=== PATIENT | female | born 1945 | race Caucasian/White ===

== ENCOUNTER 2018-06-15 | Emergency (ER) | payer MEDICARE, OTHER, SELFPAY ==
[2018-06-15 00:02] VITALS: BP 145/80; PULSE 62; RESP 18; TEMP 36.7; O2SAT 98; BMI 36.3
--- NOTE | 2018-06-15 00:29 | ED.DCSUM_ITS ---
- ER Visit Summary Date of Service: 06/15/18 Chief Complaint: Right foot redness History of Present Illness: The patient is a 72 F who had surgery on her Achilles tendon of her right foot on May 13. She was taken out of her cast this past week and into a walking boot, although she is still nonweightbearing for another 2 weeks. She was on Lovenox but took her last dose on June 10. She noted redness and warmth to the right posterior calf tonight and was concerned about a possible blood clot. Patient states her legs looks better on arrival to the hospital. She denies chest pain or shortness of breath. Physical Examination: Vital signs are unremarkable. Patient sitting upright in bed no acute distress. Head neck examination is unremarkable. Heart is regular rate and rhythm. Lung sounds are clear. Abdomen is soft nontender. Right lower extremity examination reveals a healing incision over the right posterior ankle. She has minimal fullness to the right posterior calf. There are no palpable cords. She has strong pulses. There is no skin erythema or excessive warmth. Test Results: [] Emergency Department Course and Treatment: Patient presented at nearly 12:30 AM on Friday morning. I advised her that we do not have anyone here at this hour to ultrasound her legs. She is given a dose of Lovenox tonight and will return on Friday for an ultrasound of her leg. Treatment Plan: [] Disposition: Discharge Impression: Right leg edema This note was generated with [employer] dictation software. It may contain incorrect words, spelling, and punctuation that were not noted in review of the chart prior to signing ED Disposition - Plan for ED Patient: Disposition: Home or Assisted Living Chief Complaint: Lower Extremity Injury Instructions: ED Leg Swelling Unilateral Additional Instructions: Return tomorrow for Ultrasound of leg as discussed.
[2018-06-15 00:36] VITALS: BP 146/70; PULSE 66; RESP 17; O2SAT 96
[2018-06-15] MEDS: Enoxaparin 100 MG/ML Syringe SC (00:36)
== END 2018-06-15 00:56 | disposition home or self-care (01) ==
LOC: ED 00:55
PROVIDERS: Emergency Provider Emergency Medicine
DX: R60.0 Localized edema (principal); E11.9 Type 2 diabetes mellitus without complications; I10 Essential (primary) hypertension; E78.00 Pure hypercholesterolemia, unspecified

== ENCOUNTER → 2018-06-15 14:00 | Outpatient (CLI) | payer MEDICARE, OTHER, SELFPAY ==
--- NOTE | 2018-06-15 14:10 | VDLE_ITS ---
Reason For Study: SWELLING RIGHT GSV is normal. CFV is compressible, spontaneous, phasic, competent and demonstrates normal augmentation. FV is compressible, spontaneous, phasic, competent and demonstrates normal augmentation. POP V is compressible, spontaneous, phasic, competent and demonstrates normal augmentation. T/P Trunk is compressible. Acute deep vein thrombosis is noted in the right posterior tibial vein. Acute deep vein thrombosis is noted in the right peroneal vein. Procedure Exam performed in department. A preliminary report was called and/or faxed to DR VELASQUEZ' OFFICE- [facility]. <> Interpretation Summary Acute deep vein thrombosis is noted in the right posterior tibial vein. Acute deep vein thrombosis is noted in the right peroneal vein. The remainder of the right lower extremity deep venous system is patent and compressible. Valvular competence appears intact within the proximal deep venous system on the right . The right greater saphenous vein appears patent and compressible segmentally. Ordering Physician: Maryellen Burleson Referring Physician: EVA LAURENT DPM Performed By: Yee Jean Baptiste, ARPAN, RVT
== END ==
PROVIDERS: Referring Provider Emergency Medicine; Visit Provider Emergency Medicine
DX: M79.89 Other specified soft tissue disorders (principal)
CPT/HCPCS: 93971; 99282

== ENCOUNTER → 2018-08-07 11:20 | Outpatient (CLI) | payer MEDICARE, OTHER, SELFPAY ==
[2018-08-07 12:41] LABS: Microalbumin,Random Urine 10.4 mg/L (NO RANGE EST.); Microalbumin:Creatinine Ratio 17.4 mg/g CRE (<30 mg/g CRE)
[2018-08-07 12:55] LABS: BUN 19 mg/dL (7-18); Creatinine, Serum 0.76 mg/dL (0.55-1.02); EST Glomerular Filtration Rate 80 mL/min (>60); Glucose 116 mg/dL (74-106); Hemoglobin A1c 6.7 % (4.2-6.3); Vitamin D,25 Hydroxy 31.4 ng/mL (29.95-100.01)
[2018-08-07 12:56] LABS: Alanine Aminotransfer ALT/SGPT 24 U/L (13-56); Anion Gap 9 (5-15); BUN/Creat Ratio 25.1 RATIO (10-20); Calcium,Total 9.5 mg/dL (8.5-10.1); Chloride 105 mmol/L (98-107); Cholesterol 196 mg/dL (200); Est Glom Filt Rate - Afr Amer 97 mL/min (>60); High Density Lipoprotein 45 mg/dL; Potassium 4.2 mmol/L (3.5-5.1); Sodium Level 141 mmol/L (136-145); Thyroid Stim Hormone (TSH) 3.44 uIU/mL (0.358-3.74); Triglycerides 136 mg/dL; Very Low Density Lipoprotein 27 mg/dL (5-40)
== END ==
DX: E11.9 Type 2 diabetes mellitus without complications (principal); E55.9 Vitamin D deficiency, unspecified
CPT/HCPCS: 36415; 80048; 80061; 82043; 82306; 82570; 83036; 84443; 84460

== ENCOUNTER 2018-11-11 09:30 | Outpatient (RCR) | payer MEDICARE, OTHER, SELFPAY ==
--- NOTE | 2018-09-28 13:04 | HP.PTEVAL_ITS ---
Patient's Visit Information BAILEE FIELDS is a 72 year old F referred to Physical Therapy by MEHRAN VELASQUEZ with a diagnosis of R ankle debridement achilles and spur/fasciotomy/haluucis longus tendon tra. Date of Evaluation: 09/28/18 Physical Therapist: Ambrocio Styles, DPT, OCS, CSCS - Visit Plan Frequency: 2x /Week Duration: 2 Months Plan: 2x/week for 4-8 weeks for. 1. Big toe, ankle ROM and APROM. 2. ankle and LE strength. 3. Gait training weaning out of boot clinic and home. STM for scar and swelling as needed. mobs to ankle and foot for ROM grade 4 - Subjective Findings: R foot hurt alot last year. Couldn't walk for fitness for any lenght of time. Had vein surgery R last year but it did not help. Went to foot and ankle and had PT. Found out achilles was 80% shredded. 05/13 had repair adn was doing well. Stitches out around Thanksgiving then needed wound care adn had it stitched up a couple times, got last couple stitches out last week. Been walking now for a couple weeks in boot. Is driving adn walking and has walker at home that she uses at times. In boot until not needed anymore, had hard boot but got bed sore, wearing soft boot now. R foot is swollen. Has no foot pain, but gets knee pain if walks too much (OA). If on feet 15 minutes it gets worse, walking around [employer] hurts. Better with walker. Pain is knee and up to 7/10 and gone with sitting. Has compression garments from vein doctor and hard to get on, tried to put them on foot a few days ago and front of foot hurt transiently. Sleep is not great but not due to ankle. achy all over at times keeps her up. Not employed. Has 30 grandchildren and is active with them. Serves at [employer]. Limited in these areas with being on feet. Hard to walk around at [employer]. On eloquist from blood clot adn will try to get off it tomorrow. [place]. Basic ADLs are I except shoes, needs husbands assist to put on. - Pain R knee Pain Intensity (Out of 10): 0 Pain Intensity Range: 0, 7 - Objective Antalgia with gait with boot on avoiding stance time on R foot, unable to heel raise or push off with R today, unable to heel walk due to weakness. Transfers I with UE. R foot metatarsal and toe mvoement limited especcially in big toe ex and flexion. Ankle AROM L WNL to 5 DF, R is -2 DF, 10 inv, 6 eversion and 45 PF, Passively is firm end feel to push past these, not a lot of pain. strength R ankle 4-/5 and L ankle 4+. incision feels good and not alot of unusual scar tissue. Mild swelling R ankle adn foot. R knee hurts medially at joint line with resisted ext adn flexion but 4/5 strength B. SLS is hard on R and very limited proprioception [place]. - Goals Goal 1:: 5 DF, 50 PF and 25 inv adn 15 ev R ankle to make ambulation and steps easier. Goal Time Frame: 4-6 Weeks Goal 2:: Walk without boot normal and steps normal in clinic Goal Time Frame: 4-6 Weeks Goal 3:: Walk one mile community without increased knee pain Goal Time Frame: 6-8 Weeks Goal 4:: Pt feel back to 90% activities Goal Time Frame: 6-8 Weeks - Rehabilitation Potential Physical Therapy Diagnosis: s/p R ankle surgery. Stiffness adn weakness adn diminished mobility. Rehabilitation Potential: Fair - Anticipated Interventions Patient/Client Instruction: Educate patient on: Condition, Plan of Care For the Purpose of:: To decrease pain, To increase ROM, To improve muscle performance and motor function, To improve ability of physical actions for home/community/work/leisure Therapeutic Exercise to Include: Strength training, Balance training, Flexibilty training, Gait and locomotor training, Passive ROM, Active ROM For the Purpose of:: To decrease pain, To increase ROM, To increase tolerance to activity/condition/position, To improve ability of physical actions for home/community/work/leisure Manual Therapy Techniques to Include: Scar massage, Mobilization, Soft tissue mobilization For the Purpose of:: To decrease pain, To increase ROM Cryotherapy (ice pack, ice massage): Yes Thermo therapy (hot pack): Yes For the Purpose of:: To decrease pain, To increase ROM Thank you for the opportunity to evaluate your patient. For Medicare and Medicare HMO plans, please review the plan of care and approve it. It will need to be FAXED BACK to us at [phone] for Medicare purposes. For Medicare only, by signing this I certify the plan of care. Please let me know if there are questions or concerns regarding this plan of care. Physician Signature: Date:
--- NOTE | 2018-11-11 09:55 | HP.PTDCSUM_ITS ---
HP - PT D/C Summary It has been my pleasure to treat BAILEE FIELDS under orders from MEHRAN VELASQUEZ, for the diagnosis of R ankle debridement achilles and spur/f asciotomy/haluucis longus tendon tra for a total of 10 visit(s). Discharge Date: 11/11/18 Please see the following information for a summary of their discharge status. - Subjective Subjective: Not alot of pain in ankle. Knee hurts sometimes btu not a lot worse than prior to this incident. Feels and told limping at times when she has been sitting a long time. HEP no problem but mostly doing SL heel raise and hold. Doing well, endurance is the only issue. To doctor next . - Pain R knee Pain Intensity (Out of 10): 1 - Overall Improvement % Improvement: 90 - Objective Objective/Function: 0 DF R, full PF adn inv/ev(20 INV ADN 15 EVERSION). Still slightly weak on gastroc heel raise but improving. Gait looks good today with pushoff and steps near normal descending. OVERALL DOING EXCELLENT AND WILL CONTINUE VIA HEP - Goals Goal 1:: 5 DF, 50 PF and 25 inv adn 15 ev R ankle to make ambulation and steps easier. Goal Progress: Progressing Goal 2:: Walk without boot normal and steps normal in clinic Goal Progress: Goal Met Goal 3:: Walk one mile community without increased knee pain Goal Progress: STILL SOME KNEE PAIN Goal 4:: Pt feel back to 90% activities Goal Progress: Goal Met - Plan Plan: D/C - D/C Information Discharge Comments: dOING WELL ADN WILL CONTINUE VIA HEP FOLLOWING UP WITH DOCTOR IN A WEEK If there are questions or concerns regarding this patient's physical therapy, please feel free to call me at [phone]. Thank you for the referral of this patient. Sincerely, Ambrocio Styles, DPT, OCS, CSCS
== END 2018-11-11 19:00 | disposition home or self-care (01) ==
LOC: PT 09:30
DX: Z98.890 Other specified postprocedural states (principal)
CPT/HCPCS: 97110; 97140; 97162; 97530

== ENCOUNTER → 2019-01-27 11:48 | Outpatient (CLI) | payer MEDICARE, OTHER, SELFPAY ==
[2019-01-27 14:23] LABS: Alanine Aminotransfer ALT/SGPT 18 U/L (13-56); Anion Gap 6 (5-15); BUN 15 mg/dL (7-18); Chloride 109 mmol/L (98-107); Cholesterol 125 mg/dL (200); Creatinine, Serum 0.79 mg/dL (0.55-1.02); EST Glomerular Filtration Rate 76 mL/min (>60); Est Glom Filt Rate - Afr Amer 92 mL/min (>60); Glucose 126 mg/dL (74-106); High Density Lipoprotein 42 mg/dL; Potassium 4.2 mmol/L (3.5-5.1); Sodium Level 139 mmol/L (136-145); Triglycerides 121 mg/dL; Very Low Density Lipoprotein 24 mg/dL (5-40)
[2019-01-27 14:30] LABS: Microalbumin,Random Urine 38.6 mg/L (NO RANGE EST.)
[2019-01-27 14:34] LABS: Hemoglobin A1c 6.6 % (4.2-6.3)
== END ==
DX: E11.9 Type 2 diabetes mellitus without complications (principal); E78.2 Mixed hyperlipidemia
CPT/HCPCS: 36415; 80048; 80061; 82043; 83036; 84460

== ENCOUNTER → 2019-08-06 12:03 | Outpatient (CLI) | payer MEDICARE, OTHER, SELFPAY ==
[2019-08-06 14:03] LABS: Hemoglobin A1c 7.1 % (4.2-6.3)
[2019-08-06 14:11] LABS: Microalbumin,Random Urine < 5.0 mg/L (NO RANGE EST.)
[2019-08-06 14:26] LABS: Alanine Aminotransfer ALT/SGPT 30 U/L (13-56); Anion Gap 4 (5-15); BUN 19 mg/dL (7-18); BUN/Creat Ratio 27.1 RATIO (10-20); Chloride 107 mmol/L (98-107); Cholesterol 134 mg/dL (200); EST Glomerular Filtration Rate 87 mL/min (>60); Est Glom Filt Rate - Afr Amer 105 mL/min (>60); Glucose 108 mg/dL (74-106); High Density Lipoprotein 45 mg/dL; Sodium Level 139 mmol/L (136-145); Thyroid Stim Hormone (TSH) 0.45 uIU/mL (0.358-3.74); Triglycerides 116 mg/dL; Very Low Density Lipoprotein 23 mg/dL (5-40)
== END ==
DX: E11.9 Type 2 diabetes mellitus without complications (principal); E78.2 Mixed hyperlipidemia; I10 Essential (primary) hypertension; E03.9 Hypothyroidism, unspecified
CPT/HCPCS: 36415; 80048; 80061; 82043; 82570; 83036; 84443; 84460

== ENCOUNTER → 2020-02-04 | Outpatient (CLI) | payer MEDICARE, OTHER, SELFPAY ==
[2020-02-04 13:24] LABS: Microalbumin,Random Urine < 5.0 mg/L (NO RANGE EST.)
[2020-02-04 13:37] LABS: Hemoglobin A1c 7.2 % (3.8-5.6)
[2020-02-04 13:39] LABS: AST(SGOT) 22 U/L (15-37); Alanine Aminotransfer ALT/SGPT 31 U/L (13-56); Albumin, Serum 3.4 g/dL (3.2-5.0); Alkaline Phosphatase 58 U/L (45-117); Anion Gap 4 (5-15); BUN 14 mg/dL (7-18); BUN/Creat Ratio 22.8 RATIO (10-20); Bilirubin, Direct 0.12 mg/dL (0.00-0.30); Calcium,Total 8.7 mg/dL (8.5-10.1); Chloride 111 mmol/L (98-107); Cholesterol 127 mg/dL (200); Creatinine, Serum 0.61 mg/dL (0.55-1.02); EST Glomerular Filtration Rate 101 mL/min (>60); Est Glom Filt Rate - Afr Amer 123 mL/min (>60); Globulin 3.1 g/dL (2.2-4.2); Glucose 123 mg/dL (74-106); High Density Lipoprotein 33 mg/dL; Potassium 3.8 mmol/L (3.5-5.1); Protein, Total 6.5 g/dL (6.4-8.2); Sodium Level 140 mmol/L (136-145); Thyroid Stim Hormone (TSH) 0.46 uIU/mL (0.358-3.74); Triglycerides 151 mg/dL; Very Low Density Lipoprotein 30 mg/dL (5-40)
== END | disposition home or self-care (01) ==
LOC: LAB 12:26
DX: I10 Essential (primary) hypertension (principal); E11.9 Type 2 diabetes mellitus without complications; E55.9 Vitamin D deficiency, unspecified; E78.2 Mixed hyperlipidemia; E03.9 Hypothyroidism, unspecified
CPT/HCPCS: 36415; 80048; 80061; 80076; 82043; 82306; 83036; 84443

== ENCOUNTER → 2020-04-24 | Outpatient (CLI) | payer MEDICARE, OTHER, SELFPAY ==
[2020-04-24 16:40] LABS: Anion Gap 6 (5-15); BUN 13 mg/dL (7-18); Calcium,Total 9.2 mg/dL (8.5-10.1); Chloride 108 mmol/L (98-107); Cholesterol 124 mg/dL (200); Creatinine, Serum 0.65 mg/dL (0.55-1.02); EST Glomerular Filtration Rate 95 mL/min (>60); Est Glom Filt Rate - Afr Amer 115 mL/min (>60); Free T3 2.3 pg/mL (2.18-3.98); Glucose 120 mg/dL (74-106); High Density Lipoprotein 41 mg/dL; Sodium Level 141 mmol/L (136-145); T4 Total, Thyroxin 9.3 ug/dL (4.8-13.9); Thyroid Stim Hormone (TSH) 0.23 uIU/mL (0.358-3.74); Triglycerides 138 mg/dL; Very Low Density Lipoprotein 28 mg/dL (5-40)
[2020-04-24 16:43] LABS: Hemoglobin A1c 6.7 % (3.8-5.6)
== END | disposition home or self-care (01) ==
LOC: MFPLAB 11:49
PROVIDERS: PCP Family Medicine; Referring Provider Family Medicine; Visit Provider Family Medicine
DX: E03.9 Hypothyroidism, unspecified (principal); E11.9 Type 2 diabetes mellitus without complications; I10 Essential (primary) hypertension
CPT/HCPCS: 36415; 80048; 80061; 83036; 84436; 84443; 84481

== ENCOUNTER → 2020-07-17 | Outpatient (CLI) | payer MEDICARE, OTHER, SELFPAY ==
[2020-07-17 15:47] LABS: Free T3 2.1 pg/mL (2.18-3.98); T4 Total, Thyroxin 10.9 ug/dL (4.8-13.9); Thyroid Stim Hormone (TSH) 0.29 uIU/mL (0.358-3.74)
== END | disposition home or self-care (01) ==
LOC: LABSPEC 14:14
PROVIDERS: PCP Family Medicine; Visit Provider Nurse Practitioner Family
DX: E03.9 Hypothyroidism, unspecified (principal); E11.9 Type 2 diabetes mellitus without complications
CPT/HCPCS: 83036; 84436; 84443; 84481

== ENCOUNTER 2020-07-18 14:00 | Outpatient (RCR) | payer MEDICARE, OTHER, SELFPAY ==
--- NOTE | 2020-07-07 12:06 | HP.OTEVAL ---
Patient's Visit Information BAILEE FIELDS is a 74 year old F, referred to Occupational Therapy by GABRIELA MARTINEZ, with a diagnosis of right UE lymphedema, Breast cancer. Date of Evaluation: 07/07/20 Occupational Therapist: Yuly Raines, OTR/L, CHT - Subjective This 74 year old female who was seen for OT eval with dx of Lymphedema- pt states in 2019 she underwent bilateral mastectomy. pt went throught 4 chemo and 15 radiation tx. pt is unsure when her right arm started swelling, but went to [facility] due to redness and sorness of right forearm- was advised there about the lymphedema. [employer] Gabriela Martinez confirmed dx and R/O DVT refered pt to OT for lymhedema mtg- - ROM ROM Comments: bilateral UE demo ROM WNL - Lymphedema (Circumferential Measure) MCP: right 21.5cm left 19.5cm Wrist: right 18cm left 17cm Lower forearm: right 24cm left 23cm Largest forearm: right 30.5cm left 27cm Elbow: right 30cm left 29cm Largest humerus: right 36cm 25.5cm Axcillary: right 40cm left 38cm - Sensation Sensation Comments: denies - Quick DASH-Disab of Arm,Shoulder& Hand Quick DASH Score: 27.2725 - Goals Demonstrate a 20% reduction in edema by d/c: Yes Demonstrate adequate knowledge of self-massage by 2nd week: Yes Demonstrate adequate knowledge skin care/prec by 2nd week: Yes Demonstrate adequate knowledge therapeutic exercises by d/c: Yes Select approp compression garment w/donning/care/wear by d/c: Yes Voice need to replace compression garment every 4-6mo by dc: Yes - Rehabilitation General Assessment: Pt is 8 months s/p from bilateral Mastectomy. pt demo with stage I right UE lymphedema and in need of skilled OT services 1x week for 3 weeks to ed. pt on lymphedema mtg. and use of compression garments. Today therapist discuseed treatment options pt declined using short stretch wrapping and would like to pursue getting compression garments for right arm and hand 20-30mmHg. Therapist faxed order for [employer] to review and return if she agreed with compression class. Today therapist also ed. pt on skin care, lymphedema ex, and lymohedema system. Therapist will review lymph ex and initiate ed on self manual lymph drainage. pt demo understanding and agrees to POC. Rehabilitation Potential: Good - Anticipated Interventions Education re Diagnosis, Manual Lymph Drainage, Education re Life-long lymphedema Management, Education re Skin Care and Precautions, Education re Self Massage Techniques, Education re Correct Donning Tech,Care&Wearing Sched Comp Garments, Home Program - Visit Plan Frequency: 1x/Week Duration: 3 Weeks TEXT: Thank you for the opportunity to evaluate your patient. For Medicare and Medicare HMO plans, please review the plan of care and approve it. It will need to be FAXED BACK to us at [phone] for Medicare purposes. Please let me know if there are questions or concerns regarding this plan of care. Physician Signature: Date:
--- NOTE | 2020-10-10 14:49 | HP.OTDCSUM ---
It has been my pleasure to treat BAILEE FIELDS under orders from ABDIRAHMAN MARTINEZ, for the diagnosis of right UE lymphedema, Breast cancer for a total of 2 visit(s). Please see the following information for a summary of their discharge status. % Improvement: 70 Objective/Function: MCP 18cm. wrist 17.5cm. lower forearm 22.5 cm. largest forearm 28.5cm. elbow 30cm. humerus 36. axillary 39 Patient Goals: Learn how to Manage Lymphedema, Other - apply compression garment Demonstrate a 20% reduction in edema by d/c: Yes Demonstrate adequate knowledge of self-massage by 2nd week: Yes Demonstrate adequate knowledge skin care/prec by 2nd week: Yes Demonstrate adequate knowledge therapeutic exercises by d/c: Yes Select approp compression garment w/donning/care/wear by d/c: Yes Voice need to replace compression garment every 4-6mo by dc: Yes Plan: pt to return to dr. if edema increases. pt demo understanding of HEP and need of compression deivices. pt d/c with HEP Discharge Comments: pt d/c with HEP to mt. Lymphedema. pt agree to POC If there are questions or concerns regarding this patient's occupational therapy, please fell free to call me at [phone]. Thank you for the referral of this patient. Sincerely, Yuly Raines OTR/L, CHT
== END 2020-07-18 19:00 | disposition home or self-care (01) ==
LOC: OT 14:00
PROVIDERS: PCP Family Medicine
DX: I89.0 Lymphedema, not elsewhere classified (principal)
CPT/HCPCS: 97166; 97530

== ENCOUNTER → 2020-10-16 | Outpatient (REF) | payer MEDICARE, OTHER, SELFPAY | END | disposition home or self-care (01) | LOC: LABSPEC 13:07 | PROVIDERS: PCP Family Medicine; Visit Provider Nurse Practitioner Family | DX: R35.0 Frequency of micturition (principal); R30.0 Dysuria | CPT/HCPCS: 87077; 87086; 87088; 87186 ==

== ENCOUNTER → 2020-12-18 | Outpatient (CLI) | payer MEDICARE, OTHER, SELFPAY ==
[2020-12-18 13:43] LABS: Hemoglobin A1c 7.1 % (3.8-5.6)
== END | disposition home or self-care (01) ==
LOC: LABSPEC 13:14
PROVIDERS: PCP Family Medicine; Referring Provider Nurse Practitioner Family; Visit Provider Nurse Practitioner Family
DX: E11.9 Type 2 diabetes mellitus without complications (principal)
CPT/HCPCS: 83036

== ENCOUNTER → 2021-03-19 13:20 | Outpatient (CLI) | payer MEDICARE, OTHER, SELFPAY ==
[2021-03-19 15:04] LABS: Absolute Neutrophil Count 3.4 X10^3/uL (2.0-7.7); Basophil# 0.03 X10^3/uL; Basophil% 0.6 % (0-1); Eosinophil# 0.12 X10^3/uL; Eosinophils% 2.4 % (0-5); Hematocrit 37.2 % (37-47); Hemoglobin 12.1 g/dL (12.0-15.0); Lymphocyte % 21.7 % (19-41); Mean Corp Hgb Conc 32.5 g/dL (32-36); Mean Corpuscular Hgb 27.6 pg (27.0-32.0); Mean Corpuscular Volume 84.9 fL (81-99); Mean Platelet Vol. 9.5 fl (6.2-12.0); Monocyte# 0.43 X10^3/uL; Monocyte% 8.5 % (0-10); NRBC Flagged by Analyzer 0 % (0-5); Neutrophil # 3.39 X10^3/uL (2.7-7.7); Neutrophil % 66.8 % (47-70); Platelet Count 233 K/mm3 (150-450); RBC Distribution Width CV 14.7 % (11.6-14.6); RBC Distribution Width SD 45.7 fl (35.1-43.9); Red Blood Count 4.38 M/mm3 (4.2-5.4); White Blood Count 5.1 K/mm3 (4.4-11.0)
[2021-03-19 15:28] LABS: Hemoglobin A1c 7.1 % (3.8-5.6)
[2021-03-19 15:45] LABS: Microalbumin,Random Urine < 5.0 mg/L (NO RANGE EST.)
[2021-03-19 15:52] LABS: ALB/GLOB Ratio 1.1 RATIO (0.9-2.4); AST(SGOT) 18 U/L (15-37); Alanine Aminotransfer ALT/SGPT 24 U/L (13-56); Albumin, Serum 3.7 g/dL (3.2-5.0); Alkaline Phosphatase 64 U/L (45-117); Anion Gap 8 (5-15); BUN 15 mg/dL (7-18); BUN/Creat Ratio 22.1 RATIO (10-20); Calcium,Total 8.8 mg/dL (8.5-10.1); Chloride 107 mmol/L (98-107); Creatinine, Serum 0.68 mg/dL (0.55-1.02); EST Glomerular Filtration Rate 90 mL/min (>60); Est Glom Filt Rate - Afr Amer 109 mL/min (>60); Free T3 2.2 pg/mL (2.18-3.98); Globulin 3.3 g/dL (2.2-4.2); Glucose 114 mg/dL (74-106); Potassium 4.1 mmol/L (3.5-5.1); Sodium Level 138 mmol/L (136-145); T4 Free Direct 1.15 ng/dL (0.76-1.46)
== END ==
PROVIDERS: PCP Family Medicine; Referring Provider Family Medicine; Visit Provider Family Medicine
DX: E03.9 Hypothyroidism, unspecified (principal); E11.69 Type 2 diabetes mellitus with other specified complication; T81.31XA Disruption of external operation (surgical) wound, not elsewhere classified, initial encounter; Z85.3 Personal history of malignant neoplasm of breast
CPT/HCPCS: 36415; 80053; 82043; 82570; 83036; 84439; 84443; 84481; 85025

== ENCOUNTER → 2021-07-17 08:24 | Outpatient (CLI) | payer MEDICARE, OTHER, SELFPAY ==
--- NOTE | 2021-07-17 08:27 | US_ITS ---
STUDY: ABDOMINAL ULTRASOUND - RIGHT UPPER QUADRANT REASON FOR VISIT: Female, 75 years old HX OF PANCREATIC Cyst TECHNIQUE: Ultrasound evaluation of the right upper quadrant was performed with real-time and static chacko-scale imaging. TECHNICAL QUALITY: Limited. Examination limited by bowel gas. COMPARISON: None. FINDINGS: Liver: The liver measures 17.1 cm. There is increased echogenicity consistent with fatty infiltration. The bile ducts are within normal limits. There is hepatic color flow. The direction of portal flow is hepatopetal. There is no demonstrated mass lesion. Gallbladder: Normal distended gallbladder. The gallbladder wall measures 2.1 mm. There is a negative sonographic Gr''s sign. There is no pericholecystic fluid. There are no gallstones. Common Bile Duct (C.B.D.): The common bile duct measures 2.7 mm. Pancreas: Normal size of the head, body and tail of the pancreas. There is normal echogenicity of the pancreas. I suspect a 9 mm x 6 mm x 5 mm cyst in the head of the pancreas. Right Kidney: Normal size of the right kidney. The right kidney measures 12.5 cm x 6.9 cm x 6.9 cm. Normal renal cortex. The right cortex measures 1.3 cm. There is no demonstrated renal mass or cyst. There is no right hydronephrosis. US/Abdomen Limited IMPRESSION: Fatty infiltration of the liver. 9 mm x 6 mm x 5 mm cyst in the head of the pancreas. Electronically Signed: Terrence Vega MD at 9:54 EST , Service support ,
== END ==
PROVIDERS: PCP Family Medicine; Referring Provider Family Medicine; Visit Provider Family Medicine
DX: K86.2 Cyst of pancreas (principal)
CPT/HCPCS: 76705

== ENCOUNTER 2021-09-26 10:30 | Outpatient (CLI) | payer MEDICARE, OTHER, SELFPAY ==
[2021-09-26 12:37] LABS: AST(SGOT) 16 U/L (15-37); Alanine Aminotransfer ALT/SGPT 18 U/L (13-56); Albumin, Serum 3.2 g/dL (3.2-5.0); Alkaline Phosphatase 49 U/L (45-117); Anion Gap 5 (5-15); BUN 18 mg/dL (7-18); BUN/Creat Ratio 28.3 RATIO (10-20); Calcium,Total 8.9 mg/dL (8.5-10.1); Chloride 111 mmol/L (98-107); Cholesterol 117 mg/dL (200); Creatinine, Serum 0.64 mg/dL (0.55-1.02); EST Glomerular Filtration Rate 97 mL/min (>60); Est Glom Filt Rate - Afr Amer 117 mL/min (>60); Globulin 3.2 g/dL (2.2-4.2); Glucose 150 mg/dL (74-106); Hemoglobin A1c 7.5 % (3.8-5.6); High Density Lipoprotein 44 mg/dL; Protein, Total 6.4 g/dL (6.4-8.2); Sodium Level 139 mmol/L (136-145); Triglycerides 123 mg/dL; Very Low Density Lipoprotein 25 mg/dL (5-40)
== END 2021-09-26 23:59 | disposition home or self-care (01) ==
LOC: MFPLAB 10:33
PROVIDERS: PCP Family Medicine; Referring Provider Family Medicine; Visit Provider Family Medicine
DX: E11.69 Type 2 diabetes mellitus with other specified complication (principal)
CPT/HCPCS: 36415; 80053; 80061; 83036

== ENCOUNTER → 2022-03-04 | Outpatient (CLI) | payer MEDICARE, OTHER, SELFPAY | END | disposition home or self-care (01) | LOC: LABSPEC 12:23 | PROVIDERS: PCP Family Medicine; Visit Provider Nurse Practitioner Family | DX: U07.1 COVID-19 (principal) | CPT/HCPCS: 87635; U0003; U0005 ==

== ENCOUNTER → 2022-03-14 | Outpatient (CLI) | payer MEDICARE, OTHER, SELFPAY ==
--- NOTE | 2022-03-14 09:06 | ECHOD_ITS ---
Reason For Study: CENTRAL SLEEP APNEA, DYSPNEA Procedure This was a 2D Doppler, Color Flow transthoracic echocardiogram. Exam performed in department. Left Ventricle Normal LV size. The estimated ejection fraction is 60-65 %. No evidence for diastolic dysfunction. No regional wall motion abnormalities noted. Right Ventricle Normal RV size. Normal systolic function. Atria Normal left atrium. Normal right atrium. No doppler evidence for ASD. Bubble contrast study negative for right to left interatrial shunt. Mitral Valve There is no mitral valve stenosis. Trivial mitral valve insufficiency. Tricuspid Valve There is no tricuspid stenosis. Unable to estimate RV systolic pressure due to inadequate jet, pulmonary artery pressure probably normal. Aortic Valve Trisinus/trileaflet aortic valve. There is no aortic stenosis. No aortic valve insufficiency. Pulmonic Valve There is no pulmonic valvular stenosis. No pulmonic valve insufficiency. Great Vessels Normal aortic root. Pericardium/Pleural No pericardial effusion. Medication 22 gauge I.V. with prn adaptor inserted into left arm. Performed a rapid injection of agitated mix of 9 cc saline and 1cc air to assess for atrial septal defect. MMode/2D Measurements & Calculations LVIDd: 4.8 cm IVSd: 1.0 cm Ao root diam: 3.4 cm LVIDs: 3.1 cm LVPWd: 1.1 cm RVDd: 2.8 cm FS: 35.6 % LAV(MOD-bp): 64.9 ml LA A4 area: 21.0 cm2 LA dimension(2D): 4.0 cm LAV(MOD-bp) Indexed: 31.8 ml/m2 LAV(MOD-sp2): 65.0 ml LAV(MOD-sp4): 63.5 ml RA A4 area: 18.3 cm2 Time Measurements MV dec time: 0.26 sec Doppler Measurements & Calculations MV E max quentin: 48.0 cm/sec Lat Peak E' Quentin: 8.0 cm/sec Med Peak E' Quentin: 7.4 cm/sec MV A max quentin: 74.2 cm/sec E/E' lat: 6.0 E/E' med: 6.5 MV E/A: 0.65 MV dec slope: 188.3 cm/sec2 Ao V2 max: 117.1 cm/sec LV V1 max: 97.6 cm/sec Ao max P.5 mmHg LV V1 max P.8 mmHg Ao V2 mean: 85.8 cm/sec LV V1 mean P.1 mmHg Ao mean P.3 mmHg LV V1 mean: 67.3 cm/sec Ao V2 VTI: 31.8 cm LV V1 VTI: 23.9 cm PA V2 max: 76.1 cm/sec TR max quentin: 238.8 cm/sec TR max P.8 mmHg ECHO/Echo Complete Interpretation Summary The estimated ejection fraction is 60-65 %. No evidence for diastolic dysfunction. Trivial mitral valve insufficiency. Ordering Physician: Edward Sommer Referring Physician: Ambrocio Cueto Performed By: My Stanley, ARPAN, RVT
== END | disposition home or self-care (01) ==
LOC: CVS 09:04
PROVIDERS: PCP Family Medicine; Visit Provider Internal Medicine Pulmonary Disease
DX: G47.31 Primary central sleep apnea (principal); R06.00 Dyspnea, unspecified
CPT/HCPCS: 93306; A4216

== ENCOUNTER → 2022-05-22 | Outpatient (CLI) | payer MEDICARE, OTHER, SELFPAY ==
[2022-05-22 10:05] LABS: Absolute Lymphocyte Count 1.32 X10^3/uL (0.83-4.51); Absolute Neutrophil Count 3.2 X10^3/uL (2.0-7.7); Basophil# 0.03 X10^3/uL; Basophil% 0.6 % (0-1); Eosinophil# 0.18 X10^3/uL; Eosinophils% 3.4 % (0-5); Hematocrit 38.3 % (37-47); Hemoglobin 12.9 g/dL (12.0-15.0); Lymphocyte # 1.32 X10^3/ul (0.83-4.51); Lymphocyte % 25.3 % (19-41); Mean Corp Hgb Conc 33.7 g/dL (32-36); Mean Corpuscular Volume 86.1 fL (81-99); Monocyte# 0.49 X10^3/uL; Monocyte% 9.4 % (0-10); NRBC Flagged by Analyzer 0 % (0-5); Neutrophil # 3.19 X10^3/uL (2.7-7.7); Neutrophil % 61.1 % (47-70); Platelet Count 249 K/mm3 (150-450); RBC Distribution Width CV 15.2 % (11.6-14.6); RBC Distribution Width SD 48.2 fl (35.1-43.9); Red Blood Count 4.45 M/mm3 (4.2-5.4); White Blood Count 5.2 K/mm3 (4.4-11.0)
[2022-05-22 10:52] LABS: ALB/GLOB Ratio 1.1 RATIO (0.9-2.4); AST(SGOT) 17 U/L (15-37); Alanine Aminotransfer ALT/SGPT 21 U/L (13-56); Albumin, Serum 3.5 g/dL (3.2-5.0); Alkaline Phosphatase 47 U/L (45-117); Anion Gap 8 (5-15); BUN 17 mg/dL (7-18); BUN/Creat Ratio 22.8 RATIO (10-20); Calcium,Total 9.2 mg/dL (8.5-10.1); Chloride 107 mmol/L (98-107); Creatinine, Serum 0.75 mg/dL (0.55-1.02); EST Glomerular Filtration Rate 80 mL/min (>60); Est Glom Filt Rate - Afr Amer 97 mL/min (>60); Globulin 3.2 g/dL (2.2-4.2); Glucose 130 mg/dL (74-106); Potassium 3.8 mmol/L (3.5-5.1); Protein, Total 6.7 g/dL (6.4-8.2); Sodium Level 138 mmol/L (136-145)
[2022-05-22 11:01] LABS: Hemoglobin A1c 6.8 % (3.8-5.6)
== END | disposition home or self-care (01) ==
LOC: MFPLAB 09:19
PROVIDERS: PCP Family Medicine; Referring Provider Family Medicine; Visit Provider Family Medicine
DX: E11.69 Type 2 diabetes mellitus with other specified complication (principal); J18.9 Pneumonia, unspecified organism
CPT/HCPCS: 36415; 80053; 83036; 85025

== ENCOUNTER → 2022-08-27 | Outpatient (CLI) | payer MEDICARE, OTHER, SELFPAY ==
--- NOTE | 2022-08-27 11:20 | RAD_ITS ---
STUDY: X-RAY CHEST REASON FOR EXAM: Female, 76 years old. Hx RLL pneumonia - persistent rales TECHNIQUE: PA and lateral COMPARISON: None. FINDINGS: The lungs are clear and expanded. There is no demonstrated pleural abnormality. Normal size heart. Normal mediastinum and victor hugo. Normal visualized pulmonary arteries. Mildly calcified aortic arch and descending thoracic aorta. Dorsal spine demonstrates dextroscoliosis. Normal visualized ribs, clavicles, and shoulders. There is no demonstrated abnormality of the visualized soft tissue structures of the upper abdomen. RAD/Chest PA and Lateral IMPRESSION: No acute cardiopulmonary pathology. Electronically Signed: Diego Cotto MD at 21:44 EST ,
== END | disposition home or self-care (01) ==
LOC: MTRAD 11:18
PROVIDERS: PCP Family Medicine; Referring Provider Family Medicine; Visit Provider Family Medicine
DX: J18.9 Pneumonia, unspecified organism (principal)
CPT/HCPCS: 71046

== ENCOUNTER → 2023-02-17 | Outpatient (CLI) | payer MEDICARE, OTHER, SELFPAY ==
[2023-02-17 17:29] LABS: Absolute Lymphocyte Count 1.45 X10^3/uL (0.83-4.51); Absolute Neutrophil Count 4.4 X10^3/uL (2.0-7.7); Basophil# 0.04 X10^3/uL; Basophil% 0.6 % (0-1); Eosinophil# 0.17 X10^3/uL; Eosinophils% 2.6 % (0-5); Hematocrit 39.8 % (37-47); Hemoglobin 13.1 g/dL (12.0-15.0); Lymphocyte # 1.45 X10^3/ul (0.83-4.51); Lymphocyte % 21.8 % (19-41); Mean Corp Hgb Conc 32.9 g/dL (32-36); Mean Corpuscular Hgb 28.7 pg (27.0-32.0); Mean Corpuscular Volume 87.1 fL (81-99); Mean Platelet Vol. 9.9 fl (6.2-12.0); Monocyte# 0.56 X10^3/uL; Monocyte% 8.4 % (0-10); NRBC Flagged by Analyzer 0 % (0-5); Neutrophil # 4.42 X10^3/uL (2.7-7.7); Neutrophil % 66.4 % (47-70); Platelet Count 247 K/mm3 (150-450); RBC Distribution Width CV 14.6 % (11.6-14.6); RBC Distribution Width SD 46.5 fl (35.1-43.9); Red Blood Count 4.57 M/mm3 (4.2-5.4); White Blood Count 6.7 K/mm3 (4.4-11.0)
[2023-02-17 17:48] LABS: ALB/GLOB Ratio 1.1 RATIO (0.9-2.4); AST(SGOT) 18 U/L (15-37); Alanine Aminotransfer ALT/SGPT 22 U/L (13-56); Albumin, Serum 3.6 g/dL (3.2-5.0); Alkaline Phosphatase 55 U/L (45-117); Anion Gap 7 (5-15); BUN 19 mg/dL (7-18); Calcium,Total 9.9 mg/dL (8.5-10.1); Chloride 108 mmol/L (98-107); Creatinine, Serum 0.76 mg/dL (0.55-1.02); EST Glomerular Filtration Rate 79 mL/min (>60); Est Glom Filt Rate - Afr Amer 95 mL/min (>60); Globulin 3.4 g/dL (2.2-4.2); Glucose 126 mg/dL (74-106); Potassium 3.9 mmol/L (3.5-5.1); Sodium Level 139 mmol/L (136-145)
[2023-02-17 18:06] LABS: Microalbumin,Random Urine 11.1 mg/L (NO RANGE EST.); Microalbumin:Creatinine Ratio 9.5 mg/g CRE (<30 mg/g CRE)
== END | disposition home or self-care (01) ==
LOC: MTLAB 15:17
PROVIDERS: PCP Family Medicine; Referring Provider Family Medicine; Visit Provider Family Medicine
DX: E11.69 Type 2 diabetes mellitus with other specified complication (principal)
CPT/HCPCS: 36415; 80053; 82043; 82570; 85025

== ENCOUNTER → 2023-08-28 | Outpatient (CLI) | payer MEDICARE, OTHER, SELFPAY ==
--- OUTSIDE RECORDS SUMMARY | 2023-08-28 11:31 | XMS RPT_ITS | CCD ---
Author Name Unknown Address [id number] [place] [address] Organization [facility] Care Team Providers Care Hospital Clerk Name Role Phone Miguel Angel Bhat Unavailable Request, Self Unavailable Unavailable Request, Self Unavailable Unavailable Miguel Angel Bhat Unavailable Unavailable Miguel Angel Bhat Unavailable Unavailable WAGNER SHAH Unavailable Unavailable WAGNER SHAH M Unavailable Unavailable MIGUEL ANGEL BHAT Unavailable Unavailable NARESHONEARLYNTE M Unavailable Unavailable MIGUEL ANGEL BHAT Unavailable Unavailable CLAUDETTE SHUKLA Unavailable Unavailable MIGUEL ANGEL BHAT Unavailable Unavailable MIGUEL ANGEL BHAT Unavailable Unavailable HOME MIGUEL ANGEL G Unavailable Unavailable HOME MIGUEL ANGEL G Unavailable Unavailable HOME MIGUEL ANGEL G Unavailable Unavailable HOME MIGUEL ANGEL G Unavailable Unavailable Miguel Angel Bhat G Unavailable [phone] Miguel Angel Bhat Primary Care Provider U MEHRAN Castillo Attending UnavailMEHRAN Lopez Attending UnavailMEHRAN Lopez Attending UnavailNIDHI Bolton Admitting Unavailable NIDHI BRAUN Attending Unavailable Miguel Angel Bhat Primary Care Provider Miguel Angel Bhat Unavailable Cinthya Pizarro Unavailable Leni Elise Unavailable Unavailable Nidhi Braun Unavailable [phone] Alexandra Jean-Baptiste Unavailable Unavailable Ophelia Ybarra Unavailable Osiris Diane Unavailable Unavailable Jose Dunn Primary Care Provider Jordon Ballard Unavailable Halaharvi, Ophelia Tori Unavailable Miguel Angel Bhat Unavailable [phone] Miguel Angel Bhat MD Unavailable Kade ACOSTA, Nidhi Mario Unavailable [phone] Jerilyn RUDD, Alexandra Unavailable Unavailable Halaharvi DO, Ophelia Tori Unavailable Osiris Parry Unavailable Unava ilable Jose Dunn MD Primary Care Provider Miguel Angel Bhat MD Unavailable Kade ACOSTA, Nidhi Mario Unavailable Jerilyn RUDD, Alexandra Unavailable Unavailable Osiris Parry Unavailable Unava ilmakenzie Cueto MD, Eve Dudley Primary Care Provider Jerilyn RUDD, Alexandra Unavailable Unavailable Halaharvi DO, Ophelia Tori Unavailable Osiris Parry Unavailable Unava ilable CUETO, EVE AVIVA Primary Care Unavailable RAVEN REZA Attending Unavailable RAVEN REZA Admitting Unavailable CUETO, EVE AVIVA Primary Care Unavailable RAVEN REZA Attending Unavailable RAVEN REZA Admitting Unavailable CUETO, EVE AVIVA Primary Care Unavailable RAVEN REZA Attending Unavailable RAVEN REZA Admitting Unavailable CUETO, EVE AVIVA Primary Care Unavailable RAVEN REZA Attending Unavailable RAVEN REZA Admitting Unavailable HALAHARVI, OPHELIA TORI Admitting Unavailabl e HALAHARVI, OPHELIA TORI Referring Unavailabl e CUETO, EVE AVIVA Primary Care Unavailable RAVEN REZA Attending Unavailable LUIS MARQUEZ Attending Unavailable ROM, EVE AVIVA Primary Care Unavailable LUIS MARQUEZ Admitting Unavailable RAVEN REZA Attending Unavailable RAVEN REZA Admitting Unavailable CUETO, EVE AVIVA Primary Care Unavailable RAVEN REZA Attending Unavailable RAVEN REZA Admitting Unavailable CUETO, EVE AVIVA Primary Care Unavailable JIMMY, LUIS Admitting Unavailable CUETO, EVE AVIVA Primary Care Unavailable JIMMY, LUIS Attending Unavailable CUETO, EVE AVIVA Primary Care Unavailable JIMMY, LUIS Admitting Unavailable JIMMY, LUIS Attending Unavailable LUIS MARQUEZ Referring Unavailable CUETO, EVE AVIVA Primary Care Unavailable JAYRO DURÁN Attending Unavailable LEANN SAAB Admitting Unava ilable LUIS MARQUEZ Consulting Unavailable CUETO, EVE AVIVA Primary Care Unavailable WARREN MCCULLOUGH Attending Unavailab WARREN Suarez Admitting Unavailab le JEAN-PAUL, AVIVA E Referring Unavailable JEAN-PAUL, AVIVA E Attending Unavailable MIGUEL ANGEL BHAT Primary Care Unavailable NINA ANSARI Admitting Unavailab le CUETO, EVE AVIVA Primary Care Unavailable JIMMY MORENO, LUIS Attending Unavaila ble CUETO, EVE AVIVA Primary Care Unavailable JIMMY MORENO, LUIS Attending Unavaila ble CUETO, EVE AVIVA Primary Care Unavailable CUETO, EVE AVIVA Primary Care Unavailable LYDIA CASTILLO Attending Unavail able LYDIA CASTILLO Attending Unavail able CUETO, EVE AVIVA Primary Care Unavailable Rom ACOSTA, Eve Aviva Primary Care Provider CUETO, EVE AVIVA Primary Care Unavailable DORIS GOOD Attending DORIS Chavez Referring Unavai lable CUETO, EVE AVIVA Primary Care Unavailable NINA ANSARI Attending Unavailab NINA Corea Referring Unavailab le CUETO, EVE AVIVA Primary Care Unavailable NINA ANSARI Attending Unavailab NINA Corea Referring Unavailab le CUETO, EVE AVIVA Primary Care Unavailable DORIS GOOD Attending DORIS Chavez Referring Drew weiss Allergies Allergy Classification Reported Allergen(s) Allergy Type Date of Onset Reaction(s) Facility Chlorhexidine (10 sources) Chlorhexidine Drug Allergy 9 Itching [facility] Povidone-Iodine (10 sources) Povidone-Iodine Drug Allergy 9 Itching [facility] Sulfamethoxazole / Trimethoprim (10 sources) Sulfamethoxazole / Trimethoprim Drug Allergy 0 Itching [facility] (20 sources) Povidone-Iodine; Translations: [POVIDONE-IODINE] Drug Allergy 9 Itching [facility] (20 sources) Chlorhexidine; Translations: [CHLORHEXIDINE TOWELETTE] Drug Allergy 9 Itching [facility] (20 sources) Sulfamethoxazole / Trimethoprim; Translations: [SULFAMETHOXAZOLE-TRI METHOPRIM] Drug Allergy 0 Itching [facility] Medications Current Medications Medication Drug Class(es) Dates Sig (Normalized) Sig (Original) acetaminophen 325 mg / HYDROcodone bitartrate 5 mg oral tablet (4 sources) Opioid Agonist Start: 11-07-2020 End: 11-17-2020 take 1 tablet by mouth every six hours as needed for pain HYDROcodone-aceta minophen (NORCO) 5-325 mg per tablet Indications: Malignant 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, estrogen receptor positive (HCC) Take 1 (one) tablet by mouth every 6 (six) hours as needed for pain . 40 tablet 0 11/07/2020 11/17/2020 Active Completed/Discontinued Medications Medication Drug Class(es) Dates Sig (Normalized) Sig (Original) acetaminophen 325 mg oral tablet (3 sources) Start: 04-26-2021 End: 04-26-2021 take 975 mg by mouth once 975 mg, Oral, Once, On Mary 04/26/21 at 1030, For 1 dose, Pre-Procedure Problems Active Problems Problem Classification Problem Date Documented Date Episodic/Chronic Administrative/social admission (1 source) Stress; Translations: [Stress] Chronic Anxiety disorders (1 source) Anxiety; Translations: [Anxiety] Chronic Cancer of breast (20 sources) Malignant tumor of breast ; Translations: [Malignant neoplasm of female breast] Onset: 09-15-2019 Resolved: 02-17-2020 09-28-2019 Chronic Chronic ulcer of skin (1 source) Ulcer of heel; Translations: [Skin ulcer of right heel with fat layer exposed (HCC)] Chronic Diabetes mellitus with complications (2 sources) Type 2 diabetes mellitus with foot ulcer; Translations: [Type 2 diabetes mellitus in obese] Chronic Diabetes mellitus without complication (2 sources) Type 2 diabetes mellitus without complication; Translations: [Type 2 diabetes mellitus without complication, without long-term current use of insulin] Onset: 06-21-2017 06-21-2017 Chronic Disorders of lipid metabolism (3 sources) Mixed hyperlipidemia; Translations: [Hyperlipidemia] Onset: 06-21-2017 06-21-2017 Chronic Esophageal disorders (2 sources) Gastro-esophageal reflux disease without esophagitis; Translations: [Gastroesophageal reflux disease without esophagitis] Onset: 01-29-2018 01-29-2018 Chronic Essential hypertension (3 sources) Essential hypertension; Translations: [Essential hypertension] Onset: 06-21-2017 06-21-2017 Chronic Mood disorders (1 source) Depressive disorder; Translations: [Depression, unspecified depression type] Chronic Nonmalignant breast conditions (3 sources) Breast lump; Translations: [Lump or mass in breast] Episodic Nonmalignant breast conditions (2 sources) Mastodynia of right breast; Translations: [Breast pain, right] Nonspecific chest pain (2 sources) Other chest pain; Translations: [Other chest pain] Onset: 01-30-2023 Episodic Nutritional deficiencies (1 source) Vitamin D deficiency; Translations: [Vitamin D deficiency] Onset: 06-21-2017 06-21-2017 Chronic Other connective tissue disease (1 source) Swelling of limb; Translations: [Swelling, limb] Episodic Other diseases of veins and lymphatics (20 sources) Lymphedema; Translations: [Lymphedema, not elsewhere classified] Onset: 10-09-2017 10-09-2017 Chronic Other injuries and conditions due to external causes (1 source) Tendon injury Episodic Other lower respiratory disease (2 sources) Shortness of breath; Translations: [Shortness of breath] Onset: 01-30-2023 Episodic Other nervous system disorders (1 source) Postoperative pain ; Translations: [Post-operative pain] Episodic Other nutritional; endocrine; and metabolic disorders (1 source) Morbid (severe) obesity due to excess calories; Translations: [Severe obesity (BMI 35.0-39.9)] Onset: 04-16-2018 04-16-2018 Chronic Other nutritional; endocrine; and metabolic disorders (2 sources) Body mass index 30+ - obesity; Translations: [Body mass index 36.0-36.9, adult] Onset: 11-13-2015 07-02-2017 Chronic Other skin disorders (11 sources) Lipodermatosclerosis; 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] Onset: 10-09-2017 10-09-2017 Episodic Other skin disorders (1 source) Localized swelling, mass and lump, right upper limb; Translations: [Localized swelling of right upper extremity] Episodic Peripheral and visceral atherosclerosis (1 source) Peripheral vascular disease; Translations: [Peripheral vascular disease (HCC)] Chronic Residual codes; unclassified (2 sources) Obstructive sleep apnea syndrome; Translations: [KAYLIE (obstructive sleep apnea)] Onset: 02-20-2011 07-14-2017 Chronic Residual codes; unclassified (1 source) Pain; Translations: [Pain] Episodic Residual codes; unclassified (20 sources) Family history of breast cancer; Translations: [Family history of malignant neoplasm of breast] Onset: 10-23-2020 10-23-2020 Episodic Residual codes; unclassified (2 sources) History of bilateral mastectomy; Translations: [History of bilateral mastectomy] Episodic Residual codes; unclassified (2 sources) Asymptomatic menopausal state; Translations: [Asymptomatic menopausal state] Onset: 08-21-2023 Episodic Thyroid disorders (1 source) Hypothyroidism; Translations: [Hypothyroidism] Onset: 11-13-2015 07-02-2017 Chronic Unclassified (6 sources) Encounter for screening mammogram for malignant neoplasm of breast; Translations: [Abnormal findings on diagnostic imaging of other specified body structures] Onset: 09-26-2017 Episodic Unclassified (2 sources) DERMATOCHALASIS LEFT UPPER EYELID / H02.834(ICD-10) Onset: 08-07-2017 Unclassified (1 source) DERMATOCHALASIS RIGHT UPPER EYELID / H02.831(ICD-10) Onset: 08-07-2017 Unclassified (1 source) HOMONYMOUS IRMA FIELD DEFEC LT SIDE / H53.462(ICD-10) Onset: 08-07-2017 Unclassified (1 source) HOMONYMOUS IRMA FIELD DEFEC RT SIDE / H53.461(ICD-10) Onset: 08-07-2017 Unclassified (1 source) Abnormal findings on diagnostic imaging of other specified body structures / R93.8(ICD-10) Onset: 11-03-2017 Unclassified (7 sources) Patient encounter status; Translations: [Encounter for general adult medical examination with abnormal findings] Onset: 05-31-2016 07-02-2017 Unclassified (1 source) Preprocedural examination done; Translations: [Preop examination] Past or Other Problems Problem Classification Problem Date Documented Da te Episodic/Chronic Cancer of breast (1 source) History of malignant neoplasm of breast; Translations: [History of right breast cancer] Episodic Complications of surgical procedures or medical care (4 sources) Non-healing surgical wound; Translations: [Other complications of procedures, not elsewhere classified, initial encounter] Onset: 04-23-2021 Episodic Deficiency and other anemia (1 source) Anemia; Translations: [Anemia, unspecified type] Episodic Genitourinary symptoms and ill-defined conditions (20 sources) Endometrium thickened; Translations: [Abnormal urine] Onset: 06-21-2016 Resolved: 01-29-2018 11-27-2017 Episodic Immunizations and screening for infectious disease (1 source) Contact with and (suspected) exposure to viral hepatitis; Translations: [Contact with and (suspected) exposure to viral hepatitis (CODE)] Onset: 11-25-2016 07-02-2017 Episodic Menopausal disorders (20 sources) Postmenopausal bleeding; Translations: [Postmenopausal bleeding] Onset: 01-14-2019 Resolved: 01-15-2019 01-15-2019 Chronic Open wounds of extremities (2 sources) Unspecified open wound of left upper arm, sequela; Translations: [Unspecified open wound of left upper arm, sequela] Onset: 05-14-2021 Episodic Open wounds of head; neck; and trunk (20 sources) Disorder of breast; Translations: [Unspecified open wound of left breast, initial encounter] Onset: 12-21-2020 Episodic Other diseases of veins and lymphatics (20 sources) Compression of vein; 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] Onset: 10-09-2017 10-09-2017 Episodic Other injuries and conditions due to external causes (20 sources) Local infection of wound; Translations: [Other injury of unspecified body region, initial encounter] Onset: 12-21-2020 Episodic Other screening for suspected conditions (not mental disorders or infectious disease) (14 sources) Endometrium thickened; Translations: [Abnormal findings on diagnostic imaging of other specified body structures] Onset: 11-27-2017 Resolved: 11-27-2017 11-27-2017 Chronic Other skin disorders (20 sources) Anetoderma; Translations: [Other atrophic disorders of skin] Onset: 01-09-2018 01-09-2018 Episodic Other skin disorders (11 sources) Abnormal granulation tissue; Translations: [Granulomatous disorder of the skin and subcutaneous tissue, unspecified] Onset: 01-25-2021 Episodic Pancreatic disorders (not diabetes) (1 source) Cyst of pancreas; Translations: [Pancreatic cyst] Episodic Phlebitis; thrombophlebitis and thromboembolism (20 sources) Deep venous thrombosis of peroneal vein; Translations: [Acute embolism and thrombosis of right tibial vein] Onset: 08-06-2018 08-06-2018 Episodic Residual codes; unclassified (2 sources) Edema of right lower limb; Translations: [Localized edema] Onset: 10-09-2017 10-09-2017 Episodic Residual codes; unclassified (2 sources) Estrogen receptor positive status [ER+]; Translations: [Estrogen receptor positive status (ER+)] Onset: 10-12-2019 Episodic Unclassified (20 sources) Edema of lower extremity; Translations: [Localized edema] Onset: 10-09-2017 10-09-2017 Episodic Unclassified (1 source) DERMATOCHALASIS LEFT UPPER EYELID; Translations: [DERMATOCHALASIS LEFT UPPER EYELID] Onset: 08-01-2017 Unclassified (1 source) Right foot pain Unclassified (1 source) Calcaneal spur of right foot Unclassified (1 source) Tendonitis, Achilles, right Unclassified (1 source) Acute deep vein thrombosis (DVT) of tibial vein of right lower extremity Varicose veins of lower extremity (20 sources) Varicose veins of lower extremity; Translations: [Lipodermatosclerosis ] Onset: 09-17-2017 09-17-2017 Episodic Results Test Name Value Interpretation Reference Range Facil ity Vital Signs Date Time Vital Sign Value Performing Clinician Ragini lity 04-17-2022 11:010400 Body height 167.6 cm [place] [employer] CN P Work Phone: [facility] 04-17-2022 11:01-0400 Body mass index (BMI) [Ratio] 36.64 kg/m2 Lydia Kilbarger [employer] Work Phone: [facility] 04-17-2022 11:01-0400 Body weight 102.97 kg Lydia Castillo CN P Work Phone: [facility] 04-27-2021 09:52-0400 Respiratory rate 14 /min [facility] Work Phone: [facility] 04-27-2021 07:38-0400 Body temperature 97.9 [degF] [facility] Work Phone: [facility] 04-27-2021 07:38-0400 Diastolic blood pressure 72 mm[Hg] [facility] Work Phone: [facility] 04-27-2021 07:38-0400 Heart rate 59 /min [facility] Work Phone: [facility] 04-27-2021 07:38-0400 SaO2% (BldA) [Mass fraction] 96 % [facility] Work Phone: [facility] 04-27-2021 07:38-0400 Systolic blood pressure 126 mm[Hg] [facility] Work Phone: [facility] 04-24-2021 03:00-0400 Body height 167.6 cm [facility] Work Phone: [facility] 04-24-2021 03:00-0400 Body mass index (BMI) [Ratio] 35.35 kg/m2 [facility] Work Phone: [facility] 04-24-2021 03:00-0400 Body weight 99.34 kg [facility] Work Phone: [facility] 03-27-2021 09:56-0400 Body temperature 97.3 [degF] Raven Reza [employer] Work Phone: [facility] 03-27-2021 09:56-0400 Diastolic blood pressure 77 mm[Hg] Raven Reza [employer] Work Phone: [facility] 03-27-2021 09:56-0400 Heart rate 59 /min Raven Nguyenon [employer] Work Phone: [facility] 03-27-2021 09:56-0400 Respiratory rate 16 /min Raven Queengdon [employer] Work Phone: [facility] 03-27-2021 09:56-0400 SaO2% (BldA) [Mass fraction] 97 % Raven Nguyenon [employer] Work Phone: [facility] 03-27-2021 09:56-0400 Systolic blood pressure 123 mm[Hg] Raven Natalyligdon [employer] Work Phone: [facility] 03-14-2021 13:05-0400 Body temperature 98.4 [degF] Raven Ingramligdon [employer] Work Phone: [facility] 03-14-2021 13:05-0400 Diastolic blood pressure 77 mm[Hg] Raven Natalyligdon [employer] Work Phone: [facility] 03-14-2021 13:05-0400 Heart rate 75 /min Raven Queengdon [employer] Work Phone: [facility] 03-14-2021 13:05-0400 Respiratory rate 16 /min Raven Nguyenon [employer] Work Phone: [facility] 03-14-2021 13:05-0400 Systolic blood pressure 132 mm[Hg] Raven Bernicegdon [employer] Work Phone: [facility] 02-20-2021 10:36-0400 Body temperature 97.81 [degF] Raven Nguyenon [employer] Work Phone: [facility] 02-20-2021 10:36-0400 Diastolic blood pressure 78 mm[Hg] Raven Leligdon [employer] Work Phone: [facility] 02-20-2021 10:36-0400 Heart rate 57 /min Raven Leligdon [employer] Work Phone: [facility] 02-20-2021 10:36-0400 Respiratory rate 16 /min Raven Leligdon [employer] Work Phone: [facility] 02-20-2021 10:36-0400 Systolic blood pressure 141 mm[Hg] Raven Leligdon [employer] Work Phone: [facility] 01-25-2021 10:26-0400 Body temperature 97.2 [degF] Raven Leligdon [employer] Work Phone: [facility] 01-25-2021 10:26-0400 Diastolic blood pressure 76 mm[Hg] Raven Leligdon [employer] Work Phone: [facility] 01-25-2021 10:26-0400 Heart rate 64 /min Raven Leligdon [employer] Work Phone: [facility] 01-25-2021 10:26-0400 Respiratory rate 18 /min Raven Leligdon [employer] Work Phone: [facility] 01-25-2021 10:26-0400 Systolic blood pressure 140 mm[Hg] Raven Leligdon [employer] Work Phone: [facility] 01-11-2021 11:27-0400 Body temperature 97.59 [degF] Raven Leligdon [employer] Work Phone: [facility] 01-11-2021 11:27-0400 Diastolic blood pressure 75 mm[Hg] Raven Leligdon [employer] Work Phone: [facility] 01-11-2021 11:27-0400 Heart rate 54 /min Raven Leligdon [employer] Work Phone: [facility] 01-11-2021 11:27-0400 Respiratory rate 18 /min Raven Leligdon [employer] Work Phone: [facility] 01-11-2021 11:27-0400 Systolic blood pressure 155 mm[Hg] Raven Leligdon [employer] Work Phone: [facility] 12-28-2020 11:52-0400 Body temperature 98.71 [degF] Raven Leligdon [employer] Work Phone: [facility] 12-28-2020 11:52-0400 Diastolic blood pressure 80 mm[Hg] Raven Nguyenon [employer] Work Phone: [facility] 12-28-2020 11:52-0400 Heart rate 65 /min Raven Nguyenon [employer] Work Phone: [facility] 12-28-2020 11:52-0400 Respiratory rate 18 /min Raven Nguyenon [employer] Work Phone: [facility] 12-28-2020 11:52-0400 Systolic blood pressure 131 mm[Hg] Raven Nguyenon [employer] Work Phone: [facility] 12-20-2020 15:10-0400 Body height 167.6 cm Raven Nguyenon [employer] Work Phone: [facility] 12-20-2020 15:10-0400 Body mass index (BMI) [Ratio] 35.67 kg/m2 Raven Nguyenon [employer] Work Phone: [facility] 12-20-2020 15:10-0400 Body temperature 98.1 [degF] Raven Nguyenon [employer] Work Phone: [facility] 12-20-2020 15:10-0400 Body weight 100.25 kg Raven Nguyenon [employer] Work Phone: [facility] 12-20-2020 15:10-0400 Diastolic blood pressure 81 mm[Hg] Raven Nguyenon [employer] Work Phone: [facility] 12-20-2020 15:10-0400 Heart rate 63 /min Raven Nguyenon [employer] Work Phone: [facility] 12-20-2020 15:10-0400 Respiratory rate 18 /min Raven Ingramligdon [employer] Work Phone: [facility] 12-20-2020 15:10-0400 Systolic blood pressure 135 mm[Hg] Raven Leligdon [employer] Work Phone: [facility] 11-22-2020 15:07-0400 Body height 167.6 cm Opheliamilton Ybarra DO Work Phone: [facility] 11-22-2020 15:07-0400 Body mass index (BMI) [Ratio] 35.99 kg/m2 Ophelia Dayronarvi DO Work Phone: [facility] 11-22-2020 15:07-0400 Body weight 101.15 kg Ophelia Amada DO Work Phone: [facility] 11-07-2020 19:50-0400 Body Temperature 98.01 [degF] Ophelia Amada [facility] 11-07-2020 19:50-0400 BP Diastolic 59 mm[Hg] Ophelia Amada [facility] 11-07-2020 19:50-0400 BP Systolic 144 mm[Hg] Ophelia Amada [facility] 11-07-2020 19:50-0400 Pulse (Heart Rate) 59 /min Ophelia Amada [facility] 11-07-2020 19:50-0400 Pulse Oximetry 94 % Opheliamilton Ybarra [facility] 11-07-2020 19:50-0400 Respiratory Rate 16 /min Opheliamilton Ybarra [facility] 11-07-2020 12:40-0400 BMI (Body Mass Index) 36.15 kg/m2 Opheliamilton Ybarra [facility] 11-07-2020 12:40-0400 Body weight 101.6 kg Ophelia Amada [facility] 11-07-2020 12:40-0400 Height 167.6 cm Ophelia Amada [facility] 10-23-2020 14:05-0400 BMI (Body Mass Index) 35.99 kg/m2 Ophelia Amada [facility] 10-23-2020 14:05-0400 Body weight 101.15 kg Ophelia Amada [facility] 10-23-2020 14:05-0400 Height 167.6 cm Ophelia Amada [facility] 09-27-2020 10:17-0500 BMI (Body Mass Index) 36.07 kg/m2 Warren Mccullough [facility] 09-27-2020 10:17-0500 Body Temperature 97.81 [degF] Warren Mccullough [facility] 09-27-2020 10:17-0500 Body weight 101.38 kg Warren Mccullough [facility] 09-27-2020 10:17-0500 BP Diastolic 69 mm[Hg] Warren Mccullough [facility] 09-27-2020 10:17-0500 BP Systolic 156 mm[Hg] Warren Mccullough [facility] 09-27-2020 10:17-0500 Pulse (Heart Rate) 56 /min Warren Mccullough [facility] 09-27-2020 10:17-0500 Pulse Oximetry 98 % Warren Mccullough [facility] 05-16-2020 12:08-0400 BMI (Body Mass Index) 36.61 kg/m2 [facility] 05-16-2020 12:08-0400 Body Temperature 98.49 [degF] [facility] 05-16-2020 12:08-0400 Body weight 102.88 kg [facility] 05-16-2020 12:08-0400 BP Diastolic 79 mm[Hg] [facility] 05-16-2020 12:08-0400 BP Systolic 130 mm[Hg] [facility] 05-16-2020 12:08-0400 Height 167.6 cm [facility] 05-16-2020 12:08-0400 Pulse (Heart Rate) 62 /min [facility] 03-29-2020 10:39-0400 BMI (Body Mass Index) 37.09 kg/m2 [facility]-29-2020 10:39-0400 Body Temperature 98.29 [degF] Warren Mccullough [facility] 03-29-2020 10:39-0400 Body weight 104.24 kg Warren Mccullough [facility] 03-29-2020 10:39-0400 BP Diastolic 78 mm[Hg] Warren Mccullough [facility] 03-29-2020 10:39-0400 BP Systolic 142 mm[Hg] Warren Mccullough [facility] 03-29-2020 10:39-0400 Pulse (Heart Rate) 58 /min Warren Mccullough [facility] 03-29-2020 10:39-0400 Pulse Oximetry 97 % Warren Mccullough [facility] 03-20-2020 14:13-0400 BMI (Body Mass Index) 37.56 kg/m2 Warren Mccullough [facility] 03-20-2020 14:13-0400 Body Temperature 98.4 [degF] Warren Mccullough [facility] 03-20-2020 14:13-0400 Body weight 105.55 kg Warren Mccullough [facility] 03-20-2020 14:13-0400 BP Diastolic 79 mm[Hg] [facility]-20-2020 14:13-0400 BP Systolic 147 mm[Hg] [facility] 03-20-2020 14:13-0400 Pulse (Heart Rate) 54 /min Warren Mccullough [facility] 03-13-2020 10:28-0400 BMI (Body Mass Index) 37.17 kg/m2 [facility] 03-13-2020 10:28-0400 Body weight 104.46 kg [facility] 03-13-2020 10:28-0400 BP Diastolic 74 mm[Hg] [facility] 03-13-2020 10:28-0400 BP Systolic 124 mm[Hg] [facility] 03-13-2020 10:28-0400 Pulse (Heart Rate) 53 /min [facility] 03-13-2020 10:28-0400 Pulse Oximetry 98 % [facility] 03-06-2020 10:30-0400 BMI (Body Mass Index) 37.33 kg/m2 [facility] 03-06-2020 10:30-0400 Body Temperature 97.7 [degF] [facility] 03-06-2020 10:30-0400 Body weight 104.92 kg [facility] 03-06-2020 10:30-0400 BP Diastolic 73 mm[Hg] [facility] 03-06-2020 10:30-0400 BP Systolic 145 mm[Hg] [facility] 03-06-2020 10:30-0400 Pulse (Heart Rate) 52 /min [facility] 03-06-2020 10:30-0400 Pulse Oximetry 99 % [facility] 02-15-2020 10:28-0400 BMI (Body Mass Index) 36.8 kg/m2 Ophelia Padgettarvi [facility] 02-15-2020 10:28-0400 [facility] 02-15-2020 10:28-0400 Height 167.6 cm [facility] 09-29-2019 07:25-0500 Body Temperature 98.2 [degF] [facility] 09-29-2019 07:25-0500 BP Diastolic 69 mm[Hg] [facility] 09-29-2019 07:25-0500 BP Systolic 133 mm[Hg] [facility] 09-29-2019 07:25-0500 Pulse (Heart Rate) 59 /min [facility] 09-29-2019 07:25-0500 Pulse Oximetry 95 % [facility] 09-29-2019 07:25-0500 Respiratory Rate 14 /min [facility] 09-28-2019 10:55-0500 BMI (Body Mass Index) 36.86 kg/m2 [facility] 09-28-2019 10:55-0500 Body weight 103.6 kg [facility] 09-28-2019 10:55-0500 Height 167.6 cm [facility] 09-21-2019 13:39-0500 BMI (Body Mass Index) 36.29 kg/m2 [facility] 09-21-2019 13:39-0500 Body Temperature 98.4 [degF] [facility]ordon [facility] 09-21-2019 13:39-0500 Body weight 102 kg Jordon [facility] 09-21-2019 13:39-0500 BP Diastolic 76 mm[Hg] Jordon [facility] 09-21-2019 13:39-0500 BP Systolic 144 mm[Hg] Jordon [facility] 09-21-2019 13:39-0500 Height 167.6 cm Jordon [facility] 09-21-2019 13:39-0500 Pulse (Heart Rate) 60 /min Jordon [facility] 09-21-2019 13:39-0500 Pulse Oximetry 95 % Jordon [facility] 09-21-2019 13:39-0500 Respiratory Rate 14 /min Jordon [facility] 09-07-2019 13:49-0500 BMI (Body Mass Index) 37.93 kg/m2 Ophelia Ybarra [facility] 09-07-2019 13:49-0500 Body weight 106.59 kg Ophelia Ybarra [facility] 09-07-2019 13:49-0500 Height 167.6 cm Ophelia Ybarra [facility] 01-15-2019 12:05-0400 Respiratory Rate 14 /min Nidhi Braun [facility] 01-15-2019 11:57-0400 Body Temperature 99.1 [degF] [facility] 01-15-2019 11:57-0400 BP Diastolic 67 mm[Hg] [facility] 01-15-2019 11:57-0400 BP Systolic 137 mm[Hg] [facility] 01-15-2019 11:57-0400 Pulse (Heart Rate) 61 /min [facility] 01-15-2019 11:57-0400 Pulse Oximetry 90 % [facility] 01-14-2019 06:13-0400 BMI (Body Mass Index) 37.97 kg/m2 [facility] 01-14-2019 06:13-0400 Height 167.6 cm [facility] 01-14-2019 06:13-0400 Weight 106.7 kg [facility] 01-07-2019 13:43-0400 BP Diastolic 77 mm[Hg] [facility] 01-07-2019 13:43-0400 BP Systolic 144 mm[Hg] Harlanvimal Gutierrez [facility] 01-07-2019 13:43-0400 Pulse (Heart Rate) 57 /min [facility] 01-07-2019 13:34-0400 BMI (Body Mass Index) 37.15 kg/m2 [facility] 01-07-2019 13:34-0400 Body Temperature 98.1 [degF] Harlanvimal Gutierrez [facility] 01-07-2019 13:34-0400 Height 167.6 cm [facility] 01-07-2019 13:34-0400 Pulse Oximetry 97 % Harlanvimal Gutierrez [facility] 01-07-2019 13:34-0400 Weight 104.4 kg [facility] 09-29-2018 12:25-0500 BMI (Body Mass Index) 38.41 kg/m2 Cinthya Pizarro [facility] 09-29-2018 12:25-0500 BP Diastolic 78 mm[Hg] Cinthya Pizarro [facility] 09-29-2018 12:25-0500 BP Systolic 136 mm[Hg] Cinthya Pizarro [facility] 09-29-2018 12:25-0500 Height 167.6 cm [facility] 09-29-2018 12:25-0500 Pulse (Heart Rate) 55 /min [facility] 09-29-2018 12:25-0500 Weight 107.96 kg [facility] 08-06-2018 10:47-0500 BP Diastolic 85 mm[Hg] [facility] 08-06-2018 10:47-0500 BP Systolic 138 mm[Hg] [facility] 08-06-2018 10:47-0500 Pulse (Heart Rate) 60 /min [facility] 08-06-2018 10:46-0500 BMI (Body Mass Index) 37.93 kg/m2 [facility] 08-06-2018 10:46-0500 Height 167.6 cm [facility] 08-06-2018 10:46-0500 Weight 106.59 kg [facility] 07-31-2018 15:22-0500 Body Temperature 97.81 [degF] [facility] 07-31-2018 15:22-0500 BP Diastolic 83 mm[Hg] [facility] 07-31-2018 15:22-0500 BP Systolic 134 mm[Hg] [facility] 07-31-2018 15:22-0500 Pulse (Heart Rate) 56 /min [facility] 07-31-2018 15:22-0500 Respiratory Rate 16 /min Mehranradha Velasquez [facility] 01-09-2018 09:40-0400 Body Temperature 97.9 [degF] [facility] 01-09-2018 09:40-0400 BP Diastolic 75 mm[Hg] [facility] 01-09-2018 09:40-0400 BP Systolic 144 mm[Hg] [facility] 01-09-2018 09:40-0400 Pulse (Heart Rate) 53 /min Cinthya Pizarro [facility] 01-09-2018 09:40-0400 Respiratory Rate 16 /min Cinthya Pizarro [facility] 11-27-2017 09:15-0400 Body Temperature 96.91 [degF] Nidhi Braun [facility] 11-27-2017 09:15-0400 BP Diastolic 50 mm[Hg] Nidhi Braun [facility] 11-27-2017 09:15-0400 BP Systolic 139 mm[Hg] Nidhi Braun [facility] 11-27-2017 09:15-0400 Pulse (Heart Rate) 55 /min Nidhi Braun [facility] 11-27-2017 09:15-0400 Pulse Oximetry 97 % Nidhi Braun [facility] 11-27-2017 09:15-0400 Respiratory Rate 15 /min Nidhi Braun [facility] 11-27-2017 06:23-0400 BMI (Body Mass Index) 36.58 kg/m2 Nidhi Braun [facility] 11-27-2017 06:23-0400 Height 167.6 cm Nidhi Braun [facility] 11-27-2017 06:23-0400 Weight 102.8 kg Nidhi Braun [facility] 11-21-2017 09:10-0400 Body Temperature 98.01 [degF] Cinthya Pizarro [facility] 11-21-2017 09:10-0400 BP Diastolic 81 mm[Hg] Cinthya Pizarro [facility] 11-21-2017 09:10-0400 BP Systolic 142 mm[Hg] Cinthya Pizarro [facility] 11-21-2017 09:10-0400 Pulse (Heart Rate) 56 /min Cinthya Pizarro [facility] 11-21-2017 09:10-0400 Respiratory Rate 16 /min Cinthya Pizarro [facility] 11-20-2017 10:13-0400 BMI (Body Mass Index) 36.69 kg/m2 Altagracia Gallagher [facility] 11-20-2017 10:13-0400 Body Temperature 98.01 [degF] Altagracia Gallagher [facility] 11-20-2017 10:13-0400 BP Diastolic 78 mm[Hg] Altagracia Aileen [facility] 11-20-2017 10:13-0400 BP Systolic 162 mm[Hg] Altagracia Aileen [facility] 11-20-2017 10:13-0400 Height 167.6 cm Altagracia Gallagher [facility] 11-20-2017 10:13-0400 Pulse (Heart Rate) 58 /min Altagracia Gallagher [facility] 11-20-2017 10:13-0400 Pulse Oximetry 99 % Altagracia Gallagher [facility] 11-20-2017 10:13-0400 Weight 103.1 kg Altagracia Gallagher [facility] 11-17-2017 08:49-0400 Body Temperature 97.9 [degF] [facility] 11-17-2017 08:49-0400 BP Diastolic 58 mm[Hg] [facility] 11-17-2017 08:49-0400 BP Systolic 143 mm[Hg] [facility] 11-17-2017 08:49-0400 Pulse (Heart Rate) 58 /min [facility] 11-17-2017 08:49-0400 Respiratory Rate 16 /min [facility] 10-09-2017 10:36-0500 BP Diastolic 72 mm[Hg] [facility] 10-09-2017 10:36-0500 BP Systolic 138 mm[Hg] [facility] 10-09-2017 10:36-0500 Pulse (Heart Rate) 52 /min [facility] 10-09-2017 10:32-0500 BMI (Body Mass Index) 36.64 kg/m2 [facility] 10-09-2017 10:32-0500 Height 167.6 cm Cinthya [facility] 10-09-2017 10:32-0500 Weight 102.97 kg Cinthya [facility] 09-17-2017 16:08-0500 BMI (Body Mass Index) 36.15 kg/m2 [facility]: 09-17-2017 16:08-0500 BP Diastolic 70 mm[Hg] [facility] Work [facility]: 09-17-2017 16:08-0500 BP Systolic 147 mm[Hg] [facility] Work [facility]: 09-17-2017 16:08-0500 Height 167.6 cm [facility] Work Phone: 09-17-2017 16:08-0500 Pulse (Heart Rate) 58 /min Kalen Cardona [facility] Work Phone: 09-17-2017 16:08-0500 Weight 101.61 kg Kalen Cardona [facility] Work Phone: Encounters Encounter Date Encounter Type Care Provider Facility Start: 08-21-2023 End: 08-22-2023 ambulatory [facility] Start: 01-31-2023 End: 02-01-2023 ambulatory [facility] Start: 01-30-2023 End: 01-31-2023 ambulatory [facility] Start: 01-30-2023 End: 01-31-2023 [facility] Start: 04-18-2022 [facility] Start: 04-17-2022 End: 04-17-2022 ambulatory [facility] Start: 04-17-2022 End: 04-17-2022 Office outpatient visit 15 minutes Lydia Castillo [facility] Work Phone: [facility] Procedures Date Procedure Procedure Detail Performing Clinician Start: 04-17-2022 Follow-up visit Follow-up LYDIA CASTILLO Start: 04-27-[address] [facility] Work Phone: Start: 04-26-2021 Glucose measurement Generic [facility] Work Phone: Start: 04-26-2021 Glucose measurement [facility] Work Phone: Start: 04-26-2021 Glucose measurement [facility] Work Phone: Start: 04-26-2021 Glucose measurement Generic [facility] Work Phone: Start: 04-26-2021 End: 04-26-2021 INCISION AND DRAINAGE TRUNK Luis salazar MD Work Phone: Start: 04-26-2021 Glucose measurement [facility] Work Phone: Start: 04-26-2021 Glucose measurement [facility] Work Phone: Start: 04-25-2021 Glucose measurement [facility] Work Phone: Start: 04-25-2021 Glucose measurement Generic [facility] Work Phone: Start: 04-25-2021 Glucose measurement Generic [facility] Work Phone: Start: 04-25-2021 Electrocardiogram Provider Not In Syst em Start: 04-25-2021 End: 04-25-2021 Glucose measurement Generic [facility] Work Phone: Start: 04-24-2021 Glucose measurement Generic [facility] Work Phone: Start: 04-24-2021 Glucose measurement Generic [facility] Work Phone: Start: 04-24-2021 Glucose measurement Generic [facility] Work Phone: Start: 04-24-2021 Glucose measurement Generic [facility] Work Phone: Start: 04-24-2021 Glucose measurement Generic [facility] Work Phone: Start: 04-24-2021 Level iv surg pathology gross&microscopic exam Luis Marquez MD Work Phone: Start: 04-24-2021 End: 04-24-2021 INCISION AND DRAINAGE TRUNK Luis salazar MD Work Phone: Start: 04-24-2021 Glucose measurement Generic [facility] Work Phone: Start: 04-24-2021 Adult depression screening assessment Lydia Castillo CNP Work Phone: Start: 04-24-2021 Ecg routine ecg w/least 12 lds trcg only w/o i&r Leann Saab DO Work Phone: Start: 04-23-2021 Basic metabolic panel calcium total Leann Saab DO Work Phone: Start: 04-23-2021 Blood typing serologic abo Leann Mix lp Antoine DO Work Phone: Start: 04-23-[address] [facility] Work Phone: Start: 04-23-2021 SARS-CoV-2 (COVID-19) RdRp gene [Presence] in Respiratory specimen by ADRIANA with probe detection Luis Marquez MD Work Phone: Start: 03-19-2021 Microalbumin [Mass/volume] in Urine by Test strip Lydia Castillo CNP Work Phone: Start: 03-14-2021 Debridement subcutaneous tissue 20 sq cm/< Raven Reza CNP Work Phone: Start: 02-20-2021 Epistaxis control Raven Reza CNP Work Phone: Start: 01-25-2021 Debridement subcutaneous tissue 20 sq cm/< Raven Reza CNP Work Phone: Start: 01-11-2021 Debridement subcutaneous tissue 20 sq cm/< Raven Reza CNP Work Phone: Start: 12-28-2020 Debridement subcutaneous tissue 20 sq cm/< Raven Reza CNP Work Phone: Start: 12-20-2020 Cul bact xcpt urine blood/stool aerobic isol Raven Reza [employer] Work Phone: Start: 12-20-2020 Debridement subcutaneous tissue 20 sq cm/< Raven Reza CNP Work Phone: Start: 11-07-2020 Glucose [Mass/volume] in Blood Ophelia Tori Dayronumu Work Phone: Start: 11-07-2020 Glucose [Mass/volume] in Blood Ophelia Tori Halaharvi Work Phone: Start: 06-20-2020 Dup-scan xtr veins unilateral/limited study Nina Ansari Work Phone: Start: 03-22-2020 RADIATION THERAPY - UNVERIFIED DATA IMPORTED FROM ARIA Treatment Results Radiation Oncology Start: 02-18-2020 Ct guidance radiation therapy flds placement Warren Mccullough Work Phone: Start: 02-04-2020 Microalbumin [Mass/volume] in Urine by Test strip Patrick Cota Start: 09-28-2019 Glucose [Mass/volume] in Blood Ophelia Tori Dayronarvi Work Phone: Start: 09-28-2019 SCAN OTHER ORDERS Provider Not In Syst em Start: 09-28-2019 Injection of sentinel lymph node using ultrasound guidance Ophelia Tori Padgettarchantel Work Phone: Start: 09-28-2019 End: 09-28-2019 MASTECTOMY MODIFIED RADICAL BILATERAL WITH SENTINEL LYMPH NODE BIOPSY Ophelia Tori Dayronarvi Work Phone: Start: 09-28-2019 Glucose [Mass/volume] in Blood Ophelia Tori Dayronarvi Work Phone: Start: 09-28-2019 Mammography Opheliamilton Padgettarvi Start: 09-21-2019 Standard chest X-ray Ophelia Richardsonv i Work Phone: Start: 09-21-2019 12 lead ECG Oakes Machine Operator Generic Start: 09-21-2019 Complete blood count with white cell differential, automated Ophelia Tori Halaharvi Work Phone: Start: 09-21-2019 Complete blood count with white cell differential, manual Ophelia Tori Halaharvi Work Phone: Start: 09-21-2019 Comprehensive metabolic 2000 panel - Serum or Plasma Ophelia Tori Dayronarvi Work Phone: Start: 09-07-2019 MM FOLLOW UP POST CLIP PLACEMENT Ophelia Tori Dayronarvi Work Phone: Start: 09-07-2019 Ultrasonography guided biopsy of right breast Ophelia Ybarra Work Phone: Start: 09-07-2019 End: 09-07-2019 Mammography External Transcribed Start: 09-03-2019 Mammography Ophelia Ybarra Start: 08-25-2019 Ophthalmic examination and evaluation Ophelia Ybarra Start: 03-22-2019 Ct abdomen w/o & w/contrast material External Transcribed Start: 03-22-2019 Creatinine [Mass/volume] in Blood Miguel Angel Mckeonson Work Phone: Start: 01-15-2019 Glucose [Mass/volume] in Blood Nidhi Braun Work Phone: Start: 01-15-2019 Complete blood count (hemogram) panel - Blood by Automated count Merline Carver Work Phone: Start: 01-14-2019 Glucose [Mass/volume] in Blood Nidhi Braun Work Phone: Start: 01-14-2019 Glucose [Mass/volume] in Blood Nidhi Braun Work Phone: Start: 01-14-2019 End: 01-14-2019 HYSTERECTOMY VAGINAL Nidhi Braun Work Phone: Start: 01-14-2019 Blood group typing Nidhi Braun Work Phone: Start: 01-14-2019 Blood type and Indirect antibody screen panel - Blood Nidhi Braun Work Phone: Start: 01-14-2019 Glucose [Mass/volume] in Blood Nidhi Braun Work Phone: Start: 01-13-2019 SCAN OTHER ORDERS Provider Not In Syst em Start: 01-07-2019 12 lead ECG Nidhi Braun Work Phone: Start: 12-17-2018 Davina Cota Start: 08-06-2018 End: 08-06-2018 Garo Velasquez Work Phone: Start: 07-31-2018 End: 07-31-2018 Appl mltlayr frandy leg below knee w/ankle foot Mehran Velasquez Work Phone: Start: 07-23-2018 End: 07-23-2018 Dup-scan xtr veins unilateral/limited study Mehran Velasquez Work Phone: Start: 07-23-2018 End: 07-23-2018 Non-invas physiologic std extremity art 2 level Mehran Velasquez Work Phone: Start: 01-29-2018 Lipid 1996 panel - Serum or Plasma Miguel Angel Home Start: 11-27-2017 End: 11-27-2017 DILATION AND CURETTAGE WITH HYSTEROSCOPY Nidhi Nguyenfaisal Work Phone: Start: 09-26-2017 Mammography Miguel Angel Bhat Start: 07-07-2017 Microalbumin [Mass/volume] in Urine by Test strip Cinthya Pizarro Start: 09-21-2013 Colonoscopy Miguel Angel Bhat History of bilateral mastectomy History of bilateral mastectomy Lydia Castillo CNP Work Phone: Plan of Treatment Date Care Activity Detail Author Start: 04-21-2030 Tetanus vaccination Tetanus: Every 10yrs [facility] Start: 12-17-2028 Screening for malignant neoplasm of colon [facility] Start: 09-11-2022 End: 09-11-2022 ambulatory 09/11/2022 Radiation Oncology Radiation Oncology Warren Mccullough MD [address] [facility] [address] [place] [address] [facility] Start: 04-24-2022 Depression screening using PHQ-9 (Patient Health Questionnaire 9) score Depression Screening (PHQ-2/9) [facility] Start: 04-04-2022 Influenza vaccination Sequential Influenza Vaccine (#1) [facility] Start: 03-19-2022 Urine screening for protein Urine Microalbumin [facility] Start: 09-28-2021 COVID-19 Vaccine (4 - Booster for Moderna series) COVID-19 Vaccine (4 - Booster for Moderna series) [facility] Start: 06-19-2021 Hemoglobin A1c measurement A1C [facility] Start: 05-14-2021 End: 05-14-2021 Follow-up encounter 05/14/2021 Follow-Up Plastic Surgery Luis Marquez Jr., MD [address] [address] [facility] Start: 05-02-2021 End: 05-02-2021 Follow-up encounter 05/02/2021 Follow-Up Plastic Surgery Luis Marquez Jr., MD [address] [address] [facility] Start: 04-04-2021 Influenza vaccination [facility] Start: 04-02-2021 End: 04-02-2021 Patient encounter procedure 04/02/2021 Office Visit Wound Care Luis Marquez Jr., MD [address] [address] [facility] Start: 03-29-2021 End: 03-29-2021 Radiation Oncology 03/29/2021 Radiation Oncology Radiation Oncology Warren Mccullough MD [address] [place] [id number] [phone] [facility] Start: 03-27-2021 End: 03-27-2021 Patient encounter procedure 03/27/2021 Office Visit Wound Care [facility] Start: 03-20-2021 End: 03-20-2021 Patient encounter procedure 03/20/2021 Office Visit Wound Care [facility] Start: 02-20-2021 End: 02-20-2021 Patient encounter procedure 02/20/2021 Office Visit Wound Care [facility] Start: 02-03-2021 Albumin DL <= 20 mg/L (U) [Mass/Vol] Urine Microalbumin [facility] Start: 02-03-2021 Microalbumin measurement, urine, quantitative Urine Microalbumin [facility] Start: 01-25-2021 End: 01-25-2021 Patient encounter procedure 01/25/2021 Office Visit Wound Care [facility] Start: 01-11-2021 End: 01-11-2021 Patient encounter procedure 01/11/2021 Office Visit Wound Care [facility] Start: 12-28-2020 End: 12-28-2020 Patient encounter procedure 12/28/2020 Office Visit [facility] [facility] Start: 11-22-2020 End: 11-22-2020 Follow-Up 11/22/2020 Follow-Up Breast Surgery Ophelia Ybarra, DO [address] [address] [phone] [facility] Start: 11-08-2020 COVID-19 Vaccine (3 - Moderna risk 3-dose series) COVID-19 Vaccine (3 - Moderna risk 3-dose series) [facility] Start: 11-07-2020 End: 11-07-2020 Hospital Encounter [facility] Periop Immunizations Immunization Date Immunization Notes Care Provider Fa cility 09-13-2020 Moderna SARS-CoV-2 Vaccination [facility] 07-22-2020 zoster vaccine recombinant [facility] 05-15-2020 zoster vaccine recombinant [facility] 04-21-2020 influenza, seasonal, injectable Opheliamilton Padgettumu DO Work Phone: [facility] 04-21-2020 tetanus toxoid, reduced diphtheria toxoid, and acellular pertussis vaccine, adsorbed [facility] 08-12-2019 pneumococcal conjuga te vaccine, 13 valent [facility] 06-11-2019 influenza, high dose seasonal, preservative-free [facility] 04-16-2018 influenza virus vaccine, unspecified formulation [facility] 04-16-2018 influenza, high dose seasonal, preservative-free; Translations: [INFLUENZA VACCINE, HIGH-DOSE] Miguel Angel Bhat [facility] Work Phone: 04-16-2018 HEMOGLOBIN A1C Cinthya [facility] 05-31-2016 influenza, high dose seasonal, preservative-free Miguel Angel Bhat [facility] Work Phone: 05-31-2016 PPD (Mantoux Test) Miguel Angel Bhat [facility] Work Phone: 06-27-2015 influenza, high dose seasonal, preservative-free Miguel Angel [facility] Work Phone: 06-10-2006 influenza virus vaccine, whole virus Miguel Angel [facility] Work Phone: 02-26-2000 tetanus toxoid, adsorbed [facility] Work Phone: Payers Date Payer Category Payer Unknown [id number] 2017 Unknown [id number] 2017 Unknown AARP [employer] [id number] 2017-Present [phone] [address] [place] [address] [id number]. [id number] 2011 Medicare xxxxxxxxxxx [id number] 2011 Medicare [id number] 2011 Medicare [id number]. [id number] 2011 Medicare MEDICARE MEDICAR E PART A & B [id number] 2011-Present [phone] CGS [id number] PART A CLAIMS [address] [address] [place] [address] [id number]. [id number] 1959 Medicare [id number] 2.16.840.1.776067.3.249.13 1946 Unknown [id number] 2.16.840.1.543422.3.579.2.900 1946 Unknown [id number] 2.16.840.1.777182.3.579.2.900 1946 Unknown [id number] 2.16.840.1.651780.3.579.2.900 1946 Unknown [id number] 2.16.840.1.589508.3.579.2.900 1946 Unknown [id number] 2.16.840.1.598182.3.579.2.90 1946 Unknown [id number] 2.16.840.1.927971.3.579.2.90 1946 Unknown [id number] 2.16840.1.741424.3.579.290 1946 Unknown [id number] 2.16840.1.392508.3.579.2.902 1946 Unknown [id number] 2.16840.1.172558.3.579.290 1946 Unknown [id number] 2.16.840.1.633497.3.579.2.902 1946 Unknown [id number] 2.16840.1.143474.3.579.2.90 1946 Unknown [id number] 2.16840.1.335980.3.579.2.902 1946 Unknown [id number] 2.16.840.1.723062.3.579.2.90 1946 Unknown [id number] 2.16.840.1.349595.3.579.2.902 1946 Unknown [id number] 2.16840.1.234110.3.579.290 1946 Unknown [id number] 2.16.840.1.461407.3.579.2.900 1946 Unknown [id number] 2.16.840.1.015970.3.579.2.478 1946 Unknown [id number] 2.16.840.1.608919.3.579.2.900 1946 Unknown [id number] 2.16.840.1.920511.3.579.2.903 1946 Unknown [id number] 2.16.840.1.778372.3.579.2.903 1946 Unknown [id number] 2.16.840.1.446614.3.579.2.903 1946 Unknown [id number] 2.16.840.1.938119.3.579.2.903 1946 Unknown [id number] 2.16.840.1.768063.3.579.2.902 1946 Unknown [id number] 2.16.840.1.734862.3.579.2.902 1946 Unknown [id number] 2.16.840.1.036178.3.579.2.903 1946 Unknown [id number] 2.16.840.1.409532.3.579.2.903 Social History Date Type Detail Facility Start: 10-09-2017 End: 04-17-2022 Tobacco smoking status [facility] Never smoker [facility] Start: 1945 Sex Assigned At Not on file [facility] Work Phone: Start: 01-07-2019 End: 11-07-2020 History SDOH Alcohol Frequency 1 [facility] Start: 09-03-2019 End: 04-17-2022 Alcohol intake Lifetime non-drinker (finding) [facility] Start: 04-07-2022 End: 04-17-2022 Exposure to SARS-CoV-2 (event) Not sure [facility] Start: 02-15-2020 End: 04-17-2022 Tobacco use and exposure Never used [facility] Medical Equipment Procedure Code Equipment Code Equipment Origin al Text Equipment Identifier Dates Hemostat 8 X 12. 5cm X 10mm Surgifoam Gelatin Sponge - [id number] FDA Start: 01-14-2019 USE 1 PEN NEEDLE ONCE DAILY DIRECTED [id number] Start: 01-10-2022 Clinical Notes 11-22-2020 to 04-17-2022 Lydia Castillo, RADHA - 04/17/2022 1:02 PM Jairo Marquez Jr., MD - 05/02/2021 1:02 PM Rachana Vallecillo RN - 04/27/2021 11:30 AM EDTPatient Instructions Note Date & Type Note Facility 04-17-2022 History of Presen t illness Narrative TODAY'S DATE: 04/17/2022 PATIENT: Beulah Fields : 1945, 76 y.o. Chief Complaint/Reason for Visit: Chief Complaint Patient presents with Follow-up 1 yr. Malignant 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, estrogen receptor positive (HCC) ASSESSMENT/PLAN: 1. Malignant 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, estrogen receptor positive (HCC) 2. History of bilateral mastectomy 3. Family history of malignant neoplasm of breast Beulah Fields is a 76 y.o. female who presents for evaluation of for continued follow up examination and management of stage II right breast cancer diagnosed in 2019. She is status post bilateral mastectomy with right SLNB by Dr. Ybarra. She completed chemotherapy and right chest wall radiation. She underwent a revision of her left mastectomy in November of 2020 due to excess tissue in the chest wall. On clinical exam today, there are no signs of new or recurring disease. PLAN: Plan for repeat clinical exam in 1 year. No imaging needed at this time secondary to bilateral mastectomies. I reviewed components of self breast exam and encouraged her to have awareness and report any changes noticed to our office. All of the patient's questions were answered in the office today. She leaves in stable condition and in agreement with the above plan. She is aware that if she has any questions in the interim that I am available. Return in about 1 year (around 04/17/2023). HPI: Beulah Fields is a 76 y.o. female presents today for continued follow up examination and management of stage II right breast cancer diagnosed in 2019. She is status post bilateral mastectomy with right SLNB. She completed chemotherapy and right chest wall radiation. She underwent a revision of her left mastectomy in November of 2020 due to excess tissue in the chest wall. She denies lumps/masses, skin changes, nipple changes or discharge, new or worsening tenderness, and axillary lumps or masses. She denies common symptoms of metastatic disease including headaches, blurred vision, weight loss, cough, shortness of breath, abdominal pain, jaundice and bony pain. BRIEF ONCOLOGIC HISTORY: She presented with abnormal imaging of the right breast. Her diagnostic mammogram on 09/03/2019 which showed a suspicious appearing spiculated mass that measures about 2.5 cm at 12:00 of her right breast at 5 cm from the nipple. She had a right breast ultrasound on the same day which shows a hypoechoic 2.2 cm lesion at 12:00 of the right breast which has irregular margins. 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 She underwent bilateral mastectomy with right sentinel lymph node biopsy. Please see below for pathology results. PAST BREAST HEALTH HISTORY: 09/07/2019: Right breast mass at 9:00- 2.2 cm US guided bx Right Breast 9:00- Invasive Ductal carcinoma, G3, ER 100%, AK 85%, Her 2 julio (-) Stage II A ([id number]) 09/28/2019: Bilateral mastectomy with right sentinel lymph node biopsy Left breast upper outer quadrant-6 mm invasive ductal carcinoma, grade 1, margins are negative and no lymph nodes assessed. Estrogen receptor 100%, progesterone receptor 10%, HER-2/julio negative Right breast mastectomy with a sentinel lymph node biopsy Right breast at 9:00-2.9 cm invasive ductal carcinoma with focal mucinous and micropapillary features, grade 3, DCIS is present, margins are clear, 1 out of 4 lymph nodes positive for metastasis, 20 mm metastatic deposit is involved Estrogen receptor positive, progesterone receptor positive, HER-2/julio negative, Ki-67 is 62% 11/2020: Revision of left mastectomy incision secondary to excess tissue in left chest wall. Medical Oncology:Dr. Ansari Right breast Oncotype 15 DoceTaxol and cyclophosphamide Endocrine Therapy: Radiation Oncology:Dr. Mccullough Right chestwall XRT Genetics:12/2019 Negative PMH: Past Medical History: Diagnosis Date Abnormal mammogram Alopecia scalp; scarring type; Dr Aviva Woodward, [place] Anemia 1970s Anxiety and depression Arthritis Breast cancer, female (HCC) 09/15/2019 Breast mass Cataract Cellulitis 08/2017 RLE Claudication (HCC) Complication of anesthesia anxiety in PACU & postop Deep vein thrombosis (HCC) Diabetes mellitus, type 2 (HCC) Edema R leg GERD (gastroesophageal reflux disease) mild - meds as needed Hyperlipidemia Hypertension Hypothyroidism Ingrown toenail with infection 2020 Left Great toe Lipodermatosclerosis Lymphedema Lymphedema of right lower extremity Dr. 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 PSH: Past Surgical History: Procedure Laterality Date ACHILLES TENDON SURGERY BREAST BIOPSY BREAST CYST EXCISION 1975 BREAST MASS EXCISION Left 11/07/2020 Procedure: left mastectomy flap revision; Surgeon: Ophelia Ybarra DO; Location: [facility] Main OR; Service: General Surgery DILATION AND CURETTAGE OF UTERUS GANGLION CYST EXCISION HYSTERECTOMY (CERVIX REMAINS) HYSTERECTOMY (CERVIX REMOVED) HYSTERECTOMY VAGINAL N/A 01/14/2019 Procedure: TOTAL VAGINAL HYSTERECTOMY; Surgeon: Nidhi Braun MD; Location: [facility] Main OR; Service: OBGYN HYSTEROSCOPY W/ DILATATION AND CURETTAGE N/A 11/27/2017 Procedure: DILATION AND CURETTAGE WITH HYSTEROSCOPY; Surgeon: Nidhi Braun MD; Location: [facility] Main OR; Service: OBGYN INCISION AND DRAINAGE TRUNK Left 04/24/2021 Procedure: LEFT CHEST WOUND EXICSION / WASHOUT / DEBRIDEMENT / BIOPSIES / WOUND VAC APPLICATION; Surgeon: Luis Marquez Jr., MD; Location: [facility] Main OR; Service: Plastics INCISION AND DRAINAGE TRUNK Left 04/26/2021 Procedure: LEFT CHEST WOUND EXICSION / WASHOUT / DEBRIDEMENT / REPAIR; Surgeon: Luis Marquez Jr., MD; Location: [facility] Main OR; Service: Plastics MASTECTOMY MODIFIED RADICAL BILATERAL WITH SENTINEL LYMPH NODE BIOPSY Bilateral 09/28/2019 Procedure: BILATERAL MASTECTOMIES WITH RIGHT SENTINEL NODE BIOPSY; Surgeon: Ophelia Ybarra DO; Location: [facility] Main OR; Service: General Surgery SKIN BIOPSY benign TONSILLECTOMY TUBAL LIGATION US BREAST BIOPSY RIGHT Right 09/07/2019 VASCULAR SURGERY Right 11/2017 leg; Varithena infection WISDOM TOOTH EXTRACTION FMH: Family History Problem Relation Age of Onset Colon cancer Mother 67 Cancer Mother 67 oral Stroke Father Hypertension Father Heart attack Father Prostate cancer Father 70 Heart disease Father Diabetes Father No Known Problems Brother Prostate cancer Brother 68 Breast cancer Maternal Grandmother 70 Colon cancer Maternal Grandfather 65 Other (Abdominal cancer) Paternal Grandmother 70 Prostate cancer Maternal Uncle 60 No Known Problems Other Prostate cancer Maternal Uncle Surgical complications Neg Hx Anesthesia problems Neg Hx Clotting disorder Neg Hx Deep vein thrombosis Neg Hx Pulmonary embolism Neg Hx Ovarian cancer Neg Hx SOCIAL Hx: Social History Socioeconomic History Marital status: Number of children: 6 Occupational History Employer: OTHER- Tobacco Use Smoking status: Never Smokeless tobacco: Never Vaping Use Vaping Use: Never used Substance and Sexual Activity Alcohol use: Never Drug use: Never Social History Narrative Merged History Encounter MEDS: Current Outpatient Medications Medication Sig Dispense Refill Ozempic 0.25 mg or 0.5 mg(2 mg/1.5 mL) Pen 0.5 (one-half) mg . albuterol (PROVENTIL) 2.5 mg /3 mL (0.083 %) nebulizer solution USE 1 VIAL IN NEBULIZER EVERY 4 HOURS WHILE AWAKE anastrozole (ARIMIDEX) 1 mg tablet Take 1 mg by mouth every morning Reasons: post breast cancer. aspirin 81 MG EC tablet Take 1 (one) tablet (81 mg total) by mouth every morning . You may resume Reasons: treatment to prevent a heart attack. (Patient not taking: Reported on 09/12/2021 .) 30 tablet 0 azelastine (ASTELIN) 137 mcg (0.1 %) nasal spray Instill 1-2 sprays into each nostril 2 (two) times a day . calcium citrate (CALCITRATE) 200 mg (950 mg) tablet Take 1 tablet by mouth every morning Reasons: supp. UNXGTAD-LBFHHAEDX-KXPF ORAL Take by mouth every morning Reasons: supplement. cholecalciferol, vitamin D3, (D3-2000) 2,000 unit cap Take 2,000 Units by mouth every evening Reasons: supplement. doxycycline hyclate (VIBRAMYCIN) 100 MG capsule Take 100 mg by mouth daily . escitalopram oxalate (LEXAPRO) 10 MG tablet Take 10 mg by mouth at bedtime Reasons: anxiousness associated with depression. levothyroxine (SYNTHROID, LEVOTHROID) 112 MCG tablet Take 112 mcg by mouth every morning Reasons: a condition with low thyroid hormone levels. losartan (COZAAR) 25 MG tablet Take 25 mg by mouth at bedtime Reasons: high blood pressure. metFORMIN (GLUCOPHAGE-XR) 500 MG 24 hr tablet Take 1,000 mg by mouth nightly Reasons: type 2 diabetes mellitus. multivitamin (multivitamin) per tablet Take 1 tablet by mouth every evening Reasons: treatment to prevent vitamin deficiency. omeprazole (PRILOSEC) 20 MG capsule Take 20 mg by mouth daily as needed . rosuvastatin (CRESTOR) 20 MG tablet Take 20 mg by mouth every evening Reasons: high cholesterol. spironolactone (ALDACTONE) 25 MG tablet Take 12.5 mg by mouth at bedtime Reasons: high blood pressure, 1/2 tablet (12.5 mg). TRUEplus Pen Needle 31 gauge x 3/16 Ndle USE 1 PEN NEEDLE ONCE DAILY DIRECTED No current facility-administered medications for this visit. ALLERGIES: Allergies: Chlorhexidine towelette, Sulfamethoxazole-trimethoprim, and Betadine [povidone-iodine] ROS: Review of Systems Constitutional: Negative for appetite change, fever and unexpected weight change. HENT: Negative for congestion, ear discharge, facial swelling, sinus pain and trouble swallowing. Eyes: Negative for photophobia, discharge, redness and visual disturbance. Respiratory: Positive for apnea. Negative for cough and shortness of breath. Cardiovascular: Negative for chest pain. Gastrointestinal: Positive for constipation. Negative for abdominal distention, abdominal pain, nausea and vomiting. Endocrine: Negative for cold intolerance and heat intolerance. Genitourinary: Negative for difficulty urinating and dysuria. Musculoskeletal: Negative for arthralgias, back pain, gait problem, joint swelling, myalgias, neck pain and neck stiffness. Skin: Negative for color change, pallor, rash and wound. Allergic/Immunologic: Negative for environmental allergies and food allergies. Neurological: Negative for dizziness, tremors, seizures, syncope, facial asymmetry, speech difficulty, weakness, light-headedness, numbness and headaches. Psychiatric/Behavioral: Negative for agitation, behavioral problems, confusion, decreased concentration, hallucinations, sleep disturbance and suicidal ideas. The patient is not nervous/anxious. Breast: breast mass-no, breast pain-no, skin changes-no, Physical Examination: Per [facility] Policy, the patient was offered a synthetic filament spinner for the physical exam. Patient's response to synthetic filament spinner offer: No Vital Signs: Ht 5' 6 Wt 103 kg (227 lb) BMI 36.64 kg/m Physical Exam Constitutional: Appearance: Normal appearance. HENT: Head: Normocephalic and atraumatic. Nose: Nose normal. Cardiovascular: Rate and Rhythm: Normal rate. Pulmonary: Effort: Pulmonary effort is normal. Chest: Comments: Bilateral breast exam is performed in sitting and supine position. Bilateral well healed mastectomy incisions. No discrete masses, worrisome findings or skin changes are noted bilaterally. No axillary adenopathy. Abdominal: Palpations: Abdomen is soft. Musculoskeletal: General: Normal range of motion. Cervical back: Normal range of motion and neck supple. Skin: General: Skin is warm and dry. Neurological: Mental Status: She is alert. Psychiatric: Mood and Affect: Mood normal. Behavior: Behavior normal. Thought Content: Thought content normal. Judgment: Judgment normal. IMAGING: She no longer requires routine breast imaging as she is status post bilateral mastectomies. I personally spent 20-29 minutes on this encounter today which includes [id number] time with the patient, time reviewing the chart, and time spent documenting the encounter. Sincerely, Lydia Castillo CNP Breast Surgical Oncology [facility] Sur[facility] Office Office fax: [phone] CC: documented in this encounter [facility] 05-02-2021 History of Presen t illness Narrative Postop note Today's Date: 05/02/2021 Date of Surgery: 04/26/2021 6 days postop SURGERY: ATR left chest/axilla for wound reconstruction over drain Healing nicely Repair intact Drain with minimal output, SS Drain removed today One mattress suture removed today Repairs appear intact, absorbable sutures in place Cleared for light activity OK to leave open to air RTC: 2 weeks documented in this encounter [facility] 04-27-2021 Hospital Discharg Ellen Dominique CNP - 04/27/2021 JAVY-SILVA DRAIN (or BETRHA drain) When you return home, do the following to help ensure a smooth recovery: -Empty drain at least twice a day or when full, keep a record of the amount of the drainage emptied and take the record to your follow up appointment. -Avoid bumping the drain -Sleep on the opposite side of the drain. This will help you avoid blocking the tubing or pulling it out of the suction bulb. -You can shower with your drain, do not submerge in a tub or soak in water. Call your doctor if any of the following occurs: -Drainage is greenish in color or has a bad smell -Significant bleeding from the drain -Pain at the incision -Fever or chills -End of the tube comes out of the incision -Removal of a drain depends on how fast you heal from surgery or injury. Your doctor may remove the drain when there is less than 1-2 tablespoons (15-30 milliliters) of drainage/fluid per day. If you have more than one drain, they may not necessarily be removed at the same time. documented in this encounter [facility] 04-27-2021 History of Presen t illness Narrative Discharge instructions completed, including , med instructions including last time pain med given and next available time. Discharged to home via w/c with staff and family to family vehicle. Pt belongings with pt. No new Rxs required. Care Management Progress Note Patient Name: Beulah Fields Working Discharge Plan: D/C Disposition: Home Agency/Destination: Home HME: None Transportation Plan: Does the patient need discharge transport arranged?: No Transportation Type: Auto Pending/Established Referrals: None Barriers to Discharge/Plan for Follow Up: Patient with discharge orders. Patient and both state that they do not need home health care. to transport home, no other needs identified. [facility] [place] [place] PROGRESS NOTE Assessment and Plan Beulah Fields is a 75 y.o. female patient of Eve Cueto MD with history of alopecia, anemia, anxiety, DVT, DM2, KAYLIE presented with non-healing wound for planned surgery Non-healing surgical wound Left mastectomy site with non-healing surgical wound following skin removal S/p left chest wound debridement and closure over drain (04/26) DM2 without long-term insulin use A1c 7.1% Hold Metformin while admitted Cover with correctional SSI Accuchecks and diabetic diet KAYLIE CPAP QHS Breast Cancer Original indication for mastectomy Continue aromatase inhibitor HTN Continue ARB, hold spironolactone preop Pre-surgical risk stratification No known history of CAD Describes > 4 METs without anginal symptoms RCRI = 1 for expected pre-operative insulin use Bradycardia on telemetry, history of anemia; EKG nonacute Patient is appropriate for low to intermediate risk surgery Family Contact Information: Code Status: Full Code Quality Measures DVT Prophylaxis: Lovenox Quach Catheter: Absent Disposition Discharge Location: Anticipate home Estimated Discharge Date: Today Outpatient Testing: Pending Subjective Lying in bed. States she is feeling good and ready to go home. at bedside. Reviewed d/c planning and agreeable. No acute issues overnight. Review of Systems All systems have been reviewed and are negative except as noted in HPI or below Objective BP 126/72 (BP Location: Left arm, Patient Position: Sitting) Pulse (!) 59 Temp 97.9 F (36.6 C) (Oral) Resp 13 Ht 5' 6 Wt 99.3 kg (219 lb) SpO2 96% BMI 35.35 kg/m Physical Examination General Appearance: alert; well appearing; in no acute distress HEENT: Head- normocephalic; Eyes- EOMI, sclera anicteric; Ears- hearing intact; Nose- no nasal discharge; Throat- mucous membranes moist Cardiovascular: regular rate and rhythm; normal S1, S2; no murmurs, rubs, clicks or gallops; no peripheral edema Chest: bilateral mastectomy. drsg to left chest wall intact, drain in place Respiratory: lungs clear to auscultation; without wheezes, rales or rhonchi; on room air Abdomen: soft, non-tender, non-distended; positive bowel sounds Neurological: oriented x 3; normal speech; no focal findings or movement disorder noted Musculoskeletal: no significant deformity or tenderness to palpation Skin: normal coloration; no obvious rashes, lesions or skin breakdown Psych: normal mood and affect Results/Medications Reviewed 04/27/21 8:41 AM Laboratory, Cardiology, Medications and Transcriptions /PLASTIC SURGERY PROGRESS NOTE A: Beulah Fields is a 75 y.o.female POD1 s/p left chest wound debridement and closure over drain on 04/26/21 P:- Strip and record BERTHA, will go home with drain -Dressing can remain in place. -Ok to discharge per PRS, follow up in 1 week. S: Pain well controlled. Tolerating PO, ambulating, voiding. Patient denies fever, chills, CP, SOB, or n/v. O: Temp: [97.3 F (36.3 C)-98.9 F (37.2 C)] 97.7 F (36.5 C) Heart Rate: [51-61] 54 Resp: [7-16] 14 BP: (120-177)/(53-85) 120/53 Lab Results Component Value Date WBC 5.62 04/23/2021 HGB 12.7 04/23/2021 HCT 38.4 04/23/2021 MCV 85.5 04/23/2021 PLT 246 04/23/2021 Lab Results Component Value Date GLUCOSE 187 (H) 04/23/2021 CALCIUM 9.1 04/23/2021 NA 142 04/23/2021 K 4.0 04/23/2021 CL 106 04/23/2021 BUN 21 04/23/2021 CREATININE 0.61 04/23/2021 Gen:NAD Left chest: dressing CDI, BERTHA intact with 25cc SS output. Ellen Mcmanus CNP Plastic Reconstructive Surgery Service Pager (1z-3w): Care Management Progress Note Patient Name: Beulah Fields Working Discharge Plan: D/C Disposition: Home Agency/Destination: Home HME: None Patient to discharge home with no needs. Placed Dr. Marquez contact information on the AVS for the patient to call to schedule follow up. Discussed the need for drain care at home. The patient and her stated they do not need HH. Transportation Plan: Does the patient need discharge transport arranged?: No Transportation Type: Auto Pending/Established Referrals: None Barriers to Discharge/Plan for Follow Up: None [facility] [place], [place] PROGRESS NOTE Assessment and Plan Beulah Fields is a 75 y.o. female patient of Eve Cueto MD with history of alopecia, anemia, anxiety, DVT, DM2, KAYLIE presented with non-healing wound for planned surgery Non-healing surgical wound Left mastectomy site with non-healing surgical wound following skin removal Plastic surgery consult, planned for staged procedure with Dr Marquez for (04/26) DM2 without long-term insulin use A1c 7.1% Hold Metformin while admitted Cover with correctional SSI Accuchecks and diabetic diet KAYLIE CPAP QHS Breast Cancer Original indication for mastectomy Continue aromatase inhibitor HTN Continue ARB, hold spironolactone preop Pre-surgical risk stratification No known history of CAD Describes > 4 METs without anginal symptoms RCRI = 1 for expected pre-operative insulin use Bradycardia on telemetry, history of anemia; EKG nonacute Patient is appropriate for low to intermediate risk surgery Family Contact Information: Code Status: Full Code Quality Measures DVT Prophylaxis: Lovenox Quach Catheter: Absent Disposition Discharge Location: Anticipate home Estimated Discharge Date: Pending plastics recs; awaiting pathology for continued surgical plan Outpatient Testing: Pending Subjective Denies any chest pain, pressure of discomfort. Denies any shortness of breath, cough, or congestion. Denies any abdominal pain, nausea/vomiting. Tolerating PO intake. Review of Systems All systems have been reviewed and are negative except as noted in HPI or below Objective BP (!) 177/82 (BP Location: Left leg, Patient Position: Lying) Pulse (!) 51 Comment: nurse notified Temp 98 F (36.7 C) (Oral) Resp 15 Ht 5' 6 Wt 99.3 kg (219 lb) SpO2 97% BMI 35.35 kg/m Physical Examination General Appearance: alert; well appearing; in no acute distress HEENT: Head- normocephalic; Eyes- EOMI, sclera anicteric; Ears- hearing intact; Nose- no nasal discharge; Throat- mucous membranes moist Cardiovascular: regular rate and rhythm; normal S1, S2; no murmurs, rubs, clicks or gallops; no peripheral edema Chest: bilateral mastectomy. drsg to left chest wall intact Respiratory: lungs clear to auscultation; without wheezes, rales or rhonchi; on room air Abdomen: soft, non-tender, non-distended; positive bowel sounds Neurological: oriented x 3; normal speech; no focal findings or movement disorder noted Musculoskeletal: no significant deformity or tenderness to palpation Skin: normal coloration; no obvious rashes, lesions or skin breakdown Psych: normal mood and affect Results/Medications Reviewed 04/26/21 8:31 AM Laboratory, Cardiology, Medications and Transcriptions [facility] [place], [place] PROGRESS NOTE Assessment and Plan Beulah Fields is a 75 y.o. female patient of Eve Cueto MD with history of alopecia, anemia, anxiety, DVT, DM2, KAYLIE presented with non-healing wound for planned surgery Non-healing surgical wound Left mastectomy site with non-healing surgical wound following skin removal Plastic surgery consult, planned for staged procedure with Dr Marquez for (04/26) DM2 without long-term insulin use A1c 7.1% Hold Metformin while admitted Cover with correctional SSI Accuchecks and diabetic diet KAYLIE CPAP [facility] Breast Cancer Original indication for mastectomy Continue aromatase inhibitor HTN Continue ARB, hold spironolactone preop Pre-surgical risk stratification No known history of CAD Describes > 4 METs without anginal symptoms RCRI = 1 for expected pre-operative insulin use Bradycardia on telemetry, history of anemia; EKG nonacute Patient is appropriate for low to intermediate risk surgery Family Contact Information: Code Status: Full Code Quality Measures DVT Prophylaxis: Lovenox Quach Catheter: Absent Disposition Discharge Location: Anticipate home Estimated Discharge Date: Pending plastics recs; awaiting pathology for continued surgical plan Outpatient Testing: Pending Subjective Pt lying in bed. States she feels good. States the tape is the only thing that hurts her. Denies c/o pain. Denies any chest pain, pressure of discomfort. Denies any shortness of breath, cough, or congestion. Denies any abdominal pain, nausea/vomiting. Tolerating PO intake. Review of Systems All systems have been reviewed and are negative except as noted in HPI or below Objective BP 146/72 (BP Location: Right arm, Patient Position: Lying) Pulse (!) 59 Temp 97.5 F (36.4 C) (Oral) Resp 14 Ht 5' 6 Wt 99.3 kg (219 lb) SpO2 94% BMI 35.35 kg/m Physical Examination General Appearance: alert; well appearing; in no acute distress HEENT: Head- normocephalic; Eyes- EOMI, sclera anicteric; Ears- hearing intact; Nose- no nasal discharge; Throat- mucous membranes moist Cardiovascular: regular rate and rhythm; normal S1, S2; no murmurs, rubs, clicks or gallops; no peripheral edema Chest: bilateral mastectomy. Wound vac to left lateral chest wall Respiratory: lungs clear to auscultation; without wheezes, rales or rhonchi; on room air Abdomen: soft, non-tender, non-distended; positive bowel sounds Neurological: oriented x 3; normal speech; no focal findings or movement disorder noted Musculoskeletal: no significant deformity or tenderness to palpation Skin: normal coloration; no obvious rashes, lesions or skin breakdown Psych: normal mood and affect Results/Medications Reviewed 04/25/21 8:03 AM Laboratory, Cardiology, Medications and Transcriptions PLASTIC SURGERY PROGRESS NOTE A: Beulah Fields is a 75 y.o.female Left breast wound S/p I&D 04/24 P: - Keep wound vac in place at -125 - RTOR tomorrow 04/26 for likely repeat debridement with possible closure - Pathology results pending - Plastics available for questions or concerns S: Pain well controlled. Tolerating PO, ambulating, voiding. Patient denies fever, chills, CP, SOB, or n/v. O: Temp: [97.3 F (36.3 C)-97.7 F (36.5 C)] 97.5 F (36.4 C) Heart Rate: [52-67] 59 Resp: [13-18] 14 BP: (128-188)/(56-99) 146/72 Lab Results Component Value Date WBC 5.62 04/23/2021 HGB 12.7 04/23/2021 HCT 38.4 04/23/2021 MCV 85.5 04/23/2021 PLT 246 04/23/2021 Lab Results Component Value Date GLUCOSE 187 (H) 04/23/2021 CALCIUM 9.1 04/23/2021 NA 142 04/23/2021 K 4.0 04/23/2021 CL 106 04/23/2021 BUN 21 04/23/2021 CREATININE 0.61 04/23/2021 Gen:NAD Wound vac holding suction Plastic Reconstructive Surgery Service Pager ([phone]): [facility] [place], [place] PROGRESS NOTE Assessment and Plan Beulah Fields is a 75 y.o. female patient of Eve Cueto MD with history of alopecia, anemia, anxiety, DVT, DM2, KAYLIE presented with non-healing wound for planned surgery Non-healing surgical wound Left mastectomy site with non-healing surgical wound following skin removal Plastic surgery consult, planned for staged procedure with Dr Marquez for (04/26) DM2 without long-term insulin use A1c 7.1% Hold Metformin while admittes Cover with correctional SSI Accuchecks and diabetic diet KAYLIE CPAP QHS Breast Cancer Original indication for mastectomy Continue aromatase inhibitor HTN Continue ARB, hold spironolactone preop Pre-surgical risk stratification No known history of CAD Describes > 4 METs without anginal symptoms RCRI = 1 for expected pre-operative insulin use Bradycardia on telemetry, history of anemia; EKG nonacute Patient is appropriate for low to intermediate risk surgery Family Contact Information: Code Status: Full Code Quality Measures DVT Prophylaxis: Lovenox Quach Catheter: Absent Disposition Discharge Location: Anticipate home Estimated Discharge Date: Pending plastics recs Outpatient Testing: Pending Subjective Pt lying in bed. States she is tired. Denies c/o pain. Denies any chest pain, pressure of discomfort. Denies any shortness of breath, cough, or congestion. Denies any abdominal pain, nausea/vomiting. Tolerating PO intake. Review of Systems All systems have been reviewed and are negative except as noted in HPI or below Objective BP (!) 153/62 Pulse (!) 55 Temp 97.5 F (36.4 C) (Oral) Resp 15 Ht 5' 6 Wt 99.3 kg (219 lb) SpO2 97% BMI 35.35 kg/m Physical Examination General Appearance: alert; well appearing; in no acute distress HEENT: Head- normocephalic; Eyes- EOMI, sclera anicteric; Ears- hearing intact; Nose- no nasal discharge; Throat- mucous membranes moist Cardiovascular: regular rate and rhythm; normal S1, S2; no murmurs, rubs, clicks or gallops; no peripheral edema Chest: bilateral mastectomy. Wound vac to left lateral chest wall Respiratory: lungs clear to auscultation; without wheezes, rales or rhonchi; on room air Abdomen: soft, non-tender, non-distended; positive bowel sounds Neurological: oriented x 3; normal speech; no focal findings or movement disorder noted Musculoskeletal: no significant deformity or tenderness to palpation Skin: normal coloration; no obvious rashes, lesions or skin breakdown Psych: normal mood and affect Results/Medications Reviewed 04/24/21 8:36 AM Laboratory, Cardiology, Medications and Transcriptions documented in this encounter [facility] 04-27-2021 Miscellaneous Notes Discharge instructions completed, including AVS, , med instructions including last time pain med given and next available time. Discharged to home via w/c with staff and family to family vehicle. Pt belongings with pt. No new Rxs ordered. Vac #[id number] to left breast was discontinued in OR on 04/26. [facility] Problem: Actual or potential alteration in health Goal: Knowledge of Interdisciplinary Plan of Care Outcome: Partially Met Problem: Pain Goal: Reduced pain sensation Outcome: Partially Met We just finished in the OR with Mrs. Fields. She had her left chest wound washed out and repaired over a drain in many layers. BERTHA drain and dressings to remain in place until follow-up. She is cleared for discharge. We explained to her drain and dressing care. They are to call our office to make an appointment to see me in 5-7 days. [facility] [address] [place] [id number] Brief Post Operative Note Patient Name: Beulah Fields : 1945 (75 y.o.) Date of Service: 04/26/2021 [facility]: [id number] Procedure(s): LEFT CHEST WOUND EXICSION / WASHOUT / DEBRIDEMENT / REPAIR Pre-Operative Diagnoses: * LEFT BREAST WOUND Post-Operative Diagnoses: * Same as Pre-Op Diagnosis Surgeon(s) and Role: * Luis Marquez Jr., MD - Primary Anesthesiologist: Norbert Ku Jr., MD [employer] Articles: Goran Alvarado RN; Molly Fagan RN Scrub Person Relief: [facility] [place] Scrub Person: ST Sam[facility] Anesthesia Specialist: Niurka Huizar Scrub Person Orientee: Sharda Douglas RN Operative findings: clean wound, deep cavity, closure over drain in many layers Intra and immediate post-operative complications: none Type of anesthesia used: General Estimated blood loss: 25 mL Estimated urine output: Specimen(s): * No specimens in log * Implant(s): * No implants in log * Drain(s): Closed/Suction Drain 1 Left Breast 10 Fr. (Active) Closed/Suction Drain 1 Left Chest 19 Fr. (Active) Wound(s): Wound 04/23/21 Surgical Wound Abdomen LUQ; Axilla Lateral (Active) Dressing Status Clean; Dry; Intact 04/25/21 2100 Drainage Amount None 04/25/21 2100 Drainage Description Serosanguineous 04/23/212234 Odor None 04/24/212137 Wound Bed Characteristics VIKAS (Unable to assess) 04/25/212099 Inna-wound Assessment Temperature WNL 04/24/212137 Primary Dressing NPWT 04/25/21 2100 Wound 04/24/21 Surgical Wound Chest Left (Active) Reassessment Unchd 04/24/21 1030 Dressing Status Clean; Dry; Intact 04/24/212137 Drainage Amount None 04/24/212137 Odor None 04/24/212137 Wound Bed Characteristics VIKAS (Unable to assess) 04/24/212137 Inna-wound Assessment Temperature WNL 04/24/212137 Primary Dressing NPWT 04/24/212137 Wound 04/26/21 Surgical Wound Chest Left (Active) Luis Marquez Jr., MD 04/26/2021 11:48 AM BEULAH FIELDS [facility] [id number] 1945 DATE 04/26/2021 OPERATIVE REPORT SURGEON LUIS MARQUEZ JR, MD COOKER TENDER NONE PREOPERATIVE DIAGNOSES 1. History of breast cancer. 2. Status post bilateral mastectomies. 3. Left lateral chest recalcitrant wound. POSTOPERATIVE DIAGNOSES 1. History of breast cancer. 2. Status post bilateral mastectomies. 3. Left lateral chest recalcitrant wound. PROCEDURES Adjacent tissue rearrangement and wound reconstruction of the left chest, over a 19Fr drain, 220 square cm. CPT 16610, CPT 91488 x 6 ANESTHESIA General. ESTIMATED BLOOD LOSS About 50 cc. BACKGROUND Ms. Fields is a 75-year-old female with a history of right-sided breast cancer. She had bilateral mastectomies, left side was done in a prophylactic manner. She ended up with a drain on the left side that had a recalcitrant wound that demonstrated significant drainage with what appears to be fat necrosis. We are following her in our wound care center and recommended excisional debridement and then staged reconstruction and also we sent tissue for a pathology to rule out any kind of recurrent disease. The debridement demonstrates a clean wound in the OR today. Pathology report has been benign from tissue sent at our debridement a few days ago. So, we have her in the operating room today to close her wound over a drain. PROCEDURE IN DETAIL Patient was seen in the preop holding area. She endorsed understanding and indications to her surgery. She gave us consent to proceed. Her site was marked. SCDs were placed on her lower extremities and activated. She was brought to the operating room, placed on the operative bed and after induction of anesthesia, a time-out was called confirming the patient's name, surgery, surgical site, surgeons, all appropriate equipment, infusion of antibiotics 30 minutes before our procedure. All pressure points were padded appropriately and her left chest was prepped and draped in a standard sterile fashion. We examined under these sterile conditions. She has a left lateral chest, approaching the axilla, that is large and deep with exposed serratus and pectoralis muscle. There is a fair bit of surrounding scar from her prior surgeries. The wound is clean and ready to close, but cannot be done with simple repair because it is too large to close as such without tension. So we start by washing the wound out with 3 L of fluid and scrubbed it down with the bristle side of a Betadine scrub brush. We then controlled hemostasis with electrocautery. We then extend our apices anterior and posteriorly in a curvilinear fashion, excise and release surround scar, in order to recruit tissue in an adjacent tissue rearrangement, to bring skin edges together without tension. We then place buried monocryl in the muscle approximating the medial border of the serratus to the lateral border of the pectoralis to obliterate deep space. We then place a 19Fr drain in the supramuscular space, externalize through a tunnel of skin and soft tissue anteriorly, and sew into place with a nylon suture. We then elevate and rearrange the local skin flaps in a rotation advancement like fashion, both superior and inferior flaps, to accomplish the adjacent tissue rearrangement without tension. We place 3 point fixation sutures in the deep skin tacking to the underlying muscle, avoiding the drain, as progressive tension sutures. We then place intermediate sutures buried of monocryl in the intermediate dermis. We then place a series of mattress sutures on the skin with nylon where we need skin eversion, to compensate for the scar release. We also use vicryl rapide suture on the skin where the tissue is more cooperative and easier to approximate skin edges. After closure, we find our drain to hold a nice closed seal. We dress the repair with steri-strips and a drain sponge. The entire surface area of the left chest wound that underwent adjacent tissue rearrangement for wound reconstruction over a drain is 220 square cm. We then cleansed the remainder of her skin free of the prep. She tolerates the procedure well. She was awakened from anesthesia, extubated, and taken to recovery aragon in stable condition. All counts were correct at the conclusion of our surgery. POSTPROCEDURE CARE She will return to the admitting service. She is cleared for discharge. She is to go home with the drain. We would like to see her in clinic in 5-7 days for a hopeful drain removal, and to evaluate our repair. Attempted wound vac dressing check however, off the unit. Will try again at a later time. Pre-operative Patient Readiness Date: 04/26/21 7:05 AM Admission:04/23/2021 Operative Intervention: LEFT CHEST WOUND EXICSION / WASHOUT / DEBRIDEMENT / REPAIR (Left ) COVID Negative [x] Positive [] Date: 04/23 Labs: Type and screen Expires: 04/26 None [] Ordered/pending [] Results from last 7 days Lab Units 04/23/212228 ABORH A Positive Chem: Results from last 7 days Lab Units 04/23/212228 SODIUM mmol/L 142 POTASSIUM mmol/L 4.0 CHLORIDE mmol/L 106 BUN mg/dL 21 CREATININE mg/dL 0.61 GLUCOSE mg/dL 187* CALCIUM mg/dL 9.1 CBC: Results from last 7 days Lab Units 04/23/212228 WBC K/mcL 5.62 HGB g/dL 12.7 HCT % 38.4 PLT K/mcL 246 HCG Date: Positive [] Negative [] Postmenopausal/Hysterectomy [x] VS: HR 50's, SBP 130-150's. On RA Gtts: NA Current Hospital Diagnoses: 1. Non healing surgical wound 2. DM2 w/o termination clerk insulin use 3. KAYLIE 4. Breast CA 5. HTN PMH: Abnormal mammogram, Alopecia, anemia, anxiety, depression, arthritis, breast cA, breast mass, cataract, cellulitis, claudication, complication of anesthesia DVT, DM2, edema, GERD, HLD, HTN, hypothyroidism, ingrown toe nail, lipodermatosclerosis,, lymphedema, OA, sleep apnea, Varicose veins Neuro: No Concerns Cardio: Present EKG: [x] Date: 04/24/21 Ordered [] None [] NSR[] ST[] SB [x] SA [] VTACH [] Aflutter [] AFIB[] Junctional [] RVR [] PVC's[] PAC's[x] LBBB[] RBBB [] PJC [] 1st Degree AVB [x] Mobits I [] Mobits II [] Complete HB [] Present ECHO: [] Date: Ordered [] None [x] Impression: EF Pertinent Meds: ASA, Lipitor, Losartan Respiratory: O2 Source: Room Air [x] NC [] Liters: Oxymizer [] Liters: NRB [] Liters: Venti [] Liters: FiO2 HFNC [] Liters: FiO2: Trach Mask/T-Piece [] Liters: FiO2: Trach w/ Vent [] (see above settings) Intubated [] (see above settings) CXR Done [] None [x] Date: Impression: CT Chest Done [] None [x] Date: Impression: Additional Testing: None [x] Date: Gastroenterology: On Protonix Antibiotics: None AntiCoags: Lovenox 40 mg daily ASA 81 mg dialy Primary Team Clearance note: 04/23 HMS: Pre-surgical risk stratification No known history of CAD Describes > 4 METs without anginal symptoms RCRI = 1 for expected pre-operative insulin use Bradycardia on telemetry, history of anemia; will check EKG and routine labs preoperatively Patient is appropriate for low to intermediate risk surgery pending unremarkable EKG and labwork Pending Testing: None Additional Information: 1. DM on SSI 2. No new labs since 04/23 Consenting Libertarian: Patient Contacts: Extended Emergency Contact Information Primary Emergency Contact: Zeke Fields Address: [address] [place] [address] of [facility] [employer] Relation: Spouse Katy Bhat CNP 04/26/2021 Wound vac dressing check complete -- [id number] is suctioning at 125 mmhg medium, continuous to left breast per Plastics. No orders to change. Will follow. Post operative Plan of Care Beulah Fields is a 75 y.o. female now POD 0 s/p I&D left breast wound - Wound vac to remain in place at 125 - RTOR 04/26 for possible closure - Primary to continue managing pain and other medical issues - Plastics available for questions or concerns Brief Post Operative Note Patient Name: Beulah Fields : 1945 (75 y.o.) Date of Service: 04/24/2021 CSN: [id number] Procedure(s): LEFT CHEST WOUND EXICSION / WASHOUT / DEBRIDEMENT / BIOPSIES / WOUND VAC APPLICATION Pre-Operative Diagnoses: * LEFT CHEST WOUND Post-Operative Diagnoses: same Surgeon(s) and Role: * Luis Marquez Jr., MD - Primary Anesthesiologist: Nahid Roman MD POSTDOCTORAL RESEARCH ASSOCIATE: Chante Murphy CRNA [employer] Articles: Goran Alvarado RN Scrub Person: ST [place] Anesthesia Specialist: Niurka Huizar Operative findings: Necrosis of fat throughout woud Intra and immediate post-operative complications: none Type of anesthesia used: General Estimated blood loss: 20 mL Estimated urine output: Refer to surgical log Specimen(s): ID Type Source Tests Collected by Time Destination A : LEFT CHEST WOUND; HISTORY OF BREAST CANCER Tissue Chest TISSUE EXAM Luis Marquez Jr., MD 04/24/2021 09 Implant(s): * No implants in log * Drain(s): Closed/Suction Drain 1 Left Breast 10 Fr. (Active) Wound(s): Wound 04/23/21 Surgical Wound Abdomen LUQ; Axilla Lateral (Active) Dressing Status Dry; Intact 04/23/212234 Drainage Amount Small 04/23/212234 Drainage Description Serosanguineous 04/23/212234 Odor None 04/23/212234 Wound Bed Characteristics VIKAS (Unable to assess) 04/23/212234 Inna-wound Assessment Temperature WNL 04/23/212234 Primary Dressing Dry gauze 04/23/212234 Wound 04/24/21 Surgical Wound Chest Left (Active) Donald Sykes DO 04/24/2021 9:46 AM DONNIE, BEULAH MCKENZIE CSN [id number] 1945 DATE 04/24/2021 OPERATIVE REPORT SURGEON LUIS MARQUEZ JR, MD COOKER TENDER DONALD SYKES DO, RESIDENT PREOPERATIVE DIAGNOSES 1. History of breast cancer. 2. Status post bilateral mastectomies. 3. Left lateral chest recalcitrant wound. POSTOPERATIVE DIAGNOSES 1. History of breast cancer. 2. Status post bilateral mastectomies. 3. Left lateral chest recalcitrant wound. PROCEDURES 1. Excisional washout and debridement of left chest wounds to include epidermis, dermis, muscle, and fascia, 180 cm2, CPT 19408, CPT 23065 x 8. 2. Application of vacuum-assisted dressing under anesthesia, CPT 16523. ANESTHESIA General. ESTIMATED BLOOD LOSS About 50 cc. BACKGROUND Ms. Fields is a 75-year-old female with a history of right-sided breast cancer. She had bilateral mastectomies, left side was done in a prophylactic manner. She ended up with a drain on the left side that had a recalcitrant wound that demonstrated significant drainage with what appears to be fat necrosis. We are following her in our wound care center and recommended excisional debridement and then staged reconstruction and also we would send tissue for a pathology to rule out any kind of recurrent disease. So, we have her in the operating room today to conduct the procedure. PROCEDURE IN DETAIL Patient was seen in the preop holding area. She endorsed understanding and indications to her surgery. She gave us consent to proceed. Her site was marked. SCDs were placed on her lower extremities and activated. She was brought to the operating room, placed on the operative bed and after induction of anesthesia, a time-out was called confirming the patient's name, surgery, surgical site, surgeons, all appropriate equipment, infusion of antibiotics 30 minutes before our procedure. All pressure points were padded appropriately and her left chest was prepped and draped in a standard sterile fashion. We examined under these sterile conditions. She had a left lateral chest sinus tract that drains a great deal of slough and murky fluid. It is within the scar line of the transverse mastectomy scar. We placed a probe within this sinus tract and probed the entire undermining element and marked that out as the silhouette over the skin to find out where we were going to be exactly excising and then we use a knife and make an incision overlying the prior scar. We then use forceps and scissors to excise the skin scar back to bleeding healthy tissue. We used forceps and scissors to excise the sinus tract. We find a great deal of pyogenic granulation within this wound and element, looks like it track that has been contaminated and maybe trying to epithelialize. So, between the use of a knife, forceps, scissors and electrocautery, we excise the wound back to bleeding healthy tissue. We then washed the wound out with 3 L of fluid and scrubbed it down with the bristle side of a Betadine scrub brush. The entire surface area of the left chest wound that underwent excisional debridement and washout to include epidermis, dermis, muscle, and fascia with the use of forceps, scissors and a knife and electrocautery is 15 cm x 12 cm equals 180 cm2 We then controlled hemostasis with electrocautery. We then placed a black vacuum sponge within the wound, adhesives over such, connected to the disk and tubing and negative pressure therapy and it holds the seal quite nicely. We also did send a specimen of our debridement to pathology for evaluation to rule out recurrent cancer. We then cleansed the remainder of her skin free of the prep. She tolerates the procedure well. She was awakened from anesthesia, extubated, and taken to recovery aragon in stable condition. All counts were correct at the conclusion of our surgery. POSTPROCEDURE CARE She will return to the admitting service. She will keep the vacuum dressing in place. We will wait for pathology to return our report. We have asked them to expedite and put a [place] on the report so we can rule out any sort of recurrent disease and in about 48 to 72 hours, we will have her back in the OR, wash her out and conduct a delayed closure of a surgical wound, maybe over a drain. We will see but may be over progressive tension sutures. We will determine that at our next OR and we look forward to the path report. LUIS MARQUEZ JR, MD D 04/24/2021 09:48 [id number] T 04/24/2021 10:10 [place]/MODMar Admission Head to Toe Skin Assessmen Two Nurses completed head to toe skin pilot captain R. Schuler and BLAIRE Ponce. Patient admitted to [facility] for LUE non healing surgical wound. Patient has redness to upper back due to chronic dryness but otherwise no other skin abnormalities other then for which patient admitted for. documented in this encounter [facility] 04-27-2021 Hospital course Narrative [facility] [place] [place] DISCHARGE SUMMARY Beulah Fields Admitted: 04/23/2021 Discharge Date: 04/27/21 PCP Handoff Recommended Outpatient Testing Fu with plastics 5-7 days Results Pending At Discharge None Clinical Summary Beulah Fields is a 75 y.o. female patient of Eve Cueto MD with history of alopecia, anemia, anxiety, DVT, DM2, KAYLIE presented with non-healing wound for planned surgery Non-healing surgical wound Left mastectomy site with non-healing surgical wound following skin removal S/p left chest wound debridement and closure over drain (04/26) DM2 without long-term insulin use A1c 7.1% Hold Metformin while admitted Cover with correctional SSI Accuchecks and diabetic diet KAYLIE CPAP QHS Breast Cancer Original indication for mastectomy Continue aromatase inhibitor HTN Continue ARB, hold spironolactone preop Pre-surgical risk stratification No known history of CAD Describes > 4 METs without anginal symptoms RCRI = 1 for expected pre-operative insulin use Bradycardia on telemetry, history of anemia; EKG nonacute Patient is appropriate for low to intermediate risk surgery Discharge Medications Discharge Medications Medications To Continue Details anastrozole 1 mg tablet Commonly known as: ARIMIDEX Take 1 mg by mouth every morning Reasons: post breast cancer. aspirin 81 MG EC tablet Take 1 (one) tablet (81 mg total) by mouth every morning . You may resume Reasons: treatment to prevent a heart attack. Quantity: 30 tablet azelastine 137 mcg (0.1 %) nasal spray Commonly known as: ASTELIN INSTILL 1 2 SPRAYS IN EACH NOSTRIL TWICE DAILY calcium citrate 200 mg (950 mg) tablet Commonly known as: CALCITRATE Take 1 tablet by mouth every morning Reasons: supp. [id number] ORAL Take by mouth every morning Reasons: supplement. D3-2000 50 mcg (2,000 unit) Cap Generic drug: cholecalciferol (vitamin D3) Take 2,000 Units by mouth every evening Reasons: supplement. escitalopram oxalate 10 MG tablet Commonly known as: LEXAPRO Take 10 mg by mouth at bedtime Reasons: anxiousness associated with depression. levothyroxine 112 MCG tablet Commonly known as: SYNTHROID, LEVOTHROID Take 112 mcg by mouth every morning Reasons: a condition with low thyroid hormone levels. losartan 25 MG tablet Commonly known as: COZAAR Take 25 mg by mouth at bedtime Reasons: high blood pressure. metFORMIN 500 MG 24 hr tablet Commonly known as: GLUCOPHAGE-XR Take 1,000 mg by mouth nightly Reasons: type 2 diabetes mellitus. multivitamin per tablet Generic drug: multivitamin Take 1 tablet by mouth every evening Reasons: treatment to prevent vitamin deficiency. omeprazole 20 MG capsule Commonly known as: PRILOSEC Take 20 mg by mouth daily as needed . rosuvastatin 20 MG tablet Commonly known as: CRESTOR Take 20 mg by mouth every evening Reasons: high cholesterol. spironolactone 25 MG tablet Commonly known as: ALDACTONE Take 12.5 mg by mouth at bedtime Reasons: high blood pressure, 1/2 tablet (12.5 mg). Stopped Medications cephALEXin 500 MG capsule Commonly known as: KEFLEX Dakin's Solution 0.125 % Soln Generic drug: sodium hypochlorite Physician(s) Follow Up: Eve Cueto MD [address] [address] [facility] [id number] Follow up Follow up as needed. Cande aSn, [facility] [address] [facility] [id number] Follow up Please call for hospital related concerns. Luis Marquez Jr., MD [address] [facility] [address] [facility] [address] Follow up Please call our office to make an appointment to see Dr. Marquez in 5-7 days. Condition at Discharge: Stable Disposition: Home On day of discharge, I performed a final bedside evaluation including a physical exam. I reviewed discharge recommendations with the patient in person. Patient instructions, including activity, were given to the patient/family at discharge. Time spent on discharge: > 30 minutes Completed by: Cande San on 04/27/21, 8:45 AM documented in this encounter [facility] 04-26-2021 Nurse Note Cande CNP [facility] [place] [place] pt is okay to have piv left arm notified Dr Marquez documented in this encounter [facility] 04-26-2021 History and physi michelle note INTERVAL HISTORY AND PHYSICAL Patient Name: Beulah Fields Admit Date: 9190904 MR #: [id number] : 1945 The H&P has been reviewed and the patient has been examined. I concur with the findings of the H&P. There are no significant changes. It is appropriate to proceed with the planned procedure. Ellen Mcmanus CNP 04/26/2021 7:51 AM INTERVAL HISTORY AND PHYSICAL Patient Name: Beulah Fields Admit Date: [id number] MR #: [id number] : 1945 The H&P has been reviewed and the patient has been examined. I concur with the findings of the H&P. There are no significant changes. It is appropriate to proceed with the planned procedure. Ellen Mcmanus CNP 04/24/2021 7:12 AM [facility] [place] [place] HISTORY AND PHYSICAL Patient Name: Beulah Fields : 1945 MR #: [id number] Admit Date: 9190904 Physicians: Eev Cueto MD (Family); Luis Marquez Jr.* (Referring) Beulah Fields is a 75 y.o. female patient of Eve Cueto MD with history of alopecia, anemia, anxiety, DVT, DM2, KAYLIE presented with non-healing wound for planned surgery Non-healing surgical wound Left mastectomy site with non-healing surgical wound following skin removal Plastic surgery consult, planned for staged procedure with Dr Marquez NPO at midnight DM2 without long-term insulin use A1c 7.1 Hold metformin while admittes SSI KAYLIE CPAP Breast Cancer Original indication for mastectomy Continue aromatase inhibitor HTN Continue ARB, hold spironolactone preop Pre-surgical risk stratification No known history of CAD Describes > 4 METs without anginal symptoms RCRI = 1 for expected pre-operative insulin use Bradycardia on telemetry, history of anemia; will check EKG and routine labs preoperatively Patient is appropriate for low to intermediate risk surgery pending unremarkable EKG and labwork Admitted From: Home Medication Reconciliation: Verified Code Status: Full Code Quality Measures DVT Prophylaxis: Lovenox, SCDs Quach Catheter: None Chief Complaint Nonhealing wound History of Present Illness Patient is a 75-year-old female who presents as a direct admission for staged operative intervention with plastic surgery for her nonhealing postoperative wound. She initially underwent mastectomy for breast cancer, she subsequently had a flap revision with her breast surgeon. She had a subsequent dehiscence and has had some form of chronic wounds since that time on her left lateral chest. She is status post chemo and radiation for her breast cancer. She states that her diabetes is well controlled on Metformin. She notes that her home glucose has been somewhat higher as she was instructed to hold her Metformin preop, but that her sugars have remained under 200. She is aware of her medical history and is aware that her last A1c was 7.1. She denies fevers, chills, or other sick symptoms. No cough or known sick contacts. Covid testing negative in the ED. She and her have been managing their own dressing changes at home. Past Medical History Past Medical History: Diagnosis Date Abnormal mammogram Alopecia scalp; scarring type; Dr Aviva Woodward, [place] Anemia 1970s Anxiety and depression Arthritis Breast cancer, female (HCC) 09/15/2019 Breast mass Cataract Cellulitis 08/2017 RLE Claudication (HCC) Complication of anesthesia anxiety in PACU & postop Deep vein thrombosis (HCC) Diabetes mellitus, type 2 (HCC) Edema R leg GERD (gastroesophageal reflux disease) mild - meds as needed Hyperlipidemia Hypertension Hypothyroidism Ingrown toenail with infection 2020 Left Great toe Lipodermatosclerosis Lymphedema Lymphedema of right lower extremity Dr. 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 Past Surgical History Past Surgical History: Procedure Laterality Date ACHILLES TENDON SURGERY BREAST BIOPSY BREAST CYST EXCISION 1975 BREAST MASS EXCISION Left 11/07/2020 Procedure: left mastectomy flap revision; Surgeon: Ophelia Ybarra DO; Location: [facility] Main OR; Service: General Surgery DILATION AND CURETTAGE OF UTERUS GANGLION CYST EXCISION HYSTERECTOMY VAGINAL N/A 01/14/2019 Procedure: TOTAL VAGINAL HYSTERECTOMY; Surgeon: Nidhi Braun MD; Location: [facility] Main OR; Service: OBGYN HYSTEROSCOPY W/ DILATATION AND CURETTAGE N/A 11/27/2017 Procedure: DILATION AND CURETTAGE WITH HYSTEROSCOPY; Surgeon: Nidhi Braun MD; Location: [facility] Main OR; Service: OBGYN MASTECTOMY MODIFIED RADICAL BILATERAL WITH SENTINEL LYMPH NODE BIOPSY Bilateral 09/28/2019 Procedure: BILATERAL MASTECTOMIES WITH RIGHT SENTINEL NODE BIOPSY; Surgeon: Ophelia Ybarra DO; Location: [facility] Main OR; Service: General Surgery SKIN BIOPSY benign TONSILLECTOMY TUBAL LIGATION US BREAST BIOPSY RIGHT Right 09/07/2019 VASCULAR SURGERY Right 11/2017 leg; Varithena infection WISDOM TOOTH EXTRACTION Family History Family History Problem Relation Age of Onset Colon cancer Mother 67 Cancer Mother 67 oral Stroke Father Hypertension Father Heart attack Father Prostate cancer Father 70 Heart disease Father Diabetes Father No Known Problems Brother Prostate cancer Brother 68 Breast cancer Maternal Grandmother 70 Colon cancer Maternal Grandfather 65 Other (Abdominal cancer) Paternal Grandmother 70 Prostate cancer Maternal Uncle 60 No Known Problems Other Prostate cancer Maternal Uncle Surgical complications Neg Hx Anesthesia problems Neg Hx Clotting disorder Neg Hx Deep vein thrombosis Neg Hx Pulmonary embolism Neg Hx Ovarian cancer Neg Hx Social History Social History Tobacco Use Smoking Status Never Smoker Smokeless Tobacco Never Used Social History Substance and Sexual Activity Alcohol Use Never Social History Substance and Sexual Activity Drug Use Never Allergy Information I have reviewed the patient's allergies. Chlorhexidine towelette, Sulfamethoxazole-trimethoprim, and Betadine [povidone-iodine] Home Medications Home medications were reviewed. Review Of Systems All systems have been reviewed and are negative except as noted in HPI or below Physical Examination BP 145/79 (BP Location: Right arm, Patient Position: Sitting) Pulse (!) 56 Temp 98.8 F (37.1 C) (Oral) Resp 16 General Appearance: alert; well appearing; in no acute distress HEENT: Head- normocephalic; Eyes- EOMI, sclera anicteric; Ears- hearing intact; Nose- no nasal discharge; Throat- mucous membranes moist Cardiovascular: regular rate and rhythm; normal S1, S2; no murmurs, rubs, clicks or gallops; no peripheral edema Respiratory: lungs clear to auscultation; without wheezes, rales or rhonchi; on room air Abdomen: soft, non-tender, non-distended; positive bowel sounds Neurological: oriented x 3; normal speech; no focal findings or movement disorder noted Musculoskeletal: no significant deformity or tenderness to palpation Skin: Left lateral chest wound with apparent tunneling without apparent cellulitis Psych: normal mood and affect Laboratory and Additional Data Reviewed Laboratory 04/23/21 9:22 PM Cardiology 04/23/21 9:22 PM Medications 04/23/21 9:22 PM Transcriptions 04/23/21 9:22 PM documented in this encounter [facility] 04-25-2021 Consult note Associated Order(s): IP CONSULT TO CARE MANAGEMENT Care Management Consult Assessment Patient Name: Beulah Fields Identified Concern/Reason for Consult: Discharge Needs Assessment: Living Arrangements: Spouse/significant other Caregiver Identified: Yes Support Systems: Spouse/significant other Type of Residence: Private residence Prior to Admission Home Care Services: No Current Home Equipment: C-PAP Additional Considerations: Patient preferred discharge location - Home Medication affordability/compliance concerns - Yes, Medicare Community support providers - None Linked with a primary care provider to support discharge needs - Yes, Eve Cueto MD Other Needs to Support Discharge - None Working Discharge Plan: D/C Disposition: Home Agency/Destination: Home Transportation Plan: Does the patient need discharge transport arranged?: No Transportation Type: Auto Pending/Established Referrals: None Barriers to Discharge/Plan for Follow Up: Met with patient at bedside, spouse present in the room. Per patient she is independent at home. Denies any home going needs. Discussed wound vac and if she needed to go home with it. Plan is for closure prior to discharge, however she is agreeable to have home health care if she goes home with wound vac. Will continue to monitor. CONSULT NOTE Patient Name: Beulah Fields MR #: [id number] : 1945 Referring Physician: Luis Marquez Jr.* Physicians: Eve Cueto MD (Family); Assessment and Plan: 75 yof, with persistent and recalcitrant wounding of the left lateral chest wall, adjacent to prior mastectomy scar and defect, protacted in healing likely secondary to persistent fat necrosis, and scarring and epithelialization of deep sinus tract. She would like this wound resolved, as it is painful, draining, and at risk for worsening infection. I have suggested excision of the wound and lesion, pathology of the tissue to likely rule out cancer, debridement and washout and wound care, a short postoperative inpatient stay for wound care, then likely a staged closure of the surgical wound in multiple layers. Risks, benefits and alternatives reviewed with the patient and her , who was present with her today. The patient understands these risks and believe that the benefits outweigh the risks of the procedure. All questions answered. The patient is a good candidate for the procedure and has been educated on the technique and usual inna-operative course. Patient is ready to proceed with surgery. We plan on taking her to the OR later today, once cleared by anesthesia and HMS teams, and OR access provided. Chief Complaint/Reason for Visit: Left lateral breast wound, extending to axilla, mild wound pain, drainage History of Present Illness: Beulah Fields is a 75 y.o. y/o female presenting from home with c/o left lateral breast wound, extending to axilla, with mild wound pain, consistent drainage. She was diagnosed with right breast cancer in 08/2019, had a double mastectomy in 09/2019, later found to have left breast cancer as well, and completed chemo and external beam radiation to her sternal region 03/2020. She is currently in remission. She has been following up with Dr. Ybarra. Pt with a non-healing left chest ulceration that has essentially been present since 1 week post op approximately 11/14/2020. On 11/07/2020 she underwent a left mastectomy flap revision with Dr. Ybarra. Patient reports that about 1 week after surgery her incision line dehisced and began draining fluid. She does note that right before this opened she noted her left chest had some swelling inferior to the incision line. She was diagnosed with right breast cancer in 08/2019, had a double mastectomy in 09/2019, later found to have left breast cancer as well, and completed chemo and external beam radiation to her sternal region 03/2020. She is currently in remission. She has been following up with Dr. Ybarra and has been packing this area daily with daily showers without much improvement noted. She lives with her who has been doing her dressing changes. History: I have reviewed the patient's past medical history. Past Medical History: Diagnosis Date Abnormal mammogram Alopecia scalp; scarring type; Dr Aviva Woodward, [place] Anemia 1970s Anxiety and depression Arthritis Breast cancer, female (HCC) 09/15/2019 Breast mass Cataract Cellulitis 08/2017 RLE Claudication ([facility]) Complication of anesthesia anxiety in PACU & postop Deep vein thrombosis (HCC) Diabetes mellitus, type 2 (HCC) Edema R leg GERD (gastroesophageal reflux disease) mild - meds as needed Hyperlipidemia Hypertension Hypothyroidism Ingrown toenail with infection 2020 Left Great toe Lipodermatosclerosis Lymphedema Lymphedema of right lower extremity Dr. 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 I have reviewed the patient's past surgical history. Past Surgical History: Procedure Laterality Date ACHILLES TENDON SURGERY BREAST BIOPSY BREAST CYST EXCISION 1974 BREAST MASS EXCISION Left 11/07/2020 Procedure: left mastectomy flap revision; Surgeon: Ophelia Ybarra, DO; Location: [facility] Main OR; Service: General Surgery DILATION AND CURETTAGE OF UTERUS GANGLION CYST EXCISION HYSTERECTOMY VAGINAL N/A 01/14/2019 Procedure: TOTAL VAGINAL HYSTERECTOMY; Surgeon: Nidhi Braun MD; Location: [facility] Main OR; Service: OBGYN HYSTEROSCOPY W/ DILATATION AND CURETTAGE N/A 11/27/2017 Procedure: DILATION AND CURETTAGE WITH HYSTEROSCOPY; Surgeon: Nidhi Braun MD; Location: [facility] Main OR; Service: OBGYN MASTECTOMY MODIFIED RADICAL BILATERAL WITH SENTINEL LYMPH NODE BIOPSY Bilateral 09/28/2019 Procedure: BILATERAL MASTECTOMIES WITH RIGHT SENTINEL NODE BIOPSY; Surgeon: Ophelia Ybarra DO; Location: [facility] Main OR; Service: General Surgery SKIN BIOPSY benign TONSILLECTOMY TUBAL LIGATION US BREAST BIOPSY RIGHT Right 09/07/2019 VASCULAR SURGERY Right 11/2017 leg; Varithena infection WISDOM TOOTH EXTRACTION I have reviewed the patient's family history. Family History Problem Relation Age of Onset Colon cancer Mother 67 Cancer Mother 67 oral Stroke Father Hypertension Father Heart attack Father Prostate cancer Father 70 Heart disease Father Diabetes Father No Known Problems Brother Prostate cancer Brother 68 Breast cancer Maternal Grandmother 70 Colon cancer Maternal Grandfather 65 Other (Abdominal cancer) Paternal Grandmother 70 Prostate cancer Maternal Uncle 60 No Known Problems Other Prostate cancer Maternal Uncle Surgical complications Neg Hx Anesthesia problems Neg Hx Clotting disorder Neg Hx Deep vein thrombosis Neg Hx Pulmonary embolism Neg Hx Ovarian cancer Neg Hx I have reviewed the patient's social history. Social History Socioeconomic History Marital status: Spouse name: Not on file Number of children: 6 Years of education: Not on file Highest education level: Not on file Occupational History Employer: OTHER- Tobacco Use Smoking status: Never Smoker Smokeless tobacco: Never Used Vaping Use Vaping Use: Never used Substance and Sexual Activity Alcohol use: Never Drug use: Never Sexual activity: Not on file Other Topics Concern Not on file Social History Narrative Merged History Encounter Social Determinants of Health Financial Resource Strain: Difficulty of Paying Living Expenses: Not on file Food Insecurity: Worried About Running Out of Food in the Last Year: Not on file Ran Out of Food in the Last Year: Not on file Transportation Needs: Lack of Transportation (Medical): Not on file Lack of Transportation (Non-Medical): Not on file Physical Activity: Days of Exercise per Week: Not on file Minutes of Exercise per Session: Not on file Stress: Feeling of Stress : Not on file Social Connections: Frequency of Communication with Friends and Family: Not on file Frequency of Social Gatherings with Friends and Family: Not on file Attends Scientology Services: Not on file Active Member of Clubs or Organizations: Not on file Attends Club or Organization Meetings: Not on file Marital Status: Not on file Housing Stability: Unable to Pay for Housing in the Last Year: Not on file Number of Places Lived in the Last Year: Not on file Unstable Housing in the Last Year: Not on file Allergy Information: I have reviewed the patient's allergies. Chlorhexidine towelette, Sulfamethoxazole-trimethoprim, and Betadine [povidone-iodine] Home Medications: Home Medication Instructions Prior to Surgery TAKE these medications Take last dose on Take the morning of surgery Comment(s) anastrozole 1 mg tablet Take 1 mg by mouth every morning Reasons: post breast cancer. Commonly known as: ARIMIDEX aspirin 81 MG EC tablet Take 1 (one) tablet (81 mg total) by mouth every morning . You may resume Reasons: treatment to prevent a heart attack. azelastine 137 mcg (0.1 %) nasal spray INSTILL 1 2 SPRAYS IN EACH NOSTRIL TWICE DAILY Commonly known as: ASTELIN calcium citrate 200 mg (950 mg) tablet Take 1 tablet by mouth every morning Reasons: supp. Commonly known as: CALCITRATE [id number] ORAL Take by mouth every morning Reasons: supplement. cephALEXin 500 MG capsule Take 1 (one) capsule (500 mg total) by mouth 4 (four) times a day . Commonly known as: KEFLEX D3-2000 50 mcg (2,000 unit) Cap Generic drug: cholecalciferol (vitamin D3) Take 2,000 Units by mouth every evening Reasons: supplement. Dakin's Solution 0.125 % Soln Generic drug: sodium hypochlorite Apply topically daily . escitalopram oxalate 10 MG tablet Take 10 mg by mouth at bedtime Reasons: anxiousness associated with depression. Commonly known as: LEXAPRO levothyroxine 112 MCG tablet Take 112 mcg by mouth every morning Reasons: a condition with low thyroid hormone levels. Commonly known as: SYNTHROID, LEVOTHROID losartan 25 MG tablet Take 25 mg by mouth at bedtime Reasons: high blood pressure. Commonly known as: COZAAR metFORMIN 500 MG 24 hr tablet Take 1,000 mg by mouth nightly Reasons: type 2 diabetes mellitus. Commonly known as: GLUCOPHAGE-XR multivitamin per tablet Generic drug: multivitamin Take 1 tablet by mouth every evening Reasons: treatment to prevent vitamin deficiency. omeprazole 20 MG capsule Take 20 mg by mouth daily as needed . Commonly known as: PRILOSEC rosuvastatin 20 MG tablet Take 20 mg by mouth every evening Reasons: high cholesterol. Commonly known as: CRESTOR spironolactone 25 MG tablet Take 12.5 mg by mouth at bedtime Reasons: high blood pressure, 1/2 tablet (12.5 mg). Commonly known as: ALDACTONE Review of Systems: The following system(s) were reviewed and pertinent findings noted: Constitutional:No fever, no weight loss Eyes:No diplopia ENT:No sinus drainage CV:No chest pain. No ankle swelling Resp:No dyspnea. No wheezing GI:No abdominal pain.No abdominal distention :No dysuria Neuro:No headache Heme/lymphatic:No apparent lymphadenopathy Allergic/Immunologic:No hives Psych:No unusual mood swings All other systems reviewed and negative other than HPI Physical Examination: Vital Signs: BP 137/72 (BP Location: Right arm, Patient Position: Lying) Pulse 62 Temp 98 F (36.7 C) (Oral) Resp 16 Ht 5' 6 Wt 99.3 kg (219 lb) SpO2 96% BMI 35.35 kg/m General: Alert, cooperative, no distress, appears stated age Head: Normocephalic, without obvious abnormality, atraumatic Eyes: PERRL, EOM's intact, Throat: Lips, mucosa, and tongue normal; teeth and gums normal Neck: Supple, symmetrical, trachea midline, no adenopathy; thyroid: no enlargement/tenderness/nodules; noJVD Back: Symmetric, no curvature, ROM normal, no CVA tenderness Lungs: Respirations unlabored,normal respiratory effort Chest Wall: No tenderness or deformity Bilateral mastectomy defects Left lateral chest with open sinus tract, fat necrosis, persistent scarring, draining serous fluid, mildly tender, mild erythema. Cardiovascular: Regular rate and rhythm, Pulses 2+ and symmetric all extremities Abdomen: Soft, non-tender,no masses, no organomegaly Extremities: Normal, atraumatic, no cyanosis or edema Skin: Skin color, texture, turgor normal, no rashes or lesions Musculoskeletal: Full range of motion of all extremities; no joint edema Neurologic: CNII-XII intact; normal strength, sensation and reflexes throughout Psych: Mood and affect appropriate Imaging: none Laboratory and Additional Data Reviewed: Laboratory 04/24/21 7:35 AM Radiology 04/24/21 7:35 AM Medications 04/24/21 7:35 AM Transcriptions 04/24/21 7:35 AM documented in this encounter [facility] 03-27-2021 Instructions Marjorie Koehler RN - 03/27/2021 10:24 AM EDT The following Patient Instructions and Wound Care Orders are current as of this date. All previous orders/treatments should be discontinued. Wound Care Orders: Wound location: left breast Clean with saline May shower, leave dressing in place and change immediately after shower. Can apply Glad press and seal over dressing on days you are showering and not changing the dressing. Apply the following (OR EQUIVALENT): Saline moistened plain packing strip (primary dressing) Cover with [place] SAP bordered dressing (seconday dressing) Change daily May change outer dressing if it becomes soiled or saturated Plain packing strip dressing in clinic today Per Verbal Order Read Back A culture of your wound was done today. You will be contacted if any changes to your treatment need to made. Otherwise, the results will be reviewed at your next appointment. Referral for Plastic Surgeon was placed today. You will see Dr. Marquez here at the wound clinic. Supplies We have sent your supply order to the following company: [employer]: [phone] If you don't receive the items you were expecting or don't know what the items are that you received, call the company where the order was sent. If you are unable to obtain wound supplies, continue to use the supplies you have available until your are able to reach us. It is most important to keep the wound covered at all times. It is YOUR responsibility to make sure that supplies are re-ordered before you run out. Re-order telephone numbers are included in each package. High Blood Pressure: If your blood pressure taken today is above 150/95, please contact your primary care physician to get further instructions. If you experience the following emergent symptoms; chest pain, shortness of breath, headache, dizziness, vision changes, unusual and/or excessive sweating or nausea vomiting - call 911 or go to the nearest emergency room. Bleeding: If your wound was debrided and continues to bleed after your appointment, apply direct pressure to the wound with a clean cloth or dressing for 10-20 minutes. If the bleeding does not stop, call [facility] [phone] or go to the Emergency Room. Signs/Symptoms of Infection: If you have any fever, chills, nausea, vomiting or increased odor, drainage, pain or redness to the wound, call [facility] at [phone]. If after hours, contact your family physician or go to the Emergency Room. Tips You can do at Home to Help Heal Your Wound Tobacco Use: No smoking or tobacco products because they can slow or even stop wound healing. Diabetic Management: If you are diabetic, check your blood sugar every morning before eating. Keep your fasting blood sugar below 120. Keep regular appointments with your primary physician to monitor your diabetes. Follow your diabetic diet carefully. Skin Care: Use apply moisturizing lotion to dry, intact skin, avoid getting between the toes. Apply skin sealant or barrier to protect the skin from too much moisture. Inspect skin (including feet) daily for redness, blisters, rash, cracks, or open areas. Incontinence Skin Care Quickly cleanse and gently pat dry after every incontinence episode or loose bowel movement to keep area as clean and dry as possible. Use a barrier cream to protect skin as directed. Edema Control Instructions: Elevate legs above the level of your heart whenever you are sitting. Avoid standing for long periods and do not sit with your legs dangling. Compression Stockings: Apply compression stocking(s) every morning as soon as you get up. Remove at bedtime unless instructed to wear day and night. Hand wash and line dry to prevent loss of elasticity. Replace every 3-4 months to ensure proper fit. Pressure Relief Instructions: Keep weight and pressure off your wound(s) and bony areas of the body (for example, heels, tail bone, hip, elbows, back of head). Reposition as instructed. Shift position in chair every 15 minutes.Turn every 2 hours while lying down. Wear heel guards to keep pressure off heels while in bed or in a chair. Remove while transferring or walking. Specialty Bed: Alternating Air Mattress Wheelchair cushion: Roho. Use this wherever you are sitting. Diet: Increase the lean protein in your diet. Examples of foods high in protein are lean cuts of meat, fish, dairy foods, peanut butter and eggs. Use protein supplements as directed. Limit your salt/sodium as instructed. Choose fresh fruits, vegetables and lean cuts of meat. Do not add salt to food during or after cooking. Season food with herbs and spices instead of salt. Avoid salty snacks, fast foods, deli meats and pre-packaged foods. If instructed, limit your fluids to no more than 2 quarts, (64 ounces), of a day. This includes water, juice, coffee, tea, pop, soup, etc. If you are diabetic, check your blood sugar every morning before eating. Keep your fasting blood sugar below 120. Keep regular appointments with your primary physician to monitor your diabetes. Follow your diabetic diet carefully. Protein for Wound Healing You need at least 80-100 grams of protein per day for the body to heal a wound. Be creative and increase protein levels by: 1. Eating the protein items at meal time first. Eat small meals and snacks throughout the day 2. Adding eggs to casseroles, meat loaf, mashed potatoes, macaroni & cheese, salads. 3. Adding cheese to sandwiches, casseroles, potatoes, vegetables, and omelets. 4. Adding peanut butter to toast, bagels, waffles, crackers, bananas, apples, and celery. 5. Adding protein powder to drinks, pudding, potatoes, soups, ground meats, cooked cereal, milkshakes, yogurt, and pancake batter. Item Portion Size Grams of Protein Most Meats 1 oz 7 Beef Hamburger Senia 4 oz 28 Steak 6 oz 42 Chicken Breast 3.5 oz 30 Thigh Average 10 Drumstick Average 11 Wing Average 6 Most Other 4 oz cooked 35 Fish Tuna 6 oz can 40 Fish Fillets or Steaks 1oz cooked 6 Pork Chop Average 22 Loin or Tenderloin 4 oz 29 Ham 3 oz 19 Ground 3 oz cooked 22 Clarke 1 slice 3 Brazilian-style Clarke (Back Clarke) 1 slice 5-6 Eggs and Dairy Egg Large 6 Milk 1 cup 8 Cottage Cheese cup 15 Yogurt 1 cup 8-12 Albanian Yogurt 6 oz 18 Soft Cheeses (Mozzarella, Brie) 1 oz 6 Medium Cheeses(Cheddar,Egyptian) 1 oz 7-8 Hard Cheeses (Parmesan) 1 oz 10 Beans / Soy Tofu cup 10 Soy Milk 1 cup 6-10 Soy Beans cup cooked 14 Edamame cup 8-12 Most Beans (black, carrillo, lentils) cup cooked 7-10 Split Peas cup cooked 8 Nuts and Seeds Peanut Butter 2 Tablespoons 8 Peanuts cup 9 Almonds cup 8 Cashews cup 5 Pecans cup 2.5 Buchanan Seeds cup 6 Pumpkin Seeds cup 19 Flax Seeds cup 8 Some Whole Grain Breads 1 slice 4-5 Other Protein Powder 1 scoop 20 documented in this encounter [facility] 03-27-2021 History of Presen t illness Narrative Images from the original note were not included. WOUND CARE PROVIDER PROGRESS NOTE Patient Name: Beulah Fields MR #: [id number] : 1945 (75 y.o. female) PCP: Eve Cueto MD All patient questions or concerns about the content of this note will be addressed at the next clinic visit rather than by phone, as conversations and explanations are more amenable to in-person discussions. If there are non-urgent questions about wounds or wound care, patient's are encourage to use My Chart. For urgent concerns about wounds, call the Wound Clinic at [phone] or other Health Care Provider. ASSESSMENT, PLAN, & ORDERS Goals of Therapy include: Work towards healing. If there is no significant improvement within 4 weeks or if there is a decline at any time, we will investigate causes of delay / decline and consider changing the treatment plan. Reduce risk of infection. Provide dressing orders. Clear infection. Any procedure done during today's visit is due to medical necessary, to promote healing and control or prevent infection. Infectious r/t surgical site dehiscence Ulcer, of the Left Chest with fat layer exposed, with hx of Cellulitis, Hypergranulation tissue, - Declined. Continued signs of critical colonization or infection. Swab sent for culture. Continue to cleanse with saline. Will use Packing Strips, to the wound & surrounding area. Cover the entire wound with [place] Border, daily Lab Results Component Value Date CULTURE Heavy Growth Normal Skin Margo 03/14/2021 CULTURE No Anaerobic Growth at 5 Days 03/14/2021 She has been coming to [facility] since 12/20/2020 and with local wound care most of her ulceration has healed and she is now left with a deep tunneled area at 3 o'clock that has failed to show any improvement with dressing changes, debridement, and cautery. Patient and are understandably frustrated with the lack of progress of her tunneled area, which has started draining a moderate amount of seropurulent drainage over the past week or so. Pt may benefit from a washout with plastics and we will refer her to Dr. Marquez for his input. Dressing placed today may differ from the above but, have been ordered by this HUMAN RESOURCES BENEFITS COORDINATOR to be placed during this clinic visit. Patient instructed to comply with and states understanding of the following instructions for comorbid conditions: 1.Patient to strive towards an appropriate weight and protein intake to maximize an environment for wound healing. 2. Patient to avoid things that interfere with the healing process, contribute to infection, cause tissue destruction, or reduce blood flow and oxygen to the wound, such as: pressure, edema, high sodium intake, nicotine, substance abuse, lack of cleanliness, excess moisture or dryness, not following wound care instructions. 3. PCP or Specialist will continue to manage and optimize any co-morbidities and treatments that affect wound healing by reducing blood flow & oxygen to the wound, decreased immune response & elevated glucose levels. Additional Orders: Referred to Plastic Surgeon, Dr. Marquez to evaluate for surgical intervention Follow Up WC: Friday with Dr. Marquez. Based on his assessment she can continue with [employer] visits if needed. The following amount of time was spent on this patient's care: 20-29 minutes (04256) SUBJECTIVE Chief Complaint: Wound Check History of Present Illness: Location, Severity, Quality (Type of Wound): As outlined in this note Context (Trigger Event, First Appearance, Progression, Procedures, Meds, Previous Wound Clinics): Pt with a non-healing left chest ulceration that has essentially been present since 1 week post op approximately 11/14/2020. On 11/07/2020 she underwent a left mastectomy flap revision with Dr. Ybarra. Patient reports that about 1 week after surgery her incision line dehisced and began draining fluid. She does note that right before this opened she noted her left chest had some swelling inferior to the incision line. She was diagnosed with right breast cancer in 08/2019, had a double mastectomy in 09/2019, later found to have left breast cancer as well, and completed chemo and external beam radiation to her sternal region 03/2020. She is currently in remission. She has been following up with Dr. Ybarra and has been packing this area daily with daily showers without much improvement noted. She lives with her who has been doing her dressing changes. Modifying Factors (Dressings used prior to [facility] HUMAN RESOURCES BENEFITS COORDINATOR visit): Gauze packing Timing / Duration: Chronic, Date: 11/07/2020 Review of Systems: Patient states No unusual occurences of the following (unless addressed elsewhere): CONSTITUTION: fever, chills, night sweats, weight changes, Pain; SKIN: changes in color, temperature, or texture (not mentioned elsewhere); RESPIRATORY: short of breath, cough, wheeze; MUSCULOSKELETAL: falls, weakness, change in gate; Patient reports increased bloody drainage, intermittent mild pain OBJECTIVE Vitals: BP 123/77 Pulse (!) 59 Temp 97.3 F (36.3 C) (Temporal) Resp 16 SpO2 97% WNL Last Weight 221 lbs, BMI 35.67 Physical Exam: Constitutional - Appears well, No apparent distress, Appropriately groomed, Obese per medical criteria Psychiatric - A&Ox3, judgement & insight wnl, memory grossly intact, mood & affect appropriate Neurological - Cranial Nerves - Cranial Nerves II through VIII (General assessement of vision, eye movement, chewing, facial expression, and hearing): Grossly intact. Sensation - Pt reports Grossly intact HEENT - Head: atraumatic, normocephalic Bilateral Eyes: conjunctiva pink & moist, sclera white Ears: symmetrical, no signs of external ear infection, Nose: midline, w/o drainage, Neck: trachea appears midline, Cardiothoracic - Chest symmetrical, Respiratory - Unlabored respiratory effort, no visual use of accessory muscles, Abdomen - Genitourinary - General Integumentary - Skin moisture, color, & temperature wnl except as described elsewhere, Musculoskeletal - No Involuntary movements, Gait, Strength, Mobility, Range of Motion - Age appropriate w/o pain, Upper extremities - wnl Lower Extremity: Vasculature - Edema - Skin & Hair - Feet and toes - Wound: Continued S/S of Critical Colinization or Infection - edema, ulcer is larger, purulent, moderate amt of drainage, Flow Sheet Wound 09/28/19 1 Cellulitis Breast Left (Active) Wound Image 03/27/21 1000 Wound Length (cm) 0.2 cm 03/27/21 1000 Wound Width (cm) 0.3 cm 03/27/21 1000 Wound Depth (cm) 0.9 cm 03/27/21 1000 Wound Surface Area (cm^2) 0.06 cm^2 03/27/21 1000 Wound Volume (cm^3) 0.054 cm^3 03/27/21 1000 Area % Change 0 03/27/21 1000 Wound Healing % 100 03/27/21 1000 Tunneling Maximum Distance (cm) 4.4 cm 03/27/21 1000 Tunneling Position (o'clock) 3 03/27/21 1000 Tunneling Maximum Distance (cm) 0 cm 03/27/21 1000 Tunneling Position (o'clock) 0 03/27/21 1000 Undermining Maximum Distance (cm) 1 0 cm 03/27/21 1000 Undermining Starting Position (o'clock) 1 0 03/27/21 1000 Undermining Ending Position (o'clock) 1 0 03/27/21 1000 Undermining Maximum Distance (cm) 2 0 cm 03/27/21 1000 Undermining Starting Position (o'clock) 2 0 03/27/21 1000 Undermining Ending Position (o'clock) 2 0 03/27/21 1000 Wound Progress Improving 03/27/21 1000 Non-staged Wound Description Full thickness 03/27/21 1000 Drainage Amount Moderate 03/27/21 1000 Drainage Description Red; Hu; Thick 03/27/21 1000 Odor None 03/27/21 1000 Wound Margin Well defined 03/27/21 1000 Adherent Yellow Slough % None 03/27/21 1000 Moist Yellow Slough % None 03/27/21 1000 Dry Black Eschar % None 03/27/21 1000 Moist Black Eschar % None 03/27/21 1000 Epithelialization % None 03/27/21 1000 Granulation % 76-100% 03/27/21 1000 Exposed Structure None 03/27/21 1000 Wound Bed Characteristics Granulation tissue 03/27/21 1000 Inna-wound Assessment Temperature WNL; Clean; Scar tissue 03/27/21 1000 Treatments Topical anesthetic for procedural pain control per order; Specimen 03/27/21 1000 Hypergranulation Treated Silver nitrate 03/14/21 1307 Hemostasis Not applicable 03/27/21 1000 Cleansed Sterile saline 03/27/21 1000 Primary Dressing Plain packing strips 03/27/21 1000 Secondary Dressing Highly absorbent dressing 03/27/21 1000 Compression Dressing Not Applicable 03/27/21 1000 Procedure Procedures REVIEW OF HISTORY The following History, Allergies, and Medications were reviewed Relevant Tests, Procedures, Treatments Notes, Imaging, Surgeries, ATBs, Chemo, Radiation Tx 11/07/2020 Left mastectomy flap revision w/ Dr. Ybarra Radiation therapy 03/06/20-03/29/2020 w/ Dr. Mccullough 09/29/2020 Left Mastectomy w/ Dr. Kelly 09/28/2019 Right Mastectomy w/ Dr. Ybarra Allergies: Chlorhexidine towelette, Sulfamethoxazole-trimethoprim, and Betadine [povidone-iodine] Medications: Patient's Medications New Prescriptions No medications on file Previous Medications ANASTROZOLE (ARIMIDEX) 1 MG TABLET Take 1 mg by mouth every morning Reasons: post breast cancer. ASPIRIN 81 MG EC TABLET Take 1 (one) tablet (81 mg total) by mouth every morning . You may resume Reasons: treatment to prevent a heart attack. CALCIUM CITRATE (CALCITRATE) 200 MG (950 MG) TABLET Take 1 tablet by mouth every morning Reasons: supp. GTPHJOQ-GQFZMHEME-TKSJ ORAL Take by mouth every morning Reasons: supplement. CEPHALEXIN (KEFLEX) 500 MG CAPSULE Take 1 (one) capsule (500 mg total) by mouth 4 (four) times a day . CHOLECALCIFEROL, VITAMIN D3, (D3-2000) 2,000 UNIT CAP Take 2,000 Units by mouth every evening Reasons: supplement. ESCITALOPRAM OXALATE (LEXAPRO) 10 MG TABLET Take 10 mg by mouth at bedtime Reasons: anxiousness associated with depression. LEVOTHYROXINE (SYNTHROID, LEVOTHROID) 112 MCG TABLET Take 112 mcg by mouth every morning Reasons: a condition with low thyroid hormone levels. LOSARTAN (COZAAR) 25 MG TABLET Take 25 mg by mouth at bedtime Reasons: high blood pressure. METFORMIN (GLUCOPHAGE-XR) 500 MG 24 HR TABLET Take 1,000 mg by mouth nightly Reasons: type 2 diabetes mellitus. MULTIVITAMIN (MULTIVITAMIN) PER TABLET Take 1 tablet by mouth every evening Reasons: treatment to prevent vitamin deficiency. NAPROXEN SODIUM (ALEVE) 220 MG TABLET Take 220 mg by mouth 2 (two) times a day as needed Reasons: pain. NATEGLINIDE (STARLIX) 60 MG TABLET Take 60 mg by mouth 3 (three) times a day with meals . MQNTSONS-NZJGLVOHB-HZSOWEOFDYBXMZ (CORTISPORIN) OTIC SOLUTION 2 drops 2 (two) times a day Reasons: each side of the toe, for ingrown toenail. NITROFURANTOIN, MACROCRYSTAL-MONOHYDRATE, (MACROBID) 100 MG CAPSULE Take 100 mg by mouth 2 (two) times a day For seven days for UTI . OMEPRAZOLE (PRILOSEC) 20 MG CAPSULE Take 20 mg by mouth daily as needed . ROSUVASTATIN (CRESTOR) 20 MG TABLET Take 20 mg by mouth every evening Reasons: high cholesterol. SODIUM HYPOCHLORITE (DAKIN'S SOLUTION) 0.125 % SOLN Apply topically daily . SPIRONOLACTONE (ALDACTONE) 25 MG TABLET Take 12.5 mg by mouth at bedtime Reasons: high blood pressure, 1/2 tablet (12.5 mg). Modified Medications No medications on file Discontinued Medications No medications on file Labs: Lab Results Component Value Date WBC 4.87 02/20/2021 HGB 12.2 02/20/2021 HCT 37.9 02/20/2021 MCV 86.3 02/20/2021 PLT 218 02/20/2021 Lab Results Component Value Date PROT 6.7 02/20/2021 ALBUMIN 4.3 02/20/2021 No results found for: HGBA1C Lab Results Component Value Date GLUCOSE 150 (H) 02/20/2021 CALCIUM 9.7 02/20/2021 NA 139 02/20/2021 K 4.3 02/20/2021 CL 105 02/20/2021 BUN 16 02/20/2021 CREATININE 0.61 02/20/2021 Lab Results Component Value Date ALT 13 02/20/2021 AST 17 02/20/2021 ALKPHOS 62 02/20/2021 BILITOT 0.3 02/20/2021 No results found for: INR, PROTIME Past Medical History: Diagnosis Date Abnormal mammogram Alopecia scalp; scarring type; Dr Aviva Woodward, [place] Anemia 1970s Anxiety and depression Arthritis Breast cancer, female (HCC) 09/15/2019 Breast mass Cataract Cellulitis 08/2017 RLE Claudication (HCC) Complication of anesthesia anxiety in PACU & postop Deep vein thrombosis (HCC) Diabetes mellitus, type 2 (HCC) Edema R leg GERD (gastroesophageal reflux disease) mild - meds as needed Hyperlipidemia Hypertension Hypothyroidism Ingrown toenail with infection 2020 Left Great toe Lipodermatosclerosis Lymphedema Lymphedema of right lower extremity Dr. 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 Past Surgical History: Procedure Laterality Date ACHILLES TENDON SURGERY BREAST BIOPSY BREAST CYST EXCISION 1975 BREAST MASS EXCISION Left 11/07/2020 Procedure: left mastectomy flap revision; Surgeon: Ophelia Ybarra DO; Location: [facility] Main OR; Service: General Surgery DILATION AND CURETTAGE OF UTERUS GANGLION CYST EXCISION HYSTERECTOMY VAGINAL N/A 01/14/2019 Procedure: TOTAL VAGINAL HYSTERECTOMY; Surgeon: Nidhi Braun MD; Location: [facility] Main OR; Service: OBGYN HYSTEROSCOPY W/ DILATATION AND CURETTAGE N/A 11/27/2017 Procedure: DILATION AND CURETTAGE WITH HYSTEROSCOPY; Surgeon: Nidhi Braun MD; Location: [facility] Main OR; Service: OBGYN MASTECTOMY MODIFIED RADICAL BILATERAL WITH SENTINEL LYMPH NODE BIOPSY Bilateral 09/28/2019 Procedure: BILATERAL MASTECTOMIES WITH RIGHT SENTINEL NODE BIOPSY; Surgeon: Ophelia Ybarra DO; Location: [facility] Main OR; Service: General Surgery SKIN BIOPSY benign TONSILLECTOMY TUBAL LIGATION US BREAST BIOPSY RIGHT Right 09/07/2019 VASCULAR SURGERY Right 11/2017 leg; Varithena infection WISDOM TOOTH EXTRACTION Social History Socioeconomic History Marital status: Spouse name: Not on file Number of children: 6 Years of education: Not on file Highest education level: Not on file Occupational History Employer: OTHER- Tobacco Use Smoking status: Never Smoker Smokeless tobacco: Never Used Vaping Use Vaping Use: Never used Substance and Sexual Activity Alcohol use: Never Drug use: Never Sexual activity: Not on file Other Topics Concern Not on file Social History Narrative Merged History Encounter Social Determinants of Health Financial Resource Strain: Difficulty of Paying Living Expenses: Not on file Food Insecurity: Worried About Running Out of Food in the Last Year: Not on file Ran Out of Food in the Last Year: Not on file Transportation Needs: Lack of Transportation (Medical): Not on file Lack of Transportation (Non-Medical): Not on file Physical Activity: Days of Exercise per Week: Not on file Minutes of Exercise per Session: Not on file Stress: Feeling of Stress : Not on file Social Connections: Frequency of Communication with Friends and Family: Not on file Frequency of Social Gatherings with Friends and Family: Not on file Attends Scientology Services: Not on file Active Member of Clubs or Organizations: Not on file Attends Club or Organization Meetings: Not on file Marital Status: Not on file Housing Stability: Unable to Pay for Housing in the Last Year: Not on file Number of Places Lived in the Last Year: Not on file Unstable Housing in the Last Year: Not on file Family History Problem Relation Age of Onset Colon cancer Mother 67 Cancer Mother 67 oral Stroke Father Hypertension Father Heart attack Father Prostate cancer Father 70 Heart disease Father Diabetes Father No Known Problems Brother Prostate cancer Brother 68 Breast cancer Maternal Grandmother 70 Colon cancer Maternal Grandfather 65 Other (Abdominal cancer) Paternal Grandmother 70 Prostate cancer Maternal Uncle 60 No Known Problems Other Prostate cancer Maternal Uncle Surgical complications Neg Hx Anesthesia problems Neg Hx Clotting disorder Neg Hx Deep vein thrombosis Neg Hx Pulmonary embolism Neg Hx Ovarian cancer Neg Hx Raven Reza CNP Electronically signed by the above provider 03/27/21 Perpetual Wound History: Pt first seen in on 12/20/2020, for a left chest ulceration 12/20/2020 Left Chest - Initial assessment, some s/s infection, skin between ulcers opened, tissue cx sent, debrided, Use Dakins moist gauze, ABD, VICKY BID. 12/28/2020 Left Chest - Improvement, resolving s/s infection, tissue cx + so was started on Cefdinir, debrided, Cont Dakins moist gauze, packing strips to tunnel, ABD, VICKY BID. 01/11/2021 Left Chest - Improvement, no s/s infection, debrided, Use Dakins clean and soak, SM Tiana, [place] every day. 01/25/2021 Left Chest - Improvement, no s/s infection, debrided, Use Dakins clean and soak, dry Tiana to large wound bed, dry packing in tunnel, DSD to fill void, [place] every day. 02/20/2021 Left Chest - Improvement, no s/s infection, cauterized hypergran, Use Dakins moist packing, [place] 3x/wk. 03/14/2021 Left Chest - Stable, slight s/s infection, swab cx sent, debrided, Use tiana to tunnel, dry packing to keep wound open, excel every day. 03/27/2021 Left Chest - Declined, cont s/s infection, swab cx sent, no procedure, Use packing strips and excel every day. Consult to Dr. Marquez. documented in this encounter [facility] 03-14-2021 Instructions Thania Charles RN - 03/14/2021 1:43 PM EDT The following Patient Instructions and Wound Care Orders are current as of this date. All previous orders/treatments should be discontinued. Wound Care Orders: Wound location: left breast Clean with saline May shower, leave dressing in place and change immediately after shower. Can apply Glad press and seal over dressing on days you are showering and not changing the dressing. Apply the following (OR EQUIVALENT): Dry Collagen with silver (Tiana) (primary dressing) Cover with [place] SAP bordered dressing (seconday dressing) Change daily May change outer dressing if it becomes soiled or saturated Plain packing strip dressing in clinic today Per Verbal Order Read Back A culture of your wound was done today. You will be contacted if any changes to your treatment need to made. Otherwise, the results will be reviewed at your next appointment. Supplies We have sent your supply order to the following company: [employer]: [phone] If you don't receive the items you were expecting or don't know what the items are that you received, call the company where the order was sent. If you are unable to obtain wound supplies, continue to use the supplies you have available until your are able to reach us. It is most important to keep the wound covered at all times. It is YOUR responsibility to make sure that supplies are re-ordered before you run out. Re-order telephone numbers are included in each package. High Blood Pressure: If your blood pressure taken today is above 150/95, please contact your primary care physician to get further instructions. If you experience the following emergent symptoms; chest pain, shortness of breath, headache, dizziness, vision changes, unusual and/or excessive sweating or nausea vomiting - call 911 or go to the nearest emergency room. Bleeding: If your wound was debrided and continues to bleed after your appointment, apply direct pressure to the wound with a clean cloth or dressing for 10-20 minutes. If the bleeding does not stop, call [facility] [phone] or go to the Emergency Room. Signs/Symptoms of Infection: If you have any fever, chills, nausea, vomiting or increased odor, drainage, pain or redness to the wound, call [facility] at [phone]. If after hours, contact your family physician or go to the Emergency Room. Tips You can do at Home to Help Heal Your Wound Tobacco Use: No smoking or tobacco products because they can slow or even stop wound healing. Diabetic Management: If you are diabetic, check your blood sugar every morning before eating. Keep your fasting blood sugar below 120. Keep regular appointments with your primary physician to monitor your diabetes. Follow your diabetic diet carefully. Skin Care: Use apply moisturizing lotion to dry, intact skin, avoid getting between the toes. Apply skin sealant or barrier to protect the skin from too much moisture. Inspect skin (including feet) daily for redness, blisters, rash, cracks, or open areas. Incontinence Skin Care Quickly cleanse and gently pat dry after every incontinence episode or loose bowel movement to keep area as clean and dry as possible. Use a barrier cream to protect skin as directed. Edema Control Instructions: Elevate legs above the level of your heart whenever you are sitting. Avoid standing for long periods and do not sit with your legs dangling. Compression Stockings: Apply compression stocking(s) every morning as soon as you get up. Remove at bedtime unless instructed to wear day and night. Hand wash and line dry to prevent loss of elasticity. Replace every 3-4 months to ensure proper fit. Pressure Relief Instructions: Keep weight and pressure off your wound(s) and bony areas of the body (for example, heels, tail bone, hip, elbows, back of head). Reposition as instructed. Shift position in chair every 15 minutes.Turn every 2 hours while lying down. Wear heel guards to keep pressure off heels while in bed or in a chair. Remove while transferring or walking. Specialty Bed: Alternating Air Mattress Wheelchair cushion: Rizwano. Use this wherever you are sitting. Diet: Increase the lean protein in your diet. Examples of foods high in protein are lean cuts of meat, fish, dairy foods, peanut butter and eggs. Use protein supplements as directed. Limit your salt/sodium as instructed. Choose fresh fruits, vegetables and lean cuts of meat. Do not add salt to food during or after cooking. Season food with herbs and spices instead of salt. Avoid salty snacks, fast foods, deli meats and pre-packaged foods. If instructed, limit your fluids to no more than 2 quarts, (64 ounces), of a day. This includes water, juice, coffee, tea, pop, soup, etc. If you are diabetic, check your blood sugar every morning before eating. Keep your fasting blood sugar below 120. Keep regular appointments with your primary physician to monitor your diabetes. Follow your diabetic diet carefully. Protein for Wound Healing You need at least 80-100 grams of protein per day for the body to heal a wound. Be creative and increase protein levels by: 1. Eating the protein items at meal time first. Eat small meals and snacks throughout the day 2. Adding eggs to casseroles, meat loaf, mashed potatoes, macaroni & cheese, salads. 3. Adding cheese to sandwiches, casseroles, potatoes, vegetables, and omelets. 4. Adding peanut butter to toast, bagels, waffles, crackers, bananas, apples, and celery. 5. Adding protein powder to drinks, pudding, potatoes, soups, ground meats, cooked cereal, milkshakes, yogurt, and pancake batter. Item Portion Size Grams of Protein Most Meats 1 oz 7 Beef Hamburger Senia 4 oz 28 Steak 6 oz 42 Chicken Breast 3.5 oz 30 Thigh Average 10 Drumstick Average 11 Wing Average 6 Most Other 4 oz cooked 35 Fish Tuna 6 oz can 40 Fish Fillets or Steaks 1oz cooked 6 Pork Chop Average 22 Loin or Tenderloin 4 oz 29 Ham 3 oz 19 Ground 3 oz cooked 22 Clarke 1 slice 3 Brazilian-style Clarke (Back Clarke) 1 slice 5-6 Eggs and Dairy Egg Large 6 Milk 1 cup 8 Cottage Cheese cup 15 Yogurt 1 cup 8-12 Albanian Yogurt 6 oz 18 Soft Cheeses (Mozzarella, Brie) 1 oz 6 Medium Cheeses(Cheddar,Egyptian) 1 oz 7-8 Hard Cheeses (Parmesan) 1 oz 10 Beans / Soy Tofu cup 10 Soy Milk 1 cup 6-10 Soy Beans cup cooked 14 Edamame cup 8-12 Most Beans (black, carrillo, lentils) cup cooked 7-10 Split Peas cup cooked 8 Nuts and Seeds Peanut Butter 2 Tablespoons 8 Peanuts cup 9 Almonds cup 8 Cashews cup 5 Pecans cup 2.5 Buchanan Seeds cup 6 Pumpkin Seeds cup 19 Flax Seeds cup 8 Some Whole Grain Breads 1 slice 4-5 Other Protein Powder 1 scoop 20 documented in this encounter [facility] 03-14-2021 History of Presen t illness Narrative Associated Order(s): Wound Debridement Post-Procedure Diagnose(s): Breast wound, left, subsequent encounter Images from the original note were not included. WOUND CARE PROVIDER PROGRESS NOTE Patient Name: Beulah Fields MR #: [id number] : 1945 (75 y.o. female) PCP: Eve Cueto MD All patient questions or concerns about the content of this note will be addressed at the next clinic visit rather than by phone, as conversations and explanations are more amenable to in-person discussions. If there are non-urgent questions about wounds or wound care, patient's are encourage to use My Chart. For urgent concerns about wounds, call the Wound Clinic at [phone] or other Health Care Provider. ASSESSMENT, PLAN, & ORDERS Goals of Therapy include: Work towards healing. If there is no significant improvement within 4 weeks or if there is a decline at any time, we will investigate causes of delay / decline and consider changing the treatment plan. Reduce risk of infection. Provide dressing orders. Clear infection. Any procedure done during today's visit is due to medical necessary, to promote healing and control or prevent infection. Infectious r/t surgical site dehiscence Ulcer, of the Left Chest with fat layer exposed, and with Hypergranulation tissue, with hx of Cellulitis, - Stable. Slight signs of critical colonization or infection. Was debrided. Swab sent for culture. Continue to cleanse with saline. Will use Dry Tiana, tucked into wound tunnel then lightly pack a dry packing strip to fill opening of wound (so wound will not close prematurely) Cover the entire wound with [place] Border, (as Secondary dressing), daily Dressing placed today may differ from the above but, have been ordered by this HUMAN RESOURCES BENEFITS COORDINATOR to be placed during this clinic visit. Patient instructed to comply with and states understanding of the following instructions for comorbid conditions: 1.Patient to strive towards an appropriate weight and protein intake to maximize an environment for wound healing. 2. Patient to avoid things that interfere with the healing process, contribute to infection, cause tissue destruction, or reduce blood flow and oxygen to the wound, such as: pressure, edema, high sodium intake, nicotine, substance abuse, lack of cleanliness, excess moisture or dryness, not following wound care instructions. 3. PCP or Specialist will continue to manage and optimize any co-morbidities and treatments that affect wound healing by reducing blood flow & oxygen to the wound, decreased immune response & elevated glucose levels. Additional Orders: Follow up as planned with Breast Surgeon, Dr. Ybarra. Follow Up WC: 2wks The following amount of time was spent on this patient's care: Time was not calculated this visit, due to the performance of a procedure. SUBJECTIVE Chief Complaint: Wound Check History of Present Illness: Location, Severity, Quality (Type of Wound): As outlined in this note Context (Trigger Event, First Appearance, Progression, Procedures, Meds, Previous Wound Clinics): Pt with a non-healing left chest ulceration that has essentially been present since 1 week post op approximately 11/14/2020. On 11/07/2020 she underwent a left mastectomy flap revision with Dr. Ybarra. Patient reports that about 1 week after surgery her incision line dehisced and began draining fluid. She does note that right before this opened she noted her left chest had some swelling inferior to the incision line. She was diagnosed with right breast cancer in 08/2019, had a double mastectomy in 09/2019, later found to have left breast cancer as well, and completed chemo and external beam radiation to her sternal region 03/2020. She is currently in remission. She has been following up with Dr. Ybarra and has been packing this area daily with daily showers without much improvement noted. She lives with her who has been doing her dressing changes. Modifying Factors (Dressings used prior to [facility] HUMAN RESOURCES BENEFITS COORDINATOR visit): Gauze packing Timing / Duration: Chronic, Date: 11/07/2020 Review of Systems: Patient states No unusual occurences of the following (unless addressed elsewhere): CONSTITUTION: fever, chills, night sweats, weight changes, Pain; SKIN: changes in color, temperature, or texture (not mentioned elsewhere); RESPIRATORY: short of breath, cough, wheeze; MUSCULOSKELETAL: falls, weakness, change in gate; Patient reports increased bloody drainage, intermittent mild pain OBJECTIVE Vitals: BP 132/77 Pulse 75 Temp 98.4 F (36.9 C) (Temporal) Resp 16 WNL Last Weight 221 lbs, BMI 35.67 Physical Exam: Constitutional - Appears well, No apparent distress, Appropriately groomed, Obese per medical criteria Psychiatric - A&Ox3, judgement & insight wnl, memory grossly intact, mood & affect appropriate Neurological - Cranial Nerves - Cranial Nerves II through VIII (General assessement of vision, eye movement, chewing, facial expression, and hearing): Grossly intact. Sensation - Pt reports Grossly intact HEENT - Head: atraumatic, normocephalic Bilateral Eyes: conjunctiva pink & moist, sclera white Ears: symmetrical, no signs of external ear infection, Nose: midline, w/o drainage, Neck: trachea appears midline, Cardiothoracic - Chest symmetrical, Respiratory - Unlabored respiratory effort, no visual use of accessory muscles, Abdomen - Genitourinary - General Integumentary - Skin moisture, color, & temperature wnl except as described elsewhere, Musculoskeletal - No Involuntary movements, Gait, Strength, Mobility, Range of Motion - Age appropriate w/o pain, Upper extremities - wnl Lower Extremity: Vasculature - Edema - Skin & Hair - Feet and toes - Wound: Slight S/S of Infection - purulent, blue / green increased drainage, Other observable items include: hypergranulation tissue, epibole, Flow Sheet Wound 09/28/19 1 Cellulitis Breast Left (Active) Wound Image 03/14/21 130 Wound Length (cm) 0.2 cm 03/14/21 1307 Wound Width (cm) 0.3 cm 03/14/21 1307 Wound Depth (cm) 0.4 cm 03/14/21 1307 Wound Surface Area (cm^2) 0.06 cm^2 03/14/21 1307 Wound Volume (cm^3) 0.02 cm^3 03/14/21 1307 Area % Change -33.33 03/14/21 1307 Wound Healing % 100 03/14/21 1307 Tunneling Maximum Distance (cm) 3.6 cm 03/14/21 1307 Tunneling Position (o'clock) 3 03/14/21 1307 Tunneling Maximum Distance (cm) 0 cm 03/14/21 1307 Tunneling Position (o'clock) 0 03/14/21 1307 Undermining Maximum Distance (cm) 1 0 cm 03/14/21 1307 Undermining Starting Position (o'clock) 1 0 03/14/21 1307 Undermining Ending Position (o'clock) 1 0 03/14/21 1307 Undermining Maximum Distance (cm) 2 0 cm 03/14/21 1307 Undermining Starting Position (o'clock) 2 0 03/14/21 1307 Undermining Ending Position (o'clock) 2 0 03/14/21 1307 Wound Progress Improving 03/14/21 1307 Non-staged Wound Description Full thickness 03/14/21 1307 Drainage Amount Moderate 03/14/21 1307 Drainage Description Serosanguineous 03/14/21 1307 Odor None 03/14/21 1307 Wound Margin Well defined 03/14/21 1307 Adherent Yellow Slough % None 03/14/21 1307 Moist Yellow Slough % None 03/14/21 1307 Dry Black Eschar % None 03/14/21 1307 Moist Black Eschar % None 03/14/21 1307 Epithelialization % None 03/14/21 1307 Granulation % 76-100% 03/14/21 1307 Exposed Structure None 03/14/21 1307 Wound Bed Characteristics Granulation tissue 03/14/21 1307 Inna-wound Assessment Temperature WNL;Clean;Scar tissue 03/14/21 1307 Treatments Topical anesthetic for procedural pain control per order;Specimen;Assist with debridement;Cauterization 03/14/21 1307 Hypergranulation Treated Silver nitrate 03/14/21 1307 Hemostasis Manual pressure 03/14/21 1307 Cleansed Sterile saline 03/14/21 1307 Primary Dressing Dry gauze 03/14/21 1307 Secondary Dressing Highly absorbent dressing 03/14/21 1307 Compression Dressing Not Applicable 03/14/21 1307 Procedure Debridement Wound 09/28/19 1 Cellulitis Breast Left Consent obtained? written Consent given by: patient Risks discussed? procedural risks discussed Time out called at 03/14/2021 1:40 PM Immediately prior to the procedure a time out was called Performed by: HUMAN RESOURCES BENEFITS COORDINATOR Debridement type: surgical Level of debridement: subcutaneous tissue Pain control: lidocaine 4% Pre-debridement measurements Length (cm): 0.2 Width (cm): 0.3 Depth (cm): 0.4 Surface Area (cm^2): 0.06 Volume (cm^3): 0.02 Post-debridement measurements Length (cm): 0.4 Width (cm): 0.4 Depth (cm): 0.4 Percent debrided: 100% Surface Area (cm^2): 0.16 Area debrided (cm^2): 0.16 Volume (cm^3): 0.06 Tissue and other material debrided: dermis, epidermis, hypergranulation and subcutaneous tissue Devitalized tissue debrided: biofilm and fibrin Instrument(s) utilized: curette Bleeding: medium Hemostasis obtained with: pressure and silver nitrate Response to treatment: procedure was tolerated well REVIEW OF HISTORY The following History, Allergies, and Medications were reviewed Relevant Tests, Procedures, Treatments Notes, Imaging, Surgeries, ATBs, Chemo, Radiation Tx 11/07/2020 Left mastectomy flap revision w/ Dr. Ybarra Radiation therapy 03/06/20-03/29/2020 w/ Dr. Mccullough 09/29/2020 Left Mastectomy w/ Dr. Kelly 09/28/2019 Right Mastectomy w/ Dr. Ybarra Allergies: Chlorhexidine towelette, Sulfamethoxazole-trimethoprim, and Betadine [povidone-iodine] Medications: Patient's Medications New Prescriptions No medications on file Previous Medications ANASTROZOLE (ARIMIDEX) 1 MG TABLET Take 1 mg by mouth every morning Reasons: post breast cancer. ASPIRIN 81 MG EC TABLET Take 1 (one) tablet (81 mg total) by mouth every morning . You may resume Reasons: treatment to prevent a heart attack. CALCIUM CITRATE (CALCITRATE) 200 MG (950 MG) TABLET Take 1 tablet by mouth every morning Reasons: supp. [id number] ORAL Take by mouth every morning Reasons: supplement. CEPHALEXIN (KEFLEX) 500 MG CAPSULE Take 1 (one) capsule (500 mg total) by mouth 4 (four) times a day . CHOLECALCIFEROL, VITAMIN D3, (D3-2000) 2,000 UNIT CAP Take 2,000 Units by mouth every evening Reasons: supplement. ESCITALOPRAM OXALATE (LEXAPRO) 10 MG TABLET Take 10 mg by mouth at bedtime Reasons: anxiousness associated with depression. LEVOTHYROXINE (SYNTHROID, LEVOTHROID) 112 MCG TABLET Take 112 mcg by mouth every morning Reasons: a condition with low thyroid hormone levels. LOSARTAN (COZAAR) 25 MG TABLET Take 25 mg by mouth at bedtime Reasons: high blood pressure. METFORMIN (GLUCOPHAGE-XR) 500 MG 24 HR TABLET Take 1,000 mg by mouth nightly Reasons: type 2 diabetes mellitus. MULTIVITAMIN (MULTIVITAMIN) PER TABLET Take 1 tablet by mouth every evening Reasons: treatment to prevent vitamin deficiency. NAPROXEN SODIUM (ALEVE) 220 MG TABLET Take 220 mg by mouth 2 (two) times a day as needed Reasons: pain. NATEGLINIDE (STARLIX) 60 MG TABLET Take 60 mg by mouth 3 (three) times a day with meals . [id number]-[id number]-PRDEXULLSGDAFS (CORTISPORIN) OTIC SOLUTION 2 drops 2 (two) times a day Reasons: each side of the toe, for ingrown toenail. NITROFURANTOIN, MACROCRYSTAL-MONOHYDRATE, (MACROBID) 100 MG CAPSULE Take 100 mg by mouth 2 (two) times a day For seven days for UTI . OMEPRAZOLE (PRILOSEC) 20 MG CAPSULE Take 20 mg by mouth daily as needed . ROSUVASTATIN (CRESTOR) 20 MG TABLET Take 20 mg by mouth every evening Reasons: high cholesterol. SODIUM HYPOCHLORITE (DAKIN'S SOLUTION) 0.125 % SOLN Apply topically daily . SPIRONOLACTONE (ALDACTONE) 25 MG TABLET Take 12.5 mg by mouth at bedtime Reasons: high blood pressure, 1/2 tablet (12.5 mg). Modified Medications No medications on file Discontinued Medications No medications on file Labs: Lab Results Component Value Date WBC 4.87 02/20/2021 HGB 12.2 02/20/2021 HCT 37.9 02/20/2021 MCV 86.3 02/20/2021 PLT 218 02/20/2021 Lab Results Component Value Date PROT 6.7 02/20/2021 ALBUMIN 4.3 02/20/2021 No results found for: HGBA1C Lab Results Component Value Date GLUCOSE 150 (H) 02/20/2021 CALCIUM 9.7 02/20/2021 NA 139 02/20/2021 K 4.3 02/20/2021 CL 105 02/20/2021 BUN 16 02/20/2021 CREATININE 0.61 02/20/2021 Lab Results Component Value Date ALT 13 02/20/2021 AST 17 02/20/2021 ALKPHOS 62 02/20/2021 BILITOT 0.3 02/20/2021 No results found for: INR, PROTIME Past Medical History: Diagnosis Date Abnormal mammogram Alopecia scalp; scarring type; Dr Aviva Woodward, [place] Anemia 1970s Anxiety and depression Arthritis Breast cancer, female (HCC) 09/15/2019 Breast mass Cataract Cellulitis 08/2017 RLE Claudication (HCC) Complication of anesthesia anxiety in PACU & postop Deep vein thrombosis (HCC) Diabetes mellitus, type 2 (HCC) Edema R leg GERD (gastroesophageal reflux disease) mild - meds as needed Hyperlipidemia Hypertension Hypothyroidism Ingrown toenail with infection 2020 Left Great toe Lipodermatosclerosis Lymphedema Lymphedema of right lower extremity Dr. Duke, vascular OA (osteoarthritis) of knee right Sleep apnea, obstructive w/ CPAP; Dr Oli Barertt, [facility] Varicose veins of bilateral lower extremities with other complications Past Surgical History: Procedure Laterality Date ACHILLES TENDON SURGERY BREAST BIOPSY BREAST CYST EXCISION 1975 BREAST MASS EXCISION Left 11/07/2020 Procedure: left mastectomy flap revision; Surgeon: Ophelia Ybarra DO; Location: [facility] Main OR; Service: General Surgery DILATION AND CURETTAGE OF UTERUS GANGLION CYST EXCISION HYSTERECTOMY VAGINAL N/A 01/14/2019 Procedure: TOTAL VAGINAL HYSTERECTOMY; Surgeon: Nidhi Braun MD; Location: [facility] Main OR; Service: OBGYN HYSTEROSCOPY W/ DILATATION AND CURETTAGE N/A 11/27/2017 Procedure: DILATION AND CURETTAGE WITH HYSTEROSCOPY; Surgeon: Nidhi Braun MD; Location: [facility] Main OR; Service: OBGYN MASTECTOMY MODIFIED RADICAL BILATERAL WITH SENTINEL LYMPH NODE BIOPSY Bilateral 09/28/2019 Procedure: BILATERAL MASTECTOMIES WITH RIGHT SENTINEL NODE BIOPSY; Surgeon: Ophelia Ybarra DO; Location: [facility] Main OR; Service: General Surgery SKIN BIOPSY benign TONSILLECTOMY TUBAL LIGATION US BREAST BIOPSY RIGHT Right 09/07/2019 VASCULAR SURGERY Right 11/2017 leg; Varithena infection WISDOM TOOTH EXTRACTION Social History Socioeconomic History Marital status: Spouse name: Not on file Number of children: 6 Years of education: Not on file Highest education level: Not on file Occupational History Employer: OTHER- Tobacco Use Smoking status: Never Smoker Smokeless tobacco: Never Used Vaping Use Vaping Use: Never used Substance and Sexual Activity Alcohol use: Never Drug use: Never Sexual activity: Not on file Other Topics Concern Not on file Social History Narrative Merged History Encounter Social Determinants of Health Financial Resource Strain: Difficulty of Paying Living Expenses: Food Insecurity: Worried About Running Out of Food in the Last Year: Ran Out of Food in the Last Year: Transportation Needs: Lack of Transportation (Medical): Lack of Transportation (Non-Medical): Physical Activity: Days of Exercise per Week: Minutes of Exercise per Session: Stress: Feeling of Stress : Social Connections: Frequency of Communication with Friends and Family: Frequency of Social Gatherings with Friends and Family: Attends Scientology Services: Active Member of Clubs or Organizations: Attends Club or Organization Meetings: Marital Status: Family History Problem Relation Age of Onset Colon cancer Mother 67 Cancer Mother 67 oral Stroke Father Hypertension Father Heart attack Father Prostate cancer Father 70 Heart disease Father Diabetes Father No Known Problems Brother Prostate cancer Brother 68 Breast cancer Maternal Grandmother 70 Colon cancer Maternal Grandfather 65 Other (Abdominal cancer) Paternal Grandmother 70 Prostate cancer Maternal Uncle 60 No Known Problems Other Prostate cancer Maternal Uncle Surgical complications Neg Hx Anesthesia problems Neg Hx Clotting disorder Neg Hx Deep vein thrombosis Neg Hx Pulmonary embolism Neg Hx Ovarian cancer Neg Hx Raven Reza CNP Electronically signed by the above provider 03/14/21 Perpetual Wound History: Pt first seen in on 12/20/2020, for a left chest ulceration 12/20/2020 Left Chest - Initial assessment, some s/s infection, skin between ulcers opened, tissue cx sent, debrided, Use Dakins moist gauze, ABD, VICKY BID. 12/28/2020 Left Chest - Improvement, resolving s/s infection, tissue cx + so was started on Cefdinir, debrided, Cont Dakins moist gauze, packing strips to tunnel, ABD, VICKY BID. 01/11/2021 Left Chest - Improvement, no s/s infection, debrided, Use Dakins clean and soak, SM Tiana, [place] every day. 01/25/2021 Left Chest - Improvement, no s/s infection, debrided, Use Dakins clean and soak, dry Tiana to large wound bed, dry packing in tunnel, DSD to fill void, [place] every day. 02/20/2021 Left Chest - Improvement, no s/s infection, cauterized hypergran, Use Dakins moist packing, [place] 3x/wk. 03/14/2021 Left Chest - Stable, slight s/s infection, swab cx sent, debrided, Use tiana to tunnel, dry packing to keep wound open, excel every day. documented in this encounter [facility] 02-20-2021 Instructions Richelle Oorzco RN - 02/20/2021 10:45 AM EDT The following Patient Instructions and Wound Care Orders are current as of this date. All previous orders/treatments should be discontinued. Wound Care Orders: Wound location: left breast Clean with saline May shower, leave dressing in place and change immediately after shower. Can apply Glad press and seal over dressing on days you are showering and not changing the dressing. Apply the following (OR EQUIVALENT): 1/4 Strength Dakins Solution Dressing: Pour Dakins solution over gauze or packing strip, then squeeze to remove excess moisture. The gauze should be moist, not dripping. Place the gauze inside the wound, making sure the gauze touches the entire inside of the wound. Do not place the dressing outside the edges of the wound because this can irritate healthy skin.(primary dressing) Cover with [place] SAP bordered dressing (seconday dressing) Change three times a week (Friday, , Friday) May change outer dressing if it becomes soiled or saturated Vashe dressing in clinic today Per Verbal Order Read Back Supplies We have sent your supply order to the following company: [employer]: [phone] If you don't receive the items you were expecting or don't know what the items are that you received, call the company where the order was sent. If you are unable to obtain wound supplies, continue to use the supplies you have available until your are able to reach us. It is most important to keep the wound covered at all times. It is YOUR responsibility to make sure that supplies are re-ordered before you run out. Re-order telephone numbers are included in each package. High Blood Pressure: If your blood pressure taken today is above 150/95, please contact your primary care physician to get further instructions. If you experience the following emergent symptoms; chest pain, shortness of breath, headache, dizziness, vision changes, unusual and/or excessive sweating or nausea vomiting - call 911 or go to the nearest emergency room. Bleeding: If your wound was debrided and continues to bleed after your appointment, apply direct pressure to the wound with a clean cloth or dressing for 10-20 minutes. If the bleeding does not stop, call [facility] [phone] or go to the Emergency Room. Signs/Symptoms of Infection: If you have any fever, chills, nausea, vomiting or increased odor, drainage, pain or redness to the wound, call [facility] at [phone]. If after hours, contact your family physician or go to the Emergency Room. Tips You can do at Home to Help Heal Your Wound Tobacco Use: No smoking or tobacco products because they can slow or even stop wound healing. Diabetic Management: If you are diabetic, check your blood sugar every morning before eating. Keep your fasting blood sugar below 120. Keep regular appointments with your primary physician to monitor your diabetes. Follow your diabetic diet carefully. Skin Care: Use apply moisturizing lotion to dry, intact skin, avoid getting between the toes. Apply skin sealant or barrier to protect the skin from too much moisture. Inspect skin (including feet) daily for redness, blisters, rash, cracks, or open areas. Incontinence Skin Care Quickly cleanse and gently pat dry after every incontinence episode or loose bowel movement to keep area as clean and dry as possible. Use a barrier cream to protect skin as directed. Edema Control Instructions: Elevate legs above the level of your heart whenever you are sitting. Avoid standing for long periods and do not sit with your legs dangling. Compression Stockings: Apply compression stocking(s) every morning as soon as you get up. Remove at bedtime unless instructed to wear day and night. Hand wash and line dry to prevent loss of elasticity. Replace every 3-4 months to ensure proper fit. Pressure Relief Instructions: Keep weight and pressure off your wound(s) and bony areas of the body (for example, heels, tail bone, hip, elbows, back of head). Reposition as instructed. Shift position in chair every 15 minutes.Turn every 2 hours while lying down. Wear heel guards to keep pressure off heels while in bed or in a chair. Remove while transferring or walking. Specialty Bed: Alternating Air Mattress Wheelchair cushion: Lenny. Use this wherever you are sitting. Diet: Increase the lean protein in your diet. Examples of foods high in protein are lean cuts of meat, fish, dairy foods, peanut butter and eggs. Use protein supplements as directed. Limit your salt/sodium as instructed. Choose fresh fruits, vegetables and lean cuts of meat. Do not add salt to food during or after cooking. Season food with herbs and spices instead of salt. Avoid salty snacks, fast foods, deli meats and pre-packaged foods. If instructed, limit your fluids to no more than 2 quarts, (64 ounces), of a day. This includes water, juice, coffee, tea, pop, soup, etc. If you are diabetic, check your blood sugar every morning before eating. Keep your fasting blood sugar below 120. Keep regular appointments with your primary physician to monitor your diabetes. Follow your diabetic diet carefully. Protein for Wound Healing You need at least 80-100 grams of protein per day for the body to heal a wound. Be creative and increase protein levels by: 1. Eating the protein items at meal time first. Eat small meals and snacks throughout the day 2. Adding eggs to casseroles, meat loaf, mashed potatoes, macaroni & cheese, salads. 3. Adding cheese to sandwiches, casseroles, potatoes, vegetables, and omelets. 4. Adding peanut butter to toast, bagels, waffles, crackers, bananas, apples, and celery. 5. Adding protein powder to drinks, pudding, potatoes, soups, ground meats, cooked cereal, milkshakes, yogurt, and pancake batter. Item Portion Size Grams of Protein Most Meats 1 oz 7 Beef Hamburger Senia 4 oz 28 Steak 6 oz 42 Chicken Breast 3.5 oz 30 Thigh Average 10 Drumstick Average 11 Wing Average 6 Most Other 4 oz cooked 35 Fish Tuna 6 oz can 40 Fish Fillets or Steaks 1oz cooked 6 Pork Chop Average 22 Loin or Tenderloin 4 oz 29 Ham 3 oz 19 Ground 3 oz cooked 22 Clarke 1 slice 3 Brazilian-style Clarke (Back Clarke) 1 slice 5-6 Eggs and Dairy Egg Large 6 Milk 1 cup 8 Cottage Cheese cup 15 Yogurt 1 cup 8-12 Albanian Yogurt 6 oz 18 Soft Cheeses (Mozzarella, Brie) 1 oz 6 Medium Cheeses(Cheddar,Egyptian) 1 oz 7-8 Hard Cheeses (Parmesan) 1 oz 10 Beans / Soy Tofu cup 10 Soy Milk 1 cup 6-10 Soy Beans cup cooked 14 Edamame cup 8-12 Most Beans (black, carrillo, lentils) cup cooked 7-10 Split Peas cup cooked 8 Nuts and Seeds Peanut Butter 2 Tablespoons 8 Peanuts cup 9 Almonds cup 8 Cashews cup 5 Pecans cup 2.5 Buchanan Seeds cup 6 Pumpkin Seeds cup 19 Flax Seeds cup 8 Some Whole Grain Breads 1 slice 4-5 Other Protein Powder 1 scoop 20 documented in this encounter [facility] 02-20-2021 History of Presen t illness Narrative Associated Order(s): Cauterization, Chemical Post-Procedure Diagnose(s): Breast wound, left, subsequent encounter; Hypergranulation Images from the original note were not included. WOUND CARE PROVIDER PROGRESS NOTE Patient Name: Beulah Fields MR #: [id number] : 1945 (75 y.o. female) PCP: Eve Cueto MD All patient questions or concerns about the content of this note will be addressed at the next clinic visit rather than by phone, as conversations and explanations are more amenable to in-person discussions. If there are non-urgent questions about wounds or wound care, patient's are encourage to use My Chart. For urgent concerns about wounds, call the Wound Clinic at [phone] or other Health Care Provider. ASSESSMENT, PLAN, & ORDERS Goals of Therapy include: Work towards healing. If there is no significant improvement within 4 weeks or if there is a decline at any time, we will investigate causes of delay / decline and consider changing the treatment plan. Reduce risk of infection. Provide dressing orders. Clear infection. Any procedure done during today's visit is due to medical necessary, to promote healing and control or prevent infection. Infectious r/t surgical site dehiscence Ulcer, of the Left Chest with fat layer exposed, and with Hypergranulation tissue, with hx of Cellulitis, - Improved. No signs of infection. Hypergranulation tissue was cauterized. Cleanse with saline. Will use Dakin's moistened (0.125%) Packing Strips, to the wound. Cover the entire wound with [place] Border, (as Secondary dressing), 3 times per week Dressing placed today may differ from the above but, have been ordered by this HUMAN RESOURCES BENEFITS COORDINATOR to be placed during this clinic visit. Patient instructed to comply with and states understanding of the following instructions for comorbid conditions: 1.Patient to strive towards an appropriate weight and protein intake to maximize an environment for wound healing. 2. Patient to avoid things that interfere with the healing process, contribute to infection, cause tissue destruction, or reduce blood flow and oxygen to the wound, such as: pressure, edema, high sodium intake, nicotine, substance abuse, lack of cleanliness, excess moisture or dryness, not following wound care instructions. 3. PCP or Specialist will continue to manage and optimize any co-morbidities and treatments that affect wound healing by reducing blood flow & oxygen to the wound, decreased immune response & elevated glucose levels. Additional Orders: Follow up as planned with Breast Surgeon, Dr. Ybarra. Follow Up WC: 4wks The following amount of time was spent on this patient's care: Time was not calculated this visit, due to the performance of a procedure. SUBJECTIVE Chief Complaint: Wound Check History of Present Illness: Location, Severity, Quality (Type of Wound): As outlined in this note Context (Trigger Event, First Appearance, Progression, Procedures, Meds, Previous Wound Clinics): Pt with a non-healing left chest ulceration that has essentially been present since 1 week post op approximately 11/14/2020. On 11/07/2020 she underwent a left mastectomy flap revision with Dr. Ybarra. Patient reports that about 1 week after surgery her incision line dehisced and began draining fluid. She does note that right before this opened she noted her left chest had some swelling inferior to the incision line. She was diagnosed with right breast cancer in 08/2019, had a double mastectomy in 09/2019, later found to have left breast cancer as well, and completed chemo and external beam radiation to her sternal region 03/2020. She is currently in remission. She has been following up with Dr. Ybarra and has been packing this area daily with daily showers without much improvement noted. She lives with her who has been doing her dressing changes. Modifying Factors (Dressings used prior to [facility] HUMAN RESOURCES BENEFITS COORDINATOR visit): Gauze packing Timing / Duration: Chronic, Date: 11/07/2020 Review of Systems: Patient states No unusual occurences of the following (unless addressed elsewhere): CONSTITUTION: fever, chills, night sweats, weight changes, Pain; SKIN: changes in color, temperature, or texture (not mentioned elsewhere); RESPIRATORY: short of breath, cough, wheeze; MUSCULOSKELETAL: falls, weakness, change in gate; Patient without complaints or concerns. OBJECTIVE Vitals: BP 141/78 Pulse (!) 57 Temp 97.8 F (36.6 C) (Temporal) Resp 16 WNL Last Weight 221 lbs, BMI 35.67 Physical Exam: Constitutional - Appears well, No apparent distress, Appropriately groomed, Obese per medical criteria Psychiatric - A&Ox3, judgement & insight wnl, memory grossly intact, mood & affect appropriate Neurological - Cranial Nerves - Cranial Nerves II through VIII (General assessement of vision, eye movement, chewing, facial expression, and hearing): Grossly intact. Sensation - Pt reports Grossly intact HEENT - Head: atraumatic, normocephalic Bilateral Eyes: conjunctiva pink & moist, sclera white Ears: symmetrical, no signs of external ear infection, Nose: midline, w/o drainage, Neck: trachea appears midline, Cardiothoracic - Chest symmetrical, Respiratory - Unlabored respiratory effort, no visual use of accessory muscles, Abdomen - Genitourinary - General Integumentary - Skin moisture, color, & temperature wnl except as described elsewhere, Musculoskeletal - No Involuntary movements, Gait, Strength, Mobility, Range of Motion - Age appropriate w/o pain, Upper extremities - wnl Lower Extremity: Vasculature - Edema - Skin & Hair - Feet and toes - Wound: No S/S of Infection - Other observable items include: hypergranulation tissue, Flow Sheet Wound 09/28/19 1 Cellulitis Breast Left (Active) Wound Image 02/20/211001 Wound Length (cm) 0.3 cm 02/20/211001 Wound Width (cm) 0.3 cm 02/20/211001 Wound Depth (cm) 0.4 cm 02/20/211001 Wound Surface Area (cm^2) 0.09 cm^2 02/20/211001 Wound Volume (cm^3) 0.04 cm^3 02/20/21 1002 Area % Change -98.43 02/20/21 1002 Wound Healing % 100 02/20/211001 Tunneling Maximum Distance (cm) 3.3 cm 02/20/211001 Tunneling Position (o'clock) 3 02/20/211001 Tunneling Maximum Distance (cm) 0 cm 02/20/211001 Tunneling Position (o'clock) 0 02/20/211001 Undermining Maximum Distance (cm) 1 0 cm 02/20/211001 Undermining Starting Position (o'clock) 1 0 02/20/211001 Undermining Ending Position (o'clock) 1 0 02/20/211001 Undermining Maximum Distance (cm) 2 0 cm 02/20/211001 Undermining Starting Position (o'clock) 2 0 02/20/211001 Undermining Ending Position (o'clock) 2 0 02/20/211001 Wound Progress Improving 02/20/211001 Non-staged Wound Description Full thickness 02/20/211001 Drainage Amount Moderate 02/20/211001 Drainage Description Serosanguineous 02/20/21 1002 Odor None 02/20/211001 Wound Margin Well defined 02/20/21 1002 Adherent Yellow Slough % None 02/20/21 1002 Moist Yellow Slough % None 02/20/21 1002 Dry Black Eschar % None 02/20/21 1002 Moist Black Eschar % None 02/20/21 1002 Epithelialization % None 02/20/21 1002 Granulation % 76-100%;Bright red 02/20/211001 Exposed Structure None 02/20/21 1002 Wound Bed Characteristics Granulation tissue;Red 02/20/211001 Inna-wound Assessment Temperature WNL;Dry;Intact;Scar tissue 02/20/211001 Treatments Topical anesthetic for procedural pain control per order;Cauterization 02/20/21 1002 Hemostasis Silver nitrate sticks 02/20/21 1002 Cleansed Sterile saline 02/20/21 1002 Primary Dressing Sodium hypochlorite ([place]akin) 02/20/21 1002 Secondary Dressing Highly absorbent dressing 02/20/21 1002 Compression Dressing Not Applicable 02/20/21 1002 Procedure Cauterization, Chemical H&P Updated & Labs Reviewed: Yes Consent Obtained: Yes [place] Protocol: Verification of correct patient, date of , site, procedure. Time out: @ 1040 Site Marking: N/A Sedation: N/A Other: Hand hygiene completed & non-sterile gloves used. Cleansed with: Saline Pain Control: 4% Lidocaine liquid, Culture taken: No, Silver Nitrate stick - was rubbed over the Hypergranulation tissue, giving it a chacko/black appearance. Tolerated Well: Yes Complication: None REVIEW OF HISTORY The following History, Allergies, and Medications were reviewed Relevant Tests, Procedures, Treatments Notes, Imaging, Surgeries, ATBs, Chemo, Radiation Tx 11/07/2020 Left mastectomy flap revision w/ Dr. Ybarra Radiation therapy 03/06/20-03/29/2020 w/ Dr. Mccullough 09/29/2020 Left Mastectomy w/ Dr. Kelly 09/28/2019 Right Mastectomy w/ Dr. Ybarra Allergies: Chlorhexidine towelette, Sulfamethoxazole-trimethoprim, and Betadine [povidone-iodine] Medications: Patient's Medications New Prescriptions No medications on file Previous Medications ANASTROZOLE (ARIMIDEX) 1 MG TABLET Take 1 mg by mouth every morning Reasons: post breast cancer. ASPIRIN 81 MG EC TABLET Take 1 (one) tablet (81 mg total) by mouth every morning . You may resume Reasons: treatment to prevent a heart attack. CALCIUM CITRATE (CALCITRATE) 200 MG (950 MG) TABLET Take 1 tablet by mouth every morning Reasons: supp. [id number] ORAL Take by mouth every morning Reasons: supplement. CEPHALEXIN (KEFLEX) 500 MG CAPSULE Take 1 (one) capsule (500 mg total) by mouth 4 (four) times a day . CHOLECALCIFEROL, VITAMIN D3, (D3-2000) 2,000 UNIT CAP Take 2,000 Units by mouth every evening Reasons: supplement. ESCITALOPRAM OXALATE (LEXAPRO) 10 MG TABLET Take 10 mg by mouth at bedtime Reasons: anxiousness associated with depression. LEVOTHYROXINE (SYNTHROID, LEVOTHROID) 112 MCG TABLET Take 112 mcg by mouth every morning Reasons: a condition with low thyroid hormone levels. LOSARTAN (COZAAR) 25 MG TABLET Take 25 mg by mouth at bedtime Reasons: high blood pressure. METFORMIN (GLUCOPHAGE-XR) 500 MG 24 HR TABLET Take 1,000 mg by mouth nightly Reasons: type 2 diabetes mellitus. MULTIVITAMIN (MULTIVITAMIN) PER TABLET Take 1 tablet by mouth every evening Reasons: treatment to prevent vitamin deficiency. NAPROXEN SODIUM (ALEVE) 220 MG TABLET Take 220 mg by mouth 2 (two) times a day as needed Reasons: pain. NATEGLINIDE (STARLIX) 60 MG TABLET Take 60 mg by mouth 3 (three) times a day with meals . [id number] (CORTISPORIN) OTIC SOLUTION 2 drops 2 (two) times a day Reasons: each side of the toe, for ingrown toenail. NITROFURANTOIN, MACROCRYSTAL-MONOHYDRATE, (MACROBID) 100 MG CAPSULE Take 100 mg by mouth 2 (two) times a day For seven days for UTI . OMEPRAZOLE (PRILOSEC) 20 MG CAPSULE Take 20 mg by mouth daily as needed . ROSUVASTATIN (CRESTOR) 20 MG TABLET Take 20 mg by mouth every evening Reasons: high cholesterol. SODIUM HYPOCHLORITE (DAKIN'S SOLUTION) 0.125 % SOLN Apply topically daily . SPIRONOLACTONE (ALDACTONE) 25 MG TABLET Take 12.5 mg by mouth at bedtime Reasons: high blood pressure, 1/2 tablet (12.5 mg). Modified Medications No medications on file Discontinued Medications No medications on file Labs: Lab Results Component Value Date WBC 3.99 (L) 11/02/2020 HGB 12.5 11/02/2020 HCT 38.6 11/02/2020 MCV 88.3 11/02/2020 PLT 226 11/02/2020 Lab Results Component Value Date PROT 6.7 09/21/2019 ALBUMIN 4.3 09/21/2019 No results found for: HGBA1C Lab Results Component Value Date GLUCOSE 117 (H) 11/02/2020 CALCIUM 10.0 11/02/2020 NA 139 11/02/2020 K 4.3 11/02/2020 CL 105 11/02/2020 BUN 16 11/02/2020 CREATININE 0.54 (L) 11/02/2020 Lab Results Component Value Date ALT 14 09/21/2019 AST 18 09/21/2019 ALKPHOS 49 09/21/2019 BILITOT <0.2 09/21/2019 No results found for: INR, PROTIME Past Medical History: Diagnosis Date Abnormal mammogram Alopecia scalp; scarring type; Dr Aviva Woodward, [place] Anemia 1970s Anxiety and depression Arthritis Breast cancer, female (HCC) 09/15/2019 Breast mass Cataract Cellulitis 08/2017 RLE Claudication (HCC) Complication of anesthesia anxiety in PACU & postop Deep vein thrombosis (HCC) Diabetes mellitus, type 2 (HCC) Edema R leg GERD (gastroesophageal reflux disease) mild - meds as needed Hyperlipidemia Hypertension Hypothyroidism Ingrown toenail with infection 2020 Left Great toe Lipodermatosclerosis Lymphedema Lymphedema of right lower extremity Dr. 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 Past Surgical History: Procedure Laterality Date ACHILLES TENDON SURGERY BREAST BIOPSY BREAST CYST EXCISION 1975 BREAST MASS EXCISION Left 11/07/2020 Procedure: left mastectomy flap revision; Surgeon: Ophelia Ybarra DO; Location: [facility] Main OR; Service: General Surgery DILATION AND CURETTAGE OF UTERUS GANGLION CYST EXCISION HYSTERECTOMY VAGINAL N/A 01/14/2019 Procedure: TOTAL VAGINAL HYSTERECTOMY; Surgeon: Nidhi Braun MD; Location: [facility] Main OR; Service: OBGYN HYSTEROSCOPY W/ DILATATION AND CURETTAGE N/A 11/27/2017 Procedure: DILATION AND CURETTAGE WITH HYSTEROSCOPY; Surgeon: Nidhi Braun MD; Location: [facility] Main OR; Service: OBGYN MASTECTOMY MODIFIED RADICAL BILATERAL WITH SENTINEL LYMPH NODE BIOPSY Bilateral 09/28/2019 Procedure: BILATERAL MASTECTOMIES WITH RIGHT SENTINEL NODE BIOPSY; Surgeon: Ophelia Ybarra DO; Location: [facility] Main OR; Service: General Surgery SKIN BIOPSY benign TONSILLECTOMY TUBAL LIGATION US BREAST BIOPSY RIGHT Right 09/07/2019 VASCULAR SURGERY Right 11/2017 leg; Varithena infection WISDOM TOOTH EXTRACTION Social History Socioeconomic History Marital status: Spouse name: Not on file Number of children: 6 Years of education: Not on file Highest education level: Not on file Occupational History Employer: OTHER- Tobacco Use Smoking status: Never Smoker Smokeless tobacco: Never Used Vaping Use Vaping Use: Never used Substance and Sexual Activity Alcohol use: Never Drug use: Never Sexual activity: Not on file Other Topics Concern Not on file Social History Narrative Merged History Encounter Social Determinants of Health Financial Resource Strain: Difficulty of Paying Living Expenses: Food Insecurity: Worried About Running Out of Food in the Last Year: Ran Out of Food in the Last Year: Transportation Needs: Lack of Transportation (Medical): Lack of Transportation (Non-Medical): Physical Activity: Days of Exercise per Week: Minutes of Exercise per Session: Stress: Feeling of Stress : Social Connections: Frequency of Communication with Friends and Family: Frequency of Social Gatherings with Friends and Family: Attends Scientology Services: Active Member of Clubs or Organizations: Attends Club or Organization Meetings: Marital Status: Family History Problem Relation Age of Onset Colon cancer Mother 67 Cancer Mother 67 oral Stroke Father Hypertension Father Heart attack Father Prostate cancer Father 70 Heart disease Father Diabetes Father No Known Problems Brother Prostate cancer Brother 68 Breast cancer Maternal Grandmother 70 Colon cancer Maternal Grandfather 65 Other (Abdominal cancer) Paternal Grandmother 70 Prostate cancer Maternal Uncle 60 No Known Problems Other Prostate cancer Maternal Uncle Surgical complications Neg Hx Anesthesia problems Neg Hx Clotting disorder Neg Hx Deep vein thrombosis Neg Hx Pulmonary embolism Neg Hx Ovarian cancer Neg Hx Raven Reza CNP Electronically signed by the above provider 02/20/21 Perpetual Wound History: Pt first seen in on 12/20/2020, for a left chest ulceration 12/20/2020 Left Chest - Initial assessment, some s/s infection, skin between ulcers opened, tissue cx sent, debrided, Use Dakins moist gauze, ABD, VICKY BID. 12/28/2020 Left Chest - Improvement, resolving s/s infection, tissue cx + so was started on Cefdinir, debrided, Cont Dakins moist gauze, packing strips to tunnel, ABD, VICKY BID. 01/11/2021 Left Chest - Improvement, no s/s infection, debrided, Use Dakins clean and soak, SM Tiana, [place] every day. 01/25/2021 Left Chest - Improvement, no s/s infection, debrided, Use Dakins clean and soak, dry Tiana to large wound bed, dry packing in tunnel, DSD to fill void, [place] every day. 02/20/2021 Left Chest - Improvement, no s/s infection, cauterized hypergran, Use Dakins moist packing, [place] 3x/wk. documented in this encounter [facility] 01-25-2021 History of Presen t illness Narrative Associated Order(s): Wound Debridement Post-Procedure Diagnose(s): Breast wound, left, subsequent encounter Images from the original note were not included. WOUND CARE PROVIDER PROGRESS NOTE Patient Name: Beulah Fields MR #: [id number] : 1945 (75 y.o. female) PCP: Eve Cueto MD All patient questions or concerns about the content of this note will be addressed at the next clinic visit rather than by phone, as conversations and explanations are more amenable to in-person discussions. If there are non-urgent questions about wounds or wound care, patient's are encourage to use My Chart. For urgent concerns about wounds, call the Wound Clinic at [phone] or other Health Care Provider. ASSESSMENT, PLAN, & ORDERS Goals of Therapy include: Work towards healing. If there is no significant improvement within 4 weeks or if there is a decline at any time, we will investigate causes of delay / decline and consider changing the treatment plan. Reduce risk of infection. Provide dressing orders. Clear infection. Any procedure done during today's visit is due to medical necessary, to promote healing and control or prevent infection. Infectious r/t surgical site dehiscence Ulcer, of the Left Chest with fat layer exposed, and with Hypergranulation tissue, with hx of Cellulitis, - Improved. No signs of infection. Was debrided. Continue to cleanse with 0.125% Dakin's solution, and allow to soak for 2 mins. Rinse well. Will use Dry Tiana, (as Primary dressing), to the wound. and then packing strip into tunnel (as Secondary dressing), Cover the entire wound with Dry sterile Dressing, [place], (as Tertiary), daily Dressing placed today may differ from the above but, have been ordered by this HUMAN RESOURCES BENEFITS COORDINATOR to be placed during this clinic visit. Patient instructed to comply with and states understanding of the following instructions for comorbid conditions: 1.Patient to strive towards an appropriate weight and protein intake to maximize an environment for wound healing. 2. Patient to avoid things that interfere with the healing process, contribute to infection, cause tissue destruction, or reduce blood flow and oxygen to the wound, such as: pressure, edema, high sodium intake, nicotine, substance abuse, lack of cleanliness, excess moisture or dryness, not following wound care instructions. 3. PCP or Specialist will continue to manage and optimize any co-morbidities and treatments that affect wound healing by reducing blood flow & oxygen to the wound, decreased immune response & elevated glucose levels. Additional Orders: Follow up as planned with Breast Surgeon, Dr. Ybarra. Follow Up WC: 4wks The following amount of time was spent on this patient's care: Time was not calculated this visit, due to the performance of a procedure. SUBJECTIVE Chief Complaint: Wound Check History of Present Illness: Location, Severity, Quality (Type of Wound): As outlined in this note Context (Trigger Event, First Appearance, Progression, Procedures, Meds, Previous Wound Clinics): Pt with a non-healing left chest ulceration that has essentially been present since 1 week post op approximately 11/14/2020. On 11/07/2020 she underwent a left mastectomy flap revision with Dr. Ybarra. Patient reports that about 1 week after surgery her incision line dehisced and began draining fluid. She does note that right before this opened she noted her left chest had some swelling inferior to the incision line. She was diagnosed with right breast cancer in 08/2019, had a double mastectomy in 09/2019, later found to have left breast cancer as well, and completed chemo and external beam radiation to her sternal region 03/2020. She is currently in remission. She has been following up with Dr. Ybarra and has been packing this area daily with daily showers without much improvement noted. She lives with her who has been doing her dressing changes. Modifying Factors (Dressings used prior to [facility] HUMAN RESOURCES BENEFITS COORDINATOR visit): Gauze packing Timing / Duration: Chronic, Date: 11/07/2020 Review of Systems: Patient states No unusual occurences of the following (unless addressed elsewhere): CONSTITUTION: fever, chills, night sweats, weight changes, Pain; SKIN: changes in color, temperature, or texture (not mentioned elsewhere); RESPIRATORY: short of breath, cough, wheeze; MUSCULOSKELETAL: falls, weakness, change in gate; Patient without complaints or concerns. OBJECTIVE Vitals: BP 140/76 Pulse 64 Temp 97.2 F (36.2 C) (Temporal) Resp 18 WNL Last Weight 221 lbs, BMI 35.67 Physical Exam: Constitutional - Appears well, No apparent distress, Appropriately groomed, Obese per medical criteria Psychiatric - A&Ox3, judgement & insight wnl, memory grossly intact, mood & affect appropriate Neurological - Cranial Nerves - Cranial Nerves II through VIII (General assessement of vision, eye movement, chewing, facial expression, and hearing): Grossly intact. Sensation - Pt reports Grossly intact HEENT - Head: atraumatic, normocephalic Bilateral Eyes: conjunctiva pink & moist, sclera white Ears: symmetrical, no signs of external ear infection, Nose: midline, w/o drainage, Neck: trachea appears midline, Cardiothoracic - Chest symmetrical, Respiratory - Unlabored respiratory effort, no visual use of accessory muscles, Abdomen - Genitourinary - General Integumentary - Skin moisture, color, & temperature wnl except as described elsewhere, Musculoskeletal - No Involuntary movements, Gait, Strength, Mobility, Range of Motion - Age appropriate w/o pain, Upper extremities - wnl Lower Extremity: Vasculature - Edema - Skin & Hair - Feet and toes - Wound: No S/S of Infection - Flow Sheet Wound 09/28/19 1 Cellulitis Breast Left (Active) Wound Image 01/25/21 1023 Wound Length (cm) 1.1 cm 01/25/21 1023 Wound Width (cm) 5.2 cm 01/25/21 1023 Wound Depth (cm) 0.1 cm 01/25/21 1023 Wound Surface Area (cm^2) 5.72 cm^2 01/25/21 1023 Wound Volume (cm^3) 0.57 cm^3 01/25/21 1023 Area % Change -36.44 01/25/21 1023 Wound Healing % 99 01/25/21 1023 Tunneling Maximum Distance (cm) 3.6 cm 01/25/21 1023 Tunneling Position (o'clock) 5 01/25/21 1023 Tunneling Maximum Distance (cm) 0 cm 01/25/21 1023 Tunneling Position (o'clock) 0 01/25/21 1023 Undermining Maximum Distance (cm) 1 0 cm 01/25/21 1023 Undermining Starting Position (o'clock) 1 0 01/25/21 1023 Undermining Ending Position (o'clock) 1 0 01/25/21 1023 Undermining Maximum Distance (cm) 2 0 cm 01/25/21 1023 Undermining Starting Position (o'clock) 2 0 01/25/21 1023 Undermining Ending Position (o'clock) 2 0 01/25/21 1023 Wound Progress Improving 01/25/21 1023 Non-staged Wound Description Full thickness 01/25/21 1023 Drainage Amount Moderate 01/25/21 1023 Drainage Description Serosanguineous 01/25/21 1023 Odor None 01/25/21 1023 Wound Margin Well defined 01/25/21 1023 Adherent Yellow Slough % None 01/25/21 1023 Moist Yellow Slough % None 01/25/21 1023 Dry Black Eschar % None 01/25/21 1023 Moist Black Eschar % None 01/25/21 1023 Epithelialization % None 01/25/21 1023 Granulation % 76-100%;Firm;Bright red 01/25/21 1023 Exposed Structure None 01/25/21 1023 Wound Bed Characteristics Granulation tissue 01/25/21 1023 Inna-wound Assessment Temperature WNL;Red;Rash 01/25/21 1023 Treatments Topical anesthetic for procedural pain control per order;Assist with debridement;Cauterization 01/25/21 1023 Hemostasis Manual pressure 01/25/21 1023 Cleansed Sodium hypochlorus solution;Sterile saline 01/25/21 1023 Primary Dressing Collagen with silver 01/25/21 1023 Secondary Dressing Gauze pad;Highly absorbent dressing 01/25/21 1023 Compression Dressing Not Applicable 01/25/21 1023 Procedure Debridement Wound 09/28/19 1 Cellulitis Breast Left Consent obtained? written Consent given by: patient Risks discussed? procedural risks discussed Time out called at 01/25/2021 10:45 AM Immediately prior to the procedure a time out was called Performed by: KIERAN Debridement type: surgical Level of debridement: subcutaneous tissue Pain control: lidocaine 4% Pre-debridement measurements Length (cm): 1.1 Width (cm): 5.2 Depth (cm): 0.1 Surface Area (cm^2): 5.72 Volume (cm^3): 0.57 Post-debridement measurements Length (cm): 1.1 Width (cm): 5.2 Depth (cm): 0.3 Percent debrided: 100% Surface Area (cm^2): 5.72 Area debrided (cm^2): 5.72 Volume (cm^3): 1.72 Tissue and other material debrided: hypergranulation and subcutaneous tissue Devitalized tissue debrided: biofilm and fibrin Instrument(s) utilized: curette Bleeding: medium Hemostasis obtained with: pressure and silver nitrate Procedural pain (0-10): 0 Post-procedural pain: 0 Response to treatment: procedure was tolerated well REVIEW OF HISTORY The following History, Allergies, and Medications were reviewed Relevant Tests, Procedures, Treatments Notes, Imaging, Surgeries, ATBs, Chemo, Radiation Tx 11/07/2020 Left mastectomy flap revision w/ Dr. Ybarra Radiation therapy 03/06/20-03/29/2020 w/ Dr. Mccullough 09/29/2020 Left Mastectomy w/ Dr. Kelly 09/28/2019 Right Mastectomy w/ Dr. Ybarra Allergies: Chlorhexidine towelette, Sulfamethoxazole-trimethoprim, and Betadine [povidone-iodine] Medications: Patient's Medications New Prescriptions No medications on file Previous Medications ANASTROZOLE (ARIMIDEX) 1 MG TABLET Take 1 mg by mouth every morning Reasons: post breast cancer. ASPIRIN 81 MG EC TABLET Take 1 (one) tablet (81 mg total) by mouth every morning . You may resume Reasons: treatment to prevent a heart attack. CALCIUM CITRATE (CALCITRATE) 200 MG (950 MG) TABLET Take 1 tablet by mouth every morning Reasons: supp. [id number]-[id number]-RBHG ORAL Take by mouth every morning Reasons: supplement. CEPHALEXIN (KEFLEX) 500 MG CAPSULE Take 1 (one) capsule (500 mg total) by mouth 4 (four) times a day . CHOLECALCIFEROL, VITAMIN D3, (D3-2000) 2,000 UNIT CAP Take 2,000 Units by mouth every evening Reasons: supplement. ESCITALOPRAM OXALATE (LEXAPRO) 10 MG TABLET Take 10 mg by mouth at bedtime Reasons: anxiousness associated with depression. LEVOTHYROXINE (SYNTHROID, LEVOTHROID) 112 MCG TABLET Take 112 mcg by mouth every morning Reasons: a condition with low thyroid hormone levels. LOSARTAN (COZAAR) 25 MG TABLET Take 25 mg by mouth at bedtime Reasons: high blood pressure. METFORMIN (GLUCOPHAGE-XR) 500 MG 24 HR TABLET Take 1,000 mg by mouth nightly Reasons: type 2 diabetes mellitus. MULTIVITAMIN (MULTIVITAMIN) PER TABLET Take 1 tablet by mouth every evening Reasons: treatment to prevent vitamin deficiency. NAPROXEN SODIUM (ALEVE) 220 MG TABLET Take 220 mg by mouth 2 (two) times a day as needed Reasons: pain. NATEGLINIDE (STARLIX) 60 MG TABLET Take 60 mg by mouth 3 (three) times a day with meals . SFOGMFMY-LIPAYOPYA-RSVLAVNJFZKWYA (CORTISPORIN) OTIC SOLUTION 2 drops 2 (two) times a day Reasons: each side of the toe, for ingrown toenail. NITROFURANTOIN, MACROCRYSTAL-MONOHYDRATE, (MACROBID) 100 MG CAPSULE Take 100 mg by mouth 2 (two) times a day For seven days for UTI . OMEPRAZOLE (PRILOSEC) 20 MG CAPSULE Take 20 mg by mouth daily as needed . ROSUVASTATIN (CRESTOR) 20 MG TABLET Take 20 mg by mouth every evening Reasons: high cholesterol. SODIUM HYPOCHLORITE (DAKIN'S SOLUTION) 0.125 % SOLN Apply topically daily . SPIRONOLACTONE (ALDACTONE) 25 MG TABLET Take 12.5 mg by mouth at bedtime Reasons: high blood pressure, 1/2 tablet (12.5 mg). Modified Medications No medications on file Discontinued Medications No medications on file Labs: Lab Results Component Value Date WBC 3.99 (L) 11/02/2020 HGB 12.5 11/02/2020 HCT 38.6 11/02/2020 MCV 88.3 11/02/2020 PLT 226 11/02/2020 Lab Results Component Value Date PROT 6.7 09/21/2019 ALBUMIN 4.3 09/21/2019 No results found for: HGBA1C Lab Results Component Value Date GLUCOSE 117 (H) 11/02/2020 CALCIUM 10.0 11/02/2020 NA 139 11/02/2020 K 4.3 11/02/2020 CL 105 11/02/2020 BUN 16 11/02/2020 CREATININE 0.54 (L) 11/02/2020 Lab Results Component Value Date ALT 14 09/21/2019 AST 18 09/21/2019 ALKPHOS 49 09/21/2019 BILITOT <0.2 09/21/2019 No results found for: INR, PROTIME Past Medical History: Diagnosis Date Abnormal mammogram Alopecia scalp; scarring type; Dr Aviva Woodward, [place] Anemia 1970s Anxiety and depression Arthritis Breast cancer, female (HCC) 09/15/2019 Breast mass Cataract Cellulitis 08/2017 RLE Claudication (HCC) Complication of anesthesia anxiety in PACU & postop Deep vein thrombosis (HCC) Diabetes mellitus, type 2 (HCC) Edema R leg GERD (gastroesophageal reflux disease) mild - meds as needed Hyperlipidemia Hypertension Hypothyroidism Ingrown toenail with infection 2020 Left Great toe Lipodermatosclerosis Lymphedema Lymphedema of right lower extremity Dr. 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 Past Surgical History: Procedure Laterality Date ACHILLES TENDON SURGERY BREAST BIOPSY BREAST CYST EXCISION 1975 BREAST MASS EXCISION Left 11/07/2020 Procedure: left mastectomy flap revision; Surgeon: Ophelia Ybarra DO; Location: [facility] Main OR; Service: General Surgery DILATION AND CURETTAGE OF UTERUS GANGLION CYST EXCISION HYSTERECTOMY VAGINAL N/A 01/14/2019 Procedure: TOTAL VAGINAL HYSTERECTOMY; Surgeon: Nidhi Braun MD; Location: [facility] Main OR; Service: OBGYN HYSTEROSCOPY W/ DILATATION AND CURETTAGE N/A 11/27/2017 Procedure: DILATION AND CURETTAGE WITH HYSTEROSCOPY; Surgeon: Nidhi Braun MD; Location: [facility] Main OR; Service: OBGYN MASTECTOMY MODIFIED RADICAL BILATERAL WITH SENTINEL LYMPH NODE BIOPSY Bilateral 09/28/2019 Procedure: BILATERAL MASTECTOMIES WITH RIGHT SENTINEL NODE BIOPSY; Surgeon: Ophelia Ybarra DO; Location: [facility] Main OR; Service: General Surgery SKIN BIOPSY benign TONSILLECTOMY TUBAL LIGATION US BREAST BIOPSY RIGHT Right 09/07/2019 VASCULAR SURGERY Right 11/2017 leg; Varithena infection WISDOM TOOTH EXTRACTION Social History Socioeconomic History Marital status: Spouse name: Not on file Number of children: 6 Years of education: Not on file Highest education level: Not on file Occupational History Employer: OTHER- Tobacco Use Smoking status: Never Smoker Smokeless tobacco: Never Used Vaping Use Vaping Use: Never used Substance and Sexual Activity Alcohol use: Never Drug use: Never Sexual activity: Not on file Other Topics Concern Not on file Social History Narrative Merged History Encounter Social Determinants of Health Financial Resource Strain: Difficulty of Paying Living Expenses: Food Insecurity: Worried About Running Out of Food in the Last Year: Ran Out of Food in the Last Year: Transportation Needs: Lack of Transportation (Medical): Lack of Transportation (Non-Medical): Physical Activity: Days of Exercise per Week: Minutes of Exercise per Session: Stress: Feeling of Stress : Social Connections: Frequency of Communication with Friends and Family: Frequency of Social Gatherings with Friends and Family: Attends [employer] Services: Active Member of Clubs or Organizations: Attends Club or Organization Meetings: Marital Status: Family History Problem Relation Age of Onset Colon cancer Mother 67 Cancer Mother 67 oral Stroke Father Hypertension Father Heart attack Father Prostate cancer Father 70 Heart disease Father Diabetes Father No Known Problems Brother Prostate cancer Brother 68 Breast cancer Maternal Grandmother 70 Colon cancer Maternal Grandfather 65 Other (Abdominal cancer) Paternal Grandmother 70 Prostate cancer Maternal Uncle 60 No Known Problems Other Prostate cancer Maternal Uncle Surgical complications Neg Hx Anesthesia problems Neg Hx Clotting disorder Neg Hx Deep vein thrombosis Neg Hx Pulmonary embolism Neg Hx Ovarian cancer Neg Hx Raven Reza CNP Electronically signed by the above provider 01/25/21 Perpetual Wound History: Pt first seen in on 12/20/2020, for a left chest ulceration 12/20/2020 Left Chest - Initial assessment, some s/s infection, skin between ulcers opened, tissue cx sent, debrided, Use Dakins moist gauze, ABD, VICKY BID. 12/28/2020 Left Chest - Improvement, resolving s/s infection, tissue cx + so was started on Cefdinir, debrided, Cont Dakins moist gauze, packing strips to tunnel, ABD, VICKY BID. 01/11/2021 Left Chest - Improvement, no s/s infection, debrided, Use Dakins clean and soak, SM Tiana, [place] every day. 01/25/2021 Left Chest - Improvement, no s/s infection, debrided, Use Dakins clean and soak, dry Tiana to large wound bed, dry packing in tunnel, DSD to fill void, [place] every day. documented in this encounter [facility] 01-25-2021 Instructions Selma Joseph RN - 01/25/2021 10:16 AM EDT The following Patient Instructions and Wound Care Orders are current as of this date. All previous orders/treatments should be discontinued. Wound Care Orders: Wound location: left breast Clean with 1/4 strength dakins, let sit in wound for 10 minutes, rinse with saline. May shower, leave dressing in place and change immediately after shower. Apply the following (OR EQUIVALENT): Desitin to inna-wound. Use packing strip in tunnel to keep it open. Try to get it to the base of the tunnel. Apply saline moistened collagen with silver to wound base. Cover with dry gauze and excel border Change daily May change outer dressing if it becomes soiled or saturated Same dressing in clinic today Per Verbal Order Read Back Supplies We have sent your supply order to the following [employer]: [email or web address]: [phone] If you don't receive the items you were expecting or don't know what the items are that you received, call the company where the order was sent. If you are unable to obtain wound supplies, continue to use the supplies you have available until your are able to reach us. It is most important to keep the wound covered at all times. It is YOUR responsibility to make sure that supplies are re-ordered before you run out. Re-order telephone numbers are included in each package. High Blood Pressure: If your blood pressure taken today is above 150/95, please contact your primary care physician to get further instructions. If you experience the following emergent symptoms; chest pain, shortness of breath, headache, dizziness, vision changes, unusual and/or excessive sweating or nausea vomiting - call 911 or go to the nearest emergency room. Bleeding: If your wound was debrided and continues to bleed after your appointment, apply direct pressure to the wound with a clean cloth or dressing for 10-20 minutes. If the bleeding does not stop, call [facility] [phone] or go to the Emergency Room. Signs/Symptoms of Infection: If you have any fever, chills, nausea, vomiting or increased odor, drainage, pain or redness to the wound, call [facility] at [phone]. If after hours, contact your family physician or go to the Emergency Room. Tips You can do at Home to Help Heal Your Wound Tobacco Use: No smoking or tobacco products because they can slow or even stop wound healing. Diabetic Management: If you are diabetic, check your blood sugar every morning before eating. Keep your fasting blood sugar below 120. Keep regular appointments with your primary physician to monitor your diabetes. Follow your diabetic diet carefully. Skin Care: Use apply moisturizing lotion to dry, intact skin, avoid getting between the toes. Apply skin sealant or barrier to protect the skin from too much moisture. Inspect skin (including feet) daily for redness, blisters, rash, cracks, or open areas. Incontinence Skin Care Quickly cleanse and gently pat dry after every incontinence episode or loose bowel movement to keep area as clean and dry as possible. Use a barrier cream to protect skin as directed. Edema Control Instructions: Elevate legs above the level of your heart whenever you are sitting. Avoid standing for long periods and do not sit with your legs dangling. Compression Stockings: Apply compression stocking(s) every morning as soon as you get up. Remove at bedtime unless instructed to wear day and night. Hand wash and line dry to prevent loss of elasticity. Replace every 3-4 months to ensure proper fit. Pressure Relief Instructions: Keep weight and pressure off your wound(s) and bony areas of the body (for example, heels, tail bone, hip, elbows, back of head). Reposition as instructed. Shift position in chair every 15 minutes.Turn every 2 hours while lying down. Wear heel guards to keep pressure off heels while in bed or in a chair. Remove while transferring or walking. Specialty Bed: Alternating Air Mattress Wheelchair cushion: Roho. Use this wherever you are sitting. Diet: Increase the lean protein in your diet. Examples of foods high in protein are lean cuts of meat, fish, dairy foods, peanut butter and eggs. Use protein supplements as directed. Limit your salt/sodium as instructed. Choose fresh fruits, vegetables and lean cuts of meat. Do not add salt to food during or after cooking. Season food with herbs and spices instead of salt. Avoid salty snacks, fast foods, deli meats and pre-packaged foods. If instructed, limit your fluids to no more than 2 quarts, (64 ounces), of a day. This includes water, juice, coffee, tea, pop, soup, etc. If you are diabetic, check your blood sugar every morning before eating. Keep your fasting blood sugar below 120. Keep regular appointments with your primary physician to monitor your diabetes. Follow your diabetic diet carefully. Protein for Wound Healing You need at least 80-100 grams of protein per day for the body to heal a wound. Be creative and increase protein levels by: 1. Eating the protein items at meal time first. Eat small meals and snacks throughout the day 2. Adding eggs to casseroles, meat loaf, mashed potatoes, macaroni & cheese, salads. 3. Adding cheese to sandwiches, casseroles, potatoes, vegetables, and omelets. 4. Adding peanut butter to toast, bagels, waffles, crackers, bananas, apples, and celery. 5. Adding protein powder to drinks, pudding, potatoes, soups, ground meats, cooked cereal, milkshakes, yogurt, and pancake batter. Item Portion Size Grams of Protein Most Meats 1 oz 7 Beef Hamburger Senia 4 oz 28 Steak 6 oz 42 Chicken Breast 3.5 oz 30 Thigh Average 10 Drumstick Average 11 Wing Average 6 Most Other 4 oz cooked 35 Fish Tuna 6 oz can 40 Fish Fillets or Steaks 1oz cooked 6 Pork Chop Average 22 Loin or Tenderloin 4 oz 29 Ham 3 oz 19 Ground 3 oz cooked 22 Clarke 1 slice 3 Brazilian-style Clarke (Back Clarke) 1 slice 5-6 Eggs and Dairy Egg Large 6 Milk 1 cup 8 Cottage Cheese cup 15 Yogurt 1 cup 8-12 Albanian Yogurt 6 oz 18 Soft Cheeses (Mozzarella, Brie) 1 oz 6 Medium Cheeses(Cheddar,Egyptian) 1 oz 7-8 Hard Cheeses (Parmesan) 1 oz 10 Beans / Soy Tofu cup 10 Soy Milk 1 cup 6-10 Soy Beans cup cooked 14 Edamame cup 8-12 Most Beans (black, carrillo, lentils) cup cooked 7-10 Split Peas cup cooked 8 Nuts and Seeds Peanut Butter 2 Tablespoons 8 Peanuts cup 9 Almonds cup 8 Cashews cup 5 Pecans cup 2.5 Buchanan Seeds cup 6 Pumpkin Seeds cup 19 Flax Seeds cup 8 Some Whole Grain Breads 1 slice 4-5 Other Protein Powder 1 scoop 20 documented in this encounter [facility] 01-11-2021 History of Presen t illness Narrative Associated Order(s): Wound Debridement Post-Procedure Diagnose(s): Breast wound, left, subsequent encounter Images from the original note were not included. WOUND CARE PROVIDER PROGRESS NOTE Patient Name: Beulah Fields MR #: [id number] : 1945 (75 y.o. female) PCP: Eve Cueto MD All patient questions or concerns about the content of this note will be addressed at the next clinic visit rather than by phone, as conversations and explanations are more amenable to in-person discussions. If there are non-urgent questions about wounds or wound care, patient's are encourage to use My Chart. For urgent concerns about wounds, call the Wound Clinic at [phone] or other Health Care Provider. ASSESSMENT, PLAN, & ORDERS Goals of Therapy include: Work towards healing. If there is no significant improvement within 4 weeks or if there is a decline at any time, we will investigate causes of delay / decline and consider changing the treatment plan. Reduce risk of infection. Provide dressing orders. Clear infection. Any procedure done during today's visit is due to medical necessary, to promote healing and control or prevent infection. Infectious r/t surgical site dehiscence Ulcer, of the Left Chest with fat layer exposed, with hx of Cellulitis, - Improved. No signs of infection. Was debrided. Cleanse with 0.125% Dakin's solution, and allow to soak for 2 mins. Rinse well. Will use Saline moistened Tiana, to the wound. into tunnels. to the tunneled area and then Dakins moistened gauze to remaining ulceration. Cover the entire wound with [place], daily Dressing placed today may differ from the above but, have been ordered by this HUMAN RESOURCES BENEFITS COORDINATOR to be placed during this clinic visit. Patient instructed to comply with and states understanding of the following instructions for comorbid conditions: 1.Patient to strive towards an appropriate weight and protein intake to maximize an environment for wound healing. 2. Patient to avoid things that interfere with the healing process, contribute to infection, cause tissue destruction, or reduce blood flow and oxygen to the wound, such as: pressure, edema, high sodium intake, nicotine, substance abuse, lack of cleanliness, excess moisture or dryness, not following wound care instructions. 3. PCP or Specialist will continue to manage and optimize any co-morbidities and treatments that affect wound healing by reducing blood flow & oxygen to the wound, decreased immune response & elevated glucose levels. Additional Orders: Follow up as planned with Breast Surgeon, Dr. Ybarra. Follow Up WC: 2wks The following amount of time was spent on this patient's care: Time was not calculated this visit, due to the performance of a procedure. SUBJECTIVE Chief Complaint: Wound Check History of Present Illness: Location, Severity, Quality (Type of Wound): As outlined in this note Context (Trigger Event, First Appearance, Progression, Procedures, Meds, Previous Wound Clinics): Pt with a non-healing left chest ulceration that has essentially been present since 1 week post op approximately 11/14/2020. On 11/07/2020 she underwent a left mastectomy flap revision with Dr. Ybarra. Patient reports that about 1 week after surgery her incision line dehisced and began draining fluid. She does note that right before this opened she noted her left chest had some swelling inferior to the incision line. She was diagnosed with right breast cancer in 08/2019, had a double mastectomy in 09/2019, later found to have left breast cancer as well, and completed chemo and external beam radiation to her sternal region 03/2020. She is currently in remission. She has been following up with Dr. Ybarra and has been packing this area daily with daily showers without much improvement noted. She lives with her who has been doing her dressing changes. Modifying Factors (Dressings used prior to [facility] HUMAN RESOURCES BENEFITS COORDINATOR visit): Gauze packing Timing / Duration: Chronic, Date: 11/07/2020 Review of Systems: Patient states No unusual occurences of the following (unless addressed elsewhere): CONSTITUTION: fever, chills, night sweats, weight changes, Pain; SKIN: changes in color, temperature, or texture (not mentioned elsewhere); RESPIRATORY: short of breath, cough, wheeze; MUSCULOSKELETAL: falls, weakness, change in gate; Patient without complaints or concerns. OBJECTIVE Vitals: BP (!) 155/75 Pulse (!) 54 Temp 97.6 F (36.4 C) (Temporal) Resp 18 BP high, Pulse low, Last Weight 221 lbs, BMI 35.67 Physical Exam: Constitutional - Appears well, No apparent distress, Appropriately groomed, Obese per medical criteria Psychiatric - A&Ox3, judgement & insight wnl, memory grossly intact, mood & affect appropriate Neurological - Cranial Nerves - Cranial Nerves II through VIII (General assessement of vision, eye movement, chewing, facial expression, and hearing): Grossly intact. Sensation - Pt reports Grossly intact HEENT - Head: atraumatic, normocephalic Bilateral Eyes: conjunctiva pink & moist, sclera white Ears: symmetrical, no signs of external ear infection, Nose: midline, w/o drainage, Neck: trachea appears midline, Cardiothoracic - Chest symmetrical, Respiratory - Unlabored respiratory effort, no visual use of accessory muscles, Abdomen - Genitourinary - General Integumentary - Skin moisture, color, & temperature wnl except as described elsewhere, Musculoskeletal - No Involuntary movements, Gait, Strength, Mobility, Range of Motion - Age appropriate w/o pain, Upper extremities - wnl Lower Extremity: Vasculature - Edema - Skin & Hair - Feet and toes - Wound: No S/S of Infection - Flow Sheet Wound 09/28/19 1 Cellulitis Breast Left (Active) Wound Image 01/11/21 1133 Wound Length (cm) 1.5 cm 01/11/21 1133 Wound Width (cm) 6 cm 01/11/21 1133 Wound Depth (cm) 0.6 cm 01/11/21 1133 Wound Surface Area (cm^2) 9 cm^2 01/11/21 1133 Wound Volume (cm^3) 5.4 cm^3 01/11/21 1133 Area % Change -32.43 01/11/21 1133 Wound Healing % 88 01/11/21 1133 Tunneling Maximum Distance (cm) 4.5 cm 01/11/21 1133 Tunneling Position (o'clock) 5 01/11/21 1133 Tunneling Maximum Distance (cm) 0 cm 01/11/21 1133 Tunneling Position (o'clock) 0 01/11/21 1133 Undermining Maximum Distance (cm) 1 0 cm 01/11/21 1133 Undermining Starting Position (o'clock) 1 0 01/11/21 1133 Undermining Ending Position (o'clock) 1 0 01/11/21 1133 Undermining Maximum Distance (cm) 2 0 cm 01/11/21 1133 Undermining Starting Position (o'clock) 2 0 01/11/21 1133 Undermining Ending Position (o'clock) 2 0 01/11/21 1133 Wound Progress Improving 01/11/21 1133 Non-staged Wound Description Full thickness 01/11/21 1133 Drainage Amount Moderate 01/11/21 1133 Drainage Description Serosanguineous 01/11/21 1133 Odor None 01/11/21 1133 Wound Margin Undefined 01/11/21 1133 Adherent Yellow Slough % 1-25% 01/11/21 1133 Moist Yellow Slough % None 01/11/21 1133 Dry Black Eschar % None 01/11/21 1133 Moist Black Eschar % None 01/11/21 1133 Epithelialization % 1-25% 01/11/21 1133 Granulation % 76-100%;Firm;Bright red 01/11/21 1133 Exposed Structure None 01/11/21 1133 Wound Bed Characteristics Granulation tissue 01/11/21 1133 Inna-wound Assessment Temperature WNL;Clean;Scar tissue 01/11/21 1133 Treatments Topical anesthetic for procedural pain control per order 01/11/21 1133 Hemostasis Manual pressure 01/11/21 1133 Cleansed Sodium hypochlorus solution 01/11/21 1133 Primary Dressing Collagen with silver 01/11/21 1133 Secondary Dressing Other (Comment) 01/11/21 1133 Compression Dressing Not Applicable 01/11/21 1133 Procedure Debridement Wound 09/28/19 1 Cellulitis Breast Left Consent obtained? written Consent given by: patient Risks discussed? procedural risks discussed Time out called at 01/11/2021 12:13 PM Immediately prior to the procedure a time out was called Performed by: HUMAN RESOURCES BENEFITS COORDINATOR Debridement type: surgical Level of debridement: subcutaneous tissue Pain control: lidocaine 4% Pre-debridement measurements Length (cm): 1.5 Width (cm): 6 Depth (cm): 0.6 Surface Area (cm^2): 9 Volume (cm^3): 5.4 Post-debridement measurements Length (cm): 1.5 Width (cm): 6 Depth (cm): 0.7 Percent debrided: 100% Surface Area (cm^2): 9 Area debrided (cm^2): 9 Volume (cm^3): 6.3 Tissue and other material debrided: subcutaneous tissue Devitalized tissue debrided: biofilm and fibrin Instrument(s) utilized: curette Bleeding: medium Hemostasis obtained with: pressure Procedural pain (0-10): 0 Post-procedural pain: 0 Response to treatment: procedure was tolerated well REVIEW OF HISTORY The following History, Allergies, and Medications were reviewed Relevant Tests, Procedures, Treatments Notes, Imaging, Surgeries, ATBs, Chemo, Radiation Tx 11/07/2020 Left mastectomy flap revision w/ Dr. Ybarra Radiation therapy 03/06/20-03/29/2020 w/ Dr. Mccullough 09/29/2020 Left Mastectomy w/ Dr. Kelly 09/28/2019 Right Mastectomy w/ Dr. Ybarra Allergies: Chlorhexidine towelette, Sulfamethoxazole-trimethoprim, and Betadine [povidone-iodine] Medications: Patient's Medications New Prescriptions No medications on file Previous Medications ANASTROZOLE (ARIMIDEX) 1 MG TABLET Take 1 mg by mouth every morning Reasons: post breast cancer. ASPIRIN 81 MG EC TABLET Take 1 (one) tablet (81 mg total) by mouth every morning . You may resume Reasons: treatment to prevent a heart attack. CALCIUM CITRATE (CALCITRATE) 200 MG (950 MG) TABLET Take 1 tablet by mouth every morning Reasons: supp. AIZICKI-MXOYAAOCI-PTCL ORAL Take by mouth every morning Reasons: supplement. CEPHALEXIN (KEFLEX) 500 MG CAPSULE Take 1 (one) capsule (500 mg total) by mouth 4 (four) times a day . CHOLECALCIFEROL, VITAMIN D3, (D3-2000) 2,000 UNIT CAP Take 2,000 Units by mouth every evening Reasons: supplement. ESCITALOPRAM OXALATE (LEXAPRO) 10 MG TABLET Take 10 mg by mouth at bedtime Reasons: anxiousness associated with depression. LEVOTHYROXINE (SYNTHROID, LEVOTHROID) 112 MCG TABLET Take 112 mcg by mouth every morning Reasons: a condition with low thyroid hormone levels. LOSARTAN (COZAAR) 25 MG TABLET Take 25 mg by mouth at bedtime Reasons: high blood pressure. METFORMIN (GLUCOPHAGE-XR) 500 MG 24 HR TABLET Take 1,000 mg by mouth nightly Reasons: type 2 diabetes mellitus. MULTIVITAMIN (MULTIVITAMIN) PER TABLET Take 1 tablet by mouth every evening Reasons: treatment to prevent vitamin deficiency. NAPROXEN SODIUM (ALEVE) 220 MG TABLET Take 220 mg by mouth 2 (two) times a day as needed Reasons: pain. NATEGLINIDE (STARLIX) 60 MG TABLET Take 60 mg by mouth 3 (three) times a day with meals . [id number] (CORTISPORIN) OTIC SOLUTION 2 drops 2 (two) times a day Reasons: each side of the toe, for ingrown toenail. NITROFURANTOIN, MACROCRYSTAL-MONOHYDRATE, (MACROBID) 100 MG CAPSULE Take 100 mg by mouth 2 (two) times a day For seven days for UTI . OMEPRAZOLE (PRILOSEC) 20 MG CAPSULE Take 20 mg by mouth daily as needed . ROSUVASTATIN (CRESTOR) 20 MG TABLET Take 20 mg by mouth every evening Reasons: high cholesterol. SODIUM HYPOCHLORITE (DAKIN'S SOLUTION) 0.125 % SOLN Apply topically daily . SPIRONOLACTONE (ALDACTONE) 25 MG TABLET Take 12.5 mg by mouth at bedtime Reasons: high blood pressure, 1/2 tablet (12.5 mg). Modified Medications No medications on file Discontinued Medications No medications on file Labs: Lab Results Component Value Date WBC 3.99 (L) 11/02/2020 HGB 12.5 11/02/2020 HCT 38.6 11/02/2020 MCV 88.3 11/02/2020 PLT 226 11/02/2020 Lab Results Component Value Date PROT 6.7 09/21/2019 ALBUMIN 4.3 09/21/2019 No results found for: HGBA1C Lab Results Component Value Date GLUCOSE 117 (H) 11/02/2020 CALCIUM 10.0 11/02/2020 NA 139 11/02/2020 K 4.3 11/02/2020 CL 105 11/02/2020 BUN 16 11/02/2020 CREATININE 0.54 (L) 11/02/2020 Lab Results Component Value Date ALT 14 09/21/2019 AST 18 09/21/2019 ALKPHOS 49 09/21/2019 BILITOT <0.2 09/21/2019 No results found for: INR, PROTIME Past Medical History: Diagnosis Date Abnormal mammogram Alopecia scalp; scarring type; Dr Aviva Woodward, [place] Anemia 1970s Anxiety and depression Arthritis Breast cancer, female (HCC) 09/15/2019 Breast mass Cataract Cellulitis 08/2017 RLE Claudication (HCC) Complication of anesthesia anxiety in PACU & postop Deep vein thrombosis (HCC) Diabetes mellitus, type 2 (HCC) Edema R leg GERD (gastroesophageal reflux disease) mild - meds as needed Hyperlipidemia Hypertension Hypothyroidism Ingrown toenail with infection 2020 Left Great toe Lipodermatosclerosis Lymphedema Lymphedema of right lower extremity Dr. 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 Past Surgical History: Procedure Laterality Date ACHILLES TENDON SURGERY BREAST BIOPSY BREAST CYST EXCISION 1975 BREAST MASS EXCISION Left 11/07/2020 Procedure: left mastectomy flap revision; Surgeon: Ophelia Ybarra DO; Location: [facility] Main OR; Service: General Surgery DILATION AND CURETTAGE OF UTERUS GANGLION CYST EXCISION HYSTERECTOMY VAGINAL N/A 01/14/2019 Procedure: TOTAL VAGINAL HYSTERECTOMY; Surgeon: Nidhi Braun MD; Location: [facility] Main OR; Service: OBGYN HYSTEROSCOPY W/ DILATATION AND CURETTAGE N/A 11/27/2017 Procedure: DILATION AND CURETTAGE WITH HYSTEROSCOPY; Surgeon: Nidhi Braun MD; Location: [facility] Main OR; Service: OBGYN MASTECTOMY MODIFIED RADICAL BILATERAL WITH SENTINEL LYMPH NODE BIOPSY Bilateral 09/28/2019 Procedure: BILATERAL MASTECTOMIES WITH RIGHT SENTINEL NODE BIOPSY; Surgeon: Ophelia Ybarra DO; Location: [facility] Main OR; Service: General Surgery SKIN BIOPSY benign TONSILLECTOMY TUBAL LIGATION US BREAST BIOPSY RIGHT Right 09/07/2019 VASCULAR SURGERY Right 11/2017 leg; Varithena infection WISDOM TOOTH EXTRACTION Social History Socioeconomic History Marital status: Spouse name: Not on file Number of children: 6 Years of education: Not on file Highest education level: Not on file Occupational History Employer: OTHER- Tobacco Use Smoking status: Never Smoker Smokeless tobacco: Never Used Vaping Use Vaping Use: Never used Substance and Sexual Activity Alcohol use: Never Drug use: Never Sexual activity: Not on file Other Topics Concern Not on file Social History Narrative Merged History Encounter Social Determinants of Health Financial Resource Strain: Difficulty of Paying Living Expenses: Food Insecurity: Worried About Running Out of Food in the Last Year: Ran Out of Food in the Last Year: Transportation Needs: Lack of Transportation (Medical): Lack of Transportation (Non-Medical): Physical Activity: Days of Exercise per Week: Minutes of Exercise per Session: Stress: Feeling of Stress : Social Connections: Frequency of Communication with Friends and Family: Frequency of Social Gatherings with Friends and Family: Attends [employer] Services: Active Member of Clubs or Organizations: Attends Club or Organization Meetings: Marital Status: Family History Problem Relation Age of Onset Colon cancer Mother 67 Cancer Mother 67 oral Stroke Father Hypertension Father Heart attack Father Prostate cancer Father 70 Heart disease Father Diabetes Father No Known Problems Brother Prostate cancer Brother 68 Breast cancer Maternal Grandmother 70 Colon cancer Maternal Grandfather 65 Other (Abdominal cancer) Paternal Grandmother 70 Prostate cancer Maternal Uncle 60 No Known Problems Other Prostate cancer Maternal Uncle Surgical complications Neg Hx Anesthesia problems Neg Hx Clotting disorder Neg Hx Deep vein thrombosis Neg Hx Pulmonary embolism Neg Hx Ovarian cancer Neg Hx Raven Reza CNP Electronically signed by the above provider 01/11/21 Perpetual Wound History: Pt first seen in on 12/20/2020, for a left chest ulceration 12/20/2020 Left Chest - Initial assessment, some s/s infection, skin between ulcers opened, tissue cx sent, debrided, Use Dakins moist gauze, ABD, VICKY BID. 12/28/2020 Left Chest - Improvement, resolving s/s infection, tissue cx + so was started on Cefdinir, debrided, Cont Dakins moist gauze, packing strips to tunnel, ABD, VICKY BID. 01/11/2021 Left Chest - Improvement, no s/s infection, debrided, Use Dakins clean and soak, SM Tiana, [place] every day. documented in this encounter [facility] 01-11-2021 History of Presen t illness Narrative Associated Order(s): Wound Debridement Images from the original note were not included. WOUND CARE PROVIDER PROGRESS NOTE Patient Name: Beulah Fields MR #: [id number] : 1945 (75 y.o. female) PCP: Eve Cueto MD All patient questions or concerns about the content of this note will be addressed at the next clinic visit rather than by phone, as conversations and explanations are more amenable to in-person discussions. If there are non-urgent questions about wounds or wound care, patient's are encourage to use My Chart. For urgent concerns about wounds, call the Wound Clinic at [phone] or other Health Care Provider. ASSESSMENT, PLAN, & ORDERS Goals of Therapy include: Work towards healing. If there is no significant improvement within 4 weeks or if there is a decline at any time, we will investigate causes of delay / decline and consider changing the treatment plan. Reduce risk of infection. Provide dressing orders. Clear infection. Any procedure done during today's visit is due to medical necessary, to promote healing and control or prevent infection. Infectious r/t surgical site dehiscence Ulcer, of the Left Chest with fat layer exposed, with hx of Cellulitis, - Improved. No signs of infection. Was debrided. Cleanse with 0.125% Dakin's solution, and allow to soak for 2 mins. Rinse well. Will use Saline moistened Tiana, (as Primary dressing), to the wound. into tunnels. and then Dakins moistened gauze to remaining ulceration (as Secondary dressing). Cover the entire wound with [place] Border, (as Tertiary), daily Dressing placed today may differ from the above but, have been ordered by this HUMAN RESOURCES BENEFITS COORDINATOR to be placed during this clinic visit. Patient instructed to comply with and states understanding of the following instructions for comorbid conditions: 1.Patient to strive towards an appropriate weight and protein intake to maximize an environment for wound healing. 2. Patient to avoid things that interfere with the healing process, contribute to infection, cause tissue destruction, or reduce blood flow and oxygen to the wound, such as: pressure, edema, high sodium intake, nicotine, substance abuse, lack of cleanliness, excess moisture or dryness, not following wound care instructions. 3. PCP or Specialist will continue to manage and optimize any co-morbidities and treatments that affect wound healing by reducing blood flow & oxygen to the wound, decreased immune response & elevated glucose levels. Additional Orders: Follow up as planned with Breast Surgeon, Dr. Ybarra. Follow Up WC: 2wks The following amount of time was spent on this patient's care: Time was not calculated this visit, due to the performance of a procedure. SUBJECTIVE Chief Complaint: Wound Check History of Present Illness: Location, Severity, Quality (Type of Wound): As outlined in this note Context (Trigger Event, First Appearance, Progression, Procedures, Meds, Previous Wound Clinics): Pt with a non-healing left chest ulceration that has essentially been present since 1 week post op approximately 11/14/2020. On 11/07/2020 she underwent a left mastectomy flap revision with Dr. Ybarra. Patient reports that about 1 week after surgery her incision line dehisced and began draining fluid. She does note that right before this opened she noted her left chest had some swelling inferior to the incision line. She was diagnosed with right breast cancer in 08/2019, had a double mastectomy in 09/2019, later found to have left breast cancer as well, and completed chemo and external beam radiation to her sternal region 03/2020. She is currently in remission. She has been following up with Dr. Ybarra and has been packing this area daily with daily showers without much improvement noted. She lives with her who has been doing her dressing changes. Modifying Factors (Dressings used prior to [facility] HUMAN RESOURCES BENEFITS COORDINATOR visit): Gauze packing Timing / Duration: Chronic, Date: 11/07/2020 Review of Systems: Patient states No unusual occurences of the following (unless addressed elsewhere): CONSTITUTION: fever, chills, night sweats, weight changes, Pain; SKIN: changes in color, temperature, or texture (not mentioned elsewhere); RESPIRATORY: short of breath, cough, wheeze; MUSCULOSKELETAL: falls, weakness, change in gate; Patient without complaints or concerns. OBJECTIVE Vitals: BP (!) 155/75 Pulse (!) 54 Temp 97.6 F (36.4 C) (Temporal) Resp 18 BP high, Pulse low, Last Weight 221 lbs, BMI 35.67 Physical Exam: Constitutional - Appears well, No apparent distress, Appropriately groomed, Obese per medical criteria Psychiatric - A&Ox3, judgement & insight wnl, memory grossly intact, mood & affect appropriate Neurological - Cranial Nerves - Cranial Nerves II through VIII (General assessement of vision, eye movement, chewing, facial expression, and hearing): Grossly intact. Sensation - Pt reports Grossly intact HEENT - Head: atraumatic, normocephalic Bilateral Eyes: conjunctiva pink & moist, sclera white Ears: symmetrical, no signs of external ear infection, Nose: midline, w/o drainage, Neck: trachea appears midline, Cardiothoracic - Chest symmetrical, Respiratory - Unlabored respiratory effort, no visual use of accessory muscles, Abdomen - Genitourinary - General Integumentary - Skin moisture, color, & temperature wnl except as described elsewhere, Musculoskeletal - No Involuntary movements, Gait, Strength, Mobility, Range of Motion - Age appropriate w/o pain, Upper extremities - wnl Lower Extremity: Vasculature - Edema - Skin & Hair - Feet and toes - Wound: No S/S of Infection - Flow Sheet Wound 09/28/19 1 Cellulitis Breast Left (Active) Wound Image 01/11/21 1133 Wound Length (cm) 1.5 cm 01/11/21 1133 Wound Width (cm) 6 cm 01/11/21 1133 Wound Depth (cm) 0.6 cm 01/11/21 1133 Wound Surface Area (cm^2) 9 cm^2 01/11/21 1133 Wound Volume (cm^3) 5.4 cm^3 01/11/21 1133 Area % Change -32.43 01/11/21 1133 Wound Healing % 88 01/11/21 1133 Tunneling Maximum Distance (cm) 4.5 cm 01/11/21 1133 Tunneling Position (o'clock) 5 01/11/21 1133 Tunneling Maximum Distance (cm) 0 cm 01/11/213 Tunneling Position (o'clock) 0 01/11/21 1133 Undermining Maximum Distance (cm) 1 0 cm 01/11/21 1133 Undermining Starting Position (o'clock) 1 0 01/11/21 1133 Undermining Ending Position (o'clock) 1 0 01/11/213 Undermining Maximum Distance (cm) 2 0 cm 01/11/21 1133 Undermining Starting Position (o'clock) 2 0 01/11/21 1133 Undermining Ending Position (o'clock) 2 0 01/11/21 1133 Wound Progress Improving 01/11/211132 Non-staged Wound Description Full thickness 01/11/21 1133 Drainage Amount Moderate 01/11/21 1133 Drainage Description Serosanguineous 01/11/21 1133 Odor None 01/11/21 1133 Wound Margin Undefined 01/11/21 1133 Adherent Yellow Slough % 1-25% 01/11/21 1133 Moist Yellow Slough % None 01/11/21 1133 Dry Black Eschar % None 01/11/21 1133 Moist Black Eschar % None 01/11/21 1133 Epithelialization % 1-25% 01/11/21 1133 Granulation % 76-100%;Firm;Bright red 01/11/21 1133 Exposed Structure None 01/11/21 1133 Wound Bed Characteristics Granulation tissue 01/11/21 1133 Inna-wound Assessment Temperature WNL;Clean;Scar tissue 01/11/21 1133 Treatments Topical anesthetic for procedural pain control per order 01/11/21 1133 Hemostasis Manual pressure 01/11/21 1133 Cleansed Sodium hypochlorus solution 01/11/21 1133 Primary Dressing Collagen with silver 01/11/21 1133 Secondary Dressing Other (Comment) 01/11/21 1133 Compression Dressing Not Applicable 01/11/21 1133 Procedure Debridement Wound 09/28/19 1 Cellulitis Breast Left Consent obtained? written Consent given by: patient Risks discussed? procedural risks discussed Time out called at 01/11/2021 12:13 PM Immediately prior to the procedure a time out was called Performed by: HUMAN RESOURCES BENEFITS COORDINATOR Debridement type: surgical Level of debridement: subcutaneous tissue Pain control: lidocaine 4% Pre-debridement measurements Length (cm): 1.5 Width (cm): 6 Depth (cm): 0.6 Surface Area (cm^2): 9 Volume (cm^3): 5.4 Post-debridement measurements Length (cm): 1.5 Width (cm): 6 Depth (cm): 0.7 Percent debrided: 100% Surface Area (cm^2): 9 Area debrided (cm^2): 9 Volume (cm^3): 6.3 Tissue and other material debrided: subcutaneous tissue Devitalized tissue debrided: biofilm and fibrin Instrument(s) utilized: curette Bleeding: medium Hemostasis obtained with: pressure Procedural pain (0-10): 0 Post-procedural pain: 0 Response to treatment: procedure was tolerated well REVIEW OF HISTORY The following History, Allergies, and Medications were reviewed Relevant Tests, Procedures, Treatments Notes, Imaging, Surgeries, ATBs, Chemo, Radiation Tx 11/07/2020 Left mastectomy flap revision w/ Dr. Ybarra Radiation therapy 03/06/20-03/29/2020 w/ Dr. Mccullough 09/29/2020 Left Mastectomy w/ Dr. Kelly 09/28/2019 Right Mastectomy w/ Dr. Ybarra Allergies: Chlorhexidine towelette, Sulfamethoxazole-trimethoprim, and Betadine [povidone-iodine] Medications: Patient's Medications New Prescriptions No medications on file Previous Medications ANASTROZOLE (ARIMIDEX) 1 MG TABLET Take 1 mg by mouth every morning Reasons: post breast cancer. ASPIRIN 81 MG EC TABLET Take 1 (one) tablet (81 mg total) by mouth every morning . You may resume Reasons: treatment to prevent a heart attack. CALCIUM CITRATE (CALCITRATE) 200 MG (950 MG) TABLET Take 1 tablet by mouth every morning Reasons: supp. [id number]-[id number]-WHWU ORAL Take by mouth every morning Reasons: supplement. CEPHALEXIN (KEFLEX) 500 MG CAPSULE Take 1 (one) capsule (500 mg total) by mouth 4 (four) times a day . CHOLECALCIFEROL, VITAMIN D3, (D3-2000) 2,000 UNIT CAP Take 2,000 Units by mouth every evening Reasons: supplement. ESCITALOPRAM OXALATE (LEXAPRO) 10 MG TABLET Take 10 mg by mouth at bedtime Reasons: anxiousness associated with depression. LEVOTHYROXINE (SYNTHROID, LEVOTHROID) 112 MCG TABLET Take 112 mcg by mouth every morning Reasons: a condition with low thyroid hormone levels. LOSARTAN (COZAAR) 25 MG TABLET Take 25 mg by mouth at bedtime Reasons: high blood pressure. METFORMIN (GLUCOPHAGE-XR) 500 MG 24 HR TABLET Take 1,000 mg by mouth nightly Reasons: type 2 diabetes mellitus. MULTIVITAMIN (MULTIVITAMIN) PER TABLET Take 1 tablet by mouth every evening Reasons: treatment to prevent vitamin deficiency. NAPROXEN SODIUM (ALEVE) 220 MG TABLET Take 220 mg by mouth 2 (two) times a day as needed Reasons: pain. NATEGLINIDE (STARLIX) 60 MG TABLET Take 60 mg by mouth 3 (three) times a day with meals . [id number]-BVVMGXSUK-QVBMLTTRKTCQRB (CORTISPORIN) OTIC SOLUTION 2 drops 2 (two) times a day Reasons: each side of the toe, for ingrown toenail. NITROFURANTOIN, MACROCRYSTAL-MONOHYDRATE, (MACROBID) 100 MG CAPSULE Take 100 mg by mouth 2 (two) times a day For seven days for UTI . OMEPRAZOLE (PRILOSEC) 20 MG CAPSULE Take 20 mg by mouth daily as needed . ROSUVASTATIN (CRESTOR) 20 MG TABLET Take 20 mg by mouth every evening Reasons: high cholesterol. SODIUM HYPOCHLORITE (DAKIN'S SOLUTION) 0.125 % SOLN Apply topically daily . SPIRONOLACTONE (ALDACTONE) 25 MG TABLET Take 12.5 mg by mouth at bedtime Reasons: high blood pressure, 1/2 tablet (12.5 mg). Modified Medications No medications on file Discontinued Medications No medications on file Labs: Lab Results Component Value Date WBC 3.99 (L) 11/02/2020 HGB 12.5 11/02/2020 HCT 38.6 11/02/2020 MCV 88.3 11/02/2020 PLT 226 11/02/2020 Lab Results Component Value Date PROT 6.7 09/21/2019 ALBUMIN 4.3 09/21/2019 No results found for: HGBA1C Lab Results Component Value Date GLUCOSE 117 (H) 11/02/2020 CALCIUM 10.0 11/02/2020 NA 139 11/02/2020 K 4.3 11/02/2020 CL 105 11/02/2020 BUN 16 11/02/2020 CREATININE 0.54 (L) 11/02/2020 Lab Results Component Value Date ALT 14 09/21/2019 AST 18 09/21/2019 ALKPHOS 49 09/21/2019 BILITOT <0.2 09/21/2019 No results found for: INR, PROTIME Past Medical History: Diagnosis Date Abnormal mammogram Alopecia scalp; scarring type; Dr Aviva Woodward, [place] Anemia 1970s Anxiety and depression Arthritis Breast cancer, female (HCC) 09/15/2019 Breast mass Cataract Cellulitis 08/2017 RLE Claudication (HCC) Complication of anesthesia anxiety in PACU & postop Deep vein thrombosis (HCC) Diabetes mellitus, type 2 (HCC) Edema R leg GERD (gastroesophageal reflux disease) mild - meds as needed Hyperlipidemia Hypertension Hypothyroidism Ingrown toenail with infection 2020 Left Great toe Lipodermatosclerosis Lymphedema Lymphedema of right lower extremity Dr. 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 Past Surgical History: Procedure Laterality Date ACHILLES TENDON SURGERY BREAST BIOPSY BREAST CYST EXCISION 1975 BREAST MASS EXCISION Left 11/07/2020 Procedure: left mastectomy flap revision; Surgeon: Ophelia Ybarra DO; Location: [facility] Main OR; Service: General Surgery DILATION AND CURETTAGE OF UTERUS GANGLION CYST EXCISION HYSTERECTOMY VAGINAL N/A 01/14/2019 Procedure: TOTAL VAGINAL HYSTERECTOMY; Surgeon: Nidhi Braun MD; Location: [facility] Main OR; Service: OBGYN HYSTEROSCOPY W/ DILATATION AND CURETTAGE N/A 11/27/2017 Procedure: DILATION AND CURETTAGE WITH HYSTEROSCOPY; Surgeon: Nidhi Braun MD; Location: [facility] Main OR; Service: OBGYN MASTECTOMY MODIFIED RADICAL BILATERAL WITH SENTINEL LYMPH NODE BIOPSY Bilateral 09/28/2019 Procedure: BILATERAL MASTECTOMIES WITH RIGHT SENTINEL NODE BIOPSY; Surgeon: Ophelia Ybarra DO; Location: [facility] Main OR; Service: General Surgery SKIN BIOPSY benign TONSILLECTOMY TUBAL LIGATION US BREAST BIOPSY RIGHT Right 09/07/2019 VASCULAR SURGERY Right 11/2017 leg; Varithena infection WISDOM TOOTH EXTRACTION Social History Socioeconomic History Marital status: Spouse name: Not on file Number of children: 6 Years of education: Not on file Highest education level: Not on file Occupational History Employer: OTHER- Tobacco Use Smoking status: Never Smoker Smokeless tobacco: Never Used Vaping Use Vaping Use: Never used Substance and Sexual Activity Alcohol use: Never Drug use: Never Sexual activity: Not on file Other Topics Concern Not on file Social History Narrative Merged History Encounter Social Determinants of Health Financial Resource Strain: Difficulty of Paying Living Expenses: Food Insecurity: Worried About Running Out of Food in the Last Year: Ran Out of Food in the Last Year: Transportation Needs: Lack of Transportation (Medical): Lack of Transportation (Non-Medical): Physical Activity: Days of Exercise per Week: Minutes of Exercise per Session: Stress: Feeling of Stress : Social Connections: Frequency of Communication with Friends and Family: Frequency of Social Gatherings with Friends and Family: Attends [employer] Services: Active Member of Clubs or Organizations: Attends Club or Organization Meetings: Marital Status: Family History Problem Relation Age of Onset Colon cancer Mother 67 Cancer Mother 67 oral Stroke Father Hypertension Father Heart attack Father Prostate cancer Father 70 Heart disease Father Diabetes Father No Known Problems Brother Prostate cancer Brother 68 Breast cancer Maternal Grandmother 70 Colon cancer Maternal Grandfather 65 Other (Abdominal cancer) Paternal Grandmother 70 Prostate cancer Maternal Uncle 60 No Known Problems Other Prostate cancer Maternal Uncle Surgical complications Neg Hx Anesthesia problems Neg Hx Clotting disorder Neg Hx Deep vein thrombosis Neg Hx Pulmonary embolism Neg Hx Ovarian cancer Neg Hx Raven Reza CNP Electronically signed by the above provider 01/11/21 Perpetual Wound History: Pt first seen in on 12/20/2020, for a left chest ulceration 12/20/2020 Left Chest - Initial assessment, some s/s infection, skin between ulcers opened, tissue cx sent, debrided, Use Dakins moist gauze, ABD, VICKY BID. 12/28/2020 Left Chest - Improvement, resolving s/s infection, tissue cx + so was started on Cefdinir, debrided, Cont Dakins moist gauze, packing strips to tunnel, ABD, VICKY BID. 01/11/2021 Left Chest - Improvement, no s/s infection, debrided, Use Dakins clean and soak, SM Tiana, [place] every day. documented in this encounter [facility] 01-11-2021 Instructions Karissa Cross RN - 01/11/2021 12:11 PM EDT The following Patient Instructions and Wound Care Orders are current as of this date. All previous orders/treatments should be discontinued. Wound Care Orders: Wound location: left breast Clean with 1/4 strength dakins, let sit in wound for 10 minutes, rinse with saline May shower, leave dressing in place and change immediately after shower. Apply the following (OR EQUIVALENT):apply saline moistened collagen with silver to wound base, and tuck down into the tunnel at 5 o'clock , the tunnel is approximately 4.5 cm in depth Cover with excel border Change daily May change outer dressing if it becomes soiled or saturated vashe dressing in clinic today Per Verbal Order Read Back Supplies We have sent your supply order to the following company: [employer]: [phone] If you don't receive the items you were expecting or don't know what the items are that you received, call the company where the order was sent. If you are unable to obtain wound supplies, continue to use the supplies you have available until your are able to reach us. It is most important to keep the wound covered at all times. It is YOUR responsibility to make sure that supplies are re-ordered before you run out. Re-order telephone numbers are included in each package. High Blood Pressure: If your blood pressure taken today is above 150/95, please contact your primary care physician to get further instructions. If you experience the following emergent symptoms; chest pain, shortness of breath, headache, dizziness, vision changes, unusual and/or excessive sweating or nausea vomiting - call [phone] or go to the nearest emergency room. Bleeding: If your wound was debrided and continues to bleed after your appointment, apply direct pressure to the wound with a clean cloth or dressing for 10-20 minutes. If the bleeding does not stop, call [facility] [phone] or go to the Emergency Room. Signs/Symptoms of Infection: If you have any fever, chills, nausea, vomiting or increased odor, drainage, pain or redness to the wound, call [facility] at [phone]. If after hours, contact your family physician or go to the Emergency Room. Tips You can do at Home to Help Heal Your Wound Tobacco Use: No smoking or tobacco products because they can slow or even stop wound healing. Diabetic Management: If you are diabetic, check your blood sugar every morning before eating. Keep your fasting blood sugar below 120. Keep regular appointments with your primary physician to monitor your diabetes. Follow your diabetic diet carefully. Skin Care: Use apply moisturizing lotion to dry, intact skin, avoid getting between the toes. Apply skin sealant or barrier to protect the skin from too much moisture. Inspect skin (including feet) daily for redness, blisters, rash, cracks, or open areas. Incontinence Skin Care Quickly cleanse and gently pat dry after every incontinence episode or loose bowel movement to keep area as clean and dry as possible. Use a barrier cream to protect skin as directed. Edema Control Instructions: Elevate legs above the level of your heart whenever you are sitting. Avoid standing for long periods and do not sit with your legs dangling. Compression Stockings: Apply compression stocking(s) every morning as soon as you get up. Remove at bedtime unless instructed to wear day and night. Hand wash and line dry to prevent loss of elasticity. Replace every 3-4 months to ensure proper fit. Pressure Relief Instructions: Keep weight and pressure off your wound(s) and bony areas of the body (for example, heels, tail bone, hip, elbows, back of head). Reposition as instructed. Shift position in chair every 15 minutes.Turn every 2 hours while lying down. Wear heel guards to keep pressure off heels while in bed or in a chair. Remove while transferring or walking. Specialty Bed: Alternating Air Mattress Wheelchair cushion: Lenny. Use this wherever you are sitting. Diet: Increase the lean protein in your diet. Examples of foods high in protein are lean cuts of meat, fish, dairy foods, peanut butter and eggs. Use protein supplements as directed. Limit your salt/sodium as instructed. Choose fresh fruits, vegetables and lean cuts of meat. Do not add salt to food during or after cooking. Season food with herbs and spices instead of salt. Avoid salty snacks, fast foods, deli meats and pre-packaged foods. If instructed, limit your fluids to no more than 2 quarts, (64 ounces), of a day. This includes water, juice, coffee, tea, pop, soup, etc. If you are diabetic, check your blood sugar every morning before eating. Keep your fasting blood sugar below 120. Keep regular appointments with your primary physician to monitor your diabetes. Follow your diabetic diet carefully. Protein for Wound Healing You need at least 80-100 grams of protein per day for the body to heal a wound. Be creative and increase protein levels by: 1. Eating the protein items at meal time first. Eat small meals and snacks throughout the day 2. Adding eggs to casseroles, meat loaf, mashed potatoes, macaroni & cheese, salads. 3. Adding cheese to sandwiches, casseroles, potatoes, vegetables, and omelets. 4. Adding peanut butter to toast, bagels, waffles, crackers, bananas, apples, and celery. 5. Adding protein powder to drinks, pudding, potatoes, soups, ground meats, cooked cereal, milkshakes, yogurt, and pancake batter. Item Portion Size Grams of Protein Most Meats 1 oz 7 Beef Hamburger Senia 4 oz 28 Steak 6 oz 42 Chicken Breast 3.5 oz 30 Thigh Average 10 Drumstick Average 11 Wing Average 6 Most Other 4 oz cooked 35 Fish Tuna 6 oz can 40 Fish Fillets or Steaks 1oz cooked 6 Pork Chop Average 22 Loin or Tenderloin 4 oz 29 Ham 3 oz 19 Ground 3 oz cooked 22 Clarke 1 slice 3 Brazilian-style Clarke (Back Clarke) 1 slice 5-6 Eggs and Dairy Egg Large 6 Milk 1 cup 8 Cottage Cheese cup 15 Yogurt 1 cup 8-12 Albanian Yogurt 6 oz 18 Soft Cheeses (Mozzarella, Brie) 1 oz 6 Medium Cheeses(Cheddar,Egyptian) 1 oz 7-8 Hard Cheeses (Parmesan) 1 oz 10 Beans / Soy Tofu cup 10 Soy Milk 1 cup 6-10 Soy Beans cup cooked 14 Edamame cup 8-12 Most Beans (black, carrillo, lentils) cup cooked 7-10 Split Peas cup cooked 8 Nuts and Seeds Peanut Butter 2 Tablespoons 8 Peanuts cup 9 Almonds cup 8 Cashews cup 5 Pecans cup 2.5 Buchanan Seeds cup 6 Pumpkin Seeds cup 19 Flax Seeds cup 8 Some Whole Grain Breads 1 slice 4-5 Other Protein Powder 1 scoop 20 documented in this encounter [facility] 12-28-2020 Instructions Selma Joseph RN - 12/28/2020 11:36 AM EDT The following Patient Instructions and Wound Care Orders are current as of this date. All previous orders/treatments should be discontinued. Wound Care Orders: Wound location: left breast Clean with saline May shower, leave dressing in place and change immediately after Apply the following (OR EQUIVALENT): 1/4 Strength Dakins Solution Dressing: Pour Dakins solution over gauze or packing strip, then squeeze to remove excess moisture. The gauze should be moist, not dripping. Place the gauze inside the wound, making sure the gauze touches the entire inside of the wound. There is a tunnel at 5 o'clock that is about 4cm. Make sure packing strip goes to the base of the tunnel. Use a cotton tipped applicator to get to the base. Do not place the dressing outside the edges of the wound because this can irritate healthy skin. Cover with dry dressing Change twice daily May change outer dressing if it becomes soiled or saturated vashe dressing in clinic today Per Verbal Order Read Back Supplies We have sent your supply order to the following company: [employer]: [phone] If you don't receive the items you were expecting or don't know what the items are that you received, call the company where the order was sent. If you are unable to obtain wound supplies, continue to use the supplies you have available until your are able to reach us. It is most important to keep the wound covered at all times. It is YOUR responsibility to make sure that supplies are re-ordered before you run out. Re-order telephone numbers are included in each package. High Blood Pressure: If your blood pressure taken today is above 150/95, please contact your primary care physician to get further instructions. If you experience the following emergent symptoms; chest pain, shortness of breath, headache, dizziness, vision changes, unusual and/or excessive sweating or nausea vomiting - call [phone] or go to the nearest emergency room. Bleeding: If your wound was debrided and continues to bleed after your appointment, apply direct pressure to the wound with a clean cloth or dressing for 10-20 minutes. If the bleeding does not stop, call [facility] [phone] or go to the Emergency Room. Signs/Symptoms of Infection: If you have any fever, chills, nausea, vomiting or increased odor, drainage, pain or redness to the wound, call [facility] at [phone]. If after hours, contact your family physician or go to the Emergency Room. Tips You can do at Home to Help Heal Your Wound Tobacco Use: No smoking or tobacco products because they can slow or even stop wound healing. Diabetic Management: If you are diabetic, check your blood sugar every morning before eating. Keep your fasting blood sugar below 120. Keep regular appointments with your primary physician to monitor your diabetes. Follow your diabetic diet carefully. Skin Care: Use apply moisturizing lotion to dry, intact skin, avoid getting between the toes. Apply skin sealant or barrier to protect the skin from too much moisture. Inspect skin (including feet) daily for redness, blisters, rash, cracks, or open areas. Incontinence Skin Care Quickly cleanse and gently pat dry after every incontinence episode or loose bowel movement to keep area as clean and dry as possible. Use a barrier cream to protect skin as directed. Edema Control Instructions: Elevate legs above the level of your heart whenever you are sitting. Avoid standing for long periods and do not sit with your legs dangling. Compression Stockings: Apply compression stocking(s) every morning as soon as you get up. Remove at bedtime unless instructed to wear day and night. Hand wash and line dry to prevent loss of elasticity. Replace every 3-4 months to ensure proper fit. Pressure Relief Instructions: Keep weight and pressure off your wound(s) and bony areas of the body (for example, heels, tail bone, hip, elbows, back of head). Reposition as instructed. Shift position in chair every 15 minutes.Turn every 2 hours while lying down. Wear heel guards to keep pressure off heels while in bed or in a chair. Remove while transferring or walking. Specialty Bed: Alternating Air Mattress Wheelchair cushion: [place]. Use this wherever you are sitting. Diet: Increase the lean protein in your diet. Examples of foods high in protein are lean cuts of meat, fish, dairy foods, peanut butter and eggs. Use protein supplements as directed. Limit your salt/sodium as instructed. Choose fresh fruits, vegetables and lean cuts of meat. Do not add salt to food during or after cooking. Season food with herbs and spices instead of salt. Avoid salty snacks, fast foods, deli meats and pre-packaged foods. If instructed, limit your fluids to no more than 2 quarts, (64 ounces), of a day. This includes water, juice, coffee, tea, pop, soup, etc. If you are diabetic, check your blood sugar every morning before eating. Keep your fasting blood sugar below 120. Keep regular appointments with your primary physician to monitor your diabetes. Follow your diabetic diet carefully. Protein for Wound Healing You need at least 80-100 grams of protein per day for the body to heal a wound. Be creative and increase protein levels by: 1. Eating the protein items at meal time first. Eat small meals and snacks throughout the day 2. Adding eggs to casseroles, meat loaf, mashed potatoes, macaroni & cheese, salads. 3. Adding cheese to sandwiches, casseroles, potatoes, vegetables, and omelets. 4. Adding peanut butter to toast, bagels, waffles, crackers, bananas, apples, and celery. 5. Adding protein powder to drinks, pudding, potatoes, soups, ground meats, cooked cereal, milkshakes, yogurt, and pancake batter. Item Portion Size Grams of Protein Most Meats 1 oz 7 Beef Hamburger Senia 4 oz 28 Steak 6 oz 42 Chicken Breast 3.5 oz 30 Thigh Average 10 Drumstick Average 11 Wing Average 6 Most Other 4 oz cooked 35 Fish Tuna 6 oz can 40 Fish Fillets or Steaks 1oz cooked 6 Pork Chop Average 22 Loin or Tenderloin 4 oz 29 Ham 3 oz 19 Ground 3 oz cooked 22 Clarke 1 slice 3 Brazilian-style Clarke (Back Clarke) 1 slice 5-6 Eggs and Dairy Egg Large 6 Milk 1 cup 8 Cottage Cheese cup 15 Yogurt 1 cup 8-12 Albanian Yogurt 6 oz 18 Soft Cheeses (Mozzarella, Brie) 1 oz 6 Medium Cheeses(Cheddar,Egyptian) 1 oz 7-8 Hard Cheeses (Parmesan) 1 oz 10 Beans / Soy Tofu cup 10 Soy Milk 1 cup 6-10 Soy Beans cup cooked 14 Edamame cup 8-12 Most Beans (black, carrillo, lentils) cup cooked 7-10 Split Peas cup cooked 8 Nuts and Seeds Peanut Butter 2 Tablespoons 8 Peanuts cup 9 Almonds cup 8 Cashews cup 5 Pecans cup 2.5 Buchanan Seeds cup 6 Pumpkin Seeds cup 19 Flax Seeds cup 8 Some Whole Grain Breads 1 slice 4-5 Other Protein Powder 1 scoop 20 documented in this encounter [facility] 12-28-2020 History of Presen t illness Narrative Associated Order(s): Wound Debridement Post-Procedure Diagnose(s): Breast wound, left, initial encounter; Breast wound, left, subsequent encounter Images from the original note were not included. WOUND CARE PROVIDER PROGRESS NOTE Patient Name: Beulah Fields MR #: [id number] : 1945 (75 y.o. female) PCP: Eve Cueto MD All patient questions or concerns about the content of this note will be addressed at the next clinic visit rather than by phone, as conversations and explanations are more amenable to in-person discussions. If there are non-urgent questions about wounds or wound care, patient's are encourage to use My Chart. For urgent concerns about wounds, call the Wound Clinic at [phone] or other Health Care Provider. ASSESSMENT, PLAN, & ORDERS Goals of Therapy include: Work towards healing. If there is no significant improvement within 4 weeks or if there is a decline at any time, we will investigate causes of delay / decline and consider changing the treatment plan. Reduce risk of infection. Provide dressing orders. Clear infection. Any procedure done during today's visit is due to medical necessary, to promote healing and control or prevent infection. Infectious r/t surgical site dehiscence Ulcer, of the Left Chest with fat layer exposed, and with Cellulitis, - Improved. Resolving signs of infection. Culture as below so was treated with Cefdinir 300 mg BID x 10 days was started 12/25/2020. Was debrided. Continue to cleanse with saline. Will continue Dakin's moistened (0.125%) Packing Strips, to the tunneled area and then Dakins moistened gauze to remaining ulceration. Cover the entire wound with Abdominal pad, Hold in place with Vicky wrap BID Lab Results Component Value Date CULTURE Rare growth Serratia marcescens (A) 12/20/2020 CULTURE No Anaerobic Growth at 5 Days 12/20/2020 Dressing placed today may differ from the above but, have been ordered by this HUMAN RESOURCES BENEFITS COORDINATOR to be placed during this clinic visit. Patient instructed to comply with and states understanding of the following instructions for comorbid conditions: 1.Patient to strive towards an appropriate weight and protein intake to maximize an environment for wound healing. 2. Patient to avoid things that interfere with the healing process, contribute to infection, cause tissue destruction, or reduce blood flow and oxygen to the wound, such as: pressure, edema, high sodium intake, nicotine, substance abuse, lack of cleanliness, excess moisture or dryness, not following wound care instructions. 3. PCP or Specialist will continue to manage and optimize any co-morbidities and treatments that affect wound healing by reducing blood flow & oxygen to the wound, decreased immune response & elevated glucose levels. Additional Orders: Follow up as planned with Breast Surgeon, Dr. Ybarra. Follow Up WC: 1wk The following amount of time was spent on this patient's care: Time was not calculated this visit, due to the performance of a procedure. SUBJECTIVE Chief Complaint: Wound Check History of Present Illness: Location, Severity, Quality (Type of Wound): As outlined in this note Context (Trigger Event, First Appearance, Progression, Procedures, Meds, Previous Wound Clinics): Pt with a non-healing left chest ulceration that has essentially been present since 1 week post op approximately 11/14/2020. On 11/07/2020 she underwent a left mastectomy flap revision with Dr. Ybarra. Patient reports that about 1 week after surgery her incision line dehisced and began draining fluid. She does note that right before this opened she noted her left chest had some swelling inferior to the incision line. She was diagnosed with right breast cancer in 08/2019, had a double mastectomy in 09/2019, later found to have left breast cancer as well, and completed chemo and external beam radiation to her sternal region 03/2020. She is currently in remission. She has been following up with Dr. Ybarra and has been packing this area daily with corral showers without much improvement noted. She lives with her who has been doing her dressing changes. Modifying Factors (Dressings used prior to [facility] HUMAN RESOURCES BENEFITS COORDINATOR visit): Gauze packing Timing / Duration: Chronic, Date: 11/07/2020 Review of Systems: Patient states No unusual occurences of the following (unless addressed elsewhere): CONSTITUTION: fever, chills, night sweats, weight changes, Pain; SKIN: changes in color, temperature, or texture (not mentioned elsewhere); RESPIRATORY: short of breath, cough, wheeze; MUSCULOSKELETAL: falls, weakness, change in gate; Patient reports mild pain to ulceration. All other systems reviewed and negative. OBJECTIVE Vitals: BP 131/80 Pulse 65 Temp 98.7 F (37.1 C) (Temporal) Resp 18 WNL Last Weight 221 lbs, BMI 35.67 Physical Exam: Constitutional - Appears well, No apparent distress, Appropriately groomed, Obese per medical criteria Psychiatric - A&Ox3, judgement & insight wnl, memory grossly intact, mood & affect appropriate Neurological - Cranial Nerves - Cranial Nerves II through VIII (General assessement of vision, eye movement, chewing, facial expression, and hearing): Grossly intact. Sensation - Pt reports Grossly intact HEENT - Head: atraumatic, normocephalic Bilateral Eyes: conjunctiva pink & moist, sclera white Ears: symmetrical, no signs of external ear infection, Nose: midline, w/o drainage, Neck: trachea appears midline, Cardiothoracic - Chest symmetrical, Respiratory - Unlabored respiratory effort, no visual use of accessory muscles, Abdomen - Genitourinary - General Integumentary - Skin moisture, color, & temperature wnl except as described elsewhere, Musculoskeletal - No Involuntary movements, Gait, Strength, Mobility, Range of Motion - Age appropriate w/o pain, Upper extremities - wnl Lower Extremity: Vasculature - Edema - Skin & Hair - Feet and toes - Wound: Some S/S of Infection - darkened skin, ulcer is larger, malodorous, blue / green moderate amt of drainage, Flow Sheet Wound 09/28/19 1 Cellulitis Breast Left (Active) Wound Image 12/28/20 1139 Wound Length (cm) 1.8 cm 12/28/20 1139 Wound Width (cm) 7.4 cm 12/28/20 1139 Wound Depth (cm) 0.8 cm 12/28/20 1139 Wound Surface Area (cm^2) 13.32 cm^2 12/28/20 1139 Wound Volume (cm^3) 10.66 cm^3 12/28/20 1139 Area % Change -38.33 12/28/20 1139 Wound Healing % 75 12/28/20 1139 Tunneling Maximum Distance (cm) 4.1 cm 12/28/20 1139 Tunneling Position (o'clock) 5 12/28/20 1139 Tunneling Maximum Distance (cm) 0 cm 12/28/20 1139 Tunneling Position (o'clock) 0 12/28/20 1139 Undermining Maximum Distance (cm) 1 1 cm 12/28/20 1139 Undermining Starting Position (o'clock) 1 7 12/28/20 1139 Undermining Ending Position (o'clock) 1 8 12/28/20 1139 Undermining Maximum Distance (cm) 2 0 cm 12/28/20 1139 Undermining Starting Position (o'clock) 2 0 12/28/20 1139 Undermining Ending Position (o'clock) 2 0 12/28/20 1139 Wound Progress Improving 12/28/20 1139 Non-staged Wound Description Full thickness 12/28/20 1139 Drainage Amount Moderate 12/28/20 1139 Drainage Description Serosanguineous 12/28/20 1139 Odor None 12/28/20 1139 Wound Margin Well defined;Not attached to wound base 12/28/20 1139 Adherent Yellow Slough % 1-25% 12/28/20 1139 Moist Yellow Slough % None 12/28/20 1139 Dry Black Eschar % None 12/28/20 1139 Moist Black Eschar % None 12/28/20 1139 Epithelialization % None 12/28/20 1139 Granulation % 76-100%;Bright red 12/28/20 1139 Exposed Structure None 12/28/20 1139 Wound Bed Characteristics Granulation tissue;Yellow 12/28/20 1139 Inna-wound Assessment Temperature WNL;Clean;Dry 12/28/20 1139 Treatments Topical anesthetic for procedural pain control per order;Assist with debridement 12/28/20 1139 Hemostasis Manual pressure 12/28/20 1139 Cleansed Sodium hypochlorus solution 12/28/20 1139 Primary Dressing Sodium hypochlorus solution (VASHE) 12/28/20 1139 Secondary Dressing Highly absorbent dressing 12/28/20 1139 Compression Dressing Not Applicable 12/28/20 1139 Procedure Debridement Wound 09/28/19 1 Cellulitis Breast Left Consent obtained? written Consent given by: patient Risks discussed? procedural risks discussed Time out called at 12/28/2020 12:15 PM Immediately prior to the procedure a time out was called Performed by: KIERAN Debridement type: surgical Level of debridement: subcutaneous tissue Pain control: lidocaine 4% Pre-debridement measurements Length (cm): 1.8 Width (cm): 7.4 Depth (cm): 0.8 Surface Area (cm^2): 13.32 Volume (cm^3): 10.66 Post-debridement measurements Length (cm): 1.8 Width (cm): 7.4 Depth (cm): 1.9 Percent debrided: 100% Surface Area (cm^2): 13.32 Area debrided (cm^2): 13.32 Volume (cm^3): 25.31 Tissue and other material debrided: subcutaneous tissue Devitalized tissue debrided: biofilm, fibrin and necrotic debris Instrument(s) utilized: curette Bleeding: medium Hemostasis obtained with: pressure Procedural pain (0-10): 0 Post-procedural pain: 0 Response to treatment: procedure was tolerated well REVIEW OF HISTORY The following History, Allergies, and Medications were reviewed Relevant Tests, Procedures, Treatments Notes, Imaging, Surgeries, ATBs, Chemo, Radiation Tx 11/07/2020 Left mastectomy flap revision w/ Dr. Ybarra Radiation therapy 03/06/20-03/29/2020 w/ Dr. Mccullough 09/29/2020 Left Mastectomy w/ Dr. Kelly 09/28/2019 Right Mastectomy w/ Dr. Ybarra Allergies: Chlorhexidine towelette, Sulfamethoxazole-trimethoprim, and Betadine [povidone-iodine] Medications: Patient's Medications New Prescriptions No medications on file Previous Medications ANASTROZOLE (ARIMIDEX) 1 MG TABLET Take 1 mg by mouth every morning Reasons: post breast cancer. ASPIRIN 81 MG EC TABLET Take 1 (one) tablet (81 mg total) by mouth every morning . You may resume Reasons: treatment to prevent a heart attack. CALCIUM CITRATE (CALCITRATE) 200 MG (950 MG) TABLET Take 1 tablet by mouth every morning Reasons: supp. [id number] ORAL Take by mouth every morning Reasons: supplement. CEFDINIR (OMNICEF) 300 MG CAPSULE Take 1 (one) capsule (300 mg total) by mouth 2 (two) times a day for 10 days . CEPHALEXIN (KEFLEX) 500 MG CAPSULE Take 1 (one) capsule (500 mg total) by mouth 4 (four) times a day . CHOLECALCIFEROL, VITAMIN D3, (D3-2000) 2,000 UNIT CAP Take 2,000 Units by mouth every evening Reasons: supplement. ESCITALOPRAM OXALATE (LEXAPRO) 10 MG TABLET Take 10 mg by mouth at bedtime Reasons: anxiousness associated with depression. LEVOTHYROXINE (SYNTHROID, LEVOTHROID) 112 MCG TABLET Take 112 mcg by mouth every morning Reasons: a condition with low thyroid hormone levels. LOSARTAN (COZAAR) 25 MG TABLET Take 25 mg by mouth at bedtime Reasons: high blood pressure. METFORMIN (GLUCOPHAGE-XR) 500 MG 24 HR TABLET Take 1,000 mg by mouth nightly Reasons: type 2 diabetes mellitus. MULTIVITAMIN (MULTIVITAMIN) PER TABLET Take 1 tablet by mouth every evening Reasons: treatment to prevent vitamin deficiency. NAPROXEN SODIUM (ALEVE) 220 MG TABLET Take 220 mg by mouth 2 (two) times a day as needed Reasons: pain. GCCGUZYN-KPCPNFFAY-[id number] (CORTISPORIN) OTIC SOLUTION 2 drops 2 (two) times a day Reasons: each side of the toe, for ingrown toenail. NITROFURANTOIN, MACROCRYSTAL-MONOHYDRATE, (MACROBID) 100 MG CAPSULE Take 100 mg by mouth 2 (two) times a day For seven days for UTI . OMEPRAZOLE (PRILOSEC) 20 MG CAPSULE Take 20 mg by mouth daily as needed . ROSUVASTATIN (CRESTOR) 20 MG TABLET Take 20 mg by mouth every evening Reasons: high cholesterol. SODIUM HYPOCHLORITE (DAKIN'S SOLUTION) 0.125 % SOLN Apply topically daily . SPIRONOLACTONE (ALDACTONE) 25 MG TABLET Take 12.5 mg by mouth at bedtime Reasons: high blood pressure, 1/2 tablet (12.5 mg). Modified Medications No medications on file Discontinued Medications No medications on file Labs: Lab Results Component Value Date WBC 3.99 (L) 11/02/2020 HGB 12.5 11/02/2020 HCT 38.6 11/02/2020 MCV 88.3 11/02/2020 PLT 226 11/02/2020 Lab Results Component Value Date PROT 6.7 09/21/2019 ALBUMIN 4.3 09/21/2019 No results found for: HGBA1C Lab Results Component Value Date GLUCOSE 117 (H) 11/02/2020 CALCIUM 10.0 11/02/2020 NA 139 11/02/2020 K 4.3 11/02/2020 CL 105 11/02/2020 BUN 16 11/02/2020 CREATININE 0.54 (L) 11/02/2020 Lab Results Component Value Date ALT 14 09/21/2019 AST 18 09/21/2019 ALKPHOS 49 09/21/2019 BILITOT <0.2 09/21/2019 No results found for: INR, PROTIME Past Medical History: Diagnosis Date Abnormal mammogram Alopecia scalp; scarring type; Dr Aviva Woodward, [place] Anemia 1970s Anxiety and depression Arthritis Breast cancer, female (HCC) 09/15/2019 Breast mass Cataract Cellulitis 08/2017 RLE Claudication (HCC) Complication of anesthesia anxiety in PACU & postop Deep vein thrombosis (HCC) Diabetes mellitus, type 2 (HCC) Edema R leg GERD (gastroesophageal reflux disease) mild - meds as needed Hyperlipidemia Hypertension Hypothyroidism Ingrown toenail with infection 2020 Left Great toe Lipodermatosclerosis Lymphedema Lymphedema of right lower extremity Dr. 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 Past Surgical History: Procedure Laterality Date ACHILLES TENDON SURGERY BREAST BIOPSY BREAST CYST EXCISION 1975 BREAST MASS EXCISION Left 11/07/2020 Procedure: left mastectomy flap revision; Surgeon: Ophelia Ybarra DO; Location: [facility] Main OR; Service: General Surgery DILATION AND CURETTAGE OF UTERUS GANGLION CYST EXCISION HYSTERECTOMY VAGINAL N/A 01/14/2019 Procedure: TOTAL VAGINAL HYSTERECTOMY; Surgeon: Nidhi Braun MD; Location: [facility] Main OR; Service: OBGYN HYSTEROSCOPY W/ DILATATION AND CURETTAGE N/A 11/27/2017 Procedure: DILATION AND CURETTAGE WITH HYSTEROSCOPY; Surgeon: Nidhi Braun MD; Location: [facility] Main OR; Service: OBGYN MASTECTOMY MODIFIED RADICAL BILATERAL WITH SENTINEL LYMPH NODE BIOPSY Bilateral 09/28/2019 Procedure: BILATERAL MASTECTOMIES WITH RIGHT SENTINEL NODE BIOPSY; Surgeon: Ophelia Ybarra DO; Location: [facility] Main OR; Service: General Surgery SKIN BIOPSY benign TONSILLECTOMY TUBAL LIGATION US BREAST BIOPSY RIGHT Right 09/07/2019 VASCULAR SURGERY Right 11/2017 leg; Varithena infection WISDOM TOOTH EXTRACTION Social History Socioeconomic History Marital status: Spouse name: Not on file Number of children: 6 Years of education: Not on file Highest education level: Not on file Occupational History Employer: OTHER- Tobacco Use Smoking status: Never Smoker Smokeless tobacco: Never Used Vaping Use Vaping Use: Never used Substance and Sexual Activity Alcohol use: Never Drug use: Never Sexual activity: Not on file Other Topics Concern Not on file Social History Narrative Merged History Encounter Social Determinants of Health Financial Resource Strain: Difficulty of Paying Living Expenses: Food Insecurity: Worried About Running Out of Food in the Last Year: Ran Out of Food in the Last Year: Transportation Needs: Lack of Transportation (Medical): Lack of Transportation (Non-Medical): Physical Activity: Days of Exercise per Week: Minutes of Exercise per Session: Stress: Feeling of Stress : Social Connections: Frequency of Communication with Friends and Family: Frequency of Social Gatherings with Friends and Family: Attends [employer] Services: Active Member of Clubs or Organizations: Attends Club or Organization Meetings: Marital Status: Family History Problem Relation Age of Onset Colon cancer Mother 67 Cancer Mother 67 oral Stroke Father Hypertension Father Heart attack Father Prostate cancer Father 70 Heart disease Father Diabetes Father No Known Problems Brother Prostate cancer Brother 68 Breast cancer Maternal Grandmother 70 Colon cancer Maternal Grandfather 65 Other (Abdominal cancer) Paternal Grandmother 70 Prostate cancer Maternal Uncle 60 No Known Problems Other Prostate cancer Maternal Uncle Surgical complications Neg Hx Anesthesia problems Neg Hx Clotting disorder Neg Hx Deep vein thrombosis Neg Hx Pulmonary embolism Neg Hx Ovarian cancer Neg Hx Raven Reza CNP Electronically signed by the above provider 12/28/20 Perpetual Wound History: Pt first seen in on 12/20/2020, for a left chest ulceration 12/20/2020 Left Chest - Initial assessment, some s/s infection, skin between ulcers opened, tissue cx sent, debrided, Use Dakins moist gauze, ABD, VICKY BID. 12/28/2020 Left Chest - Improvement, resolving s/s infection, tissue cx + so was started on Cefdinir, debrided, Cont Dakins moist gauze, packing strips to tunnel, ABD, VICKY BID. documented in this encounter [facility] 12-20-2020 Instructions Thania Charles RN - 12/20/2020 3:19 PM EDT The following Patient Instructions and Wound Care Orders are current as of this date. All previous orders/treatments should be discontinued. Wound Care Orders: Wound location: left breast Clean with saline May shower, leave dressing in place and change immediately after Apply the following (OR EQUIVALENT): 1/4 Strength Dakins Solution Dressing: Pour Dakins solution over gauze or packing strip, then squeeze to remove excess moisture. The gauze should be moist, not dripping. Place the gauze inside the wound, making sure the gauze touches the entire inside of the wound. Do not place the dressing outside the edges of the wound because this can irritate healthy skin. Cover with dry dressing Change twice daily May change outer dressing if it becomes soiled or saturated vashe dressing in clinic today Per Verbal Order Read Back A culture of your wound was done today. You will be contacted if any changes to your treatment need to made. Otherwise, the results will be reviewed at your next appointment. Supplies We have sent your supply order to the following company: [employer]: [phone] If you don't receive the items you were expecting or don't know what the items are that you received, call the company where the order was sent. If you are unable to obtain wound supplies, continue to use the supplies you have available until your are able to reach us. It is most important to keep the wound covered at all times. It is YOUR responsibility to make sure that supplies are re-ordered before you run out. Re-order telephone numbers are included in each package. High Blood Pressure: If your blood pressure taken today is above 150/95, please contact your primary care physician to get further instructions. If you experience the following emergent symptoms; chest pain, shortness of breath, headache, dizziness, vision changes, unusual and/or excessive sweating or nausea vomiting - call 201 or go to the nearest emergency room. Bleeding: If your wound was debrided and continues to bleed after your appointment, apply direct pressure to the wound with a clean cloth or dressing for 10-20 minutes. If the bleeding does not stop, call [facility] [phone] or go to the Emergency Room. Signs/Symptoms of Infection: If you have any fever, chills, nausea, vomiting or increased odor, drainage, pain or redness to the wound, call [facility] at [phone]. If after hours, contact your family physician or go to the Emergency Room. Tips You can do at Home to Help Heal Your Wound Tobacco Use: No smoking or tobacco products because they can slow or even stop wound healing. Diabetic Management: If you are diabetic, check your blood sugar every morning before eating. Keep your fasting blood sugar below 120. Keep regular appointments with your primary physician to monitor your diabetes. Follow your diabetic diet carefully. Skin Care: Use apply moisturizing lotion to dry, intact skin, avoid getting between the toes. Apply skin sealant or barrier to protect the skin from too much moisture. Inspect skin (including feet) daily for redness, blisters, rash, cracks, or open areas. Incontinence Skin Care Quickly cleanse and gently pat dry after every incontinence episode or loose bowel movement to keep area as clean and dry as possible. Use a barrier cream to protect skin as directed. Edema Control Instructions: Elevate legs above the level of your heart whenever you are sitting. Avoid standing for long periods and do not sit with your legs dangling. Compression Stockings: Apply compression stocking(s) every morning as soon as you get up. Remove at bedtime unless instructed to wear day and night. Hand wash and line dry to prevent loss of elasticity. Replace every 3-4 months to ensure proper fit. Pressure Relief Instructions: Keep weight and pressure off your wound(s) and bony areas of the body (for example, heels, tail bone, hip, elbows, back of head). Reposition as instructed. Shift position in chair every 15 minutes.Turn every 2 hours while lying down. Wear heel guards to keep pressure off heels while in bed or in a chair. Remove while transferring or walking. Specialty Bed: Alternating Air Mattress Wheelchair cushion: Roho. Use this wherever you are sitting. Diet: Increase the lean protein in your diet. Examples of foods high in protein are lean cuts of meat, fish, dairy foods, peanut butter and eggs. Use protein supplements as directed. Limit your salt/sodium as instructed. Choose fresh fruits, vegetables and lean cuts of meat. Do not add salt to food during or after cooking. Season food with herbs and spices instead of salt. Avoid salty snacks, fast foods, deli meats and pre-packaged foods. If instructed, limit your fluids to no more than 2 quarts, (64 ounces), of a day. This includes water, juice, coffee, tea, pop, soup, etc. If you are diabetic, check your blood sugar every morning before eating. Keep your fasting blood sugar below 120. Keep regular appointments with your primary physician to monitor your diabetes. Follow your diabetic diet carefully. Protein for Wound Healing You need at least 80-100 grams of protein per day for the body to heal a wound. Be creative and increase protein levels by: 1. Eating the protein items at meal time first. Eat small meals and snacks throughout the day 2. Adding eggs to casseroles, meat loaf, mashed potatoes, macaroni & cheese, salads. 3. Adding cheese to sandwiches, casseroles, potatoes, vegetables, and omelets. 4. Adding peanut butter to toast, bagels, waffles, crackers, bananas, apples, and celery. 5. Adding protein powder to drinks, pudding, potatoes, soups, ground meats, cooked cereal, milkshakes, yogurt, and pancake batter. Item Portion Size Grams of Protein Most Meats 1 oz 7 Beef Hamburger Senia 4 oz 28 Steak 6 oz 42 Chicken Breast 3.5 oz 30 Thigh Average 10 Drumstick Average 11 Wing Average 6 Most Other 4 oz cooked 35 Fish Tuna 6 oz can 40 Fish Fillets or Steaks 1oz cooked 6 Pork Chop Average 22 Loin or Tenderloin 4 oz 29 Ham 3 oz 19 Ground 3 oz cooked 22 Clarke 1 slice 3 Brazilian-style Clarke (Back Clarke) 1 slice 5-6 Eggs and Dairy Egg Large 6 Milk 1 cup 8 Cottage Cheese cup 15 Yogurt 1 cup 8-12 Albanian Yogurt 6 oz 18 Soft Cheeses (Mozzarella, Brie) 1 oz 6 Medium Cheeses(Cheddar,Egyptian) 1 oz 7-8 Hard Cheeses (Parmesan) 1 oz 10 Beans / Soy Tofu cup 10 Soy Milk 1 cup 6-10 Soy Beans cup cooked 14 Edamame cup 8-12 Most Beans (black, carrillo, lentils) cup cooked 7-10 Split Peas cup cooked 8 Nuts and Seeds Peanut Butter 2 Tablespoons 8 Peanuts cup 9 Almonds cup 8 Cashews cup 5 Pecans cup 2.5 Buchanan Seeds cup 6 Pumpkin Seeds cup 19 Flax Seeds cup 8 Some Whole Grain Breads 1 slice 4-5 Other Protein Powder 1 scoop 20 documented in this encounter [facility] 12-20-2020 History of Presen t illness Narrative Associated Order(s): Wound Debridement Images from the original note were not included. WOUND CARE PROVIDER PROGRESS NOTE Patient Name: Beulah Fields MR #: [id number] : 1945 (75 y.o. female) PCP: Eve Cueto MD All patient questions or concerns about the content of this note will be addressed at the next clinic visit rather than by phone, as conversations and explanations are more amenable to in-person discussions. If there are non-urgent questions about wounds or wound care, patient's are encourage to use My Chart. For urgent concerns about wounds, call the Wound Clinic at [phone] or other Health Care Provider. ASSESSMENT, PLAN, & ORDERS Goals of Therapy include: Work towards healing. If there is no significant improvement within 4 weeks or if there is a decline at any time, we will investigate causes of delay / decline and consider changing the treatment plan. Reduce risk of infection. Provide dressing orders. Clear infection. Any procedure done during today's visit is due to medical necessary, to promote healing and control or prevent infection. Infectious r/t surgical site dehiscence Ulcer, of the Left Chest with fat layer exposed, and with Cellulitis, - Inital assessment. Appears to be Declined. Some signs of infection. Pt has already finished a 10 day course of keflex. Was debrided. The tissue between the openings was removed to expose the existing large ulcer, which will allow for proper assessment, debridement, & dressing application. Tissue sent for culture. Cleanse with saline. Will use Dakin's moistened (0.125%) Gauze, to the wound. into tunnels. Cover the entire wound with Abdominal pad, Hold in place with Vicky wrap BID Dressing placed today may differ from the above but, have been ordered by this HUMAN RESOURCES BENEFITS COORDINATOR to be placed during this clinic visit. Patient instructed to comply with and states understanding of the following instructions for comorbid conditions: 1.Patient to strive towards an appropriate weight and protein intake to maximize an environment for wound healing. 2. Patient to avoid things that interfere with the healing process, contribute to infection, cause tissue destruction, or reduce blood flow and oxygen to the wound, such as: pressure, edema, high sodium intake, nicotine, substance abuse, lack of cleanliness, excess moisture or dryness, not following wound care instructions. 3. PCP or Specialist will continue to manage and optimize any co-morbidities and treatments that affect wound healing by reducing blood flow & oxygen to the wound, decreased immune response & elevated glucose levels. Additional Orders: Follow up as planned with Breast Surgeon, Dr. Ybarra. Follow Up WC: 1wk The following amount of time was spent on this patient's care: Time was not calculated this visit, due to the performance of a procedure. SUBJECTIVE Chief Complaint: Wound Check History of Present Illness: Location, Severity, Quality (Type of Wound): As outlined in this note Context (Trigger Event, First Appearance, Progression, Procedures, Meds, Previous Wound Clinics): Pt with a non-healing left chest ulceration that has essentially been present since 1 week post op approximately 11/14/2020. On 11/07/2020 she underwent a left mastectomy flap revision with Dr. Ybarra. Patient reports that about 1 week after surgery her incision line dehisced and began draining fluid. She does note that right before this opened she noted her left chest had some swelling inferior to the incision line. She was diagnosed with right breast cancer in 08/2019, had a double mastectomy in 09/2019, later found to have left breast cancer as well, and completed chemo and external beam radiation to her sternal region 03/2020. She is currently in remission. She has been following up with Dr. Ybarra and has been packing this area daily with corral showers without much improvement noted. She lives with her who has been doing her dressing changes. Modifying Factors (Dressings used prior to [facility] [employer]ENEFITS COORDINATOR visit): Gauze packing Timing / Duration: Chronic, Date: 11/07/2020 Review of Systems: Patient states No unusual occurences of the following (unless addressed elsewhere): CONSTITUTION: fever, chills, night sweats, weight changes, Pain; SKIN: changes in color, temperature, or texture (not mentioned elsewhere); RESPIRATORY: short of breath, cough, wheeze; MUSCULOSKELETAL: falls, weakness, change in gate; Patient reports mild pain to ulceration. All other systems reviewed and negative. OBJECTIVE Vitals: BP 135/81 Pulse 63 Temp 98.1 F (36.7 C) (Infrared) Resp 18 Ht 5' 6 Wt 100.2 kg (221 lb) BMI 35.67 kg/m WNL Last Weight 221 lbs, BMI 35.67 Physical Exam: Constitutional - Appears well, No apparent distress, Appropriately groomed, Obese per medical criteria Psychiatric - A&Ox3, judgement & insight wnl, memory grossly intact, mood & affect appropriate Neurological - Cranial Nerves - Cranial Nerves II through VIII (General assessement of vision, eye movement, chewing, facial expression, and hearing): Grossly intact. Sensation - Pt reports Grossly intact HEENT - Head: atraumatic, normocephalic Bilateral Eyes: conjunctiva pink & moist, sclera white Ears: symmetrical, no signs of external ear infection, Nose: midline, w/o drainage, Neck: trachea appears midline, Cardiothoracic - Chest symmetrical, Respiratory - Unlabored respiratory effort, no visual use of accessory muscles, Abdomen - Genitourinary - General Integumentary - Skin moisture, color, & temperature wnl except as described elsewhere, Musculoskeletal - No Involuntary movements, Gait, Strength, Mobility, Range of Motion - Age appropriate w/o pain, Upper extremities - wnl Lower Extremity: Vasculature - Edema - Skin & Hair - Feet and toes - Wound: Some S/S of Infection - darkened skin, ulcer is larger, malodorous, blue / green moderate amt of drainage, Flow Sheet Wound 09/28/19 1 Surgical Wound Breast Left (Active) Wound Image 12/20/20 1522 Wound Length (cm) 1 cm 12/20/20 1522 Wound Width (cm) 7.5 cm 12/20/20 1522 Wound Depth (cm) 1 cm 12/20/20 1522 Wound Surface Area (cm^2) 7.5 cm^2 12/20/20 1522 Wound Volume (cm^3) 7.5 cm^3 12/20/20 1522 Area % Change 0 12/20/20 1522 Tunneling Maximum Distance (cm) 9 cm 12/20/20 1522 Tunneling Position (o'clock) 5.5 12/20/20 1522 Undermining Maximum Distance (cm) 1 1 cm 12/20/20 1522 Undermining Starting Position (o'clock) 1 6 12/20/20 1522 Undermining Ending Position (o'clock) 1 3.5 12/20/20 1522 Undermining Maximum Distance (cm) 2 0 cm 12/20/20 1522 Undermining Starting Position (o'clock) 2 0 12/20/20 1522 Undermining Ending Position (o'clock) 2 0 12/20/20 1522 Wound Progress Initial exam 12/20/20 1522 Non-staged Wound Description Full thickness 12/20/20 1522 Drainage Amount Moderate 12/20/20 1522 Drainage Description [place];Green;Yellow 12/20/20 1522 Odor None 12/20/20 152 Wound Margin Undefined;Not attached to wound base 12/20/20 152 Adherent Yellow Slough % None 12/20/20 1522 Moist Yellow Slough % None 12/20/20 1522 Dry Black Eschar % None 12/20/20 1522 Moist Black Eschar % None 12/20/20 1522 Epithelialization % 26-50% 12/20/20 152 Granulation % 51-75% 12/20/20 152 Exposed Structure None 12/20/20 152 Wound Bed Characteristics Epitheliaization;Granulation tissue;[place];Yellow 12/20/20 152 Treatments Topical anesthetic for procedural pain control per order 12/20/20 1522 Procedure Debridement Wound 09/28/19 1 Surgical Wound Breast Left Consent obtained? written Consent given by: patient Risks discussed? procedural risks discussed Time out called at 12/20/2020 4:20 PM Immediately prior to the procedure a time out was called Performed by: KIERAN Debridement type: surgical Level of debridement: subcutaneous tissue Pain control: lidocaine 4% (Injectable Lidocaine 2%) Pre-debridement measurements Length (cm): 0.6 Width (cm): 7.5 Depth (cm): 1 Surface Area (cm^2): 4.5 Volume (cm^3): 4.5 Post-debridement measurements Length (cm): 1 Width (cm): 7.5 Depth (cm): 1 Percent debrided: 100% Surface Area (cm^2): 7.5 Area debrided (cm^2): 7.5 Volume (cm^3): 7.5 Tissue and other material debrided: dermis, epidermis and subcutaneous tissue Devitalized tissue debrided: biofilm and fibrin Instrument(s) utilized: curette Bleeding: medium Hemostasis obtained with: pressure Procedural pain (0-10): 0 Post-procedural pain: 0 Response to treatment: procedure was tolerated well REVIEW OF HISTORY The following History, Allergies, and Medications were reviewed Relevant Tests, Procedures, Treatments Notes, Imaging, Surgeries, ATBs, Chemo, Radiation Tx 11/07/2020 Left mastectomy flap revision w/ Dr. Ybarra Radiation therapy 03/06/20-03/29/2020 w/ Dr. Mccullough 09/29/2020 Left Mastectomy w/ Dr. Kelly 09/28/2019 Right Mastectomy w/ Dr. Ybarra Allergies: Chlorhexidine towelette, Sulfamethoxazole-trimethoprim, and Betadine [povidone-iodine] Medications: Patient's Medications New Prescriptions No medications on file Previous Medications ANASTROZOLE (ARIMIDEX) 1 MG TABLET Take 1 mg by mouth every morning Reasons: post breast cancer. ASPIRIN 81 MG EC TABLET Take 1 (one) tablet (81 mg total) by mouth every morning . You may resume Reasons: treatment to prevent a heart attack. CALCIUM CITRATE (CALCITRATE) 200 MG (950 MG) TABLET Take 1 tablet by mouth every morning Reasons: supp. JGAJVRI-VGGXBHLJF-ZPMW ORAL Take by mouth every morning Reasons: supplement. CEPHALEXIN (KEFLEX) 500 MG CAPSULE Take 1 (one) capsule (500 mg total) by mouth 4 (four) times a day . CEPHALEXIN (KEFLEX) 500 MG CAPSULE Take 1 (one) capsule (500 mg total) by mouth 4 (four) times a day . CHOLECALCIFEROL, VITAMIN D3, (D3-2000) 2,000 UNIT CAP Take 2,000 Units by mouth every evening Reasons: supplement. ESCITALOPRAM OXALATE (LEXAPRO) 10 MG TABLET Take 10 mg by mouth at bedtime Reasons: anxiousness associated with depression. LACTOBACILLUS ACIDOPHILUS (PROBIOTIC ORAL) Take by mouth daily with breakfast Reasons: supp. LEVOTHYROXINE (SYNTHROID, LEVOTHROID) 112 MCG TABLET Take 112 mcg by mouth every morning Reasons: a condition with low thyroid hormone levels. LOSARTAN (COZAAR) 25 MG TABLET Take 25 mg by mouth at bedtime Reasons: high blood pressure. MELATONIN 1 MG TAB Take by mouth nightly as needed Reasons: insomnia. METFORMIN (GLUCOPHAGE-XR) 500 MG 24 HR TABLET Take 1,000 mg by mouth nightly Reasons: type 2 diabetes mellitus. MULTIVITAMIN (MULTIVITAMIN) PER TABLET Take 1 tablet by mouth every evening Reasons: treatment to prevent vitamin deficiency. NAPROXEN SODIUM (ALEVE) 220 MG TABLET Take 220 mg by mouth 2 (two) times a day as needed Reasons: pain. GUXBDNKY-MSEYWTUDE-HBJFHIADNEVPLG (CORTISPORIN) OTIC SOLUTION 2 drops 2 (two) times a day Reasons: each side of the toe, for ingrown toenail. NITROFURANTOIN, MACROCRYSTAL-MONOHYDRATE, (MACROBID) 100 MG CAPSULE Take 100 mg by mouth 2 (two) times a day For seven days for UTI . OMEPRAZOLE (PRILOSEC) 20 MG CAPSULE Take 20 mg by mouth daily as needed . ROSUVASTATIN (CRESTOR) 20 MG TABLET Take 20 mg by mouth every evening Reasons: high cholesterol. SPIRONOLACTONE (ALDACTONE) 25 MG TABLET Take 12.5 mg by mouth at bedtime Reasons: high blood pressure, 1/2 tablet (12.5 mg). Modified Medications No medications on file Discontinued Medications No medications on file Labs: Lab Results Component Value Date WBC 3.99 (L) 11/02/2020 HGB 12.5 11/02/2020 HCT 38.6 11/02/2020 MCV 88.3 11/02/2020 PLT 226 11/02/2020 Lab Results Component Value Date PROT 6.7 09/21/2019 ALBUMIN 4.3 09/21/2019 No results found for: HGBA1C Lab Results Component Value Date GLUCOSE 117 (H) 11/02/2020 CALCIUM 10.0 11/02/2020 NA 139 11/02/2020 K 4.3 11/02/2020 CL 105 11/02/2020 BUN 16 11/02/2020 CREATININE 0.54 (L) 11/02/2020 Lab Results Component Value Date ALT 14 09/21/2019 AST 18 09/21/2019 ALKPHOS 49 09/21/2019 BILITOT <0.2 09/21/2019 No results found for: INR, PROTIME Past Medical History: Diagnosis Date Abnormal mammogram Alopecia scalp; scarring type; Dr Aviva Woodward, [place] Anemia 1970s Anxiety and depression Arthritis Breast cancer, female (HCC) 09/15/2019 Breast mass Cataract Cellulitis 08/2017 RLE Claudication (HCC) Complication of anesthesia anxiety in PACU & postop Deep vein thrombosis (HCC) Diabetes mellitus, type 2 (HCC) Edema R leg GERD (gastroesophageal reflux disease) mild - meds as needed Hyperlipidemia Hypertension Hypothyroidism Ingrown toenail with infection 2020 Left Great toe Lipodermatosclerosis Lymphedema Lymphedema of right lower extremity Dr. 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 Past Surgical History: Procedure Laterality Date ACHILLES TENDON SURGERY BREAST BIOPSY BREAST CYST EXCISION 1974 BREAST MASS EXCISION Left 11/07/2020 Procedure: left mastectomy flap revision; Surgeon: Ophelia Ybarra DO; Location: [facility] Main OR; Service: General Surgery DILATION AND CURETTAGE OF UTERUS GANGLION CYST EXCISION HYSTERECTOMY VAGINAL N/A 01/14/2019 Procedure: TOTAL VAGINAL HYSTERECTOMY; Surgeon: Nidhi Braun MD; Location: [facility] Main OR; Service: OBGYN HYSTEROSCOPY W/ DILATATION AND CURETTAGE N/A 11/27/2017 Procedure: DILATION AND CURETTAGE WITH HYSTEROSCOPY; Surgeon: Nidhi Braun MD; Location: [facility] Main OR; Service: OBGYN MASTECTOMY MODIFIED RADICAL BILATERAL WITH SENTINEL LYMPH NODE BIOPSY Bilateral 09/28/2019 Procedure: BILATERAL MASTECTOMIES WITH RIGHT SENTINEL NODE BIOPSY; Surgeon: Ophelia Ybarra DO; Location: [facility] Main OR; Service: General Surgery SKIN BIOPSY benign TONSILLECTOMY TUBAL LIGATION US BREAST BIOPSY RIGHT Right 09/07/2019 VASCULAR SURGERY Right 11/2017 leg; Varithena infection WISDOM TOOTH EXTRACTION Social History Socioeconomic History Marital status: Spouse name: Not on file Number of children: 6 Years of education: Not on file Highest education level: Not on file Occupational History Employer: OTHER- Tobacco Use Smoking status: Never Smoker Smokeless tobacco: Never Used Vaping Use Vaping Use: Never used Substance and Sexual Activity Alcohol use: Never Drug use: Never Sexual activity: Not on file Other Topics Concern Not on file Social History Narrative Merged History Encounter Social Determinants of Health Financial Resource Strain: Difficulty of Paying Living Expenses: Food Insecurity: Worried About Running Out of Food in the Last Year: Ran Out of Food in the Last Year: Transportation Needs: Lack of Transportation (Medical): Lack of Transportation (Non-Medical): Physical Activity: Days of Exercise per Week: Minutes of Exercise per Session: Stress: Feeling of Stress : Social Connections: Frequency of Communication with Friends and Family: Frequency of Social Gatherings with Friends and Family: Attends Scientology Services: Active Member of Clubs or Organizations: Attends Club or Organization Meetings: Marital Status: Family History Problem Relation Age of Onset Colon cancer Mother 67 Cancer Mother 67 oral Stroke Father Hypertension Father Heart attack Father Prostate cancer Father 70 Heart disease Father Diabetes Father No Known Problems Brother Prostate cancer Brother 68 Breast cancer Maternal Grandmother 70 Colon cancer Maternal Grandfather 65 Other (Abdominal cancer) Paternal Grandmother 70 Prostate cancer Maternal Uncle 60 No Known Problems Other Prostate cancer Maternal Uncle Surgical complications Neg Hx Anesthesia problems Neg Hx Clotting disorder Neg Hx Deep vein thrombosis Neg Hx Pulmonary embolism Neg Hx Ovarian cancer Neg Hx Raven Reza CNP Electronically signed by the above provider 12/20/20 Perpetual Wound History: Pt first seen in on 12/20/2020, for a left chest ulceration 12/20/2020 Left Chest - Initial assessment, some s/s infection, skin between ulcers opened, tissue cx sent, debrided, Use Dakins moist gauze, ABD, VICKY BID. documented in this encounter [facility] 11-22-2020 History of Presen t illness Narrative Patient Name: Beulah Fields MR #: [id number] : 1945 Physicians: Jose Dunn MD ASSESSMENT: 1. Malignant 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, estrogen receptor positive (HCC) PLAN: It was a privilege to see Beulah Fields in my office today. Her drain from excision of left axillary tissue is clogged with old blood. I remove the drain and open the incision after cleansing the area with Betadine. The clots were all evacuated out and an area was packed and I recommended the packing be advanced over the next week and repack it once a day. The incision should be closing after a week. We discussed a healthy lifestyle (low fat diet, exercise and maintaining an ideal body weight) to decrease breast cancer recurrence risk. I answered all of her questions & she verbalizes understanding. It is always a privilege to take care of your patients, please don't hesitate to call me with any questions. Chief Complaint/Reason for Visit: Chief Complaint Patient presents with Post-op left mastectomy flap revision on 4.6 Chief Complaint/Reason for Visit: FU HPI: Beulah Fields is a 74 y.o. postmenopausal female presents today for a Fu visit. She recently underwent excision of left axillary tissue and doing well. Her drain has not been working very great. Last Mammogram:08/2019 BREAST CANCER RISK FACTORS: Gender, age, family history of breast cancer maternal grandmother at unknown age and colon cancer in mother at unknown age. Family history of prostate cancer in brother x2 at 68 and 70. Family history of stomach cancer in paternal grandmother at 70. BRIEF ONCOLOGIC HISTORY: She presented with abnormal imaging of the right breast. Her diagnostic mammogram on 09/03/2019 which showed a suspicious appearing spiculated mass that measures about 2.5 cm at 12:00 of her right breast at 5 cm from the nipple. She had a right breast ultrasound on the same day which shows a hypoechoic 2.2 cm lesion at 12:00 of the right breast which has irregular margins. 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 She underwent bilateral mastectomy with right sentinel lymph node biopsy. Please see below for pathology results. PAST BREAST HEALTH HISTORY: 09/07/2019: Right breast mass at 9:00- 2.2 cm US guided bx Right Breast 9:00- Invasive Ductal carcinoma, G3, ER 100%, AK 85%, Her 2 julio (-) Stage II A ([id number]) 09/28/2019: Bilateral mastectomy with right sentinel lymph node biopsy Left breast upper outer quadrant-6 mm invasive ductal carcinoma, grade 1, margins are negative and no lymph nodes assessed. Estrogen receptor 100%, progesterone receptor 10%, HER-2/julio negative Right breast mastectomy with a sentinel lymph node biopsy Right breast at 9:00-2.9 cm invasive ductal carcinoma with focal mucinous and micropapillary features, grade 3, DCIS is present, margins are clear, 1 out of 4 lymph nodes positive for metastasis, 20 mm metastatic deposit is involved Estrogen receptor positive, progesterone receptor positive, HER-2/julio negative, Ki-67 is 62% 11/07/2020: Left chest wall skin and subcutaneous tissue excision Skin and subcutaneous tissue with scar Medical Oncology:Dr. Ansari Right breast Oncotype 15 DoceTaxol and cyclophosphamide Endocrine Therapy: Radiation Oncology:Dr. Mccullough Right chestwall XRT Genetics:12/2019 Negative PMH: Past Medical History: Diagnosis Date Abnormal mammogram Alopecia scalp; scarring type; Dr Aviva Woodward, [place] Anemia 1970s Anxiety and depression Arthritis Breast cancer, female (HCC) 09/15/2019 Breast mass Cataract Cellulitis 08/2017 RLE Claudication (HCC) Complication of anesthesia anxiety in PACU & postop Deep vein thrombosis (HCC) Diabetes mellitus, type 2 (HCC) Edema R leg GERD (gastroesophageal reflux disease) mild - meds as needed Hyperlipidemia Hypertension Hypothyroidism Ingrown toenail with infection 2020 Left Great toe Lipodermatosclerosis Lymphedema Lymphedema of right lower extremity Dr. 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 PSH: Past Surgical History: Procedure Laterality Date ACHILLES TENDON SURGERY BREAST BIOPSY BREAST CYST EXCISION 1974 BREAST MASS EXCISION Left 11/07/2020 Procedure: left mastectomy flap revision; Surgeon: Ophelia Ybarra DO; Location: [facility] Main OR; Service: General Surgery DILATION AND CURETTAGE OF UTERUS GANGLION CYST EXCISION HYSTERECTOMY VAGINAL N/A 01/14/2019 Procedure: TOTAL VAGINAL HYSTERECTOMY; Surgeon: Nidhi Branu MD; Location: [facility] Main OR; Service: OBGYN HYSTEROSCOPY W/ DILATATION AND CURETTAGE N/A 11/27/2017 Procedure: DILATION AND CURETTAGE WITH HYSTEROSCOPY; Surgeon: Nidhi Braun MD; Location: [facility] Main OR; Service: OBGYN MASTECTOMY MODIFIED RADICAL BILATERAL WITH SENTINEL LYMPH NODE BIOPSY Bilateral 09/28/2019 Procedure: BILATERAL MASTECTOMIES WITH RIGHT SENTINEL NODE BIOPSY; Surgeon: Ophelia Ybarra DO; Location: [facility] Main OR; Service: General Surgery SKIN BIOPSY benign TONSILLECTOMY TUBAL LIGATION US BREAST BIOPSY RIGHT Right 09/07/2019 VASCULAR SURGERY Right 11/2017 leg; Varithena infection WISDOM TOOTH EXTRACTION FMH: Family History Problem Relation Age of Onset Colon cancer Mother 67 Cancer Mother 67 oral Stroke Father Hypertension Father Heart attack Father Prostate cancer Father 70 Heart disease Father Diabetes Father No Known Problems Brother Prostate cancer Brother 68 Breast cancer Maternal Grandmother 70 Colon cancer Maternal Grandfather 65 Other (Abdominal cancer) Paternal Grandmother 70 Prostate cancer Maternal Uncle 60 No Known Problems Other Prostate cancer Maternal Uncle Surgical complications Neg Hx Anesthesia problems Neg Hx Clotting disorder Neg Hx Deep vein thrombosis Neg Hx Pulmonary embolism Neg Hx Ovarian cancer Neg Hx SOCIAL Hx: Social History Socioeconomic History Marital status: Spouse name: Not on file Number of children: 6 Years of education: Not on file Highest education level: Not on file Occupational History Employer: OTHER- Social Needs Financial resource strain: Not on file Food insecurity Worry: Not on file Inability: Not on file Transportation needs Medical: Not on file Non-medical: Not on file Tobacco Use Smoking status: Never Smoker Smokeless tobacco: Never Used Substance and Sexual Activity Alcohol use: Never Frequency: Never Drug use: Never Sexual activity: Not on file Lifestyle Physical activity Days per week: Not on file Minutes per session: Not on file Stress: Not on file Relationships Social connections Talks on phone: Not on file Gets together: Not on file Attends mu-ism service: Not on file Active member of club or organization: Not on file Attends meetings of clubs or organizations: Not on file Relationship status: Not on file Other Topics Concern Not on file Social History Narrative Merged History Encounter MEDS: Current Outpatient Medications Medication Sig Dispense Refill anastrozole (ARIMIDEX) 1 mg tablet Take 1 mg by mouth every morning Reasons: post breast cancer. aspirin 81 MG EC tablet Take 1 (one) tablet (81 mg total) by mouth every morning . You may resume Reasons: treatment to prevent a heart attack. (Patient taking differently: Take 81 mg by mouth every morning Reasons: treatment to prevent a heart attack.) 30 tablet 0 calcium citrate (CALCITRATE) 200 mg (950 mg) tablet Take 1 tablet by mouth every morning Reasons: supp. OMFWINL-OPJRYNXWP-IFLR ORAL Take by mouth every morning Reasons: supplement. cephALEXin (KEFLEX) 500 MG capsule Take 1 (one) capsule (500 mg total) by mouth 4 (four) times a day . 40 capsule 0 cephALEXin (KEFLEX) 500 MG capsule Take 1 (one) capsule (500 mg total) by mouth 4 (four) times a day . 40 capsule 1 cholecalciferol, vitamin D3, (D3-2000) 2,000 unit cap Take 2,000 Units by mouth every evening Reasons: supplement. escitalopram oxalate (LEXAPRO) 10 MG tablet Take 10 mg by mouth at bedtime Reasons: anxiousness associated with depression. Lactobacillus acidophilus (PROBIOTIC ORAL) Take by mouth daily with breakfast Reasons: supp. levothyroxine (SYNTHROID, LEVOTHROID) 112 MCG tablet Take 112 mcg by mouth every morning Reasons: a condition with low thyroid hormone levels. losartan (COZAAR) 25 MG tablet Take 25 mg by mouth at bedtime Reasons: high blood pressure. melatonin 1 mg Tab Take by mouth nightly as needed Reasons: insomnia. metFORMIN (GLUCOPHAGE-XR) 500 MG 24 hr tablet Take 1,000 mg by mouth nightly Reasons: type 2 diabetes mellitus. multivitamin (multivitamin) per tablet Take 1 tablet by mouth every evening Reasons: treatment to prevent vitamin deficiency. naproxen sodium (ALEVE) 220 MG tablet Take 220 mg by mouth 2 (two) times a day as needed Reasons: pain. mkvsenie-eosplvuse-mmzzpkzdeyqplj (CORTISPORIN) otic solution 2 drops 2 (two) times a day Reasons: each side of the toe, for ingrown toenail. nitrofurantoin, macrocrystal-monohydrate, (MACROBID) 100 MG capsule Take 100 mg by mouth 2 (two) times a day For seven days for UTI . omeprazole (PRILOSEC) 20 MG capsule Take 20 mg by mouth daily as needed . rosuvastatin (CRESTOR) 20 MG tablet Take 20 mg by mouth every evening Reasons: high cholesterol. spironolactone (ALDACTONE) 25 MG tablet Take 12.5 mg by mouth at bedtime Reasons: high blood pressure, 1/2 tablet (12.5 mg). Current Facility-Administered Medications Medication Dose Route Frequency Provider Last Rate Last Admin lidocaine (LMX) 4 % cream Topical PRN Mehran Velasquez Jr., DPM Given at 07/31/18 160 ALLERGIES: Allergies: Chlorhexidine towelette, Sulfamethoxazole-trimethoprim, and Betadine [povidone-iodine] Review of Systems PHYSICAL EXAM: Physical Exam Vital Signs: Ht 5' 6 Wt 101.2 kg (223 lb) BMI 35.99 kg/m Left chest wall incision clean dry and intact and drain has some old blood clots. Sincerely, Ophelia Ybarra DO, FACOS Breast Surgical Oncologist Office Office fax: [phone] Pager: [phone] CC: Patient Care Team: Miguel Angel Bhat MD as PCP - General (Family Medicine) Cinthya Pizarro CNP as PCP - CMS Attributed Provider Miguel Angel Bhat MD (Family Medicine) Nidhi Braun MD as Consulting Physician (Obstetrics/Gynecology) ERNESTINA Husain as Tube Station Attendant (Oncology) Note: This dictation was generated using [employer] voice recognition software. Please excuse any grammatical or spelling errors that may have occurred using the system. documented in this encounter [facility] 11-22-2020 Instructions Marjorie Ramirez MA - 11/22/2020 3:00 PM EDT I am Dr Ybarra's Science Editor, Please feel free to call me [phone] or send [employer] message with any questions or concerns. If you need [facility] paperwork completed please fax to [phone]. It was Great to see you today, Stay SafeMarjorie CMA (AACA) [facility] is pleased to present our Cancer Prevention and Wellness Series This series will be livestreamed. The [facility] Cancer Prevention and Wellness series will be led by Dr. Ophelia Ybarra, a breast surgeon at [facility] and a breast cancer survivor herself. Whether you are a cancer survivor or someone who has not experienced cancer, this series is for anyone looking for ways to understand and reduce your personal risk of cancer and increase your overall wellness. Each session will include a presentation by Dr. Ybarra and her guests, followed by an opportunity to ask questions to our experts. Dr. Ophelia Ybarra [facility] Breast Surgeon Ophelia Ybarra DO, FACOS, a board-certified surgeon and MD [facility] certified physician, practices at certified hospitals, [facility], [facility], [facility] and [facility] Dr. Ybarra is the assistant research scientist of the breast surgery fellowship at [facility] [facility]. She completed her residency in general surgery at [facility] and her fellowship in breast surgery at [facility]. Event Topics and Dates: Screening and Prevention September 26, 2020 Breast Cancer and Diversity January 24, 2021 5:30 to 6:30 p.m. How to Know if You re High Risk for Cancer May 09, 2021, 5:30 to 6:30 p.m. [place] today at [employer] For more information or questions, please contact Marjorie Travis at [phone] or [email or web address] Did you miss an event? View by visiting [email or web address] The new [facility] Cancer [facility] Newsletter provides support by delivering relevant content directly to our patients and survivors on topics of their interest. Whether they are newly diagnosed, in active treatment, or living as a survivor, this is one more way for [facility] to support patients throughout their cancer care journey. Please visit the link below to sign up for the newsletter. [email or web address] documented in this encounter [facility] documented in this encounter [facility] Diagnosis Wound infection- Primary Posttraumatic wound infection not elsewhere classified Breast wound, left, initial encounter Malignant 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, estrogen receptor positive ([facility]CC[facility], left, subsequent encounter- Primary Wound infection Posttraumatic wound infection not elsewhere classified [facility] Diagnosis Breast wound, left, subsequent encounter- Primary Wound infection Posttraumatic wound infection not elsewhere classified [facility] Diagnosis Breast wound, left, subsequent encounter- Primary Wound infection Posttraumatic wound infection not elsewhere classified Hypergranulation [facility] Diagnosis Hypergranulation- Primary Breast wound, left, subsequent encounter Wound infection Posttraumatic wound infection not elsewhere classified [facility] Diagnosis Breast wound, left, subsequent encounter- Primary Hypergranulation Wound infection Posttraumatic wound infection not elsewhere classified [facility] Diagnosis Breast wound, left, subsequent encounter- Primary Hypergranulation Wound infection Posttraumatic wound infection not elsewhere classified [facility] Diagnosis Surgical wound, non healing, initial encounter- Primary [facility] Diagnosis Open chest wound, left, sequela- Primary [facility] Diagnosis Malignant 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, estrogen receptor positive (HCC)- Primary History of bilateral mastectomy Acquired absence of breast and nipple Family history of malignant neoplasm of breast documented in this encounter [facility] for visit Narrative* Auth/Cert Specialty Diagnoses / Procedures Referred By Bud damon Referred To Contact Diagnoses Surgical wound, non healing, initial encounter Breast wound Referral ID Status Reason Start Date Expiration Date Visits Re quested Visits Authorized [id number] 1 1 [facility] Assessments Diagnosis 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 syndrome Compression of vein Diagnosis Varicose veins of both lower extremities with complications Diagnosis Varicose veins of both lower extremities with complications - Primary Lipodermatosclerosis Other specified hypertrophic and atrophic condition of skin Diagnosis Preop examination - Primary Unspecified pre-operative examination Thickened endometrium Nonspecific (abnormal) findings on radiological and other examination of genitourinary organs Essential hypertension Unspecified essential hypertension Diagnosis Varicose veins of both lower extremities with complications - Primary Diagnosis Lymphedema - Primary Other noninfectious lymphedema May-Thurner syndrome Compression of vein Lipodermatosclerosis Other specified hypertrophic and atrophic condition of skin Edema of right lower extremi ty Diagnosis Varicose veins of both lower extremities with complications Diagnosis Varicose veins of both lower extremities with complications - Primary Cellulitis and abscess of ri ght lower extremity PAD (peripheral artery disea se) ([facility]) Unspecified peripheral vascular disease Diagnosis Lipodermatosclerosis - Prima ry Other specified hypertrophic and atrophic condition of skin Varicose veins of both lower extremities with complications Atrophie joyce Striae atrophicae Diagnosis Varicose veins of both lower extremities with complications Diagnosis Tendonitis, Achilles, right Laceration of right Achilles tendon, initial encounter Calcaneal spur of right foot Right foot pain Pain in soft tissues of limb Diagnosis Acute Deep venous thrombosis (DVT) of right peroneal vein - Primary Acute deep vein thrombosis ( DVT) of tibial vein of right lower extremity Diagnosis Skin ulcer of right heel with fat layer exposed ([facility])- Primary Swelling, limb Swelling of limb Diabetic ulcer of right heel associated with type 2 diabetes mellitus, with fat layer exposed (HCC) Diagnosis Lymphedema- Primary Other noninfectious lymphedema Acute deep vein thrombosis (DVT) of tibial vein of right lower extremity (HCC) Varicose veins of both lower extremities with complications Diagnosis History of DVT (deep vein thrombosis)- Primary Varicose veins of both lower extremities with complications Lymphedema Other noninfectious lymphedema Edema of right lower extremity Diagnosis Preop examination- Primary Unspecified pre-operative examination Postmenopausal bleeding Essential hypertension Unspecified essential hypertension Hyperlipidemia, unspecified hyperlipidemia type Diabetes mellitus type 2 in obese (HCC) Type II or unspecified type diabetes mellitus without mention of complication, not stated as uncontrolled BMI 37.0-37.9, adult Diagnosis Pain- Primary Generalized pain Diagnosis Breast pain, right Diagnosis Lump or mass in breast Abnormal mammogram Abnormal mammogram, unspecified Family history of malignant neoplasm of breast Diagnosis Lump or mass in breast Abnormal mammogram Abnormal mammogram, unspecified Family history of malignant neoplasm of breast Diagnosis Mass of breast Diagnosis Post-operative pain Other acute postoperative pain Malignant neoplasm of central portion of right breast in female, estrogen receptor positive (HCC) Breast cancer, right (HCC) Diagnosis Malignant 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, estrogen receptor positive (HCC) Malignant neoplasm of central portion of right breast in female, estrogen receptor positive (HCC) Diagnosis Malignant 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, estrogen receptor positive (HCC) Diagnosis Malignant 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, estrogen receptor positive (HCC) Diagnosis Malignant 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, estrogen receptor positive (HCC) Pre-procedure lab exam Pre-procedural laboratory examination Diagnosis Malignant neoplasm of right female breast, unspecified estrogen receptor status, unspecified site of breast (HCC) Diagnosis Malignant neoplasm of right female breast, unspecified estrogen receptor status, unspecified site of breast (HCC)- Primary Diagnosis Malignant neoplasm of right breast in female, estrogen receptor positive, unspecified site of breast (HCC)- Primary Diagnosis Malignant neoplasm of right breast in female, estrogen receptor positive, unspecified site of breast (HCC)- Primary Diagnosis Malignant neoplasm of right breast in female, estrogen receptor positive, unspecified site of breast (HCC)- Primary Malignant 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, estrogen receptor positive (HCC) Diagnosis Malignant neoplasm of overlapping sites of left female breast, unspecified estrogen receptor status (HCC) Localized swelling of right upper extremity Diagnosis Malignant 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, estrogen receptor positive (HCC) History of bilateral mastectomy Acquired absence of breast and nipple Family history of malignant neoplasm of breast Diagnosis Stress- Primary Other psychological or physical stress, not elsewhere classified Diagnosis Preop testing Unspecified pre-operative examination History of right breast cancer Preoperative cardiovascular examination Pre-operative cardiovascular examination Essential hypertension Unspecified essential hypertension Hyperlipidemia, unspecified hyperlipidemia type Peripheral vascular disease (HCC) Unspecified peripheral vascular disease Type 2 diabetes mellitus without complication, without long-term current use of insulin (HCC) GERD without esophagitis Esophageal reflux Depression, unspecified depression type Anxiety Anxiety state, unspecified KAYLIE (obstructive sleep apnea) Obstructive sleep apnea (adult) (pediatric) History of DVT (deep vein thrombosis) Anemia, unspecified type Diagnosis Preop testing Unspecified pre-operative examination Diagnosis Pancreatic cyst Cyst and pseudocyst of pancreas Diagnosis Malignant 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, estrogen receptor positive (HCC)- Primary Family history of malignant neoplasm of breast Malignant 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, estrogen receptor positive (HCC) Diagnosis Malignant 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, estrogen receptor positive (HCC)- Primary Family history of malignant neoplasm of breast History of bilateral mastectomy Acquired absence of breast and nipple Malignant 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, estrogen receptor positive (HCC) Diagnosis Malignant 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, estrogen receptor positive (HCC) Family history of malignant neoplasm of breast Malignant 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, estrogen receptor positive (HCC)- Primary Diagnosis Malignant neoplasm of central portion of left female breast, unspecified estrogen receptor status (HCC) Diagnosis Malignant 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, estrogen receptor positive (HCC)- Primary Family history of malignant neoplasm of breast Malignant 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, estrogen receptor positive (HCC) Diagnosis Malignant 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, estrogen receptor positive (HCC) Family history of malignant neoplasm of breast Instructions * Patient Instructions - Jason Chin RN - 11/21/2017 9:28 AM EDT It is important to walk every day. At least 1 hour a day can be broken down into 10-20 minute intervals. Moving the legs helps prevent blood clots. Do not stand or sit for longer than an hour at one time. First 48 hours: DO NOT remove the bandages and compression stockings applied. DO NOT take a bath or shower. Keep bandages dry. At 48 hours remove the bandages and continue to wear the thigh-high compression stockings. First 7 days: DO NOT participate in strenuous exercise. First 14 days: Wear the thigh-high compression stockings day and night. First 28 days: Walk everyday No sitting for a long stretches of time, such as long car rides or plane rides. Note: Wear the length of compression stocking that your doctor prescribes. Do not stop wearing it without talking to your doctor. You may experience some temporary soreness following the procedure, which can be treated by using llbz-qgh-seuszhw (non-aspirin) pain relievers like Tylenol, Advil or Aleve. An ice pack directly overthe wound will reduce swelling, bruising, and pain over the first few days. Signs/Symptoms of infection: If you have any fever, chills, nausea, vomiting or increased odor, drainage, pain or redness to thewound, call [facility] at [phone]. If after hours, contactyour family physician or go to the Emergency Room. Edema Control Instructions: Elevate legs above the level of your heart whenever you are sitting. Avoid standing for long periods and do not sit with your legs dangling. Apply compression stocking(s) every morning as soon as you get up. Remove at bedtime unless instructed to wear day and night. Hand wash and line dry to prevent loss of elasticity. Replace every 3-4 months to ensure proper fit. Diet: Increase the lean protein in your diet. Foods high in protein are lean cuts of meat, fish, dairy foods, peanut butter and eggs. Limit your salt/sodium. Choose fresh fruits, vegetables and lean cuts of meat. Do not add salt to food during or after cooking. Season food with herbs and spices instead of salt. Avoid salty snacks, fast foods, deli meats and pre- packaged foods. Read food labels carefully. If you are diabetic, check your blood sugar every morning before eating. Keep regular appointments with your primary physician to monitor your diabetes. Follow your diabetic diet carefully. Tobacco Use: No smoking or tobacco products because they can slow or even stop wound healing. Return Appointment: Should you experience any significant changes in your wound(s) or have any questions regarding your home care instructions please contact [facility] at [phone]. If after hours, contact your primary care physician or go to the hospital emergency room. Please call 24 hours prior to your scheduled appointment if you need to cancel or reschedule. in this encounter* Patient Instructions - Sofia Stroud RN - 11/17/2017 9:21 AM EDT We will send Dr. Duke's note from today's procedure to your fundraiser. Dr. Duke does not recommend a biopsy of your right ankle, where the atrophy sofy is located. It is important to walk every day. At least 1 hour a day can be broken down into 10-20 minute intervals. Moving the legs helps prevent blood clots. Do not stand or sit for longer than an hour at one time. First 48 hours: DO NOT remove the bandages and compression stockings applied. DO NOT take a bath or shower. Keep bandages dry. At 48 hours remove the bandages and continue to wear the thigh-high compression stockings. First 7 days: DO NOT participate in strenuous exercise. First 14 days: Wear the thigh-high compression stockings day and night. First 28 days: Walk everyday No sitting for a long stretches of time, such as long car rides or plane rides. Note: Wear the length of compression stocking that your doctor prescribes. Do not stop wearing it without talking to your doctor. You may experience some temporary soreness following the procedure, which can be treated by using hyze-xxf-sdxpcno (non-aspirin) pain relievers like Tylenol, Advil or Aleve. An ice pack directly overthe wound will reduce swelling, bruising, and pain over the first few days. Signs/Symptoms of infection: If you have any fever, chills, nausea, vomiting or increased odor, drainage, pain or redness to thewound, call [facility] at [phone]. If after hours, contactyour family physician or go to the Emergency Room. Edema Control Instructions: Elevate legs above the level of your heart whenever you are sitting. Avoid standing for long periods and do not sit with your legs dangling. Apply compression stocking(s) every morning as soon as you get up. Remove at bedtime unless instructed to wear day and night. Hand wash and line dry to prevent loss of elasticity. Replace every 3-4 months to ensure proper fit. Diet: Increase the lean protein in your diet. Foods high in protein are lean cuts of meat, fish, dairy foods, peanut butter and eggs. Limit your salt/sodium. Choose fresh fruits, vegetables and lean cuts of meat. Do not add salt to food during or after cooking. Season food with herbs and spices instead of salt. Avoid salty snacks, fast foods, deli meats and pre- packaged foods. Read food labels carefully. If you are diabetic, check your blood sugar every morning before eating. Keep regular appointments with your primary physician to monitor your diabetes. Follow your diabetic diet carefully. Tobacco Use: No smoking or tobacco products because they can slow or even stop wound healing. Return Appointment: Should you experience any significant changes in your wound(s) or have any questions regarding your home care instructions please contact [facility] at [phone]. If after hours, contact your primary care physician or go to the hospital emergency room. Please call 24 hours prior to your scheduled appointment if you need to cancel or reschedule. in this encounter* Patient Instructions - Jose Cross RN - 10/09/2017 9:40 AM EST If you have any questions or concerns please call Dr Duke's Emt I/99: Jose RUDD at [phone]. HOLD YOUR METFORMIN 48 hrs before and after the CT Will be called with the results and follow up office visit based on the findings. in this encounter* Patient Instructions - Teresita Rodriguez RN - 09/17/2017 3:40 PM EST Paper Rx given for thigh high right leg compression stocking 20--30mm Hg. Your physician has decided that you will benefit from compression socks. The compression socks are important because: 1) The compression on the veins causes damaged vein valves to work in a more normal fashion by pressing them back together. 2) The socks will help relieve pain, aching, heaviness and swelling in your legs. 3) The socks help to prevent venous ulcers and blood clots. Compression socks are snug and take some time to get used to if you have never worn them before. Increase the amount of time you wear them slowly each day until you are comfortable- this may take 2-3weeks. Put socks on first thing in the morning and remove at bedtime. The compression socks must be measured and fitted, and must be purchased from a Medical Supply store. Compression socks must be replaced every 90-120 wears, after that the elastic will no longer give the needed compression. 1[facility] [phone] [place], [place] [facility] [phone] [place], [place] [facility] [phone] [address] [place], [place] [phone] [address] [place], [place] [phone] [facility] [place], [place] [phone] [place], [place] [facility] [phone] [facility] [phone] [address] [facility] [phone] option 3, (Park in Yellow Lot) [facility] [phone] [address] [place], [place] WILFREDO: [employer] [facility] [place] [employer] Websites: http://Evento [email or web address].Jaxtr [email or web address].[email or web address].com [email or web address].Yicha Online [email or web address] [email or web address].iMeigu http://www.cepcompression.com Sport socks in this encounter* Patient Instructions - Sofia Stroud RN - 01/09/2018 9:50 AM SHREYA Mendes CNP is sending a referal to Dr. Velasquez, color coater, for your right foot pain. You can expect a call from his office by next week. A small portion of your vein did not seal and Cinthay is recommending a touch up treatment. Please call our clinic when you are ready to schedule the Sclero foam treatment. You can reach [facility] [phone]. Edema Control Instructions: Elevate legs above the level of your heart whenever you are sitting. Avoid standing for long periods and do not sit with your legs dangling. Apply compression stocking(s) every morning as soon as you get up. Remove at bedtime unless instructed to wear day and night. Hand wash and line dry to prevent loss of elasticity. Replace every 3-4 months to ensure proper fit. in this encounter* Patient Instructions - Migdalia Mcgill RN - 07/31/2018 4:[address] Velasquez put sutures in your right heel wound today Wear Rooke boot to keep pressure off heels while in bed or in a chair. You may use this boot when walking. LEAVE DRESSINGS IN PLACE UNTIL NEXT CLINIC VISIT Edema Control Instructions: Elevate legs above the level of your heart whenever you are sitting. Avoid standing for long periods and do not sit with your legs dangling. Multilayer Compression Wrap Profore 4 layer wrap to Right leg(s) This wrap stays on for one week and will be removed at next week's appointment. Do not get this leg wet. If you notice extreme pain ofwrapped leg, or you notice your toes are becoming pale or bluish colored, remove wrap at once and call [facility] at [phone]. If you need to cancel your follow up appointment please remove wrap after 10 days to prevent complications. Watch for bleeding. If your wound continues to bleed after your appointment, apply direct pressure to the wound with a clean cloth or dressing for 10-20 minutes. If the bleeding does not stop, call [facility] at [phone] or go to the Emergency Room. Signs/Symptoms of infection: If you have any fever, chills, nausea, vomiting or increased odor, drainage, pain or redness to thewound, call [facility] at [phone]. If after hours, contactyour family physician or go to the Emergency Room. Diet: Increase the lean protein in your diet. Foods high in protein are lean cuts of meat, fish, dairy foods, peanut butter and eggs. Limit your salt/sodium. Choose fresh fruits, vegetables and lean cuts of meat. Do not add salt to food during or after cooking. Season food with herbs and spices instead of salt. Avoid salty snacks, fast foods, deli meats and pre- packaged foods. Read food labels carefully. Tobacco Use: No smoking or tobacco products because they can slow or even stop wound healing. Return Appointment: Should you experience any significant changes in your wound(s) or have any questions regarding your home care instructions please contact [facility] at [phone]. If after hours, contact your primary care physician or go to the hospital emergency room. Please call 24 hours prior to your scheduled appointment if you need to cancel or reschedule. in this encounter* Patient Instructions* Jose Cross RN - 09/29/2018 1:07 PM EST If you have any questions or concerns please call Cinthya Pizarro CNP/ Dr Duke's Emt I/99: Jose RN at [phone]. Apply Surepress to the right leg. Stretch the wrap till the yellow rectangles become squares. Wrap up the leg at the same pressure, with a 50% overlap, to the yellow line. Loosely wrap the top portion and tape. in this encounter* Patient Instructions* Harlan Gutierrez DO - 01/07/2019 1:59 PM EDT Preoperative Medication Instructions In preparation for surgery please continue all of your current medications with the following changes: Beulah Fields Home Medication Instructions Prior to Surgery YUMIKO:[id number] Printed on:01/07/19 9518 Medication Information Take last dose on Take the morning of surgery Comment(s) aspirin 81 MG EC tablet Take 81 mg by mouth daily . 01/06/19 cholecalciferol, vitamin D3, (D3-2000) 2,000 unit cap Take 2,000 Units by mouth daily . 01/06/19 escitalopram oxalate (LEXAPRO) 10 MG tablet Take 5 mg by mouth nightly . no levothyroxine (SYNTHROID, LEVOTHROID) 112 MCG tablet Take 112 mcg by mouth every morning . yes losartan (COZAAR) 25 MG tablet Take 25 mg by mouth nightly . 01/12/19 melatonin 5 mg Tab Take 5 mg by mouth nightly as needed . 01/06/19 metFORMIN (GLUMETZA) 500 MG (MOD) 24 hr tablet Take 500 mg by mouth 2 (two) times a day with meals . 01/12/19 multivitamin (multivitamin) per tablet Take 1 tablet by mouth nightly . 01/06/19 omeprazole (PRILOSEC) 20 MG capsule Take 20 mg by mouth daily as needed . Yes if needed rosuvastatin (CRESTOR) 20 MG tablet Take 20 mg by mouth nightly . no spironolactone (ALDACTONE) 25 MG tablet Take 12.5 mg by mouth nightly . no Please take your evening medications as usual on the evening prior to surgery. STOP Aspirin (and medications that contain aspirin, such as Summer Wagner, Pepto- Bismol, Anacin), antiinflammatory medications such as Advil, Motrin, Ibuprofen, Naproxen, Aleve, Summer Wagner, Pepto-Bismol, Anacin, Diclofenac, Voltaren, Daypro, Etodolac, Ketoprofen, Meloxicam, Piroxicam, Relafen, Nabumetone, etc. Also discontinue Vitamin C, Vitamin E, Sigel-3 Fatty Acid, Fish Oil or Lovaza, as wellas all herbal medications and supplements. Take last dose on 01/06/2019. Tylenol (acetaminophen) is acceptable, but be careful to follow the label directions. On the morning of surgery, with a small amount of water, take ONLY the medications listed above in the column Take the morning of surgery. If you are using Eye Drops or Inhalers, please bring them to the hospital. If you have sleep apnea and have a CPAP/BIPAP device, please bring it with you on the day of surgery. documented in this encounter* Patient Instructions* Leni Elise RN - 09/07/2019 1:17 PM EST Ultrasound-Guided Breast Biopsy: Ultrasound-guided breast biopsy is a procedure done to remove samples of breast tissue. This breast tissue is examined in the laboratory for signs of disease. To Prepare for Your Biopsy: Please arrive 30 minutes before the time of your biopsy This procedure takes about 45 to 60 minutes for each site being biopsied. Avoid aspirin or aspirin-like drugs, such as Motrin , Advil , or Aleve for one week before the biopsy. Check with your doctor about taking prescription medicines. Wear a sports bra or a tight bra. Eat a light meal before your biopsy. Before the biopsy, you will undress from the waist up and put on a hospital gown, so wear a two-piece outfit. If you might be , tell the technologist before the procedure begins. What to Expect: During the biopsy, you will lie on an ultrasound table. You must lie still during the procedure. The flight operations engineer places warm gel on your breast and uses a scanner to locate the area to be biopsied. The doctor will numb the site with a numbing medicine. Once your breast is numb, a small mari about 1/8 to inch is made in the skin and the samples of tissue are removed using a hollow needle. The site of the biopsy may then be marked with a very small, safe, permanent clip. You will not be able to feel the clip once it is placed in your breast. After the Biopsy: We will apply pressure over the biopsy site for a few minutes to stop any bleeding, and then apply steri-strips, which are strips of paper-like tape on the skin incision. Remove the steri-strips after five days, if they are still on. If irritation occurs before five days, you may remove the strips and apply a band-aid. Any bruising that occurs at the biopsy site should fade in one to two weeks. We will apply an ice pack to the biopsy site inside your bra before you leave. At home, apply an ice pack to your breast to relieve swelling and reduce bruising. Apply ice for 20 minutes at a time, with a 30 minute break in between. Do not apply ice directly toyour skin. You may take Tylenol for discomfort. Do not take aspirin or aspirin-like drugs, such as Motrin , Advil , or Aleve . You may shower 24 hours after your biopsy. Avoid strenuous activity and lifting . Do not lift anything over 5 pounds for 24 hours after the biopsy. Otherwise, you may resume normal activities as long as you are feeling well. Wear a tight bra after the biopsy and to bed the first night. Call your doctor if you have: Bleeding or drainage from the biopsy site Excess swelling, redness or warmth at the biopsy site Pain that is not relieved by your normal pain medication Biopsy Results Your doctor will have the biopsy results within three to four business days. Call your Doctor (breast surgeon) if you have not received the results within that time. For more information, contact your breast health nurse. You may call your surgeon at any time. documented in this encounter* Patient Instructions* Hafsa Burgess CNS - 05/16/2020 12:23 PM EDT [facility] [phone] Nutrition (Claudette Zamora RD) Personal Goals: Follow plant-based diet - 80% plant, 20% animal Choose organic dairy, poultry, etc whenever possible Dirty Dozen - try to buy these fruits/veggies organic when possible Pair carbohydrate + protein source for better blood sugar control Add calcium citrate supplement - take in morning (away from multivitamin) 2019 [employer] Guideline on Diet and Physical Activity for Cancer Prevention Recommendations for individuals 1. Achieve and maintain a healthy body weight throughout life. Keep body weight within the healthy range and avoid weight gain in adult life. 2. Be physically active. Adults should engage in 150-300 min of moderate-intensity physical activity per wk, or 75-150 min of vigorous-intensity physical activity, or an equivalent combination; achieving or exceeding the upper limit of 300 min is optimal. Limit sedentary behavior, such as sitting, lying down, and watching television, and other forms of screen-based entertainment. 3. Follow a healthy eating pattern at all ages. A healthy eating pattern includes: ?Foods that are high in nutrients in amounts that help achieve and maintain a healthy body weight; ?A variety of vegetables dark green, red, and orange, fiber-rich legumes (beans and peas), and others; ?Fruits, especially whole fruits with a variety of colors; and?Whole grains. A healthy eating pattern limits or does not include:?Red and processed meats. ?Sugar-sweetened beverages. ?Highly processed foods and refined grain products. 4. It is best not to drink alcohol. People who do choose to drink alcohol should limit their consumption to no more than 1 drink per day for women and 2 drinks per day for men. documented in this encounter* Patient Instructions* Jordon Ballard MD - 09/21/2019 2:10 PM EST If your surgery date changes or you change your surgery date, please call us at [phone] Preoperative Medication Instructions In preparation for surgery please continue all of your current medications with the following changes: Beulah Fields Home Medication Instructions Prior to Surgery YUMIKO:[id number] Printed on:09/21/19 1410 Medication Information Take last dose on Take the morning of surgery Comment(s) aspirin 81 MG EC tablet Take 81 mg by mouth every morning Reasons: treatment to prevent a heart attack. STOP NOW cholecalciferol, vitamin D3, (D3-2000) 2,000 unit cap Take 2,000 Units by mouth every evening Reasons: supplement. escitalopram oxalate (LEXAPRO) 10 MG tablet Take 10 mg by mouth at bedtime Reasons: anxiousness associated with depression. levothyroxine (SYNTHROID, LEVOTHROID) 112 MCG tablet Take 112 mcg by mouth every morning Reasons: a condition with low thyroid hormone levels. losartan (COZAAR) 25 MG tablet Take 25 mg by mouth at bedtime Reasons: high blood pressure. metFORMIN (GLUCOPHAGE-XR) 500 MG 24 hr tablet Take 500 mg by mouth 2 (two) times a day Reasons: type 2 diabetes mellitus. multivitamin (multivitamin) per tablet Take 1 tablet by mouth every evening Reasons: treatment to prevent vitamin deficiency. naproxen sodium (ALEVE) 220 MG tablet Take 220 mg by mouth 2 (two) times a day as needed Reasons: pain. STOP NOW omeprazole (PRILOSEC) 20 MG capsule Take 20 mg by mouth daily as needed . rosuvastatin (CRESTOR) 20 MG tablet Take 1 tablet by mouth every evening Reasons: high cholesterol. spironolactone (ALDACTONE) 25 MG tablet Take 12.5 mg by mouth at bedtime Reasons: high blood pressure, 1/2 tablet (12.5 mg). 144/76 STOP antiinflammatory medications such as Advil, Motrin, Ibuprofen, Naproxen, Aleve, Summer Wagner, Pepto-Bismol, Anacin, Diclofenac, Voltaren, Daypro, Etodolac, Ketoprofen, Piroxicam, Relafen, Nabumetone, etc. Also discontinue Vitamin C, Vitamin E, Sigel-3 Fatty Acid, Fish Oil or Lovaza, and all herbal medications. STOP medications on STOP NOW Tylenol (acetaminophen) is acceptable, but be careful to follow the label directions and do not usewith other pain medications. It is acceptable to continue a Magnesium, Potassium, Iron supplement, Vitamin D, Calcium, or Vitamin B if you were already taking them. On the morning of surgery, ONLY take the medications listed above in the column Take the morning of surgery. If you are using Eye Drops or Inhalers at home, please bring them to the hospital. If you have sleep apnea and have a CPAP/BIPAP device, please bring it with you the day of surgery. documented in this encounter* Patient Instructions* Leni Elise RN - 09/07/2019 3:05 PM EST Ultrasound-Guided Breast Biopsy: Ultrasound-guided breast biopsy is a procedure done to remove samples of breast tissue. This breast tissue is examined in the laboratory for signs of disease. To Prepare for Your Biopsy: Please arrive 30 minutes before the time of your biopsy This procedure takes about 45 to 60 minutes for each site being biopsied. Avoid aspirin or aspirin-like drugs, such as Motrin , Advil , or Aleve for one week before the biopsy. Check with your doctor about taking prescription medicines. Wear a sports bra or a tight bra. Eat a light meal before your biopsy. Before the biopsy, you will undress from the waist up and put on a hospital gown, so wear a two-piece outfit. If you might be , tell the technologist before the procedure begins. What to Expect: During the biopsy, you will lie on an ultrasound table. You must lie still during the procedure. The flight operations engineer places warm gel on your breast and uses a scanner to locate the area to be biopsied. The doctor will numb the site with a numbing medicine. Once your breast is numb, a small mari about 1/8 to inch is made in the skin and the samples of tissue are removed using a hollow needle. The site of the biopsy may then be marked with a very small, safe, permanent clip. You will not be able to feel the clip once it is placed in your breast. After the Biopsy: We will apply pressure over the biopsy site for a few minutes to stop any bleeding, and then apply steri-strips, which are strips of paper-like tape on the skin incision. Remove the steri-strips after five days, if they are still on. If irritation occurs before five days, you may remove the strips and apply a band-aid. Any bruising that occurs at the biopsy site should fade in one to two weeks. We will apply an ice pack to the biopsy site inside your bra before you leave. At home, apply an ice pack to your breast to relieve swelling and reduce bruising. Apply ice for 20 minutes at a time, with a 30 minute break in between. Do not apply ice directly toyour skin. You may take Tylenol for discomfort. Do not take aspirin or aspirin-like drugs, such as Motrin , Advil , or Aleve . You may shower 24 hours after your biopsy. Avoid strenuous activity and lifting . Do not lift anything over 5 pounds for 24 hours after the biopsy. Otherwise, you may resume normal activities as long as you are feeling well. Wear a tight bra after the biopsy and to bed the first night. Call your doctor if you have: Bleeding or drainage from the biopsy site Excess swelling, redness or warmth at the biopsy site Pain that is not relieved by your normal pain medication Biopsy Results Your doctor will have the biopsy results within three to four business days. Call your Doctor (breast surgeon) if you have not received the results within that time. For more information, contact your breast health nurse. You may call your surgeon at any time. documented in this encounter* Patient Instructions* Marjorie Ramirez MA - 10/23/2020 2:05 PM EDT I am Dr Ybarra's Science Editor, Please feel free to call me [phone] or send [employer] message with any questions or concerns. If you need [facility] paperwork completed please fax to [phone]. It was Great to see you today, Stay Safe, JAI Amador (AACA) documented in this encounter Discharge Instructions * Discharge Instr - Other Orders - Yuly Curry RN - 11/27/2017 8:31 AM EDT No advil/ibuprofen until 2pm. Ok to take tylenol now After Surgery and Anesthesia You must have an adult drive you home from the hospital and stay with you for [address], operate machinery, cook or return to work for 24 hours or a as directed by your surgeon Do not make important personal or legal decisions or sign legal forms for 24 hours General anesthesia you may have a dry, raspy or scratchy throat. Throat lozenges or gargles may give relief Resume home medications Diet & Bowel Activity Begin with clear liquids and light foods, such as jello, lemon togiak soda, jailene lola. Progress to your normal diet if you are not nauseated No alcoholic beverages for 24 hours after surgery or while you are taking prescription pain medicine. If you have diabetes, check with your family doctor about your diet and medicine To help avoid constipation, eat a high fiber diet and drink 6-8 glasses of water each day. Stool softeners or a mild laxative may be needed if you do not have a bowel movement within 3 days of your surgery. Call your doctor for more instructions or pharmacist Activity Limit your activity for the first 24 hours. You may feel dizzy and tired from anesthesia. Be careful as you walk or climb stairs. If you have an incision, avoid activities that stress your incision Do not drive, return to work, play sports or do heavy activities until permitted by your doctor Incision care If you have a bandage on your incision, it may be removed 24 hours after surgery unless instructed otherwise by your doctor. You may shower after 24 hours. You may let water run over your incision but don t let it flow directly on the incision after your shower, pay your incision dry. If small paper-like strips are on your incision, do not remove the. You can shower with them on; pat them dry. They will either fall off or will be removed by your surgeon at your follow-up visit. If stitches/julianna are present, they will be removed in the office And ice bag may be used on the incisional site, or the point of pain unless your surgeons has said not to. Alternate use of ice (20 minutes of every hour) DO NOT place ice directly on the skin. Wrap in a thin towel. Call your surgeon right away if you have: Heavy or persistent bleeding Persistent nausea or vomiting lasting more than 6 hours Edges of incision Signs of infections: a fever over 101 degrees, increased swelling, redness, odor or drainage at theincision site Numbness, tingling, or color change of a leg or arm Trouble urinating within 8 hours or a feeling of fullness and unable to urinate Sudden, severe pain or pain not relieved by medication Questions or Concerns If you have chest pain, shortness of breath, difficulty breathing or swallowing call 911 The following attachments cannot be sent through Care Everywhere. * D AND C: POST-OP (KAZAKH) in this encounter* Discharge Instr - IP PHARMACY* Karyna Dowling CPhT - 01/14/2019 6:11 AM EDT There may be medications on your list that you were prescribed or previously taking but you said you are no longer taking. These medications may still be important for your health. Please discuss these with the person who prescribed the medication(s) to you. * Attachments The following attachments cannot be sent through Care Everywhere. * Hysterectomy: Vaginal: Post-op ([place]) documented in this encounter* Instructions* Saira Zeng, RADHA - 09/28/2019 Activity and Diet -You have received medications for anesthesia and you should not drive for 24 hours. -You may resume your normal diet, eliminating alcoholic beverages for 24 hours if you have receivedany medications during surgery or during any day you are taking pain medications. Incision Care -Bruising is common and should not be a problem. -You may shower starting tomorrow, if you remove your bandage but please don't tub bathe. -The incision is glued. Please do not apply any lotions etc to the incision. -Apply ice to the incision today (20 minutes on then 20 minutes off) -Wash the incision gently with your usual soap and water. You need NOT reapply another dressing. -If the incision is being irritated by your clothing, you may place a 4 x 4 gauze square against the incision. -Wear the surgery bra, day and night for the next 2 weeks, even to bed at night. HEALTHY LIFESTYLE INSTRUCTIONS -Eat a healthy balanced diet (low in salt and fat) or as instructed by your doctor -Walk as much as possible as instructed by your doctor, rest often, and avoid heavy work until yourdoctor gives the OK or follow activity recommendations from your doctor -Weigh yourself daily, if you have heart failure; call your doctor with a greater than 3 pound weight gain over 2 days -Take your medications EXACTLY as they are ordered and keep an updated list of medicines with you at all times. -Follow up with your doctor(s) as instructed. Call [phone] if you have: -Shortness of breath not relieved by rest or medication -Fainting or dizziness that does not go away -Chest pain or discomfort that is not relieved by rest or medication If you smoke, it is recommended that you quit. If you would like to quit smoking, contact the [facility] at 4-429-TLMF-NOW or speak with your primary care physician about tobacco cessation counseling and medications to help you stop smoking. Call Your Doctor If: -Your incision becomes red, swollen, starts bleeding -You have any signs of infection (fever, chills). -You have any questions or problems Please follow up with Dr. Ybarra in 2 weeks. Please call [phone] for an appointment if you don't have one already. DRAIN CARE You are going home with a drain or drains in place. The drain(s) will be removed in the office at follow up. Follow the directions you were given at the hospital to care for the drain(s). -Keep the area around the drain(s) clean and dry -DO NOT/ YOU MAY shower with the drains in place. -Keep the drain(s) pinned up on your clothing so the weight of the drain is not pulling at your skin. -Empty the drain(s) twice daily, more if the drain fills up. -After you empty the drain be sure to compress the bulb. This is what makes the drain work. Diabetes After Surgery: Care Instructions: If you have diabetes, having surgery can make your blood sugar go up. Having nausea from the anesthesia and/or pain medications can affect how much you eat; this can make your blood sugar go down. These things can be dangerous. Follow-up care is a becker part of your treatment and safety. Be sure to make and go to all appointments, and call your doctor if you are having problems. It's also a good idea to know your test resultsand keep a list of the medicines you take. How can you care for yourself at home? After surgery, your blood sugar can go up or down (depending on whether you can keep food down). Write down the diabetes medicines you have been taking. Eat your normal types and amounts of food. Drink extra fluids, such as water, broth, and fruit juice, to prevent dehydration. If your blood sugar level is higher than the blood sugar level your doctor recommends (for example,above 240 milligrams per deciliter [mg/dL]), drink extra liquids that do not contain sugar, such aswater or sugar-free cola. If you cannot eat your usual foods, drink extra liquids, such as soup, sports drinks, or milk. You may also eat food that is gentle on the stomach, such as crackers, gelatin dessert, or applesauce. Try to eat or drink 50 grams of carbohydrate every 3 to 4 hours. For example, 6 saltine crackers, 1 cup (8 ounces) of milk, and cup (4 ounces) of orange juice each contain about 15 grams of carbohydrate. Check your blood sugar at least every 3 to 4 hours. If it goes up quickly, check it more often. Andcheck it even through the night. Take insulin if your doctor told you to do so. Call him or her foradvice. If you take insulin, check your urine or blood for ketones. This is especially important if your blood sugar is high. Do not take any [id number] medicines, such as pain relievers, decongestants, or herbal products or other natural medicines, without talking with your doctor first. Do not drive. If you need to see your doctor or go anywhere else, ask a family member or friend to drive you. When should you call for help? Call 911 anytime you think you may need emergency care. For example, call if: You passed out (lost consciousness), or you suddenly become very sleepy or confused. (You may have very low blood sugar.) You have symptoms of high blood sugar, such as: Blurred vision. Trouble staying awake or being woken up. Fast, deep breathing. Breath that smells fruity. Belly pain, not feeling hungry, and vomiting. Feeling confused. Call your doctor now or seek immediate medical care if: You are sick and cannot control your blood sugar. You have been vomiting or have had diarrhea for more than 6 hours. Your blood sugar stays higher than the level your doctor has set for you. You have symptoms of low blood sugar, such as: Sweating. Feeling nervous, shaky, and weak. Extreme hunger and slight nausea. Dizziness and headache. Blurred vision. Confusion. Watch closely for changes in your health, and be sure to contact your doctor if: You have a hard time knowing when your blood sugar is low. You have trouble keeping your blood sugar in the target range. You often have problems controlling your blood sugar. You have symptoms of long-term diabetes problems, such as: New vision changes. New pain, numbness, or tingling in your hands or feet. Skin problems. Where can you learn more? Log into your personal health record on [email or web address] and enter L970 in the Education box to learn more about Diabetes Sick-Day Plan: Care Instructions. Current as of: December 25, 2015 Content Version: 11.0 5753-5912 [employer]. Care instructions adapted under license by your healthcare professional. If you have questions about a medical condition or this instruction, always ask your healthcare professional. [employer] disclaims any warranty or liability for your use of this information. Untreated sleep apnea is very dangerous, especially after surgery and when you are taking any kind of sedating medication, including the prescribed medication given to you after surgery. It can lead to a heart attack, stroke, and even sudden . Therefore, always wear your CPAP at night/w/naps, always sleep with your head elevated (not just with pillows; the actual bed must be elevated), avoidsedating medications and alcohol at bedtime, and take the least amount of the prescribed medicationfor the least amount of time possible. documented in this encounter Summary Purpose Family History No Family History Records FoundNo Family History Records FoundNo Family History Records FoundNo Family History Records FoundNo Family History Records FoundNo Family History Records FoundNo Family History Records FoundNo Family History Records FoundNo Family History Records FoundNo Family History Records FoundNo Family History Records Found Advance Directives No Advanced Directives Records FoundDocuments on File Type Date Recorded Patient Boat Camp Operator Expl anation Advance Directives and Livin g Will 01/07/2019 1:05 PM Documents on File Type Date Recorded Patient Boat Camp Operator Expl anation Advance Directives and Livin g Will 01/14/2019 5:40 AM Latest Code Status on File Code Status Date Activated Date Inactivated Comments Full Code 01/14/2019 9:37 AM Documents on File Type Date Recorded Patient Boat Camp Operator Expl anation Advance Directives and Livin g Will 09/03/2019 2:16 PM Advance Directives and Livin g Will 09/03/2019 5:40 AM Documents on File Type Date Recorded Patient Boat Camp Operator Expl anation Advance Directives and Livin g Will 09/07/2019 2:57 PM Advance Directives and Livin g Will 09/03/2019 5:40 AM Documents on File Type Date Recorded Patient Boat Camp Operator Expl anation Advance Directives and Livin g Will 09/07/2019 2:57 PM Advance Directives and Livin g Will 09/03/2019 5:40 AM Latest Code Status on File Code Status Date Activated Date Inactivated Comments Full Code 01/14/2019 9:37 AM Documents on File Type Date Recorded Patient Boat Camp Operator Expl anation Advance Directives and Livin g Will 09/28/2019 12:00 AM Latest Code Status on File Code Status Date Activated Date Inactivated Comments Full Code 09/28/2019 3:13 PM Full Code 01/14/2019 9:37 AM 09/28/2019 10:20 AM Documents on File Type Date Recorded Patient Boat Camp Operator Expl anation Advance Directives and Livin g Will 09/28/2019 12:00 AM Latest Code Status on File Code Status Date Activated Date Inactivated Comments Full Code 09/28/2019 3:13 PM Full Code 01/14/2019 9:37 AM 09/28/2019 10:20 AM Documents on File Type Date Recorded Patient Boat Camp Operator Expl anation Advance Directives and Livin g Will 08/17/2020 1:01 PM Documents on File Type Date Recorded Patient Boat Camp Operator Expl anation Advance Directives and Livin g Will 09/21/2019 2:57 PM Documents on File Type Date Recorded Patient Boat Camp Operator Expl anation Advance Directives and Livin g Will 03/22/2019 2:16 PM Advance Directives and Livin g Will 01/14/2019 5:40 AM Documents on File Type Date Recorded Patient Boat Camp Operator Expl anation Advance Directives and Livin g Will 08/17/2020 1:01 PM Latest Code Status on File Code Status Date Activated Date Inactivated Comments Full Code 11/07/2020 3:15 PM 11/07/2020 10:30 PM Full Code 09/28/2019 3:13 PM 11/07/2020 12:04 PM Latest Code Status on File Code Status Date Activated Date Inactivated Comments Full Code 11/07/2020 3:15 PM 11/07/2020 10:30 PM Full Code 09/28/2019 3:13 PM 11/07/2020 12:04 PM Documents on File Type Date Recorded Patient Boat Camp Operator Expl anation Advance Directives and Livin g Will 04/23/2021 2:35 PM Latest Code Status on File Code Status Date Activated Date Inactivated Comments Full Code 04/23/2021 8:42 PM 04/27/2021 1:36 PM Full Code 11/07/2020 3:15 PM 11/07/2020 10:30 PM Documents on File Type Date Recorded Patient Boat Camp Operator Expl anation Advance Directives and Livin g Will 04/23/2021 2:35 PM Latest Code Status on File Code Status Date Activated Date Inactivated Comments Full Code 04/23/2021 8:42 PM 04/27/2021 1:36 PM Full Code 11/07/2020 3:15 PM 11/07/2020 10:30 PM Latest Code Status on File Date Activated Date Inactivated Comments 04/23/2021 8:42 PM 04/27/2021 1:36 PM Full Code Date Activated Date Inactivated Comments 11/07/2020 3:15 PM 11/07/2020 10:30 PM Full Code Date Activated Date Inactivated Comments 09/28/2019 3:13 PM 11/07/2020 12:04 PM Full Code Date Activated Date Inactivated Comments 01/14/2019 9:37 AM 09/28/2019 10:20 AM History of Present Illness * Mehran Velasquez Jr., [facility] - 08/06/2018 6:10 AM EST Formatting of this note may be different from the original. Chief complaint: Right posterior heel ulcer Subjective: Beulah Fields is a 72 y.o. female who presents for evaluation of a foot ulcer. Dictation on: 08/06/2018 6:11 AM by: MEHRAN VELASQUEZ [[id number]] Denies fever, chills, nausea, vomiting, chest pain, shortness of breath, calf or thigh pain. No other complaints. The following portions of the patient's history were reviewed and updated as appropriate: allergies, current medications, past family history, past medical history, past social history, past surgicalhistory and problem list. Review of Systems Pertinent items are noted in HPI. Objective: BP 134/83 Pulse (!) 56 Temp 97.8 F (36.6 C) (Oral) Resp 16 General: alert, appears stated age, cooperative and moderately obese Dictation on: 08/06/2018 6:12 AM by: MEHRAN VELASQUEZ [[id number]] Assessment/Plan: Dictation on: 08/06/2018 6:15 AM by: MEHRAN VELASQUEZ [[id number]] Ok to remove dressings for vascular medicine appt and re apply compression. Prophylactic antibiotics given procedure. Patient instructed with any signs of infection or complication to call office immediately and/or present to nearest emergency department. Mehran Velasquez DPM, [facility] Foot and Reconstructive Rearfoot Ankle Surgeon Dictated but not necessarily proof read. Subject to errors of syntax and sound alike substitutions,please extrapolate contextual meaning as needed. * Mehran Velasquez Jr., DPM - 08/06/2018 6:09 AM EST Associated Order(s): DEBRIDEMENT WOUND CARE Post-Procedure Diagnose(s): Skin ulcer of right heel with fat layer exposed (HCC) Wound Care Debridement Timeout: Verbal Consent obtained?: Yes Written Consent obtained?: Yes Consent given by: Patient Immediately prior to procedure a time out was called to verify the correct patient, procedure, equipment, technical sales support specialist and site/side marked as required Timeout performed: 07/31/2018 4:09 PM Debridement Procedure: Debridement Performed for Assessment: 1 Performed by: Physician Debridement Type: Surgical Pain Control: 4% Lidocaine and Local % Injection Level: Skin/Subcutaneous Tissue Pre-Debridement Values: Length (cm): 1.5 Width (cm): 0.4 Depth (cm): 0.2 Area (sq cm): 0.6 Volume (cm3): 0.12 Post Debridement Measurements: Length (cm): 1.9 Width (cm): 0.9 Depth (cm): 0.2 Area (sq cm): 1.71 Volume (cm3): 0.34 Percent Debrided: 100 Total Area Debrided (sq cm): 1.71 Tissue and other material debrided: Subcutaneous Devitalized tissue debrided: Callus, Fibrin and Slough Instrument: Curette and Forceps Bleeding: Moderate Hemostasis Achieved: Pressure and Other Procedural Pain: 2 Post Procedural Pain: 4 Response to Treatment: Procedure was tolerated well * Migdalia Mcgill RN - 07/31/2018 5:03 PM EST Associated Order(s): MULTILAYER COMPRESSION DRESSING Post-Procedure Diagnose(s): Skin ulcer of right heel with fat layer exposed (HCC) Multi-layer Compression Wrap Performed by:: Clinician Bandage Type: Compression Compression Layers: Multi-layer Compression Product Type: Profore Regular Dressing Applied: Yes Dressing Type: Adaptic Extremity Location: Below Knee Profore 4 layer wrap applied to right leg. Sutures applied to wound by Dr. Velasquez, then endoform, then adaptic applied by Dr. Velasquez * Beulah Odonnell RN - 07/31/2018 3:57 PM EST in this encounter* Cinthya Pizarro CNP - 08/06/2018 1:50 PM EST Formatting of this note may be different from the original. VASCULAR MEDICINE CLINIC NOTE Patient Name: Beulah Fields MR #: [id number] : 1945 Physicians: Miguel Angel Bhat MD (Family); Miguel Angel Bhat* (Referring) Dear Miguel Angel Bhat MD, It was a pleasure seeing Beulah Fields who is a 72 y.o. female, being seen today on 08/06/2018 in the VASCULAR MEDICINE CLINIC, with a recent diagnosis of right lower extremity DVT. The patient is s/p Right AASV Varithena and Right distal GSV Varithena done on 11/17/17 She underwent right posterior heel surgery with Dr. Mehran Velasquez in May 2018 and subsequentlydeveloped a dehiscence. She was treated with prophylactic Lovenox injections for 21 days, accordingto the patient. Approximately 1 week after stopping the injections she began having pain in the area behind her knee and posterior calf, along with some redness. She was evaluated in the [place] [facility] and found to have an ACUTE Right posterior tibial and peroneal DVT on duplex. She was started on Eliquis and continues on it today. On July 23, 2018 she underwent additional vascular imaging which included ABIs and repeat venous duplex which showed no superficial or deep vein thrombosis. Dr. Velasquez has asked her to see us forrecommendations related to the need and duration for anticoagulation as there is some concern aboutthe possibility that the Eliquis can lead to increased drainage and wound healing complications. She has no prior history of VTE. ABIs 07/23/18 Conclusions Right ankle brachial index is normal. Toe pressure is 78 mmHg. Left ankle brachial index is normal. Toe pressure is 84 mmHg. No evidence of small vessel disease noted at the transmetatarsal level in the right foot. Toe brachial index is abnormal. No evidence of small vessel disease noted at the transmetatarsal level in the left foot. Toe brachial index is abnormal. RLE Duplex 07/23/18 Conclusions No evidence of deep or superficial vein thrombosis in the right lower extremity. Assessment and Plan: Varicose veins of both lower extremities with complications: Atrophie Joyce: Lipodermatosclerosis: DVT of RLE: She continues to do well from a procedure standpoint. Her primary issue today is her diagnosis of an acute right lower extremity DVT on 06/15/18 following her right heel surgery in May. According to the patient, she was aggressively prophylaxed following the procedure. However, she had what sounds like DVT symptoms about 1 week after stopping the prophylaxis. She is currently being treated with Eliquis 5mg BID and had been on this medication for about 6 weeks when the repeat duplex was done on 07/23/18 which showed no residual acute or chronic thrombus. I have requested a copy of the duplex performed on 06/15/18 to review and compare to our study. Once we have done this, we can provide our final recommendations. If this was an acute, provoked DVT, the recommendation would be 3 months of anticoagulation particularly in the setting of her immobilization. Perhaps longer if she continues to be immobilized in a [place]. If the original duplex study was over read or of poor quality to accurately diagnose the DVT, we may be able to stop the anticoagulation in the setting of the repeat study that was negative. All of this was explained in detail to both the patient and her . We will continue her Eliquis for now. We will also continue to hold off on any additional venous procedures at this time. The return to clinic visit is 3 months. It was a pleasure participating in the care of this patient. The note was dictated using Bloominous dictation system. The voice recognition software is inherently subject to errors including those of syntax and sound-alike substitutions which may escape proofreading. In such instances, original meaning may be extrapolated by contextual derivation. Cinthya Pizarro, DNP, [employer], ACNP- Physical Examination: Vital Signs: BP 138/85 (BP Location: Right arm, Patient Position: Sitting, BP Cuff Size: X- large Adult) Pulse 60 Ht 5' 6 Wt 106.6 kg (235 lb) BMI 37.93 kg/m Constitutional: Patient is oriented to person, place, and time. Body habitus - well developed and nourished Head: Normocephalic. Cardiovascular: Normal rate. Exam reveals no gallop and no friction rub. No murmur heard Pulses - DP- Right - 2/2; Left - 2/2 PT- Right - 2/2; Left - 2/2 Extremities & Vascular Evaluation - - Edema - Right dressing; Left trace - Chronic stasis changes/ Lipodermatosclerosis - Right Lower Extremity Present; Left Lower Extremity Absent - CEAP SCORE - Right - 4; Left - 3 Pulmonary/Chest: Effort normal. No respiratory distress. He has no wheezes. He has no rales. Abdominal: Soft. Aorta - non-palpable Musculoskeletal: No evidence of join effusions Neurological: Alert and oriented to person, place, and time. Skin: Skin is warm and dry. Psychiatric: He has a normal mood and affect. Past History: Past Medical History: Diagnosis Date Alopecia scalp; scarring type; Dr Aviva Woodward, [facility] 1970's history of Anxiety Cellulitis 08/2017 RIGHT LOWER EXTREMITY Claudication (HCC) Complication of anesthesia anxiety in PACU & postop Depression Diabetes mellitus, type 2 (HCC) Edema R leg GERD (gastroesophageal reflux disease) mild - meds as needed Hyperlipidemia Hypertension Hyperthyroidism Graves Disease; tx w/ radioactive iodine Hypothyroidism Lipodermatosclerosis Lymphedema of right lower extremity Dr. Duke, vascular OA (osteoarthritis) of knee right PAD (peripheral artery disease) (HCC) Sleep apnea, obstructive w/ CPAP; Dr Oli Barrett, [facility] Varicose veins of bilateral lower extremities with other complications Past Surgical History: Procedure Laterality Date GANGLION CYST EXCISION WRIST HYSTEROSCOPY W/ DILATATION AND CURETTAGE N/A 11/27/2017 Procedure: DILATION AND CURETTAGE WITH HYSTEROSCOPY; Surgeon: Nidhi Braun MD; Location: [facility]; Service: OBGYN SKIN BIOPSY BENIGN TONSILLECTOMY TUBAL LIGATION VASCULAR SURGERY Right 11/2017 LEG; VARITHENA INJECTION Family History Problem Relation Age of Onset Cancer Mother oral, colon Hypertension Father Stroke Father Heart attack Father Prostate cancer Brother Heart attack Brother Social History Social History Marital status: Spouse name: N/A Number of children: N/A Years of education: N/A Occupational History Not on file. Social History Main Topics Smoking status: Never Smoker Smokeless tobacco: Never Used Alcohol use No Drug use: No Sexual activity: Not on file Other Topics Concern Not on file Social History Narrative No narrative on file Allergy Information: I have reviewed the patient's allergies. Patient has no known allergies. Home Medications: Beulah Fields Home Medication Instructions Prior to Surgery YUMIKO: Printed on:08/06/18 7326 Medication Information Take last dose on Take the morning of surgery Comment(s) apixaban 5 mg (74 tabs) DsPk Take 2 po bid for 7 days, then 1 po bid. cholecalciferol, vitamin D3, (VITAMIN D3) 2,000 unit Tab Take 2,000 Units by mouth every morning . escitalopram oxalate (LEXAPRO) 10 MG tablet Take 5 mg by mouth at bedtime . ibuprofen (ADVIL,MOTRIN) 200 MG tablet 2-4 tablets every 4-6 hours as needed for cramping. levothyroxine (SYNTHROID, LEVOTHROID) 112 MCG tablet Take 112 mcg by mouth every morning . losartan (COZAAR) 25 MG tablet Take 25 mg by mouth at bedtime . lovastatin (ALTOPREV) 20 MG 24 hr tablet Take 20 mg by mouth at bedtime . metFORMIN (GLUCOPHAGE-XR) 500 MG 24 hr tablet Take 500 mg by mouth 2 (two) times a day . multivitamin (multivitamin) per tablet Take 1 tablet by mouth daily . naproxen sodium (ALEVE) 220 MG tablet Take 220 mg by mouth 2 (two) times a day as needed. omeprazole (PRILOSEC) 20 MG capsule Take 20 mg by mouth daily as needed . spironolactone (ALDACTONE) 25 MG tablet Take 12.5 mg by mouth at bedtime . UNKNOWN wear on right leg. Put on in the morning and remove AT BEDTIME ROS: Review of Systems - Negative except the ones mentioned in the HPI. * Kerry Perez MA - 08/06/2018 10:42 AM EST Review of Systems Constitution: Negative for diaphoresis, malaise/fatigue, weight gain and weight loss. HENT: Negative for hearing loss, nosebleeds and tinnitus. Eyes: Negative for blurred vision and visual disturbance. Cardiovascular: Negative for chest pain, claudication, cyanosis, dyspnea on exertion, irregular heartbeat, leg swelling, near-syncope, orthopnea, palpitations, paroxysmal nocturnal dyspnea and syncope. Respiratory: Negative for hemoptysis, shortness of breath and snoring. Endocrine: Negative for cold intolerance and heat intolerance. Hematologic/Lymphatic: Does not bruise/bleed easily. Skin: Negative for flushing, poor wound healing and rash. Musculoskeletal: Positive for back pain. Negative for muscle weakness and myalgias. Gastrointestinal: Negative for abdominal pain, change in bowel habit, melena, nausea and vomiting. Genitourinary: Negative for decreased libido and hematuria. Neurological: Negative for numbness. Psychiatric/Behavioral: Negative for memory loss. The patient is nervous/anxious. in this encounter* Cinthya Pizarro CNP - 09/29/2018 12:59 PM EST VASCULAR MEDICINE CLINIC NOTE Patient Name: Beulah Fields MR #: [id number] : 1945 Physicians: Miguel Angel Bhat MD (Family); Miguel Angel Bhat* (Referring) Dear Miguel Angel Bhat MD, It was a pleasure seeing Beulah Fields who is a 72 y.o. female, being seen today on 09/29/2018 in the VASCULAR MEDICINE CLINIC, with a recent diagnosis of right lower extremity DVT. This is a pleasant 72 year old female who was last seen in my clinic on August 06, 2018 with an acute right posterior tibial and peroneal DVT following surgery on her posterior heel in May 2018. This was felt to be a situational DVT in the setting of immobilization following surgery and we recommended treatment with Eliquis 5mg BID for at least 3 months and until she was weight bearing on that extremity. She returns today for follow up. She has been weight bearing for 3 weeks now and started physical therapy yesterday. She continues to have a moderate amount of swelling of the right leg but has not been able to get her compression socks on. She has been wearing single layer Tubigrip. Last Vascular Medicine Note: The patient is s/p Right AASV Varithena and Right distal GSV Varithena done on 11/17/17 She underwent right posterior heel surgery with Dr. Mehran Velasquez in May 2018 and subsequentlydeveloped a dehiscence. She was treated with prophylactic Lovenox injections for 21 days, accordingto the patient. Approximately 1 week after stopping the injections she began having pain in the area behind her knee and posterior calf, along with some redness. She was evaluated in the [place] ER and found to have an ACUTE Right posterior tibial and peroneal DVT on duplex. She was started on Eliquis and continues on it today. On July 23, 2018 she underwent additional vascular imaging which included ABIs and repeat venous duplex which showed no superficial or deep vein thrombosis. Dr. Velasquez has asked her to see us forrecommendations related to the need and duration for anticoagulation as there is some concern aboutthe possibility that the Eliquis can lead to increased drainage and wound healing complications. She has no prior history of VTE. ABIs 07/23/18 Conclusions Right ankle brachial index is normal. Toe pressure is 78 mmHg. Left ankle brachial index is normal. Toe pressure is 84 mmHg. No evidence of small vessel disease noted at the transmetatarsal level in the right foot. Toe brachial index is abnormal. No evidence of small vessel disease noted at the transmetatarsal level in the left foot. Toe brachial index is abnormal. RLE Duplex 07/23/18 Conclusions No evidence of deep or superficial vein thrombosis in the right lower extremity. Assessment and Plan: Varicose veins of both lower extremities with complications: Atrophie Joyce: Lipodermatosclerosis: DVT of RLE: She has completed 3 months of anticoagulation for her situational right lower extremity DVT and is also weight bearing. As such, we are stopping her Eliquis today and recommending Aspirin 81 mg dailyongoing. We also discussed her RLE swelling which is likely due to inability to wear compression in the setting of severe calf pump dysfunction over the last several months. I have placed her in SurePress wraps today with the goal of decreasing her swelling enough she can resume her compression socks. We will have her return in 6 months to re-evaluate whether we should pursue further treatment of her RLE. We would prefer to wait due to her acute DVT and the risk of DVT with sclerotherapy. Both thepatient and her understand and are agreeable. The return to clinic visit is 6 months. It was a pleasure participating in the care of this patient. The note was dictated using Fiestahation system. The voice recognition software is inherently subject to errors including those of syntax and sound-alike substitutions which may escape proofreading. In such instances, original meaning may be extrapolated by contextual derivation. Cinthya Pizarro, DNP, [employer], ACNP- Physical Examination: Vital Signs: BP 136/78 (BP Location: Left arm, Patient Position: Sitting, BP Cuff Size: X- large Adult) Pulse (!) 55 Ht 5' 6 Wt 108 kg (238 lb) BMI 38.41 kg/m Constitutional: Patient is oriented to person, place, and time. Body habitus - well developed and nourished Head: Normocephalic. Cardiovascular: Normal rate. Exam reveals no gallop and no friction rub. No murmur heard Pulses - DP- Right - 2/2; Left - 2/2 PT- Right - 2/2; Left - 2/2 Extremities & Vascular Evaluation - - Edema - Right 1+; Left None - Chronic stasis changes/ Lipodermatosclerosis - Right Lower Extremity Present; Left Lower Extremity Absent - CEAP SCORE - Right - 4; Left - 1 Pulmonary/Chest: Effort normal. No respiratory distress. He has no wheezes. He has no rales. Abdominal: Soft. Aorta - non-palpable Musculoskeletal: No evidence of join effusions Neurological: Alert and oriented to person, place, and time. Skin: Skin is warm and dry. Psychiatric: He has a normal mood and affect. Past History: Past Medical History: Diagnosis Date Alopecia scalp; scarring type; Dr Aviva Woodward, [place] [facility] 1969's history of Anxiety Cellulitis 08/2017 RIGHT LOWER EXTREMITY Claudication (HCC) Complication of anesthesia anxiety in PACU & postop Depression Diabetes mellitus, type 2 (HCC) Edema R leg GERD (gastroesophageal reflux disease) mild - meds as needed Hyperlipidemia Hypertension Hyperthyroidism Graves Disease; tx w/ radioactive iodine Hypothyroidism Lipodermatosclerosis Lymphedema of right lower extremity Dr. Duke, vascular OA (osteoarthritis) of knee right PAD (peripheral artery disease) ([facility]) Sleep apnea, obstructive w/ CPAP; Dr Oli Barrett, [facility] Varicose veins of bilateral lower extremities with other complications Past Surgical History: Procedure Laterality Date GANGLION CYST EXCISION WRIST HYSTEROSCOPY W/ DILATATION AND CURETTAGE N/A 11/27/2017 Procedure: DILATION AND CURETTAGE WITH HYSTEROSCOPY; Surgeon: Nidhi Braun MD; Location: [facility]; Service: OBGYN SKIN BIOPSY BENIGN TONSILLECTOMY TUBAL LIGATION VASCULAR SURGERY Right 11/2017 LEG; VARITHENA INJECTION Family History Problem Relation Age of Onset Cancer Mother oral, colon Hypertension Father Stroke Father Heart attack Father Prostate cancer Brother Heart attack Brother Social History Socioeconomic History Marital status: Spouse name: Not on file Number of children: Not on file Years of education: Not on file Highest education level: Not on file Social Needs Financial resource strain: Not on file Food insecurity - worry: Not on file Food insecurity - inability: Not on file Transportation needs - medical: Not on file Transportation needs - non-medical: Not on file Occupational History Not on file Tobacco Use Smoking status: Never Smoker Smokeless tobacco: Never Used Substance and Sexual Activity Alcohol use: No Drug use: No Sexual activity: Not on file Other Topics Concern Not on file Social History Narrative Not on file Allergy Information: I have reviewed the patient's allergies. Patient has no known allergies. Home Medications: Beulah Fields Home Medication Instructions Prior to Surgery YUMIKO: Printed on:09/29/18 1300 Medication Information Take last dose on Take the morning of surgery Comment(s) apixaban 5 mg (74 tabs) DsPk Take 2 po bid for 7 days, then 1 po bid. cholecalciferol, vitamin D3, (VITAMIN D3) 2,000 unit Tab Take 2,000 Units by mouth every morning . escitalopram oxalate (LEXAPRO) 10 MG tablet Take 5 mg by mouth at bedtime . ibuprofen (ADVIL,MOTRIN) 200 MG tablet 2-4 tablets every 4-6 hours as needed for cramping. levothyroxine (SYNTHROID, LEVOTHROID) 112 MCG tablet Take 112 mcg by mouth every morning . losartan (COZAAR) 25 MG tablet Take 25 mg by mouth at bedtime . lovastatin (ALTOPREV) 20 MG 24 hr tablet Take 20 mg by mouth at bedtime . metFORMIN (GLUCOPHAGE-XR) 500 MG 24 hr tablet Take 500 mg by mouth 2 (two) times a day . multivitamin (multivitamin) per tablet Take 1 tablet by mouth daily . naproxen sodium (ALEVE) 220 MG tablet Take 220 mg by mouth 2 (two) times a day as needed. omeprazole (PRILOSEC) 20 MG capsule Take 20 mg by mouth daily as needed . rosuvastatin (CRESTOR) 20 MG tablet Take 1 tablet by mouth daily . spironolactone (ALDACTONE) 25 MG tablet Take 12.5 mg by mouth at bedtime . UNKNOWN wear on right leg. Put on in the morning and remove AT BEDTIME ROS: Review of Systems - Negative except the ones mentioned in the HPI. * Cici Boggs MA - 09/29/2018 12:25 PM EST Review of Systems Constitution: Positive for weight gain. Negative for diaphoresis, malaise/fatigue and weight loss. HENT: Negative for hearing loss, nosebleeds and tinnitus. Eyes: Negative for blurred vision and visual disturbance. Cardiovascular: Positive for leg swelling. Negative for chest pain, claudication, cyanosis, dyspneaon exertion, irregular heartbeat, near-syncope, orthopnea, palpitations, paroxysmal nocturnal dyspnea and syncope. Respiratory: Negative for hemoptysis, shortness of breath and snoring. Endocrine: Negative for cold intolerance and heat intolerance. Hematologic/Lymphatic: Does not bruise/bleed easily. Skin: Negative for flushing, poor wound healing and rash. Musculoskeletal: Negative for back pain, muscle weakness and myalgias. Gastrointestinal: Negative for abdominal pain, change in bowel habit, melena, nausea and vomiting. Genitourinary: Negative for decreased libido and hematuria. Neurological: Negative for loss of balance and numbness. Psychiatric/Behavioral: Negative for memory loss. The patient is not nervous/anxious. in this encounter* Flaquita Eduardo MD - 01/15/2019 5:54 AM EDT GYNECOLOGY DAILY PROGRESS NOTE Patient Name: Beulah Fields MR #: [id number] ASSESSMENT AND PLAN: Post-menopausal bleeding Assessment & Plan Beulah Fields is a 73 y.o. female with a history of DM2, HLD who is POD#1 from a Total Vaginal Hysterectomy. - HD stable; recent Hgb 12.9. CBC in am. - Pain: controlled, continue ERAS protocol - MIVF/PO fluids: MIVF at 125cc/hr - GI: ADAT - Diabetic diet - : quach removed, voiding spontaneously - ID: s/p pre-op antibiotic - Resp: Incentive spirometry use - T2DM, HLD, HTN, Depression - home meds ordered - DVT Prophylaxis: SCDs, early ambulation and lovenox - Dispo: Routine post-op care SUBJECTIVE: The patient did well overnight, no acute issues. Pain is controlled, currently using IV pain meds, oral pain meds. Denies CP/SOB/fevers/chills/leg pain. Denies nausea or vomiting. Tolerating a regular diet. Positive flatus. Pt has ambulated. Voiding Spontaneously. OBJECTIVE: Temp: [97.3 F (36.3 C)-98.2 F (36.8 C)] 98.1 F (36.7 C) Heart Rate: [50-64] 60 Resp: [12-19] 14 BP: (113-162)/(57-84) 136/76 I/O last 3 completed shifts: In: 1200 [I.V.:1200] Out: 3300 [Urine:2800; Blood:500] GEN: NAD, A&Ox3 Head: normocephalic Cardiac: Reg rate. No peripheral edema. Pulm: respiratory effort normal Abdomen: soft, ATTP, non-distended, no rebound or guarding Ext: Bilat LE non-tender, no edema. SCDs in place. MSK: FROM x 4. Neuro: Intact, interactive, appropriate. Current medications: acetaminophen 975 mg Oral Q8H atorvastatin 40 mg Oral Nightly enoxaparin (LOVENOX) injection 40 mg Subcutaneous Daily in PM escitalopram oxalate 5 mg Oral Nightly gabapentin 100 mg Oral TID Followed by [START ON 01/17/2019] gabapentin 300 mg Oral TID levothyroxine 112 mcg Oral QAM losartan 25 mg Oral Nightly metFORMIN 500 mg Oral BID with meals spironolactone 12.5 mg Oral Nightly Labs: Lab Results Component Value Date WBC 7.15 01/07/2019 HGB 12.9 01/07/2019 HCT 41.0 01/07/2019 MCV 90.3 01/07/2019 PLT 266 01/07/2019 RBC 4.54 01/07/2019 Lab Results Component Value Date GLUCOSE 101 (H) 01/07/2019 K 4.1 01/07/2019 CREATININE 0.55 (L) 01/07/2019 Flaquita Eduardo MD 01/15/2019 5:55 AM Associated attestation - Nidhi Braun MD - 01/15/2019 12:50 PM EDT As above. Pt overall doing very well c/o tired Min VB Home w/ instructions f/u 4 weeks Wants rx for tramadol * Flaquita Eduardo MD - 01/14/2019 2:33 PM EDT GYNECOLOGY BRIEF POST-OP NOTE Patient Name: Beulah Fields MR #: [id number] ASSESSMENT AND PLAN: Post-menopausal bleeding Assessment & Plan Beulah Fields is a 73 y.o. female with a history of DM2, HLD who is POD#0 from a Total Vaginal Hysterectomy. - HD stable; recent Hgb 12.9. CBC in am. - Pain: controlled, continue ERAS protocol - MIVF/PO fluids: MIVF at 125cc/hr - GI: ADAT - Diabetic diet - : quach in place, d/c POD#0 if patient desires and is ambulating, otherwise remove in AM. - ID: s/p pre-op antibiotic - Resp: Incentive spirometry use - T2DM, HLD, HTN, Depression - home meds ordered - DVT Prophylaxis: SCDs, early ambulation and lovenox - Dispo: Routine post-op care SUBJECTIVE: The patient reports no acute issues. Pain is controlled with just some mild cramping, currently using ERAS protocol. Denies CP/SOB/fevers/chills/leg pain. Denies nausea or vomiting. Tolerating a clear liquids diet. Quach is in place. OBJECTIVE: Temp: [97.3 F (36.3 C)-98.2 F (36.8 C)] 98 F (36.7 C) Heart Rate: [50-64] 56 Resp: [12-19] 16 BP: (113-162)/(57-84) 131/74 No intake/output data recorded. GEN: NAD, A&Ox3 Head: normocephalic Cardiac: Reg rate. No peripheral edema. Pulm: respiratory effort normal Abdomen: soft, ATTP, non-distended, no rebound or guarding Ext: Bilat LE non-tender, no edema. SCDs in place. MSK: FROM x 4. Neuro: Intact, interactive, appropriate. Current medications: acetaminophen 1,000 mg Intravenous Q8H Followed by [START ON 01/15/2019] acetaminophen 975 mg Oral Q8H atorvastatin 40 mg Oral Nightly enoxaparin (LOVENOX) injection 40 mg Subcutaneous Daily in PM escitalopram oxalate 5 mg Oral Nightly gabapentin 100 mg Oral TID Followed by [START ON 01/17/2019] gabapentin 300 mg Oral TID [START ON 01/15/2019] levothyroxine 112 mcg Oral QAM losartan 25 mg Oral Nightly metFORMIN 500 mg Oral BID with meals spironolactone 12.5 mg Oral Nightly Labs: Lab Results Component Value Date WBC 7.15 01/07/2019 HGB 12.9 01/07/2019 HCT 41.0 01/07/2019 MCV 90.3 01/07/2019 PLT 266 01/07/2019 RBC 4.54 01/07/2019 Lab Results Component Value Date GLUCOSE 101 (H) 01/07/2019 K 4.1 01/07/2019 CREATININE 0.55 (L) 01/07/2019 Flaquita Eduardo MD 01/14/2019 2:33 PM documented in this encounter* Ophelia Ybarra, DO - 09/07/2019 1:40 PM EST Patient Name: Beulah Fields MR #: [id number] : 1945 Physicians: Miguel Angel Bhat MD ASSESSMENT: 1. Lump or mass in breast US Breast Biopsy Right 2. Abnormal mammogram US Breast Biopsy Right 3. Family history of malignant neoplasm of breast US Breast Biopsy Right PLAN: It was a privilege to see Beulah Fields in my office today. Beulah presents with multiple comorbidities with a right breast mass that is spiculated, taller than wider on ultrasound at 12:00 of her right breast. I do recommend ultrasound-guided core needle biopsy. I am worried about malignancy and we will see her back in 1 week for surgical consult. If benign we will see her back in 6 months for follow-up visit. I recommend routine monthly self breast awareness, clinical breast exams every 3 years (between 20-40 years) and annual mammography and annual clinical breast exam at age 40 as recommended by [employer] and society of breast imaging. I answered all of her questions & she verbalizes understanding. It is always a privilege to take care of your patients, please don't hesitate to call me with any questions. Chief Complaint/Reason for Visit: Right breast mass on imaging HPI: Beulah Fields is a 73 y.o. postmenopausal female presents today for evaluation and management of abnormal imaging of the right breast. She felt thickening of the right breast over the past few months. She denies bilateral breast masses, lesions, skin changes, nipple discharge, nipple or skin inversion and axillary adenopathy. She does do a monthly self breast exam. She has past medical history of sleep apnea, peripheral arterial disease, hypothyroidism, hypertension, hyperlipidemia, diabetes mellitus, depression, DVT, arthritis, anxiety, anemia and alopecia. Her past surgical history includes tubal ligation, tonsillectomy, hysteroscopy with D&C, hysterectomy on 01/14/2019, ganglion cyst excision, breast cyst excision, Achilles tendon surgery. She denies tobacco, alcohol or other drug use. PEDIATRIC NP History: Menarche:13 , Para:6/6 Age at of a first child:28 Late first :No Menopausal status:post at 53 On OCP:No On HRT/if yes, how long: Last Mammogram:08/2019 BREAST CANCER RISK FACTORS: Gender, age, family history of breast cancer maternal grandmother at unknown age and colon cancer in mother at unknown age. Family history of prostate cancer in brother x2at 68 and 70. Family history of stomach cancer in paternal grandmother at 70. BRIEF ONCOLOGIC HISTORY: PAST BREAST HEALTH HISTORY: Medical Oncology: Endocrine Therapy: Radiation Oncology: Genetics: PMH: Past Medical History: Diagnosis Date Abnormal mammogram Alopecia scalp; scarring type; Dr Aviva Woodward, [place] Anemia 1970's history of Anxiety Arthritis Breast mass Cellulitis 08/2017 RIGHT LOWER EXTREMITY Claudication (HCC) Complication of anesthesia anxiety in PACU & postop Deep vein thrombosis (HCC) Depression Diabetes mellitus, type 2 (HCC) Edema R leg GERD (gastroesophageal reflux disease) mild - meds as needed Hyperlipidemia Hypertension Hyperthyroidism 1989' Graves Disease; tx w/ radioactive iodine Hypothyroidism Lipodermatosclerosis Lymphedema of right lower extremity Dr. Duke, vascular OA (osteoarthritis) of knee right PAD (peripheral artery disease) (HCC) Sleep apnea, obstructive w/ CPAP; Dr Oli Barrett, [facility] Sleep apnea, obstructive Varicose veins of bilateral lower extremities with other complications PSH: Past Surgical History: Procedure Laterality Date ACHILLES TENDON SURGERY BREAST CYST EXCISION 45 yrs ago DILATION AND CURETTAGE OF UTERUS GANGLION CYST EXCISION WRIST GANGLION CYST EXCISION HYSTERECTOMY 2019 HYSTERECTOMY VAGINAL N/A 01/14/2019 Procedure: TOTAL VAGINAL HYSTERECTOMY; Surgeon: Nidhi Braun MD; Location: [facility] Main OR; Service: OBGYN HYSTEROSCOPY W/ DILATATION AND CURETTAGE N/A 11/27/2017 Procedure: DILATION AND CURETTAGE WITH HYSTEROSCOPY; Surgeon: Nidhi Braun MD; Location: [facility] OR; Service: OBGYN SKIN BIOPSY BENIGN TONSILLECTOMY TUBAL LIGATION VASCULAR SURGERY Right 11/2017 LEG; VARITHENA INJECTION WISDOM TOOTH EXTRACTION FMH: Family History Problem Relation Age of Onset Colon cancer Mother 60 Cancer Mother 60 oral Stroke Father Hypertension Father Heart attack Father Prostate cancer Father 70 No Known Problems Brother Prostate cancer Brother 68 Current Age: 70 Heart attack Brother Breast cancer Maternal Grandmother 70 Colon cancer Maternal Grandfather 65 Stomach cancer Paternal Grandmother 70 Liver cancer Maternal Uncle 60 SOCIAL Hx: Social History Socioeconomic History Marital status: Spouse name: Not on file Number of children: Not on file Years of education: Not on file Highest education level: Not on file Occupational History Not on file Social Needs Financial resource strain: Not on file Food insecurity Worry: Not on file Inability: Not on file Transportation needs Medical: Not on file Non-medical: Not on file Tobacco Use Smoking status: Never Smoker Smokeless tobacco: Never Used Substance and Sexual Activity Alcohol use: Never Frequency: Never Drug use: Never Sexual activity: Not on file Lifestyle Physical activity Days per week: Not on file Minutes per session: Not on file Stress: Not on file Relationships Social connections Talks on phone: Not on file Gets together: Not on file Attends mu-ism service: Not on file Active member of club or organization: Not on file Attends meetings of clubs or organizations: Not on file Relationship status: Not on file Other Topics Concern Not on file Social History Narrative Merged History Encounter MEDS: Current Outpatient Medications Medication Sig Dispense Refill aspirin 81 MG EC tablet Take 81 mg by mouth daily . cholecalciferol, vitamin D3, (D3-2000) 2,000 unit cap Take 2,000 Units by mouth daily . escitalopram oxalate (LEXAPRO) 10 MG tablet Take 5 mg by mouth at bedtime . levothyroxine (SYNTHROID, LEVOTHROID) 112 MCG tablet Take 112 mcg by mouth every morning . losartan (COZAAR) 25 MG tablet Take 25 mg by mouth at bedtime . metFORMIN (GLUCOPHAGE-XR) 500 MG 24 hr tablet Take 500 mg by mouth 2 (two) times a day . multivitamin (multivitamin) per tablet Take 1 tablet by mouth daily . naproxen sodium (ALEVE) 220 MG tablet Take 220 mg by mouth 2 (two) times a day as needed. omeprazole (PRILOSEC) 20 MG capsule Take 20 mg by mouth daily as needed . rosuvastatin (CRESTOR) 20 MG tablet Take 1 tablet by mouth daily . spironolactone (ALDACTONE) 25 MG tablet Take 12.5 mg by mouth at bedtime . Current Facility-Administered Medications Medication Dose Route Frequency Provider Last Rate Last Dose lidocaine (LMX) 4 % cream Topical PRN Mehran Velasquez Jr., DPM ALLERGIES: Allergies: Betadine [povidone-iodine] Review of Systems ROS: positive for breast lumps Constitutional: Negative for fever, chills, diaphoresis, activity change, appetite change, fatigue and unexpected weight change. HENT: Negative for congestion, dental problem, drooling, ear discharge, ear pain, facial swelling, hearing loss, mouth sores, nosebleeds, postnasal drip, rhinorrhea, sinus pressure, sneezing, sore throat, tinnitus, trouble swallowing and voice change. Eyes: Negative for photophobia, pain, discharge, redness, itching and visual disturbance. Respiratory: Negative for apnea, cough, choking, chest tightness, shortness of breath, wheezing andstridor. Cardiovascular: Negative for chest pain, palpitations and leg swelling. Gastrointestinal: Negative for nausea, vomiting, abdominal pain, diarrhea, constipation, blood in stool, abdominal distention, anal bleeding and rectal pain. Endocrine: Negative for cold intolerance, heat intolerance, polydipsia, polyphagia and polyuria. Genitourinary: Negative for dysuria, urgency, frequency, hematuria, flank pain, decreased urine volume, vaginal bleeding, vaginal discharge, enuresis, difficulty urinating, genital sores, vaginal pain, menstrual problem, pelvic pain and dyspareunia. Musculoskeletal: Negative for myalgias, back pain, joint swelling, arthralgias, gait problem, neck pain and neck stiffness. Skin: Negative for color change, pallor, rash and wound. Allergic/Immunologic: Negative for environmental allergies, food allergies and immunocompromised state. Neurological: Negative for dizziness, tremors, seizures, syncope, facial asymmetry, speech difficulty, weakness, light-headedness, numbness and headaches. Hematological: Negative for adenopathy. Does not bruise/bleed easily. Psychiatric/Behavioral: Negative for suicidal ideas, hallucinations, behavioral problems, confusion, sleep disturbance, self-injury, dysphoric mood, decreased concentration and agitation. The patientis not nervous/anxious and is not hyperactive. PHYSICAL EXAM: Physical Exam Vital Signs: Ht 5' 6 Wt 106.6 kg (235 lb) No BMI 37.93 kg/m Breast: Bilateral breast exam is performed in sitting and supine position. She has expected fibroglandular thickening bilaterally. Left Breast: I do not appreciate any worrisome masses, skin dimpling, nipple retraction, nipple discharge nor supraclavicular or axillary adenopathy. Right Breast: I do not appreciate any worrisome skin dimpling, nipple discharge nor supraclavicularor axillary adenopathy. There is a palpable 2 cm mass in the retroareolar region at 12:00 that is firm and she has flattening of her nipple. General: Alert, cooperative, no distress, appears stated age Head: Normocephalic, atraumatic Eyes: EOM's intact, benign both eyes Neck: Supple, symmetrical, trachea midline, no adenopathy; Thyroid: No enlargement, tenderness, nodules Back: Symmetric, no curvature, no tenderness to palpation Lungs: Clear to auscultation bilaterally, no wheezes, rhonchi or rales Cardiovascular: Regular rate and rhythm, no murmur Abdomen: Soft, no hepatosplenomegaly Extremities: Normal, atraumatic, no cyanosis or edema Skin: Skin color, texture, turgor normal Musculoskeletal: Full range of motion of all extremities; no joint edema Neurologic: CNII-XII intact; normal strength and sensation Psych: Mood and affect appropriate IMAGING: I have independently reviewed the most recent imaging, which include bilateral diagnostic mammogram and breast ultrasound. She went through a diagnostic mammogram on 09/03/2019 which shows a suspicious appearing spiculated mass that measures about 2.5 cm at 12:00 of her right breast at 5 cm from the nipple. She had a right breast ultrasound on the same day which shows a hypoechoic 2.2 cm lesion at 12:00 of the right breast which has irregular margins. Sincerely, Ophelia Ybarra DO, [facility] Breast Surgical Oncologist Office Office fax: [phone] Pager: [phone] CC: Patient Care Team: Miguel Angel Bhat MD as PCP - General (Family Medicine) Cinthya Pizarro CNP as PCP - [facility] Attributed Provider Miguel Angel Bhat MD (Family Medicine) Nidhi Braun MD as Consulting Physician (Obstetrics/Gynecology) Note: This dictation was generated using [employer] voice recognition software. Please excuse any grammatical or spelling errors that may have occurred using the system. documented in this encounter* Leni Elise RN - 09/07/2019 1:[address] Rivera met with patient and to discuss imaging results and recommendations. He is recommending surgical consult and right US biopsy of solid indeterminate nodule. Pt requested an [facility] breast surgeon who has an office in [place]. Appointment scheduled with Dr. Ophelia Ybarra 09/07/19 at 1:30 p.m. Biopsy appointment scheduled [facility] 09/07/19 at 3:00 p.m. She was given detailed verbal and printed instructions including biopsy teaching sheet. Pt has N contact information for questions/concerns. documented in this encounter* Lori Dee RN - 09/29/2019 11:14 AM EST Met with patient and in room to review home care instructions. Patient reports no pain but itching from bra. Reviewed instructions provided in the surgical packet highlighting incision/drain care, comfort goals, activity recommendations and s/sx of infection to report. Incision is well-approximated and closed with Dermabond. Surrounding tissue is warm and soft. Drain x2 intact with bloodydischarge output. Demonstrated drain care to pt/ and return demonstrated successfully. New dressings applied. Provided with drain care supplies, pillow, lanyard, and x-large jeffery. Patient declines home health nursing. She is going to a hotal for 1-2 days to be close after surgery. All questions and concerns were addressed. Knows to expect a call from Breast Health Nurse tomorrow. Surgery Packet Contents: Dr Ybarra Home Care Instructions, Pain Management after Breast Surgery,Drain Care and Logs, Range of Motion Exercises after Breast Surgery and Integrative Care. * Dahlia Beltran DO - 09/29/2019 7:01 AM EST Breast Surgery Update: S/p Bilateral Mastectomies and Right SLN biopsy. Patient seen and examined and bedside. No acute events. Pain controlled. Tolerating oral intake. Bilateral breast incision site c/d/i. Appropriately TTP. JPs serous Sang. A/P - Patient doing well clinically. Surgically stable for discharge with oral Antibiotics and pain medications. * Teresita Dang RN - 09/28/2019 11:45 AM EST Met with Beulah Mckenzie and Patricio figueroa in PreOp prior to Bilateral Mastectomies with Right [place] Node Biopsy, Possible Axillary Lymph Node Dissection surgery. Patient is calm and ready to proceed with surgery. Reviewed instructions provided in the surgical packet highlighting incision/drain care, comfort goals, activity recommendations and s/sx of infection to report. Beulah Mckenzie indicates she and her will remain in the area for several days following her discharge, and plan to stay at [facility] in [place]. Beulah Mckenzie understands a Breast Cancer Nurse Navigator will meet with her and Patricio 09/29 for drain/incision care and discharge teaching, and will confirm the need for [facility] at that time. Patient requests Recovery Bra (sz XL/EF). All questions and concerns answered at this time. Beulah Mckenzie knows to anticipate a Post Op Call from Breast Cancer Nurse Navigator. documented in this encounter* Osiris Diane LISW - 10/07/2019 3:42 PM EST Placed phone call to Beulah Mckenzie today to check in on how she is feeling after surgery and offer support. I was able to reach Beulah Mckenzie on my first attempt. She informed me that surgery went well, and she overall had a great experience with the hospital. Her hotel stay the night prior to surgery all went smoothly, and she was very thankful for the assistance of [facility] Meyer with the free stay. She also stayed in a hotel a couple of nights following surgery in [place], and was able to utilize the hospital discount. She did have a request that I send the address/e-mail address for Shelbi Meyer to her so that she could send them a thank you. I relayed to Beulah Mckenzie that I am not able to send anything to her via e-mail, however I could send it to her in a [employer] message. She was very appreciative of this. Beulah Mckenzie expressed how [more cancer was found than originally thought] and she is relieved that she elected to get a bilateral mastectomy. I validated these feelings. Beulah Mckenzie did have a concern regarding the timeline of her genetic testing appointment, as she was informed by the outpatient scheduler thatthey are currently scheduling out 2-3 months. She asked if this could have an impact on her treatment, and if there was any way to get the referral expedited. I relayed to Beulah Mckenzie that I will checkin with her nurse navigator on this, and either she or I will get back to her. She does have a follow-up appointment with Dr. Brady next Friday, and stated that she could also ask about it then. Beulah Mckenzie denied other needs at this time, but was thankful for my call and support. I will plan tofollow-up with her once I hear from her nurse navigator. Following our call, I sent her the MyChartmessage including the [facility] address ([id number], [place] [address]) and e-mail address ( [email or web address]). SW Navigator will continue to follow and remain available for support and assistance as needed. documented in this encounter* Osiris Diane LISW - 10/08/2019 2:37 PM EST Placed follow up call to Beulah Mckenzie today, as indicated in the conversation we had yesterday. I received her VM, and was able to leave a message with my reason for calling. I encouraged her to discussher questions related to her genetics appointment and wait time with Dr. Brady when she goes to see her on Friday. I left my contact information in the event that she has additional questions for me. ALEXANDRA Navigator will continue to follow and remain available for support and assistance as needed. documented in this encounter* Ophelia Ybarra, - 10/12/2019 11:14 AM EDT Patient Name: Beulah Fields MR #: [id number] : 1945 Physicians: Miguel Angel Bhat MD ASSESSMENT: 1. Malignant neoplasm of central portion of right breast in female, estrogen receptor positive (HCC) 2. 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 She underwent a bilateral mastectomy with a right sentinel lymph node biopsy. She had 2.9 cm invasive ductal carcinoma of the right breast and that is grade 3 which is hormone receptor positive and HER-2/julio receptor negative. An Oncotype is pending on this side. She also had incidental left breastcancer that measured 6 mm and lymph nodes were not assessed as we did not know that she had left finn ast cancer prior to her surgery. I did discuss her case at our tumor board conference to discuss her final pathology. A right breast Oncotype was recommended with plus or minus radiation to the rightchest wall. A left sentinel lymph node biopsy was not recommended as it is a grade one 6 mm cancer.I have referred her to medical oncology as well as radiation oncology for further discussion. I will see her back in 4 months for a follow-up visit. We did remove her left chest wall drain as well asthe tape from the incisions. I answered all her questions and she verbalizes understanding and agreeable to the above plan. It is always a privilege to see your patients and please don't hesitate to call me should you have any questions. Chief Complaint/Reason for Visit: Right breast cancer HPI: Beulah Fields is a 73 y.o. postmenopausal female presents today for a postop visit. Her Oncotype is still pending. Her left drain output is lower than the light chest wall drain. Last Mammogram:08/2019 BREAST CANCER RISK FACTORS: Gender, age, family history of breast cancer maternal grandmother at unknown age and colon cancer in mother at unknown age. Family history of prostate cancer in brother x2at 68 and 70. Family history of stomach cancer in paternal grandmother at 70. BRIEF ONCOLOGIC HISTORY: She presented with abnormal imaging of the right breast. Her diagnostic mammogram on 09/03/2019 which showed a suspicious appearing spiculated mass that measures about 2.5 cm at 12:00 of her right breast at 5 cm from the nipple. She had a right breast ultrasound on the same day which shows a hypoechoic 2.2 cm lesion at 12:00 of the right breast which has irregular margins. 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 She underwent bilateral mastectomy with right sentinel lymph node biopsy. Please see below for pathology results. PAST BREAST HEALTH HISTORY: 09/07/2019: Right breast mass at 9:00- 2.2 cm US guided bx Right Breast 9:00- Invasive Ductal carcinoma, G3, ER 100%, AK 85%, Her 2 julio (-) Stage II A ([id number]) 09/28/2019: Bilateral mastectomy with right sentinel lymph node biopsy Left breast upper outer quadrant-6 mm invasive ductal carcinoma, grade 1, margins are negative and no lymph nodes assessed. Estrogen receptor 100%, progesterone receptor 10%, HER-2/julio negative Right breast mastectomy with a sentinel lymph node biopsy Right breast at 9:00-2.9 cm invasive ductal carcinoma with focal mucinous and micropapillary features, grade 3, DCIS is present, margins are clear, 1 out of 4 lymph nodes positive for metastasis, 20 mm metastatic deposit is involved Estrogen receptor positive, progesterone receptor positive, HER-2/julio negative, Ki-67 is 62% Medical Oncology: Endocrine Therapy: Radiation Oncology: Genetics: Referred PMH: Past Medical History: Diagnosis Date Abnormal mammogram Alopecia scalp; scarring type; Dr Aviva Woodward, [place] Anemia 1970s Anxiety and depression Arthritis Breast cancer, female (HCC) 09/15/2019 Breast mass Cataract Cellulitis 08/2017 RLE Claudication (HCC) Complication of anesthesia anxiety in PACU & postop Deep vein thrombosis (HCC) Diabetes mellitus, type 2 (HCC) Edema R leg GERD (gastroesophageal reflux disease) mild - meds as needed Hyperlipidemia Hypertension Hypothyroidism Lipodermatosclerosis Lymphedema of right lower extremity Dr. 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 PSH: Past Surgical History: Procedure Laterality Date ACHILLES TENDON SURGERY BREAST CYST EXCISION 1975 DILATION AND CURETTAGE OF UTERUS GANGLION CYST EXCISION HYSTERECTOMY VAGINAL N/A 01/14/2019 Procedure: TOTAL VAGINAL HYSTERECTOMY; Surgeon: Nidhi Braun MD; Location: [facility] Main OR; Service: OBGYN HYSTEROSCOPY W/ DILATATION AND CURETTAGE N/A 11/27/2017 Procedure: DILATION AND CURETTAGE WITH HYSTEROSCOPY; Surgeon: Nidhi Braun MD; Location: [facility] OR; Service: OBGYN MASTECTOMY MODIFIED RADICAL BILATERAL WITH SENTINEL LYMPH NODE BIOPSY Bilateral 09/28/2019 Procedure: BILATERAL MASTECTOMIES WITH RIGHT SENTINEL NODE BIOPSY; Surgeon: Ophelia Ybarra DO; Location: [facility] Main OR; Service: General Surgery SKIN BIOPSY benign TONSILLECTOMY TUBAL LIGATION US BREAST BIOPSY RIGHT Right 09/07/2019 VASCULAR SURGERY Right 11/2017 leg; Varithena infection WISDOM TOOTH EXTRACTION FMH: Family History Problem Relation Age of Onset Colon cancer Mother 60 Cancer Mother 60 oral Stroke Father Hypertension Father Heart attack Father Prostate cancer Father 70 Heart disease Father Diabetes Father No Known Problems Brother No Known Problems Brother Breast cancer Maternal Grandmother 70 Colon cancer Maternal Grandfather 65 Stomach cancer Paternal Grandmother 70 Liver cancer Maternal Uncle 60 No Known Problems Other Surgical complications Neg Hx Anesthesia problems Neg Hx Clotting disorder Neg Hx Deep vein thrombosis Neg Hx Pulmonary embolism Neg Hx SOCIAL Hx: Social History Socioeconomic History Marital status: Spouse name: Not on file Number of children: Not on file Years of education: Not on file Highest education level: Not on file Occupational History Not on file Social Needs Financial resource strain: Not on file Food insecurity Worry: Not on file Inability: Not on file Transportation needs Medical: Not on file Non-medical: Not on file Tobacco Use Smoking status: Never Smoker Smokeless tobacco: Never Used Substance and Sexual Activity Alcohol use: Never Frequency: Never Drug use: Never Sexual activity: Not on file Lifestyle Physical activity Days per week: Not on file Minutes per session: Not on file Stress: Not on file Relationships Social connections Talks on phone: Not on file Gets together: Not on file Attends mu-ism service: Not on file Active member of club or organization: Not on file Attends meetings of clubs or organizations: Not on file Relationship status: Not on file Other Topics Concern Not on file Social History Narrative Merged History Encounter MEDS: Current Outpatient Medications Medication Sig Dispense Refill aspirin 81 MG EC tablet Take 1 (one) tablet (81 mg total) by mouth every morning . You may resume Reasons: treatment to prevent a heart attack. 30 tablet 0 cephALEXin (KEFLEX) 500 MG capsule Take 1 (one) capsule (500 mg total) by mouth 4 (four) times a day for 14 days . 56 capsule 1 cholecalciferol, vitamin D3, (D3-2000) 2,000 unit cap Take 2,000 Units by mouth every evening Reasons: supplement. escitalopram oxalate (LEXAPRO) 10 MG tablet Take 10 mg by mouth at bedtime Reasons: anxiousness associated with depression. levothyroxine (SYNTHROID, LEVOTHROID) 112 MCG tablet Take 112 mcg by mouth every morning Reasons: acondition with low thyroid hormone levels. losartan (COZAAR) 25 MG tablet Take 25 mg by mouth at bedtime Reasons: high blood pressure. metFORMIN (GLUCOPHAGE-XR) 500 MG 24 hr tablet Take 500 mg by mouth 2 (two) times a day Reasons: type 2 diabetes mellitus. multivitamin (multivitamin) per tablet Take 1 tablet by mouth every evening Reasons: treatment to prevent vitamin deficiency. naproxen sodium (ALEVE) 220 MG tablet Take 220 mg by mouth 2 (two) times a day as needed Reasons: pain. omeprazole (PRILOSEC) 20 MG capsule Take 20 mg by mouth daily as needed . rosuvastatin (CRESTOR) 20 MG tablet Take 1 tablet by mouth every evening Reasons: high cholesterol. spironolactone (ALDACTONE) 25 MG tablet Take 12.5 mg by mouth at bedtime Reasons: high blood pressure, 1/2 tablet (12.5 mg). Current Facility-Administered Medications Medication Dose Route Frequency Provider Last Rate Last Dose lidocaine (LMX) 4 % cream Topical PRN Mehran Velasquez Jr., DPMary ALLERGIES: Allergies: Chlorhexidine towelette and Betadine [povidone-iodine] Review of Systems PHYSICAL EXAM: Physical Exam Vital Signs: There were no vitals taken for this visit. Bilateral chest wall incisions clean dry and intact and well healing. Drains are serosanguineous. Sincerely, VIMAL Montiel DO Breast Surgical Oncologist Office Office fax: [phone] Pager: [phone] CC: Patient Care Team: Miguel Angel Bhat MD as PCP - General (Family Medicine) Cinthya Pizarro CNP as PCP - [facility] Attributed Provider Miguel Angel Bhat MD (Family Medicine) Nidhi Braun MD as Consulting Physician (Obstetrics/Gynecology) Note: This dictation was generated using [employer] voice recognition software. Please excuse any grammatical or spelling errors that may have occurred using the system. documented in this encounter* Lisa Webster LPN - 2019 1:15 PM EDT BERTHA drain removed from right surgery site without difficulty. Patient instructed to removed clean dressing in 24 hours and shower as usual. I encouraged her to call with any questions or concerns. documented in this encounter* Warren Mccullough MD - 2019 1:20 PM EDT [facility] Radiation Oncology [address] [place] [address] P [phone] F [phone] [facility] Radiation Oncology [address] [place] [address] P [phone] F [phone] MD Derrick Jackson MD RADIATION ONCOLOGY NEW PATIENT EVALUATION DIAGNOSIS: Malignant 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, estrogen receptor positive (HCC) [C50.112, Z17.0] STAGE: Cancer Staging Breast cancer, female (HCC) Staging form: Breast, AJCC 8th Edition - Clinical stage from 09/15/2019: Stage IIA (cT2, cN0, cM0, G3, ER+, AK+, HER2-) - Signed by Ophelia Ybarra DO on 09/15/2019 - Pathologic stage from 10/12/2019: Stage IIA (pT2, pN1(sn), cM0, G3, ER+, AK+, HER2-) - Signed by Ophelia Ybarra DO on 10/12/2019 - Pathologic: No stage assigned - Unsigned Breast cancer, female (HCC) Staging form: Breast, AJCC 8th Edition - Clinical stage from 10/12/2019: Stage Unknown (cT1, cNX, cM0, G1, ER+, AK+, HER2-) - Signed by Ophelia Ybarra DO on 10/12/2019 ECOG Performance 1 - Restricted in physically strenuous activity but ambulatory and able to carry out work of a light or sedentary nature, e.g., light house work, office work PATIENT IDENTIFICATION Beulah Fields is a 73 y.o. female referred to Radiation Oncology with a diagnosis of synchronous bilateral breast cancer status post bilateral simple mastectomy and sentinel lymph node assessment onthe right for treatment recommendations. HISTORY The patient presents for initial radiation oncology evaluation regarding the new diagnosis of synchronous bilateral breast cancer status post bilateral mastectomy with sentinel lymph node assessment on the right. The patient presented with some occasional pains in the right breast and a history of obtaining regularly scheduled screening mammograms with no abnormalities noted. She presented to [facility] for follow-up imaging and second opinion and underwent diagnostic imaging on 09/03/2019. This revealed a lesion at the 3 o'clock position of the right breast representing a progressive finding when compared to prior mammography. On ultrasound a hypoechoic mass was noted but was found more so at the 12 o'clock position. This measured 2.2 cm in greatest dimension. Biopsy was recommended. Biopsy was consistent with a grade 3 invasive ductal carcinoma staining ER positive, AK positive, and HER-2/julio negative with a Ki-67 index of 62%. She was referred to Dr. Ybarra for further evaluation. After extensive counseling the patient elected to undergo a simple mastectomy with sentinel lymph node assessment on the right and prophylactic simple mastectomy on the left. She did not desire reconstruction upfront. This was performed on 09/28/2019. On the right a 2.9 cm focus of grade 3 invasive ductal carcinoma was found and resected with widely negative margins. 3 sentinel lymph nodes were removed and all werenegative for metastatic disease but an additional lymph node was also removed which revealed a 2 cmfocus of invasive ductal carcinoma with no extranodal extension. Lymphovascular space invasion was noted. On the left, an incidental finding of a 6 mm grade 1 invasive ductal carcinoma was found which had widely negative margins. Cale assessment was not performed on this side as this was a prophylactic procedure. The patient recovered well postoperatively. Oncotype testing was sent and returned at low risk of 15. The patient still has a drain in place but is otherwise doing well. She has an appointment with Dr. Ansari of medical oncology later today. She presents to radiation oncology to discuss the role of postmastectomy radiation therapy in her management. REVIEW OF SYSTEMS Constitutional: Negative for fever, chills, diaphoresis, activity change, appetite change, fatigue and unexpected weight change. HENT: Negative for congestion, dental problem, drooling, ear discharge, ear pain, facial swelling, hearing loss, mouth sores, nosebleeds, postnasal drip, rhinorrhea, sinus pressure, sneezing, sore throat, tinnitus, trouble swallowing and voice change. Eyes: Negative for photophobia, pain, discharge, redness, itching and visual disturbance. Respiratory: Negative for apnea, cough, choking, chest tightness, shortness of breath, wheezing andstridor. Cardiovascular: Negative for chest pain, palpitations and leg swelling. Gastrointestinal: Negative for nausea, vomiting, abdominal pain, diarrhea, constipation, blood in stool, abdominal distention, anal bleeding and rectal pain. Endocrine: Negative for cold intolerance, heat intolerance, polydipsia, polyphagia and polyuria. Genitourinary: Negative for dysuria, urgency, frequency, hematuria, flank pain, decreased urine volume, vaginal bleeding, vaginal discharge, enuresis, difficulty urinating, genital sores, vaginal pain, menstrual problem, pelvic pain and dyspareunia. Musculoskeletal: Negative for myalgias, back pain, joint swelling, arthralgias, gait problem, neck pain and neck stiffness. Skin: Negative for color change, pallor, rash and wound. Allergic/Immunologic: Negative for environmental allergies, food allergies and immunocompromised state. Neurological: Negative for dizziness, tremors, seizures, syncope, facial asymmetry, speech difficulty, weakness, light-headedness, numbness and headaches. Hematological: Negative for adenopathy. Does not bruise/bleed easily. Psychiatric/Behavioral: Negative for suicidal ideas, hallucinations, behavioral problems, confusion, sleep disturbance, self-injury, dysphoric mood, decreased concentration and agitation. The patientis not nervous/anxious and is not hyperactive. PAST MEDICAL HISTORY Past Medical History: Diagnosis Date Abnormal mammogram Alopecia scalp; scarring type; Dr Aviva Woodward, [place] Anemia 1970s Anxiety and depression Arthritis Breast cancer, female (HCC) 09/15/2019 Breast mass Cataract Cellulitis 08/2017 RLE Claudication (HCC) Complication of anesthesia anxiety in PACU & postop Deep vein thrombosis (HCC) Diabetes mellitus, type 2 (HCC) Edema R leg GERD (gastroesophageal reflux disease) mild - meds as needed Hyperlipidemia Hypertension Hypothyroidism Lipodermatosclerosis Lymphedema of right lower extremity Dr. 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 MEDICATIONS Current Outpatient Medications: aspirin 81 MG EC tablet, Take 1 (one) tablet (81 mg total) by mouth every morning . You may resume Reasons: treatment to prevent a heart attack., Disp: 30 tablet, Rfl: 0 cholecalciferol, vitamin D3, (D3-2000) 2,000 unit cap, Take 2,000 Units by mouth every evening Reasons: supplement., Disp: , Rfl: escitalopram oxalate (LEXAPRO) 10 MG tablet, Take 10 mg by mouth at bedtime Reasons: anxiousness associated with depression., Disp: , Rfl: levothyroxine (SYNTHROID, LEVOTHROID) 112 MCG tablet, Take 112 mcg by mouth every morning Reasons: a condition with low thyroid hormone levels., Disp: , Rfl: losartan (COZAAR) 25 MG tablet, Take 25 mg by mouth at bedtime Reasons: high blood pressure., Disp:, Rfl: metFORMIN (GLUCOPHAGE-XR) 500 MG 24 hr tablet, Take 500 mg by mouth 2 (two) times a day Reasons: type 2 diabetes mellitus., Disp: , Rfl: multivitamin (multivitamin) per tablet, Take 1 tablet by mouth every evening Reasons: treatment to prevent vitamin deficiency., Disp: , Rfl: naproxen sodium (ALEVE) 220 MG tablet, Take 220 mg by mouth 2 (two) times a day as needed Reasons: pain., Disp: , Rfl: omeprazole (PRILOSEC) 20 MG capsule, Take 20 mg by mouth daily as needed ., Disp: , Rfl: rosuvastatin (CRESTOR) 20 MG tablet, Take 1 tablet by mouth every evening Reasons: high cholesterol., Disp: , Rfl: spironolactone (ALDACTONE) 25 MG tablet, Take 12.5 mg by mouth at bedtime Reasons: high blood pressure, 1/2 tablet (12.5 mg)., Disp: , Rfl: Current Facility-Administered Medications: lidocaine (LMX) 4 % cream, , Topical, PRN, Mehran Velasquez Jr., DPM ALLERGIES Allergies: Chlorhexidine towelette and Betadine [povidone-iodine] SOCIAL HISTORY Social History Socioeconomic History Marital status: Spouse name: Not on file Number of children: Not on file Years of education: Not on file Highest education level: Not on file Occupational History Not on file Social Needs Financial resource strain: Not on file Food insecurity Worry: Not on file Inability: Not on file Transportation needs Medical: Not on file Non-medical: Not on file Tobacco Use Smoking status: Never Smoker Smokeless tobacco: Never Used Substance and Sexual Activity Alcohol use: Never Frequency: Never Drug use: Never Sexual activity: Not on file Lifestyle Physical activity Days per week: Not on file Minutes per session: Not on file Stress: Not on file Relationships Social connections Talks on phone: Not on file Gets together: Not on file Attends mu-ism service: Not on file Active member of club or organization: Not on file Attends meetings of clubs or organizations: Not on file Relationship status: Not on file Other Topics Concern Not on file Social History Narrative Merged History Encounter FAMILY HISTORY Cancer-related family history includes Breast cancer (age of onset: 70) in her maternal grandmother; Cancer (age of onset: 60) in her mother; Colon cancer (age of onset: 60) in her mother; Colon cancer (age of onset: 65) in her maternal grandfather; Liver cancer (age of onset: 60) in her maternal uncle; Prostate cancer (age of onset: 70) in her father; Stomach cancer (age of onset: 70) in her paternal grandmother. PHYSICAL EXAM There were no vitals filed for this visit. General: No acute distress and appears their stated age. HEENT: NC/AT. PERRL. EOMI. No cervical or S/C adenopathy. Cardiovascular Exam: Regular rate and rhythm. No M/R/G. Chest wall: No signs or symptoms of infection. Drain is still in place on the right. Well-healing scars. Respiratory Exam: Clear to auscultation bilaterally. No accessory muscle use. Abdominal Exam: Soft, NT to palpation. No masses. Neuro Exam: A+O x 3. No cranial nerve deficits. No focal abnormalities. MSK: No midline axial tenderness. No focal weakness. Extremities: No peripheral edema. Lymphatics: No adenopathy appreciated. IMPRESSION Beulah Fields is a 73 y.o. female with synchronous bilateral breast cancer status post bilateral mastectomy with sentinel lymph node assessment on the right showing 1 of 4 lymph nodes positive for macro metastatic disease. The patient states that Oncotype testing is being repeated because they were surprised she returned low risk. I do not have access to orders that support this. PLAN The role of systemic therapy including antiestrogen therapy was discussed with the patient in detail. I deferred the remainder of this conversation to her upcoming appointment with Dr. Ansari. In terms of local regional therapy I discussed the lymph node positivity as well as the low progesterone receptor positivity and high-grade nature of her tumor. In general, once a lymph node is foundpositive we would either recommend completion axillary lymph node dissection or postmastectomy radiation therapy to treat the axilla as was performed in the AMAROS trial. However, given her overall low disease burden in the axilla, the fact that she is ER positive, and is willing to undergo antiestrogen therapy at the age of 73, soon to be 74, the overall improvement in local regional control is likely limited with postmastectomy radiation therapy and would likely not impact her overall survival. We discussed the acute and chronic toxicities and logistics of postmastectomy radiation therapy in detail. Given the concerning times given the coronavirus epidemic we would like to proceed with treatment with as few visits as possible and therefore I would recommend a hypofractionated course delivering 4256 cGy in 16 fractions. I would not plan for a mastectomy scar boost given the overall low risk nature of her tumor. We also discussed locations of treatment. She is much closer in proximity to our [place] locationand I believe she would get very good treatment access and results there as well. After a long discussion regarding the options for radiation therapy the patient declared that she would not be comfortable omitting radiation therapy in her situation and she would worry too much about her increased risk of local regional recurrence if she did not go this route. Given her rationalefor prophylactic contralateral mastectomy I am not surprised regarding this decision. We will await consultation with Dr. Ansari to make sure that cytotoxic chemotherapy is not planned.If not, I will make arrangements for her to be seen by Dr. Farley at our [place] location for plans to deliver hypofractionated postmastectomy radiation treatment. RISK OF RADIATION THERAPY: The risks of radiation therapy and the side effects have been explained to the patient to include but are not limited to the following: A. Acute: fatigue, skin irritation, decreased blood counts, shortness of breath, cough, difficulty swallowing, tanning and erythema of the skin, blisters, skin breakdown, nipple irritation, skin itching, swelling of the chestwall. B. Late: 2nd malignancies in treatment area, permanent hair loss in treatment area, arm and chestwall swelling, scarring of the lung and heart, rib fracture, chronic skin thickening, shoulder stiffness, brachial plexus injury, loss of subcutaneous tissue, and complication/ loss of current or futurebreast reconstruction. Higinio Mccullough MD Radiation Oncology documented in this encounter* Pavel Farley MD - 10/29/2019 10:04 PM EDT [facility] Department of Radiation Oncology [address] [place] [address] Pavel Farley MD RADIATION ONCOLOGY ESTABLISHED PATIENT VISIT NOTE DIAGNOSIS: Malignant 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, estrogen receptor positive (HCC) [C50.112, Z17.0] STAGE: Cancer Staging Breast cancer, female (HCC) Staging form: Breast, AJCC 8th Edition - Clinical stage from 09/15/2019: Stage IIA (cT2, cN0, cM0, G3, ER+, AK+, HER2-) - Signed by Ophelia Ybarra DO on 09/15/2019 - Pathologic stage from 10/12/2019: Stage IIA (pT2, pN1(sn), cM0, G3, ER+, AK+, HER2-) - Signed by Ophelia Ybarra DO on 10/12/2019 - Pathologic: No stage assigned - Unsigned Breast cancer, female (HCC) Staging form: Breast, AJCC 8th Edition - Clinical stage from 10/12/2019: Stage Unknown (cT1, cNX, cM0, G1, ER+, AK+, HER2-) - Signed by Ophelia Ybarra DO on 10/12/2019 ECOG Performance 0 - Fully active, able to carry on all pre-disease performance without restriction HISTORY Beulah Fields is a 74 y.o. woman with newly diagnosed synchronous bilateral breast cancer status post bilateral simple mastectomy and sentinel node biopsy here for treatment recommendations patient presented with occasional pains in the right breast and history of unremarkable screening mammograms. She presented to [facility] for follow-up imaging second opinion which she underwent on 09/03/2019. Ultrasound of mammography showed a suspicious lesion at the 3 o'clock position in the right breast as well as at the 12 o'clock position. The lesion at the 12:00 o'clock position measured 2.2 cm. Biopsy was recommended. Biopsy was consistent with grade 3 invasive ductal carcinoma which was ER, AK positive, and HER-2 negative with a Ki-67 of 62%. Patient was referred to Dr. Rishi Greene for surgical evaluation. Patient elected to undergo simple mastectomy with sentinel node biopsy on the right and prophylactic simple mastectomy on the left. On 09/28/2019 she underwent right simple mastectomy with sentinel biopsy and prophylactic left simple mastectomy. Pathology showed on the right a 2.9 cm grade 3 invasive ductal carcinoma with widely negative margins, 3 sentinel lymph nodes which were negative, and additional lymph node which demonstrated 2 cm focus of invasive ductal carcinoma, also noted on pathology was lymphovascular space invasion. On the left side an incidental finding of a 6 mm grade 1 invasive ductal carcinoma with widely negative margins was seen. Patient had an unremarkable postoperative course. Oncotype testing was sent and returned 15. Patient's drains have been removed. Patient had an appointment with Dr. Weiner of medical oncology who expressed her opinion that the Oncotype seemed unexpectedly low in view of the patient's grade 3 IDC with a high Ki-67 index and requested that the sample be resent. Patient was seen by Dr. Warren Mccullough at [place] who recommended hypofractionated radiation therapy to the right chest wall without boost, and without elective cale radiation. Patient wished to receive treatment closer to home and presents today to discuss further management of her grade IIA invasive ductal carcinoma of the right breast. REVIEW OF SYSTEMS Constitutional: Negative for fever, chills, diaphoresis, activity change, appetite change, fatigue and unexpected weight change. HENT: Negative for congestion, dental problem, drooling, ear discharge, ear pain, facial swelling, hearing loss, mouth sores, nosebleeds, postnasal drip, rhinorrhea, sinus pressure, sneezing, sore throat, tinnitus, trouble swallowing and voice change. Eyes: Negative for photophobia, pain, discharge, redness, itching and visual disturbance. Respiratory: Negative for apnea, cough, choking, chest tightness, shortness of breath, wheezing andstridor. Cardiovascular: Negative for chest pain, palpitations and leg swelling. Gastrointestinal: Negative for nausea, vomiting, abdominal pain, diarrhea, constipation, blood in stool, abdominal distention, anal bleeding and rectal pain. Endocrine: Negative for cold intolerance, heat intolerance, polydipsia, polyphagia and polyuria. Genitourinary: Negative for dysuria, urgency, frequency, hematuria, flank pain, decreased urine volume, vaginal bleeding, vaginal discharge, enuresis, difficulty urinating, genital sores, vaginal pain, menstrual problem, pelvic pain and dyspareunia. Musculoskeletal: Negative for myalgias, back pain, joint swelling, arthralgias, gait problem, neck pain and neck stiffness. Skin: Negative for color change, pallor, rash and wound. Allergic/Immunologic: Negative for environmental allergies, food allergies and immunocompromised state. Neurological: Negative for dizziness, tremors, seizures, syncope, facial asymmetry, speech difficulty, weakness, light-headedness, numbness and headaches. Hematological: Negative for adenopathy. Does not bruise/bleed easily. Psychiatric/Behavioral: Negative for suicidal ideas, hallucinations, behavioral problems, confusion, sleep disturbance, self-injury, dysphoric mood, decreased concentration and agitation. The patientis not nervous/anxious and is not hyperactive. PAST MEDICAL HISTORY Past Medical History: Diagnosis Date Abnormal mammogram Alopecia scalp; scarring type; Dr Aviva Woodward, [place] Anemia 1970s Anxiety and depression Arthritis Breast cancer, female (HCC) 09/15/2019 Breast mass Cataract Cellulitis 08/2017 RLE Claudication ([facility]) Complication of anesthesia anxiety in PACU & postop Deep vein thrombosis (HCC) Diabetes mellitus, type 2 (HCC) Edema R leg GERD (gastroesophageal reflux disease) mild - meds as needed Hyperlipidemia Hypertension Hypothyroidism Lipodermatosclerosis Lymphedema of right lower extremity Dr. 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 MEDICATIONS Current Outpatient Medications: aspirin 81 MG EC tablet, Take 1 (one) tablet (81 mg total) by mouth every morning . You may resume Reasons: treatment to prevent a heart attack., Disp: 30 tablet, Rfl: 0 cholecalciferol, vitamin D3, (D3-2000) 2,000 unit cap, Take 2,000 Units by mouth every evening Reasons: supplement., Disp: , Rfl: escitalopram oxalate (LEXAPRO) 10 MG tablet, Take 10 mg by mouth at bedtime Reasons: anxiousness associated with depression., Disp: , Rfl: levothyroxine (SYNTHROID, LEVOTHROID) 112 MCG tablet, Take 112 mcg by mouth every morning Reasons: a condition with low thyroid hormone levels., Disp: , Rfl: losartan (COZAAR) 25 MG tablet, Take 25 mg by mouth at bedtime Reasons: high blood pressure., Disp:, Rfl: metFORMIN (GLUCOPHAGE-XR) 500 MG 24 hr tablet, Take 500 mg by mouth 2 (two) times a day Reasons: type 2 diabetes mellitus., Disp: , Rfl: multivitamin (multivitamin) per tablet, Take 1 tablet by mouth every evening Reasons: treatment to prevent vitamin deficiency., Disp: , Rfl: naproxen sodium (ALEVE) 220 MG tablet, Take 220 mg by mouth 2 (two) times a day as needed Reasons: pain., Disp: , Rfl: omeprazole (PRILOSEC) 20 MG capsule, Take 20 mg by mouth daily as needed ., Disp: , Rfl: rosuvastatin (CRESTOR) 20 MG tablet, Take 1 tablet by mouth every evening Reasons: high cholesterol., Disp: , Rfl: spironolactone (ALDACTONE) 25 MG tablet, Take 12.5 mg by mouth at bedtime Reasons: high blood pressure, 1/2 tablet (12.5 mg)., Disp: , Rfl: Current Facility-Administered Medications: lidocaine (LMX) 4 % cream, , Topical, PRN, Mehran Velasquez Jr., DPM ALLERGIES Allergies: Chlorhexidine towelette and Betadine [povidone-iodine] SOCIAL HISTORY Social History Socioeconomic History Marital status: Spouse name: Not on file Number of children: Not on file Years of education: Not on file Highest education level: Not on file Occupational History Not on file Social Needs Financial resource strain: Not on file Food insecurity Worry: Not on file Inability: Not on file Transportation needs Medical: Not on file Non-medical: Not on file Tobacco Use Smoking status: Never Smoker Smokeless tobacco: Never Used Substance and Sexual Activity Alcohol use: Never Frequency: Never Drug use: Never Sexual activity: Not on file Lifestyle Physical activity Days per week: Not on file Minutes per session: Not on file Stress: Not on file Relationships Social connections Talks on phone: Not on file Gets together: Not on file Attends mu-ism service: Not on file Active member of club or organization: Not on file Attends meetings of clubs or organizations: Not on file Relationship status: Not on file Other Topics Concern Not on file Social History Narrative Merged History Encounter FAMILY HISTORY Cancer-related family history includes Breast cancer (age of onset: 70) in her maternal grandmother; Cancer (age of onset: 60) in her mother; Colon cancer (age of onset: 60) in her mother; Colon cancer (age of onset: 65) in her maternal grandfather; Liver cancer (age of onset: 60) in her maternal uncle; Prostate cancer (age of onset: 70) in her father; Stomach cancer (age of onset: 70) in her paternal grandmother. PHYSICAL EXAM There were no vitals filed for this visit. General: No acute distress and appears their stated age. HEENT: NC/AT. PERRL. EOMI. No cervical or S/C adenopathy. Cardiovascular Exam: Regular rate and rhythm. No M/R/G. Respiratory Exam: Clear to auscultation bilaterally. No accessory muscle use. Abdominal Exam: Soft, NT to palpation. No masses. Neuro Exam: A+O x 3. No cranial nerve deficits. No focal abnormalities. MSK: No midline axial tenderness. No focal weakness. Extremities: No peripheral edema. Lymphatics: No adenopathy appreciated. Chest wall: Bilateral chest wall healing well. IMPRESSION Beulah Fields is a 74 y.o. woman with newly diagnosed stage II invasive ductal carcinoma of the right breast and stage I invasive ductal carcinoma of the left breast. She is agreeable to postmastectomy radiation for her right-sided node positive tumor. Both her tumors were ER/AK positive and she is willing to undergo estrogen directed therapy. We are awaiting her Oncotype DX results to determineif she will need systemic therapy before radiation. These results should be ready within the next 2weeks. PLAN Planning CT in 2 weeks which can be canceled if her Oncotype score comes back high enough to recommend chemotherapy. If her Oncotype score is high enough proceed with radiation therapy planning CT. Present her radiation plan at our case conference. Start radiation therapy shortly thereafter Pavel Farley MD PhD Radiation Oncology [phone] documented in this encounter* Osiris Diane LISW - 11/18/2019 3:19 PM EDT Brief chart review completed since my last encounter with Beulah Mckenzie. It appears that she recently started chemotherapy treatment. I placed phone call to her today to provide support and follow up on any current needs. I was not able to reach Beulah Mckenzie on my first attempt, however she did call me back shortly after. She talked me through how she has been feeling lately, especially after hearing that she would have to get chemotherapy treatments. She stated that the lull prior to hearing if she would have to get further treatment or not left her feeling pretty alone. Supportive listening provided as Beulah shared this. Beulah expressed how it can be very stressful getting chemo as you are told several side effects that you could experience. After treatment one, she states she is feeling goodso far. She was very appreciative of my call. She denied other needs at this time, however I reminded her that she can call me if this were to change. SW Navigator will continue to follow and remainavailable for support and assistance as needed. documented in this encounter* Osiris Diane LISW - 02/11/2020 3:17 PM EDT Received message from [facility] Nurse Navigator, indicating that Beulah Mckenzie will soon be beginning radiation treatment at [facility], and she was inquiring if lodging resources would be available,as she will be driving from [place], [place]. Today I placed call to Beulah Mckenzie to discuss with her further. Beulah Mckenzie stated that she chose to have her radiation treatments done in [place] because she fel t very comfortable with Dr. Mccullough, and wants to keep her treatment within [facility]. She expressed that she realizes she had options closer to home, but this is what she feels most comfortable with. I validated that it is important for Beulah Mckenzie to feel comfortable with steps in her care, and s ometimes that is taking a route to treatment that may not make sense to those on the outside. Beulah Mckenzie appreciated these words. There is an organization, [employer], that we have utilized for Beulah Mckenzie in the past for lodging assistance. Beulah Mckenzie stated that if she could get assistance [even one day per week], that would bevery helpful for she and her . I offered to touch base with [employer] to determine if theywould be able to provide any assistance. Beulah Mckenzie was very appreciative of this. Following my callwith her, I placed a call to Helder with [employer]. After explaining the situation, Helder stated they should be able to assist. He will need to look around to determine how close to [place] he can get a hotel for her, as most of his partners are in the [place] area. I told him I would touch basewith him next week re: the dates of Beulah Mckenzie's transportation, and he was agreeable to that plan. SW Navigator will continue to follow and remain available for support and assistance as needed. documented in this encounter* Warren Mccullough MD - 02/17/2020 11:41 AM EDT [facility] Radiation Oncology [address] [place] [address] P [phone] F [phone] [facility] Radiation Oncology [address] [place] [address] P [phone] F [phone] MD Derrick Jackson MD RADIATION ONCOLOGY ESTABLISHED PATIENT VISIT NOTE DIAGNOSIS: Malignant 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, estrogen receptor positive (HCC) [C50.112, Z17.0] STAGE: Cancer Staging Breast cancer, female (HCC) Staging form: Breast, AJCC 8th Edition - Clinical stage from 09/15/2019: Stage IIA (cT2, cN0, cM0, G3, ER+, AK+, HER2-) - Signed by Ophelia Ybarra DO on 09/15/2019 - Pathologic stage from 10/12/2019: Stage IIA (pT2, pN1(sn), cM0, G3, ER+, AK+, HER2-) - Signed by Ophelia Ybarra DO on 10/12/2019 - Pathologic: No stage assigned - Unsigned Breast cancer, female (HCC) Staging form: Breast, AJCC 8th Edition - Clinical stage from 10/12/2019: Stage Unknown (cT1, cNX, cM0, G1, ER+, AK+, HER2-) - Signed by Ophelia Ybarra DO on 10/12/2019 ECOG Performance 1 - Restricted in physically strenuous activity but ambulatory and able to carry out work of a light or sedentary nature, e.g., light house work, office work PATIENT IDENTIFICATION Beulah Fields is a 74 y.o. female returning to Radiation Oncology for right- sided breast cancer. HISTORY She has completed adjuvant chemotherapy and tolerated this extraordinarily well under the directionof Dr. Ansari. She returns to radiation oncology for postmastectomy radiation therapy. REVIEW OF SYSTEMS PAST MEDICAL HISTORY Past Medical History: Diagnosis Date Abnormal mammogram Alopecia scalp; scarring type; Dr Aviva Woodward, [place] Anemia 1970s Anxiety and depression Arthritis Breast cancer, female (HCC) 09/15/2019 Breast mass Cataract Cellulitis 08/2017 RLE Claudication (HCC) Complication of anesthesia anxiety in PACU & postop Deep vein thrombosis (HCC) Diabetes mellitus, type 2 (HCC) Edema R leg GERD (gastroesophageal reflux disease) mild - meds as needed Hyperlipidemia Hypertension Hypothyroidism Lipodermatosclerosis Lymphedema of right lower extremity Dr. 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 MEDICATIONS Current Outpatient Medications: aspirin 81 MG EC tablet, Take 1 (one) tablet (81 mg total) by mouth every morning . You may resume Reasons: treatment to prevent a heart attack., Disp: 30 tablet, Rfl: 0 cholecalciferol, vitamin D3, (D3-2000) 2,000 unit cap, Take 2,000 Units by mouth every evening Reasons: supplement., Disp: , Rfl: escitalopram oxalate (LEXAPRO) 10 MG tablet, Take 10 mg by mouth at bedtime Reasons: anxiousness associated with depression., Disp: , Rfl: levothyroxine (SYNTHROID, LEVOTHROID) 112 MCG tablet, Take 112 mcg by mouth every morning Reasons: a condition with low thyroid hormone levels., Disp: , Rfl: losartan (COZAAR) 25 MG tablet, Take 25 mg by mouth at bedtime Reasons: high blood pressure., Disp:, Rfl: melatonin 1 mg Tab, Take by mouth nightly ., Disp: , Rfl: metFORMIN (GLUCOPHAGE-XR) 500 MG 24 hr tablet, Take 500 mg by mouth 2 (two) times a day Reasons: type 2 diabetes mellitus., Disp: , Rfl: multivitamin (multivitamin) per tablet, Take 1 tablet by mouth every evening Reasons: treatment to prevent vitamin deficiency., Disp: , Rfl: naproxen sodium (ALEVE) 220 MG tablet, Take 220 mg by mouth 2 (two) times a day as needed Reasons: pain., Disp: , Rfl: omeprazole (PRILOSEC) 20 MG capsule, Take 20 mg by mouth daily as needed ., Disp: , Rfl: rosuvastatin (CRESTOR) 20 MG tablet, Take 1 tablet by mouth every evening Reasons: high cholesterol., Disp: , Rfl: spironolactone (ALDACTONE) 25 MG tablet, Take 12.5 mg by mouth at bedtime Reasons: high blood pressure, 1/2 tablet (12.5 mg)., Disp: , Rfl: Current Facility-Administered Medications: lidocaine (LMX) 4 % cream, , Topical, PRN, Mehran Velasquez Jr., DPMary ALLERGIES Allergies: Chlorhexidine towelette; Sulfamethoxazole-trimethoprim; and Betadine [povidone-iodine] SOCIAL HISTORY Social History Socioeconomic History Marital status: Spouse name: Not on file Number of children: Not on file Years of education: Not on file Highest education level: Not on file Occupational History Not on file Social Needs Financial resource strain: Not on file Food insecurity Worry: Not on file Inability: Not on file Transportation needs Medical: Not on file Non-medical: Not on file Tobacco Use Smoking status: Never Smoker Smokeless tobacco: Never Used Substance and Sexual Activity Alcohol use: Never Frequency: Never Drug use: Never Sexual activity: Not on file Lifestyle Physical activity Days per week: Not on file Minutes per session: Not on file Stress: Not on file Relationships Social connections Talks on phone: Not on file Gets together: Not on file Attends mu-ism service: Not on file Active member of club or organization: Not on file Attends meetings of clubs or organizations: Not on file Relationship status: Not on file Other Topics Concern Not on file Social History Narrative Merged History Encounter FAMILY HISTORY Cancer-related family history includes Breast cancer (age of onset: 70) in her maternal grandmother; Cancer (age of onset: 67) in her mother; Colon cancer (age of onset: 65) in her maternal grandfather; Colon cancer (age of onset: 67) in her mother; Prostate cancer in her maternal uncle; Prostate cancer (age of onset: 60) in her maternal uncle; Prostate cancer (age of onset: 68) in her brother; Prostate cancer (age of onset: 70) in her father. PHYSICAL EXAM There were no vitals filed for this visit. General: No acute distress and appears their stated age. HEENT: NC/AT. PERRL. EOMI. No cervical or S/C adenopathy. Cardiovascular Exam: Regular rate and rhythm. No M/R/G. Respiratory Exam: Clear to auscultation bilaterally. No accessory muscle use. Abdominal Exam: Soft, NT to palpation. No masses. Breast Exam: Deferred Neuro Exam: A+O x 3. No cranial nerve deficits. No focal abnormalities. MSK: No midline axial tenderness. No focal weakness. Extremities: No peripheral edema. Lymphatics: No adenopathy appreciated. IMPRESSION Beulah Fields is a 74 y.o. female with local regionally advanced right-sided breast cancer. PLAN We again discussed and reviewed indications for postmastectomy radiation therapy. I plan to delivera hypofractionated course delivering 4005 cGy in 15 fractions. I do not plan a sequential boost. Regional cale radiation will be employed though I will not intentionally cover internal mammary lymphnodes. The acute and chronic toxicities and logistics of treatment were explained. The patient has severalinsightful questions and all were answered to her satisfaction. Informed consent was obtained today. We will proceed with a treatment planning CT though CT scanner is down today this will be scheduled in the near future. We did discuss COVID-19 preprocedural testing. Higinio Mccullough MD Radiation Oncology documented in this encounter* Osiris Diane LISW - 02/21/2020 11:36 AM EDT Chart review completed, it appears Beulah Mckenzie is scheduled to being her radiation treatment at [facility] Friday. I placed call to her this morning to discuss dates she would like me to get booked for her overnight stays through [facility]. My call went unanswered, however I was able to leave a VMwith my reason for calling, as well as my contact information for Beulah Mckenzie to return my call at her convenience. I received a call back from Beulah Mckenzie this afternoon. She was very appreciative that [employer] isable to assist with hotel stays throughout her radiation treatment. Beulah Mckenzie requested the following dates for hotel stays: 03/01/20Friday, 03/07/20, 03/09/20Friday, 03/14/20, 03/16/20 I sent these date in a secure email to Helder Ramirez with [employer], and informed Beulah Mckenzie that I will give her a call once the arrangements have been finalized. She was in agreement with this plan,and very thankful that this will be an option. I received a call back from Helder, and he stated that he will finalize everything either later thisafternoon or tomorrow, and then give me a call. ALEXANDRA Navigator will continue to follow and remain available for support and assistance as needed. documented in this encounter* Osiris Diane LISW - 02/23/2020 7:53 AM EDT Received email from Helder Ramirez indicating that he was able [facility] [place] [address] for the following dates: 03/01/20Friday, 03/07/20, 03/09/20Friday, 03/14/20, 03/16/20 Placed call to Beulah Mckenzie to ensure that she received the email from Helder with the dates and confirmation information. My call to her went unanswered, however I was able to leave a VM with my reason for calling, as well as my contact information if she has additional questions. SW Navigator will continue to follow and remain available for support and assistance as needed. documented in this encounter* Warren Mccullough MD - 03/06/2020 11:03 AM EDT [facility] Radiation Oncology [address] [place] [address] P [phone] F [phone] [facility] Radiation Oncology [address] [place] [address] P [phone] F [phone] MD Derrick Jackson MD ON TREATMENT VISIT NOTE DIAGNOSIS: Malignant neoplasm of right female breast, unspecified estrogen receptor status, unspecified site of breast (HCC) [C50.911] STAGE: Cancer Staging Breast cancer, female (HCC) Staging form: Breast, AJCC 8th Edition - Clinical stage from 10/12/2019: Stage Unknown (cT1, cNX, cM0, G1, ER+, AK+, HER2-) - Signed by Ophelia Ybarra DO on 10/12/2019 Breast cancer, right (HCC) Staging form: Breast, AJCC 8th Edition - Clinical stage from 09/15/2019: Stage IIA (cT2, cN0, cM0, G3, ER+, AK+, HER2-) - Signed by Ophelia Ybarra DO on 09/15/2019 - Pathologic stage from 10/12/2019: Stage IIA (pT2, pN1(sn), cM0, G3, ER+, AK+, HER2-) - Signed by Ophelia Ybarra DO on 10/12/2019 - Pathologic: No stage assigned - Unsigned TREATMENT TO DATE: R CW/SCV; R CW/SCV 03/06/2020 Value Treatment Date Reference Point R SCV calc; R CW dpv 03/06/2020 Total Dose to Date (cGy) 801; 801 03/06/2020 Prescription Dose (cGy) 4,005; 4,005 03/06/2020 Fractions Treated to Date 3; 3 03/06/2020 Total Fractions Prescribed 15; 15 03/06/2020 Prescribed Dose per Fraction (cGy) 267; 267 03/06/2020 Elapsed Days 4 03/06/2020 Unverified data imported from [employer]. May not reflect actual given/total prescription dose. TREATMENT INTENT: Curative, adjuvant, postmastectomy radiation therapy SUBJECTIVE The patient is doing well with treatment thus far. She has no questions or concerns. OBJECTIVE PACU Vitals 03/06/20 1030 BP: 145/73 Pulse: (!) 52 Temp: 97.7 F (36.5 C) SpO2: 99% No appreciable skin changes. ASSESSMENT The patient is doing well with no significant radiation-induced toxicity TOXICITY ASSESSMENT Toxicity Assessment No reportable toxicity IMAGING AND SETUP Imaging is performed as needed and as ordered. Her set up has been good thus far. PLAN Continue current radiation plan. A sequential boost is not planned. No change to prescription medications or skin management. Higinio Mccullough MD Radiation Oncology documented in this encounter* Osiris Diane LISW - 03/08/2020 2:27 PM EDT [employer] Navigation Progress Note: Phone call placed to Beulah Mckenzie to follow up on how her radiation treatment is going so far as well as to ensure there have been no issues with her hotel stays. My call went unanswered, however I was able to leave a detailed VM with my reason for calling as well as my contact information if she would like to return my call. SW Navigator will continue to follow and remain available for support and assistance as needed. Next follow up planned: as needed documented in this encounter* Warren Mccullough MD - 03/13/2020 11:17 AM EDT [facility] Radiation Oncology [address] [place] [address] P [phone] F [phone] [facility] Radiation Oncology [address] [place] [address] P [phone] F [phone] MD Derrick Jackson MD ON TREATMENT VISIT NOTE DIAGNOSIS: Malignant neoplasm of right female breast, unspecified estrogen receptor status, unspecified site of breast (HCC) [C50.911] STAGE: Cancer Staging Breast cancer, female (HCC) Staging form: Breast, AJCC 8th Edition - Clinical stage from 10/12/2019: Stage Unknown (cT1, cNX, cM0, G1, ER+, AK+, HER2-) - Signed by Ophelia Ybarra DO on 10/12/2019 Breast cancer, right (HCC) Staging form: Breast, AJCC 8th Edition - Clinical stage from 09/15/2019: Stage IIA (cT2, cN0, cM0, G3, ER+, AK+, HER2-) - Signed by Ophelia Ybarra DO on 09/15/2019 - Pathologic stage from 10/12/2019: Stage IIA (pT2, pN1(sn), cM0, G3, ER+, AK+, HER2-) - Signed by Ophelia Ybarra DO on 10/12/2019 - Pathologic: No stage assigned - Unsigned TREATMENT TO DATE: R CW/SCV; R CW/SCV 03/13/2020 Value Treatment Date Reference Point R SCV calc; R CW dpv 03/13/2020 Total Dose to Date (cGy) 2,136; 2,136 03/13/2020 Prescription Dose (cGy) 4,005; 4,005 03/13/2020 Fractions Treated to Date 8; 8 03/13/2020 Total Fractions Prescribed 15; 15 03/13/2020 Prescribed Dose per Fraction (cGy) 267; 267 03/13/2020 Elapsed Days 11 03/13/2020 Unverified data imported from [employer]. May not reflect actual given/total prescription dose. TREATMENT INTENT: Curative, adjuvant, postmastectomy radiation therapy SUBJECTIVE Patient continues to do well. She reports some very minor fatigue. No skin irritation is noted. OBJECTIVE PACU Vitals 03/13/20 1028 BP: 124/74 Pulse: (!) 53 SpO2: 98% No appreciable skin changes are noted on the treated field. No hyperpigmentation. ASSESSMENT The patient is doing well with expected radiation-induced toxicities TOXICITY ASSESSMENT Toxicity Assessment General Disorders and Administration Site Conditions Fatigue: Grade 1 IMAGING AND SETUP Imaging is performed as ordered and as required for set up verification. Good set up as noted. PLAN Continue current radiation plan. No boost. No change to prescription medications or skin management. Higinio Mccullough MD Radiation Oncology documented in this encounter* Warren Mccullough MD - 03/20/2020 2:12 PM EDT [facility] Radiation Oncology [address] [place] [address] P [phone] F [phone] [facility] Radiation Oncology [address] [place] [address] P [phone] F [phone] MD Derrick Jackson MD ON TREATMENT VISIT NOTE DIAGNOSIS: Malignant neoplasm of right female breast, unspecified estrogen receptor status, unspecified site of breast (HCC) [C50.911] STAGE: Cancer Staging Breast cancer, female (HCC) Staging form: Breast, AJCC 8th Edition - Clinical stage from 10/12/2019: Stage Unknown (cT1, cNX, cM0, G1, ER+, AK+, HER2-) - Signed by Ophelia Ybarra DO on 10/12/2019 Breast cancer, right (HCC) Staging form: Breast, AJCC 8th Edition - Clinical stage from 09/15/2019: Stage IIA (cT2, cN0, cM0, G3, ER+, AK+, HER2-) - Signed by Ophelia Ybarra DO on 09/15/2019 - Pathologic stage from 10/12/2019: Stage IIA (pT2, pN1(sn), cM0, G3, ER+, AK+, HER2-) - Signed by Ophelia Ybarra DO on 10/12/2019 - Pathologic: No stage assigned - Unsigned TREATMENT TO DATE: R CW/SCV; R CW/SCV 03/20/2020 Value Treatment Date Reference Point R SCV calc; R CW dpv 03/20/2020 Total Dose to Date (cGy) 3,471; 3,471 03/20/2020 Prescription Dose (cGy) 4,005; 4,005 03/20/2020 Fractions Treated to Date 13; 13 03/20/2020 Total Fractions Prescribed 15; 15 03/20/2020 Prescribed Dose per Fraction (cGy) 267; 267 03/20/2020 Elapsed Days 18 03/20/2020 Unverified data imported from [employer]. May not reflect actual given/total prescription dose. TREATMENT INTENT: Curative, adjuvant, postmastectomy radiation therapy SUBJECTIVE Patient continues to do well. She has noticed a little bit of increased skin reaction. Minor pruritus. OBJECTIVE PACU Vitals 08/17/20 1413 BP: 147/79 Pulse: (!) 54 Temp: 98.4 F (36.9 C) Some very dull erythema is appreciable. No breakdown. ASSESSMENT The patient is doing well with expected radiation-induced toxicities TOXICITY ASSESSMENT Toxicity Assessment Gastrointestinal Nausea: Grade 0 General Disorders and Administration Site Conditions Fatigue: Grade 1 Injury, Poisoning, and Procedural Dermatitis Radiation: Grade 1 Metabolism and Nutrition Anorexia: Grade 0 IMAGING AND SETUP Imaging is performed as ordered and is at and as needed for set up verification. Set up has been good to this point. PLAN Continue current radiation plan. She completes therapy this week. I will see her back in 1 week danni acute toxicity check. She was instructed she could continue to use Aquaphor and hydrocortisone as needed for pruritus. Higinio Mccullough MD Radiation Oncology documented in this encounter* Warren Mccullough MD - 03/23/2020 3:28 PM EDT [facility] Radiation Oncology [address] [place] [address] P [phone] F [phone] [facility] Radiation Oncology [address] [place] [address] P [phone] F [phone] MD Derrick Jackson MD RADIATION ONCOLOGY COMPLETION LETTER DIAGNOSIS: Malignant neoplasm of right breast in female, estrogen receptor positive, unspecified site of breast (HCC) [C50.911, Z17.0] STAGE: Cancer Staging Breast cancer, female (HCC) Staging form: Breast, AJCC 8th Edition - Clinical stage from 10/12/2019: Stage Unknown (cT1, cNX, cM0, G1, ER+, AK+, HER2-) - Signed by Ophelia Ybarra DO on 10/12/2019 Breast cancer, right (HCC) Staging form: Breast, AJCC 8th Edition - Clinical stage from 09/15/2019: Stage IIA (cT2, cN0, cM0, G3, ER+, AK+, HER2-) - Signed by Ophelia Ybarra DO on 09/15/2019 - Pathologic stage from 10/12/2019: Stage IIA (pT2, pN1(sn), cM0, G3, ER+, AK+, HER2-) - Signed by Ophelia Ybarra DO on 10/12/2019 - Pathologic: No stage assigned - Unsigned ECOG Performance 1 - Restricted in physically strenuous activity but ambulatory and able to carry out work of a light or sedentary nature, e.g., light house work, office work TREATMENT INTENT: Curative, adjuvant, postmastectomy radiation therapy RADIATION MODALITY: External beam radiation therapy delivered with 3D conformal radiation therapy and a 3 field beam arrangement. TREATMENT COURSE: The patient received radiation therapy from 03/02/2020 through 03/22/2020. Treatment consisted of 15 fractions over 20 elapsed days. RADIATION PRESCRIPTION: Oncology History - Radiation Breast cancer, right (HCC) 03/02/2020 - 03/22/2020 Radiation Plan Name: R Chestwall and S/C Technique: 3DCRT, 3 field Treatment Date: 03/02/2020 - 03/22/2020 Value Total Dose to Date (cGy) 4005 Prescription Dose (cGy) 4005 Fractions Treated to Date 15 Total Fractions Prescribed 15 Prescribed Dose per Fraction (cGy) 267 Elapsed Days 20 Breast cancer, female (HCC) TOLERANCE: The patient tolerated radiation therapy well with no unexpected toxicities. She had a grade 1 skin reaction managed well with topicals. She had no unanticipated missed days. DISPOSITION: I will see the patient back in 1 week for a routine skin check. She was directed that she could start antiestrogen therapy as directed by medical oncology. As always, it is a pleasure to participate in the care of your patient. Higinio Mccullough MD Radiation Oncology [phone] documented in this encounter* Warren Mccullough MD - 03/29/2020 5:17 PM EDT [facility] Radiation Oncology [address] [place] [address] P [phone] F [phone] [facility] Radiation Oncology [address] [place] [address] P [phone] F [phone] MD Derrick Jackson MD RADIATION ONCOLOGY ESTABLISHED PATIENT VISIT NOTE DIAGNOSIS: Malignant neoplasm of right breast in female, estrogen receptor positive, unspecified site of breast (HCC) [C50.911, Z17.0] STAGE: Cancer Staging Breast cancer, female (HCC) Staging form: Breast, AJCC 8th Edition - Clinical stage from 10/12/2019: Stage Unknown (cT1, cNX, cM0, G1, ER+, AK+, HER2-) - Signed by Ophelia Ybarra DO on 10/12/2019 Breast cancer, right (HCC) Staging form: Breast, AJCC 8th Edition - Clinical stage from 09/15/2019: Stage IIA (cT2, cN0, cM0, G3, ER+, AK+, HER2-) - Signed by Ophelia Ybarra DO on 09/15/2019 - Pathologic stage from 10/12/2019: Stage IIA (pT2, pN1(sn), cM0, G3, ER+, AK+, HER2-) - Signed by Ophelia Ybarra DO on 10/12/2019 - Pathologic: No stage assigned - Unsigned ECOG Performance 1 - Restricted in physically strenuous activity but ambulatory and able to carry out work of a light or sedentary nature, e.g., light house work, office work TREATMENT SUMMARY: Oncology History - Radiation Breast cancer, right (HCC) 03/02/2020 - 03/22/2020 Radiation Plan Name: R Chestwall and S/C Technique: 3DCRT, 3 field Treatment Date: 03/02/2020 - 03/22/2020 Value Total Dose to Date (cGy) 4005 Prescription Dose (cGy) 4005 Fractions Treated to Date 15 Total Fractions Prescribed 15 Prescribed Dose per Fraction (cGy) 267 Elapsed Days 20 Breast cancer, female (HCC) PATIENT IDENTIFICATION Beulah Fields is a 74 y.o. female who returns to Radiation Oncology with a known diagnosis of right-sided breast cancer status post postmastectomy radiation therapy. HISTORY The patient returns today for an acute toxicity check. REVIEW OF SYSTEMS PAST MEDICAL HISTORY Past Medical History: Diagnosis Date Abnormal mammogram Alopecia scalp; scarring type; Dr Aviva Woodwadr, [place] Anemia 1970s Anxiety and depression Arthritis Breast cancer, female (HCC) 09/15/2019 Breast mass Cataract Cellulitis 08/2017 RLE Claudication (HCC) Complication of anesthesia anxiety in PACU & postop Deep vein thrombosis (HCC) Diabetes mellitus, type 2 (HCC) Edema R leg GERD (gastroesophageal reflux disease) mild - meds as needed Hyperlipidemia Hypertension Hypothyroidism Lipodermatosclerosis Lymphedema of right lower extremity Dr. 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 MEDICATIONS Current Outpatient Medications: anastrozole (ARIMIDEX) 1 mg tablet, Take 1 mg by mouth daily ., Disp: , Rfl: aspirin 81 MG EC tablet, Take 1 (one) tablet (81 mg total) by mouth every morning . You may resume Reasons: treatment to prevent a heart attack., Disp: 30 tablet, Rfl: 0 cholecalciferol, vitamin D3, (D3-2000) 2,000 unit cap, Take 2,000 Units by mouth every evening Reasons: supplement., Disp: , Rfl: escitalopram oxalate (LEXAPRO) 10 MG tablet, Take 10 mg by mouth at bedtime Reasons: anxiousness associated with depression., Disp: , Rfl: levothyroxine (SYNTHROID, LEVOTHROID) 112 MCG tablet, Take 112 mcg by mouth every morning Reasons: a condition with low thyroid hormone levels., Disp: , Rfl: losartan (COZAAR) 25 MG tablet, Take 25 mg by mouth at bedtime Reasons: high blood pressure., Disp:, Rfl: melatonin 1 mg Tab, Take by mouth nightly ., Disp: , Rfl: metFORMIN (GLUCOPHAGE-XR) 500 MG 24 hr tablet, Take 500 mg by mouth 2 (two) times a day Reasons: type 2 diabetes mellitus., Disp: , Rfl: multivitamin (multivitamin) per tablet, Take 1 tablet by mouth every evening Reasons: treatment to prevent vitamin deficiency., Disp: , Rfl: omeprazole (PRILOSEC) 20 MG capsule, Take 20 mg by mouth daily as needed ., Disp: , Rfl: rosuvastatin (CRESTOR) 20 MG tablet, Take 1 tablet by mouth every evening Reasons: high cholesterol., Disp: , Rfl: spironolactone (ALDACTONE) 25 MG tablet, Take 12.5 mg by mouth at bedtime Reasons: high blood pressure, 1/2 tablet (12.5 mg)., Disp: , Rfl: naproxen sodium (ALEVE) 220 MG tablet, Take 220 mg by mouth 2 (two) times a day as needed Reasons: pain., Disp: , Rfl: Current Facility-Administered Medications: lidocaine (LMX) 4 % cream, , Topical, PRN, Mehran Velasquez Jr., DPM ALLERGIES Allergies: Chlorhexidine towelette, Sulfamethoxazole-trimethoprim, and Betadine [povidone-iodine] SOCIAL HISTORY Social History Socioeconomic History Marital status: Spouse name: Not on file Number of children: Not on file Years of education: Not on file Highest education level: Not on file Occupational History Not on file Social Needs Financial resource strain: Not on file Food insecurity Worry: Not on file Inability: Not on file Transportation needs Medical: Not on file Non-medical: Not on file Tobacco Use Smoking status: Never Smoker Smokeless tobacco: Never Used Substance and Sexual Activity Alcohol use: Never Frequency: Never Drug use: Never Sexual activity: Not on file Lifestyle Physical activity Days per week: Not on file Minutes per session: Not on file Stress: Not on file Relationships Social connections Talks on phone: Not on file Gets together: Not on file Attends mu-ism service: Not on file Active member of club or organization: Not on file Attends meetings of clubs or organizations: Not on file Relationship status: Not on file Other Topics Concern Not on file Social History Narrative Merged History Encounter FAMILY HISTORY Cancer-related family history includes Breast cancer (age of onset: 70) in her maternal grandmother; Cancer (age of onset: 67) in her mother; Colon cancer (age of onset: 65) in her maternal grandfather; Colon cancer (age of onset: 67) in her mother; Prostate cancer in her maternal uncle; Prostate cancer (age of onset: 60) in her maternal uncle; Prostate cancer (age of onset: 68) in her brother; Prostate cancer (age of onset: 70) in her father. PHYSICAL EXAM PACU Vitals 03/29/20 1039 BP: 142/78 Pulse: (!) 58 Temp: 98.3 F (36.8 C) SpO2: 97% General: No acute distress and appears their stated age. Breast: Residual hyperpigmentation with some mild inflammatory changes are noted. No breakdown. IMPRESSION Beulah Fields is a 74 y.o. female with a history of right-sided breast cancer status post postmastectomy radiation therapy. Appropriate resolving acute radiation toxicity. Toxicity Assessment Injury, Poisoning, and Procedural Dermatitis Radiation: Grade 1 PLAN Continue Aquaphor as needed. Continue antiestrogen therapy per medical oncology. I will see her back in 6 months for routine follow-up. Higinio Mccullough MD Radiation Oncology documented in this encounter* Jyoti Wise LISW-S - 05/16/2020 1:16 PM EDT [employer] met with patient in Survivorship Clinic this afternoon. She stated she's doing well since completion of treatment in March. She lives at home with her of 48 years. They have 6 grown children and 30+ grandchildren. All family and friends have been very supportive. Emotional support provided. We discussed the common themes of survivorship, including anxiety, depression and fear of recurrence. She acknowledged history of anxiety and does struggle with those symptoms at present. Reviewed services available in our Integrative Medicine Department, including ANDIE Mcgraw, our Mind/Body clinician. Patient welcomes call from that office to gain add'l information and to schedule appt if she's interested. She lives over an hour from [place], but they visit friends here often. Also provided patient with information on resources for support, both on line and by phone, as wellas Cancer Support Community's newsletter. Patient denied add'l needs at this time, but this worker will remain available to assist. 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 RIGHT breast invasive ductal carcinoma, grade 3, DCIS present, 1 of4 lymph nodes positive for metastasis. ER positive 100%, AK positive 85%, HER-2/julio negative, Stage IIA, Ki-67 is 62% Genetics: 12/2019 Negative for mutations Breast Treatment History: Bilateral mastectomy with right sentinel lymph node biopsy on 09/28/2019 (Dr. Bailey) Chemo: 4 doses of docetaxel and cyclophosphamide 11/17/19-01/19/20 (Dr. Ansari) Radiation to right chest wall and S/C 03/02/20-03/22/20 (Dr. Mccullough) Endocrine therapy: Arimidex 1 mg po daily started February 2020 (Dr. Ansari). HPI: 74 y/o postmenopausal female presented in August 2019 with abnormal imaging of the right breast. Diagnostic mammogram on showed a suspicious appearing spiculated mass that measures about 2.5 cm at 12:00 of her right breast at 5 cm from the nipple. She had a right breast ultrasound on the same day which shows a hypoechoic 2.2 cm lesion at 12:00 of the right breast which has irregular margins. Shehad an ultrasound-guided core needle biopsy and was found to have invasive ductal carcinoma, grade 3, hormone receptor positive and HER-2/julio negative. She underwent bilateral mastectomy with right sentinel lymph node biopsy. Pathology with RIGHT breast invasive ductal carcinoma with focal mucinous and micropapillary features, grade 3, DCIS present,margins clear, 1 of 4 lymph nodes positive for metastasis, 20 mm metastatic deposit involved. Estrogen receptor positive, progesterone receptor positive, HER-2/julio negative, Ki-67 62%. LEFT breast upper outer quadrant with 6 mm invasive ductal carcinoma, grade 1, margins negative and no lymph nodesassessed. Estrogen receptor 100%, progesterone receptor 10%, HER-2/julio negative. Survivorship Assessment/Plan: Monitoring for Early and Late Effects of Treatment 1. Vaginal Dryness: Regular use of vaginal moisturizer 3-4 times/week. Suggested OTC products include: Fresh Start, Replens, K-Y Silk, K-Y Liquibeads. Use of vaginal lubrication with during intercourse. Suggested OTC products include: FemGlide, Summer's Leatha, Astroglide, K-Y Jelly. If no improvement with the use of OTC products, advised to contact survivorship clinic for further follow-up 2. Fatigue: Patient reports fatigue is improving, no difficulty with completing all self care and ADL's. Noted she just completed her treatment in March 2020. Education provided that recovering from surgery, chemo, and radiation typically takes 6-12 months. Advised increasing activity, including daily walking, gradually. Provided link to online [place] Cancer Survivorship Exercise videos ([employer]po[employer]/CancerExercises). 3. Menopausal symptoms (hot flashes):Patient reports this is improving now that she has been on Arimidex about 3 months. No intervention needed at this time. 4. Chronic UTI's: Patient reports this has been problematic since beginning Arimdex in February. She does endorse vaginal dryness.Advised regular use of vaginal moisturizers and lubricants as noted above. ? Advised follow-up with chief nursing executive, discuss possible referral to uro- gynocolgist if UTi's continue. 5. Bone Health: DEXA November 2018 was normal. Repeat in 2 years. Continue daily Vit D and Calcium supplements Patient has obtained dental clearance, faxed to Dr. Ansari's office. To begin Zometa every [address] Ansari's care. Risk Reduction 1. Endocrine therapy: Currently taking Arimedex 1 mg PO daily, plan is to continue for 10 year. Reports no missed doses. 2. Nutrition and Weight: BMI 36.80. Patient met virtually with oncology dietitian Doris Zamora RD during this visit. Discussed benefits of small weight loss when it comes to breast cancer recurrence - 5% weight loss seen to make huge difference! 226 x 5% = ~11 lbs. Patient felt this was very realistic and not a stressful amount. The following goals were established: Follow plant-based diet - 80% plant, 20% animal Choose organic dairy, poultry, etc whenever possible Dirty Dozen - try to buy these fruits/veggies organic when possible Pair carbohydrate + protein source for better blood sugar control Add calcium citrate supplement - take in morning (away from multivitamin) 3. Exercise: Walking 3-4 X/week, goal is to walk daily. Encouraged us of [employer] cancer survivorexercise videos to supplement walking. Link to online exercise videos for cancer survivors provided and encouraged - Spoqa/CancerExercises. Advised of ACS recommendation related to cancer risk reductions - Adults should engage in 150-300 min of moderate-intensity physical activity per wk, or 75-150 min of vigorous-intensity physical activity, or an equivalent combination; achieving or exceeding the upper limit of 300 min is optimal. Limit sedentary behavior, such as sitting, lying down, and watching television, and other forms of screen-based entertainment. 4. Tobacco/Alcohol: Per patient report she has never smoked, does not drink alcohol. Psychosocial Functioning 1. Anxiety: Jyoti Frandy [employer] met with patient during visit. Patient statesshpaula's doing well since completion of treatment in March. She lives at home with her of 48 years. They have 6 grown children and 30+ grandchildren. All family and friends have been very supportive. Emotional support provided. Discussed the common themes of survivorship, including anxiety, depression and fear of recurrence. She acknowledged history of anxiety and does struggle with those symptoms at present. Reviewed services available in our Integrative Medicine Department, including ANDIE Mcgraw, our Mind/Body clinician. Patient welcomes call from that office to gain add'l information and to schedule appt if she's interested. She lives over an hour from [place], but they visit friends here often. Voucher's provided for these additional counseling visit. Also provided patient with information on resources for support, both on line and by phone, as wellas Cancer Support Community's newsletter. Surveillance 1. Establish care with new PCP: Has upcoming appointment with Dr. Jose Marte of [facility]. 2. Monthly self-breast awareness exam: Education, verbal and written, provided. Exam Last Date Complete Next date Due Medical oncology visit 04/20/20 3 months Jul 2020) Surgical oncology visit 02/15/20 Radiation oncology visit 03/29/20 6 months (Sep 2020) Gynecology exam Mammogram 09/28/19 Bilateral mastectomies Bone density November Colonoscopy 2019 10 years (2028) PAP Vaccines Influenza Apr 2020 Fall 2020 Pneumococcal 08/12/19 Shingles 1 of 2 05/2020 Hepatitis C None is system I have reviewed and discussed treatment plan with Dr. Kristopher Díaz Review of Systems Review of Systems Constitutional: Positive for fatigue. Negative for appetite change, chills and fever. HENT: Negative for hearing loss, mouth sores and sore throat. Eyes: Negative for eye problems. Respiratory: Negative for apnea, chest tightness, cough and shortness of breath. Cardiovascular: Negative for chest pain and leg swelling. Gastrointestinal: Negative for abdominal distention, constipation, diarrhea, nausea and vomiting. Endocrine: Positive for hot flashes. Genitourinary: Positive for dysuria and urgency. Negative for bladder incontinence, difficulty urinating and frequency. Vaginal dryness, Chronic UTI's Musculoskeletal: Negative for arthralgias, bone pain, gait problem and muscle weakness. Skin: Negative for pruritus and rash. Neurological: Negative for dizziness, gait problem, headaches, light-headedness and numbness. Hematological: Negative for adenopathy. Psychiatric/Behavioral: Negative for confusion and depression. The patient is nervous/anxious. Physical Exam Physical Exam Constitutional: She is oriented to person, place, and time. She appears well- developed and well-nourished. Obese HENT: Head: Normocephalic and atraumatic. Eyes: Pupils are equal, round, and reactive to light. Conjunctivae are normal. Right eye exhibits no discharge. Left eye exhibits no discharge. Neck: Normal range of motion. Neck supple. No tracheal deviation present. No thyromegaly present. Cardiovascular: Normal rate, regular rhythm, normal heart sounds and intact distal pulses. No murmur heard. Pulmonary/Chest: Effort normal and breath sounds normal. No respiratory distress. She has no wheezes. Breast exam: Bilateral breast incisions well healing. No palpable masses or thickening. Lymphatics:No cervical or supraclavicular lymphadenopathy. Abdominal: Soft. Bowel sounds are normal. She exhibits no distension. There is no abdominal tenderness. Musculoskeletal: Normal range of motion. General: No tenderness or edema. Lymphadenopathy: She has no cervical adenopathy. Neurological: She is alert and oriented to person, place, and time. Skin: Skin is warm and dry. No rash noted. No erythema. Psychiatric: She has a normal mood and affect. Her behavior is normal. Judgment and thought contentnormal. PACU Vitals 05/16/20 1208 BP: 130/79 Pulse: 62 Temp: 98.5 F (36.9 C) Tests reviewed. Laboratory 05/16/20 12:02 PM Microbiology 05/16/20 12:02 PM Pathology 05/16/20 12:02 PM Radiology 05/16/20 12:02 PM Cardiology 05/16/20 12:02 PM Medications 05/16/20 12:02 PM Past Medical, Surgical, Family, and Social History reviewed. Past Medical History: Diagnosis Date Abnormal mammogram Alopecia scalp; scarring type; Dr Aviva Woodward, [place] Anemia 1970s Anxiety and depression Arthritis Breast cancer, female (HCC) 09/15/2019 Breast mass Cataract Cellulitis 08/2017 RLE Claudication (HCC) Complication of anesthesia anxiety in PACU & postop Deep vein thrombosis (HCC) Diabetes mellitus, type 2 (HCC) Edema R leg GERD (gastroesophageal reflux disease) mild - meds as needed Hyperlipidemia Hypertension Hypothyroidism Lipodermatosclerosis Lymphedema of right lower extremity Dr. 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 Past Surgical History: Procedure Laterality Date ACHILLES TENDON SURGERY BREAST CYST EXCISION 1974 DILATION AND CURETTAGE OF UTERUS GANGLION CYST EXCISION HYSTERECTOMY VAGINAL N/A 01/14/2019 Procedure: TOTAL VAGINAL HYSTERECTOMY; Surgeon: Nidhi Braun MD; Location: [facility] Main OR; Service: OBGYN HYSTEROSCOPY W/ DILATATION AND CURETTAGE N/A 11/27/2017 Procedure: DILATION AND CURETTAGE WITH HYSTEROSCOPY; Surgeon: Nidhi Braun MD; Location: [facility] OR; Service: OBGYN MASTECTOMY MODIFIED RADICAL BILATERAL WITH SENTINEL LYMPH NODE BIOPSY Bilateral 09/28/2019 Procedure: BILATERAL MASTECTOMIES WITH RIGHT SENTINEL NODE BIOPSY; Surgeon: Ophelia Ybarra DO; Location: [facility] Main OR; Service: General Surgery SKIN BIOPSY benign TONSILLECTOMY TUBAL LIGATION US BREAST BIOPSY RIGHT Right 09/07/2019 VASCULAR SURGERY Right 11/2017 leg; Varithena infection WISDOM TOOTH EXTRACTION Family History Problem Relation Age of Onset Colon cancer Mother 67 Cancer Mother 67 oral Stroke Father Hypertension Father Heart attack Father Prostate cancer Father 70 Heart disease Father Diabetes Father No Known Problems Brother Prostate cancer Brother 68 Breast cancer Maternal Grandmother 70 Colon cancer Maternal Grandfather 65 Other (Abdominal cancer) Paternal Grandmother 70 Prostate cancer Maternal Uncle 60 No Known Problems Other Prostate cancer Maternal Uncle Surgical complications Neg Hx Anesthesia problems Neg Hx Clotting disorder Neg Hx Deep vein thrombosis Neg Hx Pulmonary embolism Neg Hx documented in this encounter* Ophelia Ybarra DO - 02/15/2020 5:03 PM EDT Patient Name: Beulah Fields MR #: [id number] : 1945 Physicians: Miguel Angel Bhat MD ASSESSMENT: 1. Malignant 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, estrogen receptor positive (HCC) 2. History of bilateral mastectomy 3. Family history of malignant neoplasm of breast PLAN: It was a privilege to see Beulah Fields in my office today. She finished chemotherapy and getting ready to get right chest wall radiation in [place] by Dr. Mccullough. She is doing well and has no clinical evidence of recurrent or metastatic disease. I did discuss the signs of metastatic disease such as weight loss, abdominal pain, back pain, cough and headaches and discussed with her to return sooner if she noted any of these symptoms. I advise continued monthlyself-exam, and does not need an annual mammogram. We will see her back in 1 year for follow-up visit. We discussed a healthy lifestyle (low fat diet, exercise and maintaining an ideal body weight) to decrease breast cancer recurrence risk. I answered all of her questions & she verbalizes understanding. It is always a privilege to take care of your patients, please don't hesitate to call me with any questions. Chief Complaint/Reason for Visit: Chief Complaint Patient presents with Follow-up 4m Chief Complaint/Reason for Visit: FU HPI: Beulah Fields is a 74 y.o. postmenopausal female presents today for a Fu visit. She is finished 4 doses of docetaxel and cyclophosphamide. She is getting ready to start radiation of the right chest wall. Patient denies breast related complaints such as breast masses, lesions, skin cahnges, nipple retraction or discharge, or axillary lymphadenopathy. She denies common symptoms of metastatic disease, namely no hedaches, blurred vision, weight loss, cough, shortness of breath, abdominal pain, jaundiceand bone pain. Last Mammogram:08/2019 BREAST CANCER RISK FACTORS: Gender, age, family history of breast cancer maternal grandmother at unknown age and colon cancer in mother at unknown age. Family history of prostate cancer in brother x2at 68 and 70. Family history of stomach cancer in paternal grandmother at 70. BRIEF ONCOLOGIC HISTORY: She presented with abnormal imaging of the right breast. Her diagnostic mammogram on 09/03/2019 which showed a suspicious appearing spiculated mass that measures about 2.5 cm at 12:00 of her right breast at 5 cm from the nipple. She had a right breast ultrasound on the same day which shows a hypoechoic 2.2 cm lesion at 12:00 of the right breast which has irregular margins. 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 She underwent bilateral mastectomy with right sentinel lymph node biopsy. Please see below for pathology results. PAST BREAST HEALTH HISTORY: 09/07/2019: Right breast mass at 9:00- 2.2 cm US guided bx Right Breast 9:00- Invasive Ductal carcinoma, G3, ER 100%, AK 85%, Her 2 julio (-) Stage II A (T2N0M0) 09/28/2019: Bilateral mastectomy with right sentinel lymph node biopsy Left breast upper outer quadrant-6 mm invasive ductal carcinoma, grade 1, margins are negative and no lymph nodes assessed. Estrogen receptor 100%, progesterone receptor 10%, HER-2/julio negative Right breast mastectomy with a sentinel lymph node biopsy Right breast at 9:00-2.9 cm invasive ductal carcinoma with focal mucinous and micropapillary features, grade 3, DCIS is present, margins are clear, 1 out of 4 lymph nodes positive for metastasis, 20 mm metastatic deposit is involved Estrogen receptor positive, progesterone receptor positive, HER-2/julio negative, Ki-67 is 62% Medical Oncology: Right breast Oncotype 15 DoceTaxol and cyclophosphamide Endocrine Therapy: Radiation Oncology:Dr. Mccullough Genetics:12/2019 Negative PMH: Past Medical History: Diagnosis Date Abnormal mammogram Alopecia scalp; scarring type; Dr Aviva Woodward, [place] Anemia 1970s Anxiety and depression Arthritis Breast cancer, female (HCC) 09/15/2019 Breast mass Cataract Cellulitis 08/2017 RLE Claudication (HCC) Complication of anesthesia anxiety in PACU & postop Deep vein thrombosis (HCC) Diabetes mellitus, type 2 (HCC) Edema R leg GERD (gastroesophageal reflux disease) mild - meds as needed Hyperlipidemia Hypertension Hypothyroidism Lipodermatosclerosis Lymphedema of right lower extremity Dr. 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 PSH: Past Surgical History: Procedure Laterality Date ACHILLES TENDON SURGERY BREAST CYST EXCISION 1975 DILATION AND CURETTAGE OF UTERUS GANGLION CYST EXCISION HYSTERECTOMY VAGINAL N/A 01/14/2019 Procedure: TOTAL VAGINAL HYSTERECTOMY; Surgeon: Nidhi Braun MD; Location: [facility] Main OR; Service: OBGYN HYSTEROSCOPY W/ DILATATION AND CURETTAGE N/A 11/27/2017 Procedure: DILATION AND CURETTAGE WITH HYSTEROSCOPY; Surgeon: Nidhi Braun MD; [facility]; Service: OBGYN MASTECTOMY MODIFIED RADICAL BILATERAL WITH SENTINEL LYMPH NODE BIOPSY Bilateral 09/28/2019 Procedure: BILATERAL MASTECTOMIES WITH RIGHT SENTINEL NODE BIOPSY; Surgeon: Ophelia Ybarra DO; Location: [facility] Main OR; Service: General Surgery SKIN BIOPSY benign TONSILLECTOMY TUBAL LIGATION US BREAST BIOPSY RIGHT Right 09/07/2019 VASCULAR SURGERY Right 11/2017 leg; Varithena infection WISDOM TOOTH EXTRACTION FMH: Family History Problem Relation Age of Onset Colon cancer Mother 67 Cancer Mother 67 oral Stroke Father Hypertension Father Heart attack Father Prostate cancer Father 70 Heart disease Father Diabetes Father No Known Problems Brother Prostate cancer Brother 68 Breast cancer Maternal Grandmother 70 Colon cancer Maternal Grandfather 65 Other (Abdominal cancer) Paternal Grandmother 70 Prostate cancer Maternal Uncle 60 No Known Problems Other Prostate cancer Maternal Uncle Surgical complications Neg Hx Anesthesia problems Neg Hx Clotting disorder Neg Hx Deep vein thrombosis Neg Hx Pulmonary embolism Neg Hx SOCIAL Hx: Social History Socioeconomic History Marital status: Spouse name: Not on file Number of children: Not on file Years of education: Not on file Highest education level: Not on file Occupational History Not on file Social Needs Financial resource strain: Not on file Food insecurity Worry: Not on file Inability: Not on file Transportation needs Medical: Not on file Non-medical: Not on file Tobacco Use Smoking status: Never Smoker Smokeless tobacco: Never Used Substance and Sexual Activity Alcohol use: Never Frequency: Never Drug use: Never Sexual activity: Not on file Lifestyle Physical activity Days per week: Not on file Minutes per session: Not on file Stress: Not on file Relationships Social connections Talks on phone: Not on file Gets together: Not on file Attends mu-ism service: Not on file Active member of club or organization: Not on file Attends meetings of clubs or organizations: Not on file Relationship status: Not on file Other Topics Concern Not on file Social History Narrative Merged History Encounter MEDS: Current Outpatient Medications Medication Sig Dispense Refill aspirin 81 MG EC tablet Take 1 (one) tablet (81 mg total) by mouth every morning . You may resume Reasons: treatment to prevent a heart attack. 30 tablet 0 cholecalciferol, vitamin D3, (D3-2000) 2,000 unit cap Take 2,000 Units by mouth every evening Reasons: supplement. escitalopram oxalate (LEXAPRO) 10 MG tablet Take 10 mg by mouth at bedtime Reasons: anxiousness associated with depression. levothyroxine (SYNTHROID, LEVOTHROID) 112 MCG tablet Take 112 mcg by mouth every morning Reasons: acondition with low thyroid hormone levels. losartan (COZAAR) 25 MG tablet Take 25 mg by mouth at bedtime Reasons: high blood pressure. melatonin 1 mg Tab Take by mouth nightly . metFORMIN (GLUCOPHAGE-XR) 500 MG 24 hr tablet Take 500 mg by mouth 2 (two) times a day Reasons: type 2 diabetes mellitus. multivitamin (multivitamin) per tablet Take 1 tablet by mouth every evening Reasons: treatment to prevent vitamin deficiency. naproxen sodium (ALEVE) 220 MG tablet Take 220 mg by mouth 2 (two) times a day as needed Reasons: pain. omeprazole (PRILOSEC) 20 MG capsule Take 20 mg by mouth daily as needed . rosuvastatin (CRESTOR) 20 MG tablet Take 1 tablet by mouth every evening Reasons: high cholesterol. spironolactone (ALDACTONE) 25 MG tablet Take 12.5 mg by mouth at bedtime Reasons: high blood pressure, 1/2 tablet (12.5 mg). Current Facility-Administered Medications Medication Dose Route Frequency Provider Last Rate Last Dose lidocaine (LMX) 4 % cream Topical PRN Mehran Velasquez Jr., DPM ALLERGIES: Allergies: Chlorhexidine towelette; Sulfamethoxazole-trimethoprim; and Betadine [povidone-iodine] Review of Systems ROS: negative for breast lumps Constitutional: Negative for fever, chills, diaphoresis, activity change, appetite change, fatigue and unexpected weight change. HENT: Negative for congestion, dental problem, drooling, ear discharge, ear pain, facial swelling, hearing loss, mouth sores, nosebleeds, postnasal drip, rhinorrhea, sinus pressure, sneezing, sore throat, tinnitus, trouble swallowing and voice change. Eyes: Negative for photophobia, pain, discharge, redness, itching and visual disturbance. Respiratory: Negative for apnea, cough, choking, chest tightness, shortness of breath, wheezing andstridor. Cardiovascular: Negative for chest pain, palpitations and leg swelling. Gastrointestinal: Negative for nausea, vomiting, abdominal pain, diarrhea, constipation, blood in stool, abdominal distention, anal bleeding and rectal pain. Endocrine: Negative for cold intolerance, heat intolerance, polydipsia, polyphagia and polyuria. Genitourinary: Negative for dysuria, urgency, frequency, hematuria, flank pain, decreased urine volume, vaginal bleeding, vaginal discharge, enuresis, difficulty urinating, genital sores, vaginal pain, menstrual problem, pelvic pain and dyspareunia. Musculoskeletal: Negative for myalgias, back pain, joint swelling, arthralgias, gait problem, neck pain and neck stiffness. Skin: Negative for color change, pallor, rash and wound. Allergic/Immunologic: Negative for environmental allergies, food allergies and immunocompromised state. Neurological: Negative for dizziness, tremors, seizures, syncope, facial asymmetry, speech difficulty, weakness, light-headedness, numbness and headaches. Hematological: Negative for adenopathy. Does not bruise/bleed easily. Psychiatric/Behavioral: Negative for suicidal ideas, hallucinations, behavioral problems, confusion, sleep disturbance, self-injury, dysphoric mood, decreased concentration and agitation. The patientis not nervous/anxious and is not hyperactive. PHYSICAL EXAM: Physical Exam Vital Signs: Ht 5' 6 Wt 103.4 kg (228 lb) No BMI 36.80 kg/m Bilateral breast incisions clean dry and intact and well healing has great cosmesis. General: Alert, cooperative, no distress, appears stated age Head: Normocephalic, atraumatic Eyes: EOM's intact, benign both eyes Neck: Supple, symmetrical, trachea midline, no adenopathy; Thyroid: No enlargement, tenderness, nodules Back: Symmetric, no curvature, no tenderness to palpation Lungs: Clear to auscultation bilaterally, no wheezes, rhonchi or rales Cardiovascular: Regular rate and rhythm, no murmur Abdomen: Soft, no hepatosplenomegaly Extremities: Normal, atraumatic, no cyanosis or edema Skin: Skin color, texture, turgor normal Musculoskeletal: Full range of motion of all extremities; no joint edema Neurologic: CNII-XII intact; normal strength and sensation Psych: Mood and affect appropriate I Sincerely, Ophelia Ybarra DO, [facility] Breast Surgical Oncologist Office Office fax: [phone] Pager: [phone] CC: Patient Care Team: Miguel Angel Bhat MD as PCP - General (Family Medicine) Cinthya Pizarro CNP as PCP - [facility] Attributed Provider Miguel Angel Bhat MD (Family Medicine) Nidhi Braun MD as Consulting Physician (Obstetrics/Gynecology) ERNESTINA Husain as Tube Station Attendant (Oncology) Note: This dictation was generated using [employer] voice recognition software. Please excuse any grammatical or spelling errors that may have occurred using the system. documented in this encounter* Patrick Cota MT - 08/17/2020 3:39 PM EST Relaxation massage to neck, shoulders, feet, and back. No abnormalities noted. Pt relaxed well. Offered supportive listening and encouragement throughout session. documented in this encounter* Osiris Diane LISW - 09/23/2019 9:20 AM EST Beulah Mckenzie was referred to me by Senia, Breast Health Nurse Navigator, to follow up for resources for hotel accommodations, and to assess for additional Oncology SW Navigation needs. Chart review completed. Beulah Mckenzie was diagnosed with breast cancer earlier this month. She currently resides in [place], and is insured through Medicare A&B, and [employer]. Senia informed me that Beulah Mckenzie resides in [place], [place], and is planned to have surgery at [facility] on 09/28/2019. Due to the distance and likely broke worker arrival, Beulah Mckenzie was inquiring about hotel accommodation resources. Today I placed phone call to Beulah Mckenzie to introduce myself and Oncology SW Navigation role, and to further explore her situation to determine what resources may be most appropriate for her. I was able to reach Beulah Mckenzie on my first attempt. She explained that she felt she would benefit from stayingin a hotel in [place] the night before surgery, as she is about 100 miles from [place]. This would make it difficult on both she and her if they had to travel very early in the morning. I informed Beulah Mckenzie of an organization called [employer] that can assist with hotel accommodations prior to surgery for cancer patients that live out of town. I relayed to her that this is typically a free service, and that I would be happy to make the referral if she is interested. Beulah Mckenzie was very appreciative that I offered this to her, and is interested in referral. I assured her that I wouldsend the referral, and give her a call later today once I get confirmation from the agency. Following our call, I filled out the [facility] referral form and sent it securely through e-mail to Helder Ramirez, who is the individual that coordinates these services. I received a call from Helder indicating that he was able to make the following hotel arrangements: 1 night stay at the [facility] ([facility] [address] [facility] , [place] [address]) for 09/27/2019, confirmation #: [id number], and the reservation is under Helder Ramirez ([phone]). Helder stated that I could share his contact information with Beulah Mckenzie in the event that she has any difficulties checking in that evening. I placed call to Beulah Mckenzie to provide her with this information, and field any questions that she may have. I reached her VM, however was able to leave a message with my reason for calling, and contact information for her to return my call at her convenience. I was able to connect with Beulah Mckenzie this afternoon and provided her with the hotel information, as well as Helder's name and phone number in the event that she has issues checking in. Beulah Mckenzie was very appreciative that I was able to get this arranged for her. I reminded her that she can call me if she has any questions prior to surgery. I also wished her well with her surgery. SW Navigator will continue to follow and remain available for support and assistance as needed. documented in this encounter* Warren Mccullough MD - 09/27/2020 11:23 AM EST [facility] Radiation Oncology [address] [place] [address] P [phone] F [phone] [facility] Radiation Oncology [address] [place] [address] P [phone] F [phone] MD Derrick Jackson MD RADIATION ONCOLOGY ESTABLISHED PATIENT VISIT NOTE DIAGNOSIS: Malignant neoplasm of right breast in female, estrogen receptor positive, unspecified site of breast (HCC) [C50.911, Z17.0] STAGE: Cancer Staging Breast cancer, female (HCC) Staging form: Breast, AJCC 8th Edition - Clinical stage from 10/12/2019: Stage Unknown (cT1, cNX, cM0, G1, ER+, AK+, HER2-) - Signed by Ophelia Ybarra DO on 10/12/2019 Breast cancer, right (HCC) Staging form: Breast, AJCC 8th Edition - Clinical stage from 09/15/2019: Stage IIA (cT2, cN0, cM0, G3, ER+, AK+, HER2-) - Signed by Ophelia Ybarra DO on 09/15/2019 - Pathologic stage from 10/12/2019: Stage IIA (pT2, pN1(sn), cM0, G3, ER+, AK+, HER2-) - Signed by Ophelia Ybarra DO on 10/12/2019 - Pathologic: No stage assigned - Unsigned ECOG Performance - TREATMENT SUMMARY: Oncology History - Radiation Breast cancer, right (HCC) 03/02/2020 - 03/22/2020 Radiation Plan Name: R Chestwall and S/C Technique: 3DCRT, 3 field Treatment Date: 03/02/2020 - 03/22/2020 Value Total Dose to Date (cGy) 4005 Prescription Dose (cGy) 4005 Fractions Treated to Date 15 Total Fractions Prescribed 15 Prescribed Dose per Fraction (cGy) 267 Elapsed Days 20 Breast cancer, female (HCC) PATIENT IDENTIFICATION Beulah Fields is a 74 y.o. female who returns to Radiation Oncology with a known diagnosis of right-sided breast cancer status post postmastectomy radiation therapy. HISTORY Patient returns today for regular scheduled follow-up. She continues to take her anastrozole and is tolerating this well with minimal to no toxicities. She reports no new musculoskeletal, neurological, respiratory, or cardiovascular complaints. She was evaluated at the multidisciplinary survivorship clinic and found this to be very useful with good information received. REVIEW OF SYSTEMS Constitutional: Positive for fatigue. HENT: Positive for hearing loss (diminished). Eyes: Positive for eye problems (cataract). Respiratory: Negative. Cardiovascular: Negative. Gastrointestinal: Positive for constipation (at times). Endocrine: Negative. Genitourinary: Negative. Musculoskeletal: Positive for arthralgias (hands ache). Skin: Negative. Neurological: Negative. Hematological: Bruises/bleeds easily ( on blood thinner). Psychiatric/Behavioral: Negative. PAST MEDICAL HISTORY Past Medical History: Diagnosis Date Abnormal mammogram Alopecia scalp; scarring type; Dr Aviva Woodward, [place] Anemia 1970s Anxiety and depression Arthritis Breast cancer, female (HCC) 09/15/2019 Breast mass Cataract Cellulitis 08/2017 RLE Claudication (HCC) Complication of anesthesia anxiety in PACU & postop Deep vein thrombosis (HCC) Diabetes mellitus, type 2 (HCC) Edema R leg GERD (gastroesophageal reflux disease) mild - meds as needed Hyperlipidemia Hypertension Hypothyroidism Lipodermatosclerosis Lymphedema of right lower extremity Dr. 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 MEDICATIONS Current Outpatient Medications: anastrozole (ARIMIDEX) 1 mg tablet, Take 1 mg by mouth daily ., Disp: , Rfl: aspirin 81 MG EC tablet, Take 1 (one) tablet (81 mg total) by mouth every morning . You may resume Reasons: treatment to prevent a heart attack., Disp: 30 tablet, Rfl: 0 calcium citrate (CALCITRATE) 200 mg (950 mg) tablet, Take 1 tablet by mouth daily ., Disp: , Rfl: cholecalciferol, vitamin D3, (D3-2000) 2,000 unit cap, Take 2,000 Units by mouth every evening Reasons: supplement., Disp: , Rfl: escitalopram oxalate (LEXAPRO) 10 MG tablet, Take 10 mg by mouth at bedtime Reasons: anxiousness associated with depression., Disp: , Rfl: levothyroxine (SYNTHROID, LEVOTHROID) 112 MCG tablet, Take 112 mcg by mouth every morning Reasons: a condition with low thyroid hormone levels., Disp: , Rfl: losartan (COZAAR) 25 MG tablet, Take 25 mg by mouth at bedtime Reasons: high blood pressure., Disp:, Rfl: multivitamin (multivitamin) per tablet, Take 1 tablet by mouth every evening Reasons: treatment to prevent vitamin deficiency., Disp: , Rfl: omeprazole (PRILOSEC) 20 MG capsule, Take 20 mg by mouth daily as needed ., Disp: , Rfl: rosuvastatin (CRESTOR) 20 MG tablet, Take 1 tablet by mouth every evening Reasons: high cholesterol., Disp: , Rfl: spironolactone (ALDACTONE) 25 MG tablet, Take 12.5 mg by mouth at bedtime Reasons: high blood pressure, 1/2 tablet (12.5 mg)., Disp: , Rfl: melatonin 1 mg Tab, Take by mouth nightly ., Disp: , Rfl: metFORMIN (GLUCOPHAGE-XR) 500 MG 24 hr tablet, Take 500 mg by mouth 2 (two) times a day Reasons: type 2 diabetes mellitus, pt taking 2 tabs in the am., Disp: , Rfl: naproxen sodium (ALEVE) 220 MG tablet, Take 220 mg by mouth 2 (two) times a day as needed Reasons: pain., Disp: , Rfl: Current Facility-Administered Medications: lidocaine (LMX) 4 % cream, , Topical, PRN, Mehran Velasquez Jr., DPM, Given at 07/31/18 1605 ALLERGIES Allergies: Chlorhexidine towelette, Sulfamethoxazole-trimethoprim, and Betadine [povidone-iodine] SOCIAL HISTORY Social History Socioeconomic History Marital status: Spouse name: Not on file Number of children: Not on file Years of education: Not on file Highest education level: Not on file Occupational History Not on file Social Needs Financial resource strain: Not on file Food insecurity Worry: Not on file Inability: Not on file Transportation needs Medical: Not on file Non-medical: Not on file Tobacco Use Smoking status: Never Smoker Smokeless tobacco: Never Used Substance and Sexual Activity Alcohol use: Never Frequency: Never Drug use: Never Sexual activity: Not on file Lifestyle Physical activity Days per week: Not on file Minutes per session: Not on file Stress: Not on file Relationships Social connections Talks on phone: Not on file Gets together: Not on file Attends mu-ism service: Not on file Active member of club or organization: Not on file Attends meetings of clubs or organizations: Not on file Relationship status: Not on file Other Topics Concern Not on file Social History Narrative Merged History Encounter FAMILY HISTORY Cancer-related family history includes Breast cancer (age of onset: 70) in her maternal grandmother; Cancer (age of onset: 67) in her mother; Colon cancer (age of onset: 65) in her maternal grandfather; Colon cancer (age of onset: 67) in her mother; Prostate cancer in her maternal uncle; Prostate cancer (age of onset: 60) in her maternal uncle; Prostate cancer (age of onset: 68) in her brother; Prostate cancer (age of onset: 70) in her father. PHYSICAL EXAM PACU Vitals 09/27/20 1017 BP: (!) 156/69 Pulse: (!) 56 Temp: 97.8 F (36.6 C) SpO2: 98% General: No acute distress and appears their stated age. HEENT: NC/AT. PERRL. EOMI. No cervical or S/C adenopathy. Chest wall: Bilateral breasts are surgically absent. Some minor subcutaneous scarring/thickening isnoted on the treated right chest wall. No nodularity. No axillary adenopathy bilaterally. Cardiovascular Exam: Regular rate and rhythm. No M/R/G. Respiratory Exam: Clear to auscultation bilaterally. No accessory muscle use. Abdominal Exam: Soft, NT to palpation. No masses. Neuro Exam: A+O x 3. No cranial nerve deficits. No focal abnormalities. MSK: No midline axial tenderness. No focal weakness. Extremities: No peripheral edema. Lymphatics: No adenopathy appreciated. IMPRESSION Beulah Fields is a 74 y.o. female with a history of right-sided breast cancer status post postmastectomy radiation therapy. No clinical evidence of recurrence. Toxicity Assessment PLAN I will see her back in 6 months for routine follow-up. We will begin alternating visits with surgical oncology at that time. Higinio Mccullough MD Radiation Oncology * Andreina Cueto RN - 09/27/2020 10:24 AM EST Review of Systems Constitutional: Positive for fatigue. HENT: Positive for hearing loss (diminished). Eyes: Positive for eye problems (cataract). Respiratory: Negative. Cardiovascular: Negative. Gastrointestinal: Positive for constipation (at times). Endocrine: Negative. Genitourinary: Negative. Musculoskeletal: Positive for arthralgias (hands ache). Skin: Negative. Neurological: Negative. Hematological: Bruises/bleeds easily ( on blood thinner). Psychiatric/Behavioral: Negative. documented in this encounter* Leni Elise RN - 09/07/2019 3:05 PM EST Met with patient prior to right US biopsy. Provided review of biopsy procedure and explanation of post-bx care instructions in printed and verbal forms. Pt. verbalized good understanding. Medicationsand allergies were reviewed. RX in EPIC. Right US biopsy completed without complications. Bleeding stopped with manual pressure. Steri-strips & ice applied to biopsy site. Supply bag provided along with N contact information. Pt. discharged to home, ambulatory, in good condition, accompanied by . documented in this encounter* Ophelia Ybarra, - 10/23/2020 2:24 PM EDT Patient Name: Beulah Fields MR #: [id number] : 1945 Physicians: Jose Dunn MD ASSESSMENT: 1. Malignant 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, estrogen receptor positive (HCC) 2. Family history of malignant neoplasm of breast 3. History of bilateral mastectomy PLAN: It was a privilege to see Beulah Fields in my office today. She would like revision of left mastectomy as she has some excess tissue in the left chest wall which is causing her some pain and discomfort as she will wear a bathing suit. I discussed the risks and benefits and we will schedule this in the near future. She is doing well and has no clinical evidence of recurrent or metastatic disease. I did discuss the signs of metastatic disease such as weight loss, abdominal pain, back pain, cough and headaches and discussed with her to return sooner if she noted any of these symptoms. I advise continued monthlyself-exam, and does not need an annual mammogram. We will see her back in 1 year for follow-up visit. We discussed a healthy lifestyle (low fat diet, exercise and maintaining an ideal body weight) to decrease breast cancer recurrence risk. I answered all of her questions & she verbalizes understanding. It is always a privilege to take care of your patients, please don't hesitate to call me with any questions. Chief Complaint/Reason for Visit: Chief Complaint Patient presents with Surgery Consult Left side has extra tissue after mastectomy. Would like to discuss having it removed. Chief Complaint/Reason for Visit: FU HPI: Beulah Fields is a 74 y.o. postmenopausal female presents today for a Fu visit. She is finished 4 doses of docetaxel and cyclophosphamide right chest wall radiation. Patient denies breast related complaints such as breast masses, lesions, skin cahnges, nipple retraction or discharge, or axillary lymphadenopathy. She denies common symptoms of metastatic disease, namely no hedaches, blurred vision, weight loss, cough, shortness of breath, abdominal pain, jaundiceand bone pain. She does have excess skin in the left mastectomy region and would like to have it excised as she ishaving trouble getting into bathing suit. Last Mammogram:08/2019 BREAST CANCER RISK FACTORS: Gender, age, family history of breast cancer maternal grandmother at unknown age and colon cancer in mother at unknown age. Family history of prostate cancer in brother x2at 68 and 70. Family history of stomach cancer in paternal grandmother at 70. BRIEF ONCOLOGIC HISTORY: She presented with abnormal imaging of the right breast. Her diagnostic mammogram on 09/03/2019 which showed a suspicious appearing spiculated mass that measures about 2.5 cm at 12:00 of her right breast at 5 cm from the nipple. She had a right breast ultrasound on the same day which shows a hypoechoic 2.2 cm lesion at 12:00 of the right breast which has irregular margins. 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 She underwent bilateral mastectomy with right sentinel lymph node biopsy. Please see below for pathology results. PAST BREAST HEALTH HISTORY: 09/07/2019: Right breast mass at 9:00- 2.2 cm US guided bx Right Breast 9:00- Invasive Ductal carcinoma, G3, ER 100%, AK 85%, Her 2 julio (-) Stage II A ([id number]) 09/28/2019: Bilateral mastectomy with right sentinel lymph node biopsy Left breast upper outer quadrant-6 mm invasive ductal carcinoma, grade 1, margins are negative and no lymph nodes assessed. Estrogen receptor 100%, progesterone receptor 10%, HER-2/julio negative Right breast mastectomy with a sentinel lymph node biopsy Right breast at 9:00-2.9 cm invasive ductal carcinoma with focal mucinous and micropapillary features, grade 3, DCIS is present, margins are clear, 1 out of 4 lymph nodes positive for metastasis, 20 mm metastatic deposit is involved Estrogen receptor positive, progesterone receptor positive, HER-2/julio negative, Ki-67 is 62% Medical Oncology:Dr. Ansari Right breast Oncotype 15 DoceTaxol and cyclophosphamide Endocrine Therapy: Radiation Oncology:Dr. Mccullough Right chestwall XRT Genetics:12/2019 Negative PMH: Past Medical History: Diagnosis Date Abnormal mammogram Alopecia scalp; scarring type; Dr Aviva Woodward, [place] Anemia 1970s Anxiety and depression Arthritis Breast cancer, female (HCC) 09/15/2019 Breast mass Cataract Cellulitis 08/2017 RLE Claudication (HCC) Complication of anesthesia anxiety in PACU & postop Deep vein thrombosis (HCC) Diabetes mellitus, type 2 (HCC) Edema R leg GERD (gastroesophageal reflux disease) mild - meds as needed Hyperlipidemia Hypertension Hypothyroidism Ingrown toenail with infection 2020 Left Great toe Lipodermatosclerosis Lymphedema Lymphedema of right lower extremity Dr. 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 PSH: Past Surgical History: Procedure Laterality Date ACHILLES TENDON SURGERY BREAST BIOPSY BREAST CYST EXCISION 1974 DILATION AND CURETTAGE OF UTERUS GANGLION CYST EXCISION HYSTERECTOMY VAGINAL N/A 01/14/2019 Procedure: TOTAL VAGINAL HYSTERECTOMY; Surgeon: Nidhi Braun MD; Location: [facility] Main OR; Service: OBGYN HYSTEROSCOPY W/ DILATATION AND CURETTAGE N/A 11/27/2017 Procedure: DILATION AND CURETTAGE WITH HYSTEROSCOPY; Surgeon: Nidhi Braun MD; Location: [facility] OR; Service: OBGYN MASTECTOMY MODIFIED RADICAL BILATERAL WITH SENTINEL LYMPH NODE BIOPSY Bilateral 09/28/2019 Procedure: BILATERAL MASTECTOMIES WITH RIGHT SENTINEL NODE BIOPSY; Surgeon: Ophelia Ybarra DO; Location: [facility] OR; Service: General Surgery SKIN BIOPSY benign TONSILLECTOMY TUBAL LIGATION US BREAST BIOPSY RIGHT Right 09/07/2019 VASCULAR SURGERY Right 11/2017 leg; Varithena infection WISDOM TOOTH EXTRACTION FMH: Family History Problem Relation Age of Onset Colon cancer Mother 67 Cancer Mother 67 oral Stroke Father Hypertension Father Heart attack Father Prostate cancer Father 70 Heart disease Father Diabetes Father No Known Problems Brother Prostate cancer Brother 68 Breast cancer Maternal Grandmother 70 Colon cancer Maternal Grandfather 65 Other (Abdominal cancer) Paternal Grandmother 70 Prostate cancer Maternal Uncle 60 No Known Problems Other Prostate cancer Maternal Uncle Surgical complications Neg Hx Anesthesia problems Neg Hx Clotting disorder Neg Hx Deep vein thrombosis Neg Hx Pulmonary embolism Neg Hx Ovarian cancer Neg Hx SOCIAL Hx: Social History Socioeconomic History Marital status: Spouse name: Not on file Number of children: 6 Years of education: Not on file Highest education level: Not on file Occupational History Employer: OTHER- Social Needs Financial resource strain: Not on file Food insecurity Worry: Not on file Inability: Not on file Transportation needs Medical: Not on file Non-medical: Not on file Tobacco Use Smoking status: Never Smoker Smokeless tobacco: Never Used Substance and Sexual Activity Alcohol use: Never Frequency: Never Drug use: Never Sexual activity: Not on file Lifestyle Physical activity Days per week: Not on file Minutes per session: Not on file Stress: Not on file Relationships Social connections Talks on phone: Not on file Gets together: Not on file Attends mu-ism service: Not on file Active member of club or organization: Not on file Attends meetings of clubs or organizations: Not on file Relationship status: Not on file Other Topics Concern Not on file Social History Narrative Merged History Encounter MEDS: Current Outpatient Medications Medication Sig Dispense Refill anastrozole (ARIMIDEX) 1 mg tablet Take 1 mg by mouth daily . aspirin 81 MG EC tablet Take 1 (one) tablet (81 mg total) by mouth every morning . You may resume Reasons: treatment to prevent a heart attack. 30 tablet 0 calcium citrate (CALCITRATE) 200 mg (950 mg) tablet Take 1 tablet by mouth daily . cholecalciferol, vitamin D3, (D3-2000) 2,000 unit cap Take 2,000 Units by mouth every evening Reasons: supplement. escitalopram oxalate (LEXAPRO) 10 MG tablet Take 10 mg by mouth at bedtime Reasons: anxiousness associated with depression. levothyroxine (SYNTHROID, LEVOTHROID) 112 MCG tablet Take 112 mcg by mouth every morning Reasons: acondition with low thyroid hormone levels. losartan (COZAAR) 25 MG tablet Take 25 mg by mouth at bedtime Reasons: high blood pressure. melatonin 1 mg Tab Take by mouth nightly . metFORMIN (GLUCOPHAGE-XR) 500 MG 24 hr tablet Take 500 mg by mouth 2 (two) times a day Reasons: type 2 diabetes mellitus, pt taking 2 tabs in the am. multivitamin (multivitamin) per tablet Take 1 tablet by mouth every evening Reasons: treatment to prevent vitamin deficiency. naproxen sodium (ALEVE) 220 MG tablet Take 220 mg by mouth 2 (two) times a day as needed Reasons: pain. mhzpgjbk-nxyxjgxpy-boixokpjpqcema (CORTISPORIN) otic solution INSTILL 1 TO 2 DROPS TO THE NAIL FOLDS TWICE DAILY omeprazole (PRILOSEC) 20 MG capsule Take 20 mg by mouth daily as needed . rosuvastatin (CRESTOR) 20 MG tablet Take 1 tablet by mouth every evening Reasons: high cholesterol. spironolactone (ALDACTONE) 25 MG tablet Take 12.5 mg by mouth at bedtime Reasons: high blood pressure, 1/2 tablet (12.5 mg). Current Facility-Administered Medications Medication Dose Route Frequency Provider Last Rate Last Admin lidocaine (LMX) 4 % cream Topical PRN Mehran Velasquez Jr., DPM Given at 07/31/18 1605 ALLERGIES: Allergies: Chlorhexidine towelette, Sulfamethoxazole-trimethoprim, and Betadine [povidone-iodine] Review of Systems ROS: negative for breast lumps Constitutional: Negative for fever, chills, diaphoresis, activity change, appetite change, fatigue and unexpected weight change. HENT: Negative for congestion, dental problem, drooling, ear discharge, ear pain, facial swelling, hearing loss, mouth sores, nosebleeds, postnasal drip, rhinorrhea, sinus pressure, sneezing, sore throat, tinnitus, trouble swallowing and voice change. Eyes: Negative for photophobia, pain, discharge, redness, itching and visual disturbance. Respiratory: Negative for apnea, cough, choking, chest tightness, shortness of breath, wheezing andstridor. Cardiovascular: Negative for chest pain, palpitations and leg swelling. Gastrointestinal: Negative for nausea, vomiting, abdominal pain, diarrhea, constipation, blood in stool, abdominal distention, anal bleeding and rectal pain. Endocrine: Negative for cold intolerance, heat intolerance, polydipsia, polyphagia and polyuria. Genitourinary: Negative for dysuria, urgency, frequency, hematuria, flank pain, decreased urine volume, vaginal bleeding, vaginal discharge, enuresis, difficulty urinating, genital sores, vaginal pain, menstrual problem, pelvic pain and dyspareunia. Musculoskeletal: Negative for myalgias, back pain, joint swelling, arthralgias, gait problem, neck pain and neck stiffness. Skin: Negative for color change, pallor, rash and wound. Allergic/Immunologic: Negative for environmental allergies, food allergies and immunocompromised state. Neurological: Negative for dizziness, tremors, seizures, syncope, facial asymmetry, speech difficulty, weakness, light-headedness, numbness and headaches. Hematological: Negative for adenopathy. Does not bruise/bleed easily. Psychiatric/Behavioral: Negative for suicidal ideas, hallucinations, behavioral problems, confusion, sleep disturbance, self-injury, dysphoric mood, decreased concentration and agitation. The patientis not nervous/anxious and is not hyperactive. PHYSICAL EXAM: Physical Exam Vital Signs: Ht 5' 6 Wt 101.2 kg (223 lb) BMI 35.99 kg/m Bilateral breast incisions clean dry and intact and well healing has great cosmesis. There is slightly excess tissue in the left chest wall compared to the right. General: Alert, cooperative, no distress, appears stated age Head: Normocephalic, atraumatic Eyes: EOM's intact, benign both eyes Neck: Supple, symmetrical, trachea midline, no adenopathy; Thyroid: No enlargement, tenderness, nodules Back: Symmetric, no curvature, no tenderness to palpation Lungs: Clear to auscultation bilaterally, no wheezes, rhonchi or rales Cardiovascular: Regular rate and rhythm, no murmur Abdomen: Soft, no hepatosplenomegaly Extremities: Normal, atraumatic, no cyanosis or edema Skin: Skin color, texture, turgor normal Musculoskeletal: Full range of motion of all extremities; no joint edema Neurologic: CNII-XII intact; normal strength and sensation Psych: Mood and affect appropriate I Sincerely, Ophelia Ybarra DO, [facility] Onc[facility] Office Office fax: [phone] Pager: [phone] CC: Patient Care Team: Miguel Angel Bhat MD as PCP - General (Family Medicine) Cinthya Pizarro CNP as PCP - CMS Attributed Provider Miguel Angel Bhat MD (Family Medicine) Nidhi Braun MD as Consulting Physician (Obstetrics/Gynecology) ERNESTINA Husain as Tube Station Attendant (Oncology) Note: This dictation was generated using [employer] voice recognition software. Please excuse any grammatical or spelling errors that may have occurred using the system. documented in this encounter* Doris Zamora LD - 05/16/2020 12:11 PM EDT Met with patient as a part of [facility]. Stated Weight: 226 lbs Recent Weight Changes/Weight Hx: Has had surgery every year for the past 3 years for something or another. 24-Hour Recall: Breakfast: oatmeal with walnuts OR 2 eggs with veggies (daughter has chickens) Lunch: veggie soup, baked potato with broccoli and cheese OR salad with beans/chicken/veggies Dinner: last night - ground turkey sloppy melody over small rolls, mixed veggies, little yogurt withpeaches Snacks: M&M's Beverages: water Exercise: walking Assessment: I want to do whatever I can do to prevent this from coming back . Diagnosis was a little unexpected. Had double mastectomy. Has a daughter who is a vegan. Wondering if she should go vegan. Eating a little better than she used to. Eating more veggies and fruits. Weakness is carbohydrates. Little bit of a sweet tooth. Doesn't do very well with water intake - need to work on it . Has been walking for exercise. Taking centrum silver and Vitamin D. Intervention: Discussed benefits of following a plant-based diet - 70-80% plant foods, 20-30% animal foods. Encouraged pt to incorporate variety of fruits and veggies - different antioxidants, nutrients, etc. Shared Dirty Dozen/Clean Fifteen list with pt, as she was wondering if she should buy fruits and veggies organic. Discussed pairing carbohydrate + protein for better blood sugar control. Pt wondering if there are any additional supplements she should take besides multvitamin and D. Worried about her bones.Suggested starting a calcium citrate supplement. Discussed benefits of small weight loss when it comes to breast cancer recurrence - 5% weight loss seen to make huge difference! 226 x 5% = ~11 lbs. Pt felt this was very realistic and not a stressful amount! Goals: Follow plant-based diet - 80% plant, 20% animal Choose organic dairy, poultry, etc whenever possible Dirty Dozen - try to buy these fruits/veggies organic when possible Pair carbohydrate + protein source for better blood sugar control Add calcium citrate supplement - take in morning (away from multivitamin) Follow-up: contact info provided documented in this encounter* Aileen Lay RN - 10/26/2020 11:43 AM EDT PAT 4.1 Dr. Ybarra Need-CBC, BMP, EKG Orders have been placed documented in this encounter Reason for Referral Status Reason Specialty Diagnoses / Procedures Referre d By Contact Referred To Contact Closed Radiology Diagnoses Lump or mass in breast Abnormal mammogram Family history of malignant neoplasm of breast Procedures US Breast Biopsy Right Ophelia Ybarra, DO [address] [place] [address] Status Reason Specialty Diagnoses / Procedures Referre d By Contact Referred To Contact Closed Radiology Diagnoses Mass of breast Procedures Mammography Follow-up Post Clip Placement Ophelia Ybarra DO [address] [place] [address] Status Reason Specialty Diagnoses / Procedures Referred By Contact Referred To Contact Pending Review Radiation Oncology Diagnoses Malignant 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, estrogen receptor positive (HCC) Ophelia Ybarra, DO [address] [place] [address] Warren Mccullough MD [address] [place] [address] Status Reason Specialty Diagnoses / Procedures Referred By Contact Referred To Contact Closed Medical Oncology / Hematology and Oncology Diagnoses Malignant 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, estrogen receptor positive (HCC) Amada Ophelia Tori, DO [address] [place] [address] Nina Ansari MD [address] [place] [address] Status Reason Specialty Diagnoses / Procedures Referred By Contact Referred To Contact Authorized Radiation Oncology Diagnoses Malignant 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, estrogen receptor positive (HCC) Warren Mccullough MD [address] [place] [address] Pavel Farley MD [address] [place] [address] Status Reason Specialty Diagnoses / Procedures Referre d By Contact Referred To Contact Closed Cardiology Diagnoses Malignant neoplasm of overlapping sites of left female breast, unspecified estrogen receptor status (HCC) Localized swelling of right upper extremity Procedures Ultrasound duplex venous arm right Nina Ansari MD [address] [place] [address] Status Reason Specialty Diagnoses / Procedures Referred By Contact Referred To Contact Authorized Cardiology Diagnoses Malignant 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, estrogen receptor positive (HCC) Procedures ECG 12 Lead Dayroncassandrachantel Ophelia Tori, DO [address] [place] [address] Status Reason Specialty Diagnoses / Procedures Referre d By Contact Referred To Contact Closed Radiology Diagnoses Malignant neoplasm of central portion of left female breast, unspecified estrogen receptor status (HCC) Procedures CT Radiation Therapy Mapping (No PACs Images) Warren Mccullough MD [address] [facility] [address] [place] [address] Additional Source Comments Nidhi Braun MD - 11/27/2017 6:47 AM ALICETAltagracia Gallagher MD - 11/20/2017 1:17 PM Harlan Cooney DO - 01/07/2019 2:01 PM EDT H&P Notes (unrecognized sect ion and content) Pre-op History and Physical Patient is a 72 y.o. female scheduled for HS, D&C. Indications for procedure are Thickened endometrium with inconclusive EMB Multiple medical problems (see H&P). Patient was seen preoperatively, questions answered. Pt desires to proceed as planned. H&P reviewed and without changes. in this encounter Formatting of this note may be different from the original. Jayashree Donnie 1945 Encounter Diagnoses Name Primary? Preop examination Yes Thickened endometrium Essential hypertension Procedure: D&C with hysteroscopy Surgeon: Nidhi Braun PCP: Miguel Angel Bhat MD Cardiology: None Date of Procedure: 11/27/17 History of Present Illness: HISTORY OF PRESENT ILLNESS The patient is a 72-year-old female, with a past medical history of endometrial thickening, hypertension, hyperlipidemia, alopecia, claudication, GERD, anemia of chronic disease, type 2 diabetes, lymphedema, anxiety, depression, hyperthyroidism status post treatment, now with iatrogenic hypothyroidism, osteoarthritis, and obstructive sleep apnea, compliant with CPAP, who presents at the request of her surgeon for preoperative consultation with risk stratification. Per the patient, she is in her normal state of health during today's visit. She denies any upper respiratory infections, skin lesions, rashes, etc. Patient states that she recently underwent a varithena injection for her varicose veins by Dr. Aroldo Gee of vascular medicine. It did not really require any anesthesia, but she tolerated the procedure fine. The patient states that she is easily able to meet greater than 4 METS during her daily activities. She can walk for several blocks and go up multiple flights of stairs without any exertional dyspnea or chest discomfort. The patient states that if she walks for a prolonged period of time or hikes in an upward direction for a long period of time, she will start to experience some lower extremity pain, but she denies any chest discomfort or trouble breathing when she exerts herself. An EKG from September of 2017 showed an incomplete right bundle branch block, it is the only EKG that we have in our system, but the patient, since that time, has seen Dr. Cardona of Interventional Cardiology, who was not concerned about these EKG changes as noted in his visit notes. As mentioned previously, the patient recently underwent the varithena injection procedure without any complications. The patient does have a history of obstructive sleep apnea and she is compliant with CPAP. I encouraged her to bring her equipment with her to the hospital just in case there are any kind of complications because she would certainly be more comfortable with her own equipment as opposed to using the hospital's. She stated her understanding. The patient does have a history of postoperative anxiousness after her last surgical procedure, but denies any other postoperative complications such as nausea, vomiting, hypoxia, or prolonged delirium. Per the ACC guidelines, the patient is a low risk for a low to intermediate risk procedure. May proceed to the OR without further cardiac evaluation. Of note, the patient does ride an exercise bike and walk 30 minutes, 4-5 times per week, and the only issue she experiences is with claudication, not chest discomfort or trouble breathing. No Known Allergies Beulah Fields Home Medication Instructions Prior to Surgery [id number] Printed on:11/20/17 6297 Medication Information Take last dose on Take the morning of surgery Comment(s) cholecalciferol, vitamin D3, (VITAMIN D3) 2,000 unit Tab Take 2,000 Units by mouth every morning . escitalopram oxalate (LEXAPRO) 10 MG tablet Take 5 mg by mouth at bedtime . levothyroxine (SYNTHROID, LEVOTHROID) 112 MCG tablet Take 112 mcg by mouth every morning . losartan (COZAAR) 25 MG tablet Take 25 mg by mouth at bedtime . lovastatin (ALTOPREV) 20 MG 24 hr tablet Take 20 mg by mouth at bedtime . metFORMIN (GLUCOPHAGE-XR) 500 MG 24 hr tablet Take 500 mg by mouth 2 (two) times a day . naproxen sodium (ALEVE) 220 MG tablet Take 220 mg by mouth 2 (two) times a day as needed. omeprazole (PRILOSEC) 20 MG capsule Take 20 mg by mouth daily as needed . spironolactone (ALDACTONE) 25 MG tablet Take 12.5 mg by mouth at bedtime . UNKNOWN wear on right leg. Put on in the morning and remove AT BEDTIME Past Medical History: Diagnosis Date Alopecia scalp; scarring type; Dr Aviva Woodward, [facility] 1969' history of Anxiety Cellulitis 08/2017 RIGHT LOWER EXTREMITY Claudication (HCC) Complication of anesthesia anxiety in PACU & postop Depression Diabetes mellitus, type 2 (HCC) Edema R leg GERD (gastroesophageal reflux disease) mild - meds as needed Hyperlipidemia Hypertension Hyperthyroidism Graves Disease; tx w/ radioactive iodine Hypothyroidism Lymphedema of right lower extremity Dr. Duke, vascular OA (osteoarthritis) of knee right Sleep apnea, obstructive w/ CPAP; Dr Oli Barrett, [facility] Past Surgical History: Procedure Laterality Date GANGLION CYST EXCISION WRIST SKIN BIOPSY BENIGN TONSILLECTOMY TUBAL LIGATION VASCULAR SURGERY Right 11/2017 LEG; VARITHENA INJECTION Social History Social History Marital status: Spouse name: N/A Number of children: N/A Years of education: N/A Occupational History Not on file. Social History Main Topics Smoking status: Never Smoker Smokeless tobacco: Never Used Alcohol use No Drug use: No Sexual activity: Not on file Other Topics Concern Not on file Social History Narrative No narrative on file Family History Problem Relation Age of Onset Cancer Mother oral, colon Hypertension Father Stroke Father Heart attack Father Prostate cancer Brother Heart attack Brother Review of Systems Constitution: Negative for chills, decreased appetite, diaphoresis, fever, weakness, malaise/fatigue and night sweats. HENT: Negative for congestion, ear discharge, ear pain, nosebleeds and sore throat. Eyes: Negative for blurred vision, discharge, double vision, pain and redness. Cardiovascular: Negative for chest pain, cyanosis, dyspnea on exertion, irregular heartbeat, leg swelling, orthopnea, palpitations and syncope. Respiratory: Negative for cough, hemoptysis, shortness of breath, sleep disturbances due to breathing, snoring, sputum production and wheezing. Endocrine: Negative for cold intolerance, heat intolerance, polydipsia, polyphagia and polyuria. Hematologic/Lymphatic: Negative for adenopathy. Does not bruise/bleed easily. Skin: Negative for dry skin, flushing, itching, poor wound healing, rash and suspicious lesions. Musculoskeletal: Negative for arthritis, back pain, falls, joint pain, muscle cramps, myalgias, neck pain and stiffness. Gastrointestinal: Negative for abdominal pain, change in bowel habit, bowel incontinence, constipation, diarrhea, dysphagia, hematemesis, hematochezia, jaundice, melena, nausea and vomiting. Genitourinary: Negative for bladder incontinence, dysuria, flank pain, frequency, hematuria, pelvic pain and urgency. Neurological: Negative for difficulty with concentration, excessive daytime sleepiness, dizziness, focal weakness, headaches, light-headedness, loss of balance, numbness, paresthesias, seizures, tremors and vertigo. Psychiatric/Behavioral: Negative for altered mental status, depression, hallucinations and substance abuse. The patient does not have insomnia and is not nervous/anxious. Allergic/Immunologic: Negative for environmental allergies. Vitals: 11/20/17 1013 BP: (!) 162/78 Pulse: (!) 58 Temp: 98 ?F (36.7 ?C) TempSrc: Oral SpO2: 99% Weight: 103.1 kg (227 lb 4.7 oz) Height: 5' 6 Physical Exam Constitutional: She is oriented to person, place, and time. She appears well-developed and well-nourished. She is cooperative. Non-toxic appearance. No distress. HENT: Right Ear: External ear normal. No decreased hearing is noted. Left Ear: External ear normal. No decreased hearing is noted. Nose: Nose normal. No rhinorrhea. No epistaxis. Eyes: EOM are normal. Pupils are equal, round, and reactive to light. Right eye exhibits no discharge. Left eye exhibits no discharge. No scleral icterus. Neck: Normal range of motion. Neck supple. No JVD present. No thyromegaly present. Cardiovascular: Normal rate, regular rhythm, normal heart sounds and intact distal pulses. Exam reveals no gallop and no friction rub. No murmur heard. Pulmonary/Chest: Effort normal and breath sounds normal. No accessory muscle usage or stridor. No tachypnea. No respiratory distress. She has no decreased breath sounds. She has no wheezes. She has no rhonchi. She has no rales. Abdominal: Soft. Bowel sounds are normal. She exhibits no distension and no mass. There is no hepatosplenomegaly. There is no tenderness. There is no guarding. No hernia. Musculoskeletal: Normal range of motion. She exhibits no edema or tenderness. Lymphadenopathy: She has no cervical adenopathy. Neurological: She is alert and oriented to person, place, and time. She has normal strength. Skin: Skin is warm and dry. No bruising, no laceration and no rash noted. Psychiatric: She has a normal mood and affect. Her speech is normal and behavior is normal. Her affect is not inappropriate. Assessment: 1. Endometrial thickening 2. Hypertension 3. Hyperlipidemia 4. ALopecia 5. GERD 6. Anemia, details unclear 7. Type 2 diabetes 8. Lymphedema 9. Anxiety/depression 10. Hypothyroidism 11. Osteoarthritis 12. KAYLIE, compliant with CPAP 13. Post-op anxiety 1. ASA = 2 . 2. RCRI = 0 . (Score/Risk of Major Cardiac Outcomes - 0/0.4%, 1/0.9%, 2/2.4%, 3 or more/>5.4%. This may overestimate the cardiac risks in lower risk procedures and underestimate the risks in vascular procedures. This study has been externally validated.) 4. Apfel Score = 2 . (Score/Risk of PONV = 0/10%, 1/21%, 2/39%, 3/61%, 4/79%) This score has been externally validated. Plan: 1. The patient falls into an acceptable cardiac risk for category for their planned procedure per 2014 ACC Guidelines and Recommendations. 2. Endocarditis prophylaxis is not required per 2017 ACC/AHA Guidelines and Recommendations. 3. Avoid/limit perioperative hypothermia. 4. Perioperative thromboembolic prophylaxis is recommended per 2016 ACCP Guidelines and Recommendations (or 2011 AAOS Guidelines for orthopedic procedures, or 2008 MIKE Guidelines for neurosurgical procedures). 5. The patient s head of the bed should be elevated to 30 degrees post- operatively unless contraindicated by the procedure. 6. The patient has been advised to discontinue NSAID s and alternative medicines (Vitamins, herbals, etc.) seven days prior to surgery. Perioperative management of the patient's antiplatelet therapy is recommended per the 2016 ACC/AHA Guidelines - Focused Update on Duration of Dual Antiplatelet Therapy in Patient's With Coronary Artery Disease or in accordance with their landscape specialist's recommendations. 7. The patient may use appropriate amounts of acetaminophen pre-operatively for pain management if not allergic and if no history of liver disease. 8. The patient was advised not to eat or drink anything after midnight on the evening prior to their procedure except for a sip of water to take any recommended medications. 9. Ordered laboratory tests will be reviewed pre-operatively for any pertinent abnormalities. 10. Post-operative spirometry/volurex, deep breathing maneuvers, and early ambulation is recommended if not contraindicated by the procedure. 11. This report will be made available to the requesting surgeon through the electronic medical records. 1. The patient was advised to bring their KAYLIE/SDB treatment device on the day of their procedure in the event it is required post-operatively. 2. Post-operative capnography may be of potential benefit in this patient. 3. The patient may warrant closer monitoring post-operatively for signs of KAYLIE/SDB. 4. Post-operative protocols for patients with known KAYLIE/SDB should be followed. 5. Cautious perioperative use of opioids and benzodiazepines is recommended. 6. The appropriate use of opioid sparing analgesia is recommended. Altagracia Gallagher MD in this encounter Beulah Jimenez Donnie 1945 Encounter Diagnoses Name Primary? Preop examination Yes Postmenopausal bleeding Essential hypertension Hyperlipidemia, unspecified hyperlipidemia type Diabetes mellitus type 2 in obese (HCC) BMI 37.0-37.9, adult Procedure: Total Vaginal Hysterectomy Surgeon: Dr. Braun PCP: Miguel Angel Bhat MD Cardiology: None Date of Procedure: 01/14/19 PREOPERATIVE HISTORY AND PHYSICAL EXAMINATION DATE OF SERVICE 01/07/2019 ASSESSMENT 1. Postmenopausal bleeding. 2. Hypertension. 3. Hyperlipidemia. 4. Postoperative anxiety x1 episode. 5. Postoperative deep vein thrombosis following Achilles tendon surgery May 2018. 6. Remote history of anemia. 7. Depression. 8. Vitamin D deficiency. 9. History of bronchitis. 10. Obstructive sleep apnea requiring continuous positive airway pressure. 11. Colon polyps. 12. Gastroesophageal reflux disease. 13. Urinary stress incontinence. 14. Hwx-ddtxezm-iudefssaj type 2 diabetes mellitus. 15. Hypothyroidism. 16. Asymptomatic sinus bradycardia. 17. Right ventricular conduction delay. 18. Family history significant for diabetes, coronary disease, cardiac infarction, hypertension, CVA, colon cancer, unspecified lymph cancer. 1. ASA = 2. 2. RCRI =0 . (Score/Risk of Major Cardiac Outcomes - 0/0.4%, 1/0.9%, 2/2.4%, 3 or more/>5.4%. This may overestimate the cardiac risks in lower risk procedures and underestimate the risks in vascular procedures. This study has been externally validated.) 3. Caprini Score = 7. (Score/Risk of Symptomatic VTE = 0/<0.5%, 1-2/1.5%, 3- 4/3.0%, 5 or greater/6% or greater). 4. Apfel Score =3 . (Score/Risk of PONV = 0/10%, 1/21%, 2/39%, 3/61%, 4/79%) This score has been externally validated. 1. The patient is at increased risk for postoperative delirium. Plan: 1. The patient falls into an acceptable cardiac risk for category for their planned procedure per 2014 ACC Guidelines and Recommendations. 2. Endocarditis prophylaxis is not required per 2017 ACC/AHA Guidelines and Recommendations. 3. Avoid/limit perioperative hypothermia. 4. Perioperative thromboembolic prophylaxis is recommended per 2016 ACCP Guidelines and Recommendations (or 2011 AAOS Guidelines for orthopedic procedures, or 2008 MIKE Guidelines for neurosurgical procedures). 5. The patient s head of the bed should be elevated to 30 degrees post- operatively unless contraindicated by the procedure. 6. The patient has been advised to discontinue NSAID s and alternative medicines (Vitamins, herbals, etc.) seven days prior to surgery. Perioperative management of the patient's antiplatelet therapy is recommended per the 2016 ACC/AHA Guidelines - Focused Update on Duration of Dual Antiplatelet Therapy in Patient's With Coronary Artery Disease or in accordance with their landscape specialist's recommendations. 7. The patient may use appropriate amounts of acetaminophen pre-operatively for pain management if not allergic and if no history of liver disease. 8. The patient was advised to follow the current [facility] guidelines regarding fluid intake after midnight and to take any recommended medications on the morning of surgery with a sip of water. 9. Ordered laboratory tests will be reviewed pre-operatively for any pertinent abnormalities. 10. Post-operative spirometry/volurex, deep breathing maneuvers, and early ambulation is recommended if not contraindicated by the procedure. 11. This report will be made available to the requesting surgeon through the electronic medical records. 1. The patient does not meet criteria for the initiation of perioperative beta-blockers per 2017 ACC Guidelines and Recommendations. 1. The patient was advised to refrain from taking their VICKY inhibitors or ARB's on the morning of surgery per [facility] Anesthesia recommendations. 1. The patient was advised to discontinue any glucophage containing agents on the day prior to their planned procedure (per [facility] protocol). 2. The patient was directed to use 80% of their evening dose of their longer acting insulin on the evening prior to their procedure (per [facility] protocol). 3. The patient was directed not to take any oral diabetic agents or short acting insulin on the morning of their procedure (per [facility] protocol). 4. The patient was directed that if they have an insulin pump, They should maintain their basal rate on the morning of surgery. They will receive further guidance by anesthesia on the day of surgery (per [facility] protocol). Consideration can be given to reducing the basal rate by 25% as well. 5. The patient's glucose can be monitored perioperatively with accu-checks and treated with basal insulin plus bolus corrective insulin therapy to maintain a glucose between 140 and 180 (per 2019 ADA guidelines). 6. The patient should receive basal insulin plus bolus corrective insulin therapy until stable, then may resume their previously prescribed diabetic regimen in addition to any recommended changes. (glucophage containing products should be withheld for another 48 hours if contrast dye is used). 1. For patient's 65 or older consider incorporating the 2016 ACS/AGS Guidelines for Optimal Perioperative Management of the Geriatric Patient. -consider avoiding/limiting the use of opioids, benzodiazepines, antihistamines, and anticholinergics -consider opioid sparing multimodal pain management -consider delirium identification/prevention measures (daily CAM Short Form) -consider fall precautions (Clemens Fall Scale) -consider nutritional support (ESPEN Guidelines) -consider pressure ulcer prevention (Zach Score) -consider functional decline identification and prevention measures 1. The patient was advised to bring their KAYLIE/SDB treatment device on the day of their procedure in the event it is required post-operatively. 2. Post-operative capnography may be of potential benefit in this patient. 3. The patient may warrant closer monitoring post-operatively for signs of KAYLIE/SDB. 4. Post-operative protocols for patients with known KAYLIE/SDB should be followed. 5. Cautious perioperative use of opioids and benzodiazepines is recommended. 6. The appropriate use of opioid sparing analgesia is recommended. DATE OF SERVICE 01/07/2019. HISTORY OF PRESENT ILLNESS Ms. Fields is a pleasant 73-year-old white female with a past medical history significant for postmenopausal bleeding, hypertension, hyperlipidemia, postoperative left lower extremity DVT, remote anemia, depression, postoperative anxiety (x1 episode), vitamin D deficiency, bronchitis, obstructive sleep apnea requiring CPAP, elevated BMI, colon polyps, gastroesophageal reflux disease, urinary stress incontinence, and [id number]-oobuvunyw type 2 diabetes mellitus. She presents today for preoperative consultation and risk stratification at the request of Dr. Braun for a planned total vaginal hysterectomy on 01/14/2019. The patient believes her blood pressure, cholesterol, and diabetes have been adequately controlled on her current regimen. The patient is noted to be on a statin medication at this time. The patient does state her last A1c level was measured at 6.7. The patient denies any end-organ involvement associated with her diabetes such as retinopathy, neuropathy, nephropathy, or gastroparesis. The patient denies any symptoms such as polyuria, polydipsia, or polyphagia at this time. The patient states she is not known to have a history of renal insufficiency, cerebrovascular disease, coronary artery disease, peripheral vascular, or valvular heart disease. The patient does not recall having any prior cardiac testing. The patient does have obstructive sleep apnea and does use a CPAP device when she sleeps. The patient was advised that she should bring the CPAP device on the day of surgery in the event that it is required postoperatively per 2014 ASA guidelines. The patient has had multiple surgeries in the past, all of which were uneventful from a cardiac and anesthesia standpoint except for a one-time episode of postoperative anxiety. The patient was advised to alert Anesthesia of that tendency on the day of surgery. The patient reports her activity level is somewhat limited at this point. The patient states she had an Achilles tendon surgery in May 2018 and is still somewhat limited with her activity level. The patient states she is able to walk up 1 flight of stairs but does not currently exercise. At a functional capacity that just approximates 4 METS, the patient is not reporting any active cardiac symptoms such as chest pain, atypical chest pain, palpitations, syncope, near syncope, orthopnea, PND, claudication, dyspnea on exertion, or shortness of breath. The patient reports she is experiencing some persistent edema in the lower extremity that had the Achilles tendon surgery performed. The patient states that she did develop a postoperative DVT following that procedure. The patient reports she was treated with an anticoagulant medication for about 3 months. The patient states she is not known to have any underlying thrombophilic disorders. The patient has no calf pain or tenderness on exam today. The patient's EKG today (per my interpretation) demonstrates sinus bradycardia, with evidence of a right ventricular conduction delay. The findings on this EKG are not associated with increased perioperative cardiac risk. The patient states she is a lifelong nonsmoker. The patient does have cardiac disease in her family history. The patient denies any personal or family history significant for bleeding diathesis or thromboembolic disease. The patient has no acute complaints at this time. No Known Allergies Beulah Fields Home Medication Instructions Prior to Surgery [id number] Printed on:01/07/19 8543 Medication Information Take last dose on Take the morning of surgery Comment(s) aspirin 81 MG EC tablet Take 81 mg by mouth daily . cholecalciferol, vitamin D3, (D3-2000) 2,000 unit cap Take 2,000 Units by mouth daily . escitalopram oxalate (LEXAPRO) 10 MG tablet Take 5 mg by mouth nightly . levothyroxine (SYNTHROID, LEVOTHROID) 112 MCG tablet Take 112 mcg by mouth every morning . losartan (COZAAR) 25 MG tablet Take 25 mg by mouth nightly . melatonin 5 mg Tab Take 5 mg by mouth nightly as needed . metFORMIN (GLUMETZA) 500 MG (MOD) 24 hr tablet Take 500 mg by mouth 2 (two) times a day with meals . multivitamin (multivitamin) per tablet Take 1 tablet by mouth nightly . omeprazole (PRILOSEC) 20 MG capsule Take 20 mg by mouth daily as needed . rosuvastatin (CRESTOR) 20 MG tablet Take 20 mg by mouth nightly . spironolactone (ALDACTONE) 25 MG tablet Take 12.5 mg by mouth nightly . Past Medical History: Diagnosis Date Arthritis Deep vein thrombosis (HCC) Diabetes mellitus, type 2 (HCC) Hypertension Sleep apnea, obstructive Past Surgical History: Procedure Laterality Date ACHILLES TENDON SURGERY DILATION AND CURETTAGE OF UTERUS GANGLION CYST EXCISION TONSILLECTOMY TUBAL LIGATION WISDOM TOOTH EXTRACTION Social History Socioeconomic History Marital status: Spouse name: Not on file Number of children: Not on file Years of education: Not on file Highest education level: Not on file Occupational History Not on file Social Needs Financial resource strain: Not on file Food insecurity: Worry: Not on file Inability: Not on file Transportation needs: Medical: Not on file Non-medical: Not on file Tobacco Use Smoking status: Never Smoker Smokeless tobacco: Never Used Substance and Sexual Activity Alcohol use: Never Frequency: Never Drug use: Never Sexual activity: Not on file Lifestyle Physical activity: Days per week: Not on file Minutes per session: Not on file Stress: Not on file Relationships Social connections: Talks on phone: Not on file Gets together: Not on file Attends mu-ism service: Not on file Active member of club or organization: Not on file Attends meetings of clubs or organizations: Not on file Relationship status: Not on file Other Topics Concern Not on file Social History Narrative Not on file Family History Problem Relation Age of Onset Colon cancer Mother Stroke Father Hypertension Father No Known Problems Brother Prostate cancer Brother Review of Systems Constitution: Negative for chills, decreased appetite, diaphoresis, fever, malaise/fatigue, night sweats, weight gain and weight loss. HENT: Negative. Negative for congestion, ear discharge, ear pain, hearing loss, hoarse voice, nosebleeds, odynophagia, sore throat, stridor and tinnitus. Eyes: Negative for blurred vision, discharge, double vision, pain, photophobia, redness, vision loss in left eye, vision loss in right eye, visual disturbance and visual halos. Cardiovascular: Positive for leg swelling. Negative for chest pain, claudication, cyanosis, dyspnea on exertion, irregular heartbeat, near-syncope, orthopnea, palpitations, paroxysmal nocturnal dyspnea and syncope. Respiratory: Negative. Negative for cough, hemoptysis, shortness of breath, sleep disturbances due to breathing, snoring, sputum production and wheezing. Endocrine: Negative for cold intolerance, heat intolerance, polydipsia, polyphagia and polyuria. Hematologic/Lymphatic: Negative for adenopathy and bleeding problem. Does not bruise/bleed easily. Skin: Negative. Negative for color change, dry skin, flushing, itching, nail changes, poor wound healing, rash, skin cancer, suspicious lesions and unusual hair distribution. Musculoskeletal: Positive for arthritis. Negative for back pain, falls, gout, joint pain, joint swelling, muscle cramps, muscle weakness, myalgias, neck pain and stiffness. Gastrointestinal: Negative for bloating, abdominal pain, anorexia, change in bowel habit, bowel incontinence, constipation, diarrhea, dysphagia, excessive appetite, flatus, heartburn, hematemesis, hematochezia, hemorrhoids, jaundice, melena, nausea and vomiting. Genitourinary: Positive for bladder incontinence and frequency. Negative for decreased libido, dysuria, flank pain, genital sores, hematuria, hesitancy, incomplete emptying, menorrhagia, missed menses, nocturia, non-menstrual bleeding, pelvic pain and urgency. Neurological: Negative for aphonia, brief paralysis, difficulty with concentration, disturbances in coordination, excessive daytime sleepiness, dizziness, focal weakness, headaches, light-headedness, loss of balance, numbness, paresthesias, seizures, sensory change, tremors, vertigo and weakness. Psychiatric/Behavioral: Positive for depression. Negative for altered mental status, hallucinations, hypervigilance, memory loss, substance abuse, suicidal ideas and thoughts of violence. The patient does not have insomnia and is not nervous/anxious. Allergic/Immunologic: Negative for environmental allergies, HIV exposure, hives and persistent infections. Vitals: 01/07/19 1334 01/07/19 1343 BP: (!) 151/78 144/77 Pulse: (!) 57 (!) 57 Temp: 98.1 F (36.7 C) TempSrc: Oral SpO2: 97% Weight: 104.4 kg (230 lb 2.6 oz) Height: 5' 6 Physical Exam Constitutional: She is oriented to person, place, and time. She appears well-nourished. No distress. Overweight HENT: Head: Normocephalic and atraumatic. Right Ear: External ear normal. Left Ear: External ear normal. Nose: Nose normal. Mouth/Throat: Oropharynx is clear and moist. No oropharyngeal exudate. Eyes: Pupils are equal, round, and reactive to light. Conjunctivae and EOM are normal. Right eye exhibits no discharge. Left eye exhibits no discharge. No scleral icterus. Neck: Normal range of motion. Neck supple. No JVD present. No tracheal deviation present. No thyromegaly present. Cardiovascular: Normal rate, regular rhythm, normal heart sounds and intact distal pulses. Exam reveals no gallop and no friction rub. No murmur heard. Pulmonary/Chest: Effort normal and breath sounds normal. No stridor. No respiratory distress. She has no wheezes. She has no rales. She exhibits no tenderness. Abdominal: Soft. Bowel sounds are normal. She exhibits no distension and no mass. There is no tenderness. There is no rebound and no guarding. No hernia. Musculoskeletal: Normal range of motion. She exhibits no edema or tenderness. Lymphadenopathy: She has no cervical adenopathy. Neurological: She is alert and oriented to person, place, and time. She has normal reflexes. She displays normal reflexes. No cranial nerve deficit. She exhibits normal muscle tone. Coordination normal. Skin: Skin is warm and dry. No rash noted. She is not diaphoretic. No erythema. No pallor. Psychiatric: She has a normal mood and affect. Her behavior is normal. Judgment and thought content normal. Nursing note and vitals reviewed. Harlan Gutierrez DO documented in this encounter Pre-op History and Physical Patient is a 73 y.o. female scheduled for VH, poss BSO. Indications for procedure are Recurrent Post menopausal bleeding. Patient was seen preoperatively, questions answered. Pt desires to proceed as planned. H&P reviewed and without changes. documented in this encounter INTERVAL HISTORY AND PHYSICAL Patient Name: Beulah Fields Admit Date: MR #: [id number] : 1945 The H&P has been reviewed and the patient has been examined. I concur with the findings of the H&P. There are no significant changes. It is appropriate to proceed with the planned procedure. Ophelia Ybarra DO 09/28/2019 11:15 AM Assessment and Plan 1. Preop testing Preoperative medical risk stratification will be pending required tests or evaluations if indicated, but initial evaluation indicates patient is scheduled for elective - surgery with acceptable risk. CBC and Differential, Comprehensive Metabolic Panel, XR Chest AP/PA and LAT, ECG 12 Lead, CBC Auto Differential 2. History of right breast cancer In need of surgical intervention having failed other treatments. Perioperative recommendations include discontinuation of NSAIDS, Vitamin C, Vitamin E, Fish Oil, and other supplemental herbal medications 7-10 days prior to surgery. Aspirin and other anticoagulants will be addressed separately. 3. Preoperative cardiovascular examination Based on 2014 ACC/AHA Guidelines, this patient has no active cardiac conditions and based on an RCRI score would be considered at a/an acceptable <1% risk of a major adverse cardiac event (MACE) based on a RCRI score of 1. This patient has an activity level at or around 4 MET's and would be considered at an acceptable cardiac risk. Poor R Wave Progression noted on EKG - patient denies any associated cardiac symptoms or disease - This would not represent an overt contraindication to surgery. 4. Essential hypertension Hypertension noted. (I10). This is a chronic pre- existing condition. 144/76 and acceptable. Recommend continuing antihypertensives as prescribed throughout the perioperative time period, including the morning of surgery if indicated. However, recommend holding VICKY Inhibitors, ARBlockers, and Diuretics day of surgery if there are risks of perioperative renal insufficiency or hypotension. 5. Hyperlipidemia, unspecified hyperlipidemia type Hyperlipidemia noted. (E78.5). Chronic condition present on admission - controlled on cholesterol lowering medication - plan to continue perioperatively to lessen the risk of cardiovascular complications. 6. Peripheral Venous Disease H/o DVT as noted 7. Type 2 diabetes mellitus without complication, without long-term current use of insulin ([facility]) DM Type 2 (E11.9) - chronic pre-existing condition present on admission - controlled on oral medication alone - continue to monitor glucose levels perioperatively with Accuchecks and use sliding scale Insulin if indicated. Recommend monitoring glucose levels closely during the perioperative time period to lessen the risk complications including infection. No results found for: HGBA1C Glucose (mg/dL) Date Value 01/15/2019 118 (H) 01/14/2019 123 (H) 01/14/2019 148 (H) 01/14/2019 120 (H) 8. GERD without esophagitis H/o Gastroesophageal Reflux or GERD noted (K21.9) Controlled with routine medications to reduce gastric acidity. Recommend continued dosing perioperatively to prevent laryngeal reflux and/or aspiration. Would not recommend the addition of NSAIDS or EVANS-2 Inhibitors to medical regimen unless absolutely necessary. 9. Depression, unspecified depression type Depression noted (F32.9). Chronic pre-existing condition present at admission - controlled with antidepressant medication. These medications can be continued but are not ultimately necessary the morning of surgery unless otherwise noted. 10. Anxiety Anxiety (F41.9). Chronic pre-existing condition present at admission - controlled with anti-anxiety medication. These medications can be continued but are not ultimately necessary the morning of surgery unless otherwise noted. 11. KAYLIE (obstructive sleep apnea) Obstructive Sleep Apnea (G47.33) - . chronic pre-existing condition present on admission - known diagnosis with home use of CPAP/BIPAP as noted. Plan to continue strict monitoring of O2 Saturations around the clock and continued supplemental Oxygen and CPAP/BIPAP during any sleep or sedation as needed. Body mass index is 36.29 kg/m . 12. History of DVT (deep vein thrombosis) H/o Deep Vein Thrombosis or DVT in the past (Z86.718). Education regarding venous return exercises in the lower extremities was provided. This represents a risk factor for the development of a recurrent DVT and pharmacologic and non-pharmacologic prophylaxis per the ACCP Guidelines is recommended. Ultimately, the specific pharmacologic prophylaxis will be per the discretion of the primary surgical service according to protocol. 13. Anemia, unspecified type Anemia noted in past. Hemoglobin (g/dL) Date Value 01/15/2019 10.1 (L) 01/07/2019 12.9 11/20/2017 13.1 This is chronic anemia based on history (D64.9) - chronic and present on admission - mild to moderate - unlikely to require specific treatments other than close observation for symptoms and/or hemoglobin levels. Performance Data Patient's current medications reviewed, confirmed, and documented in medical record - Performance Met (G9179) Screening for Tobacco Use - Patient identified as a Non-User of Tobacco products - Performance Met (1036F) Body mass index is 36.29 kg/m . Screening for Obesity - BMI documented above normal or >= 25 kg/m - Performance NOT Met - Recommendations for follow-up evaluation and weight loss intervention with PCP discussed with patient (G8498) BP 144/76 Pulse 60 Temp 98.4 F (36.9 C) (Oral) Resp 14 Ht 5' 6 Wt 102 kg (224 lb 13.9 oz) SpO2 95% BMI 36.29 kg/m Previously established diagnosis of HTN - Most recent SBP > 140 and not ideally controlled - Recommendations for lifestyle modifications and follow-up evaluation and BP intervention with PCP within 4 weeks discussed with patient - Performance NOT Met (G8753) Chief Complaint Patient presents with Pre-operative Medical Risk Stratification History of Present Illness Beulah Fields is a 73 y.o. female who presents for preoperative medical risk stratification consult at the request of Ophelia Ybarra DO, Jordon Kelly DO prior to 09/28/2019 [facility] BILATERAL MASTECTOMIES WITH RIGHT SENTINEL NODE BIOPSY, POSSIBLE RIGHT AXILLARY LYMPH NODE DISSECTION . 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 In need of intervention having failed other treatments. Please see below regarding status of active medical conditions and assessment and plan regarding details of preoperative medical risk stratification. The surgeon has ordered a medical consult to evaluate patient's medical conditions and to provide pre-surgical risk stratification along with recommendations for perioperative management regarding the patient's medical conditions including the following . . . 1. Diabetes mellitus type 2 currently on oral medication alone 2. Depression currently controlled on Lexapro 3. Hypertension currently controlled on losartan Past Medical History: Diagnosis Date Abnormal mammogram Alopecia scalp; scarring type; Dr Aviva Woodward, [facility] 1970' history of Anxiety Arthritis Breast cancer, female ([facility]) 09/15/2019 Breast mass Cataract Cellulitis 08/2017 RIGHT LOWER EXTREMITY Claudication ([facility]) Complication of anesthesia anxiety in PACU & postop Deep vein thrombosis ([facility]) Depression Diabetes mellitus, type 2 ([facility]) Edema R leg GERD (gastroesophageal reflux disease) mild - meds as needed Hyperlipidemia Hypertension Hypothyroidism Lipodermatosclerosis Lymphedema of right lower extremity Dr. Duke, vascular OA (osteoarthritis) of knee right Sleep apnea, obstructive w/ CPAP; Dr Oli Barrett, [facility] Sleep apnea, obstructive Varicose veins of bilateral lower extremities with other complications Past Medical History Pertinent Negatives: Diagnosis Date Noted Asthma 03/22/2019 Bleeding disorder ([facility]) 09/21/2019 CHF (congestive heart failure) ([facility]) 03/22/2019 Colon cancer ([facility]) 09/03/2019 COPD (chronic obstructive pulmonary disease) ([facility]) 03/22/2019 Coronary artery disease 09/21/2019 Diabetes mellitus type I (HCC) 09/20/2019 Heart disease 03/22/2019 History of blood transfusion 09/21/2019 Hormone replacement therapy (postmenopausal) 09/03/2019 No blood products 09/21/2019 Ovarian cancer (HCC) 09/03/2019 Pheochromocytoma 03/22/2019 Pulmonary emphysema (HCC) 03/22/2019 Renal insufficiency 03/22/2019 Rheumatoid arthritis ([facility]) 09/20/2019 Smoker 03/22/2019 Past Surgical History: Procedure Laterality Date [facility] TENDON SURGERY BREAST CYST EXCISION 45 yrs ago DILATION AND CURETTAGE OF UTERUS GANGLION CYST EXCISION WRIST GANGLION CYST EXCISION HYSTERECTOMY 2019 HYSTERECTOMY VAGINAL N/A 01/14/2019 Procedure: TOTAL VAGINAL HYSTERECTOMY; Surgeon: Nidhi Braun MD; Location: [facility] Main OR; Service: OBGYN HYSTEROSCOPY W/ DILATATION AND CURETTAGE N/A 11/27/2017 Procedure: DILATION AND CURETTAGE WITH HYSTEROSCOPY; Surgeon: Nidhi Braun MD; Location: [facility] Main OR; Service: OBGYN SKIN BIOPSY BENIGN TONSILLECTOMY TUBAL LIGATION US BREAST BIOPSY RIGHT Right 09/07/2019 US BREAST BIOPSY RIGHT 09/07/2019 [facility] ULTRASOUND VASCULAR SURGERY Right 11/2017 LEG; VARITHENA INJECTION WISDOM TOOTH EXTRACTION Social History Tobacco Use Smoking status: Never Smoker Smokeless tobacco: Never Used Substance Use Topics Alcohol use: Never Frequency: Never Family History Problem Relation Age of Onset Colon cancer Mother 60 Cancer Mother 60 oral Stroke Father Hypertension Father Heart attack Father Prostate cancer Father 70 Heart disease Father Diabetes Father No Known Problems Brother No Known Problems Brother Breast cancer Maternal Grandmother 70 Colon cancer Maternal Grandfather 65 Stomach cancer Paternal Grandmother 70 Liver cancer Maternal Uncle 60 No Known Problems Other Surgical complications Neg Hx Anesthesia problems Neg Hx Clotting disorder Neg Hx Deep vein thrombosis Neg Hx Pulmonary embolism Neg Hx @ Prior to Admission medications Medication Sig Taking? Dose Freq aspirin 81 MG EC tablet Take 81 mg by mouth every morning Reasons: treatment to prevent a heart attack. Yes 81 mg, Oral, Every morning cholecalciferol, vitamin D3, (D3-2000) 2,000 unit cap Take 2,000 Units by mouth every evening Reasons: supplement. Yes 2,000 Units, Oral, Every evening escitalopram oxalate (LEXAPRO) 10 MG tablet Take 10 mg by mouth at bedtime Reasons: anxiousness associated with depression. Yes 10 mg, Oral, At bedtime levothyroxine (SYNTHROID, LEVOTHROID) 112 MCG tablet Take 112 mcg by mouth every morning Reasons: a condition with low thyroid hormone levels. Yes 112 mcg, Oral, Every morning losartan (COZAAR) 25 MG tablet Take 25 mg by mouth at bedtime Reasons: high blood pressure. Yes 25 mg, Oral, At bedtime metFORMIN (GLUCOPHAGE-XR) 500 MG 24 hr tablet Take 500 mg by mouth 2 (two) times a day Reasons: type 2 diabetes mellitus. Yes 500 mg, Oral, 2 times daily multivitamin (multivitamin) per tablet Take 1 tablet by mouth every evening Reasons: treatment to prevent vitamin deficiency. Yes 1 tablet, Oral, Every evening naproxen sodium (ALEVE) 220 MG tablet Take 220 mg by mouth 2 (two) times a day as needed Reasons: pain. Yes 220 mg, Oral, 2 times daily PRN omeprazole (PRILOSEC) 20 MG capsule Take 20 mg by mouth daily as needed . Yes 20 mg, Oral, Daily PRN rosuvastatin (CRESTOR) 20 MG tablet Take 1 tablet by mouth every evening Reasons: high cholesterol. Yes 1 tablet, Oral, Every evening spironolactone (ALDACTONE) 25 MG tablet Take 12.5 mg by mouth at bedtime Reasons: high blood pressure, 1/2 tablet (12.5 mg). Yes 12.5 mg, Oral, At bedtime Allergies Allergen Reactions Chlorhexidine Towelette Itching Betadine [Povidone-Iodine] Itching Review of Systems Constitution: (negative) HENT: (negative) Eyes: (negative) Respiratory: (negative) Cardiovascular: (negative) - Exercise capacity: Greater than 4 METS Gastrointestinal: (negative) Genitourinary: (negative) - Currently being treated for UTI Musculoskeletal: (negative) Skin: (negative) Neurological: (negative) Hematological: (negative) Physical Exam BP 144/76 Pulse 60 Temp 98.4 F (36.9 C) (Oral) Resp 14 Ht 5' 6 Wt 102 kg (224 lb 13.9 oz) SpO2 95% BMI 36.29 kg/m Physical Exam: Constitutional General Appearance - NAD; Conversant Skin - Normal turgor; No rashes noted Eyes - Pupils equal in size bilaterally; Anicteric sclerae ENMT - Hearing intact; Oropharynx clear with moist mucosa Neck - Trachea midline, No goiter noted Cardiovascular - Regular rate and rhythm; No peripheral edema noted Respiratory - Clear to auscultate bilaterally; No accessory muscle use noted Gastrointestinal - Soft and nontender; No hepatosplenomegaly noted Musculoskeletal - No calf tenderness noted bilaterally; No clubbing or cyanosis of digits noted Psychiatric - Alert and Oriented x 3; Appropriate affect Data DATA SECTION VITALS AND PULSE OXIMETRY = BP 144/76 Pulse 60 Temp 98.4 F (36.9 C) (Oral) Resp 14 Ht 5' 6 Wt 102 kg (224 lb 13.9 oz) SpO2 95% BMI 36.29 kg/m LABS Ordered and Pending Review EKG - ordered and independently read and interpreted TODAY PART OF PAT EVALUATION ( NOTE - if no preoperative EKG was indicated or warranted at the time of PAT, this section will be blank ) EKG from 09/21/2019 shows sinus rhythm at 61 bpm there are small P waves and poor R wave progression noted OLD RECORD SUMMARY - records reviewed to risk stratify patient for surgery will be documented in this section Preprocedure Sleep Apnea Assessment - High Risk (3/3) Sleep Apnea in the patient's Active Problem List or Medical History: yes 1. History of apparent airway obstruction during sleep: (1 point for this category) Do you snore frequently, or snore loud enough to be heard through a closed door?: no (uses cpap) Do you awaken from sleep with a choking sensation or have periods during sleep when someone has observed you pausing between breaths?: no 2. Somnolence of the patient: (1 point for this category) Do you find yourself frequently sleepy despite adequate hours of sleep the night before?: yes Do you fall asleep easily while: watching TV, reading, riding in or driving a car?: no 3. Predisposing physician characteristics: (1 point for this category, 2 points if the BMI ? 40) BMI (Calculated): 36.3 Neck Circumference (inches): 14 inches A copy of this report has been made available to the referring physician in the hospital's EMR and/or by being faxed to the surgeon's office/surgery center. documented in this encounter Assessment and Plan 1. Preop testing Preoperative medical risk stratification will be pending required tests or evaluations if indicated, but initial evaluation indicates patient is scheduled for elective - surgery with acceptable risk. CBC and Differential, Comprehensive Metabolic Panel, XR Chest AP/PA and LAT, ECG 12 Lead, CBC Auto Differential 2. History of right breast cancer In need of surgical intervention having failed other treatments. Perioperative recommendations include discontinuation of NSAIDS, Vitamin C, Vitamin E, Fish Oil, and other supplemental herbal medications 7-10 days prior to surgery. Aspirin and other anticoagulants will be addressed separately. 3. Preoperative cardiovascular examination Based on 2014 ACC/AHA Guidelines, this patient has no active cardiac conditions and based on an RCRI score would be considered at a/an acceptable <1% risk of a major adverse cardiac event (MACE) based on a RCRI score of 1. This patient has an activity level at or around 4 MET's and would be considered at an acceptable cardiac risk. Poor R Wave Progression noted on EKG - patient denies any associated cardiac symptoms or disease - This would not represent an overt contraindication to surgery. 4. Essential hypertension Hypertension noted. (I10). This is a chronic pre- existing condition. 144/76 and acceptable. Recommend continuing antihypertensives as prescribed throughout the perioperative time period, including the morning of surgery if indicated. However, recommend holding VICKY Inhibitors, ARBlockers, and Diuretics day of surgery if there are risks of perioperative renal insufficiency or hypotension. 5. Hyperlipidemia, unspecified hyperlipidemia type Hyperlipidemia noted. (E78.5). Chronic condition present on admission - controlled on cholesterol lowering medication - plan to continue perioperatively to lessen the risk of cardiovascular complications. 6. Peripheral Venous Disease H/o DVT as noted 7. Type 2 diabetes mellitus without complication, without long-term current use of insulin (HCC) DM Type 2 (E11.9) - chronic pre-existing condition present on admission - controlled on oral medication alone - continue to monitor glucose levels perioperatively with Accuchecks and use sliding scale Insulin if indicated. Recommend monitoring glucose levels closely during the perioperative time period to lessen the risk complications including infection. No results found for: HGBA1C Glucose (mg/dL) Date Value 01/15/2019 118 (H) 01/14/2019 123 (H) 01/14/2019 148 (H) 01/14/2019 120 (H) 8. GERD without esophagitis H/o Gastroesophageal Reflux or GERD noted (K21.9) Controlled with routine medications to reduce gastric acidity. Recommend continued dosing perioperatively to prevent laryngeal reflux and/or aspiration. Would not recommend the addition of NSAIDS or EVANS-2 Inhibitors to medical regimen unless absolutely necessary. 9. Depression, unspecified depression type Depression noted (F32.9). Chronic pre-existing condition present at admission - controlled with antidepressant medication. These medications can be continued but are not ultimately necessary the morning of surgery unless otherwise noted. 10. Anxiety Anxiety (F41.9). Chronic pre-existing condition present at admission - controlled with anti-anxiety medication. These medications can be continued but are not ultimately necessary the morning of surgery unless otherwise noted. 11. KAYLIE (obstructive sleep apnea) Obstructive Sleep Apnea (G47.33) - . chronic pre-existing condition present on admission - known diagnosis with home use of CPAP/BIPAP as noted. Plan to continue strict monitoring of O2 Saturations around the clock and continued supplemental Oxygen and CPAP/BIPAP during any sleep or sedation as needed. Body mass index is 36.29 kg/m . 12. History of DVT (deep vein thrombosis) H/o Deep Vein Thrombosis or DVT in the past (Z86.718). Education regarding venous return exercises in the lower extremities was provided. This represents a risk factor for the development of a recurrent DVT and pharmacologic and non-pharmacologic prophylaxis per the ACCP Guidelines is recommended. Ultimately, the specific pharmacologic prophylaxis will be per the discretion of the primary surgical service according to protocol. 13. Anemia, unspecified type Anemia noted in past. Hemoglobin (g/dL) Date Value 01/15/2019 10.1 (L) 01/07/2019 12.9 11/20/2017 13.1 This is chronic anemia based on history (D64.9) - chronic and present on admission - mild to moderate - unlikely to require specific treatments other than close observation for symptoms and/or hemoglobin levels. Performance Data Patient's current medications reviewed, confirmed, and documented in medical record - Performance Met (G8427) Screening for Tobacco Use - Patient identified as a Non-User of Tobacco products - Performance Met (1036F) Body mass index is 36.29 kg/m . Screening for Obesity - BMI documented above normal or >= 25 kg/m - Performance NOT Met - Recommendations for follow-up evaluation and weight loss intervention with PCP discussed with patient (G8417) BP 144/76 Pulse 60 Temp 98.4 F (36.9 C) (Oral) Resp 14 Ht 5' 6 Wt 102 kg (224 lb 13.9 oz) SpO2 95% BMI 36.29 kg/m Previously established diagnosis of HTN - Most recent SBP > 140 and not ideally controlled - Recommendations for lifestyle modifications and follow-up evaluation and BP intervention with PCP within 4 weeks discussed with patient - Performance NOT Met (G8753) Chief Complaint Patient presents with Pre-operative Medical Risk Stratification History of Present Illness Beulah Fields is a 73 y.o. female who presents for preoperative medical risk stratification consult at the request of Ophelia Ybarra DO, Jordon Kelly DO prior to 09/28/2019 [facility] BILATERAL MASTECTOMIES WITH RIGHT SENTINEL NODE BIOPSY, POSSIBLE RIGHT AXILLARY LYMPH NODE DISSECTION . 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 In need of intervention having failed other treatments. Please see below regarding status of active medical conditions and assessment and plan regarding details of preoperative medical risk stratification. The surgeon has ordered a medical consult to evaluate patient's medical conditions and to provide pre-surgical risk stratification along with recommendations for perioperative management regarding the patient's medical conditions including the following . . . 1. Diabetes mellitus type 2 currently on oral medication alone 2. Depression currently controlled on Lexapro 3. Hypertension currently controlled on losartan Past Medical History: Diagnosis Date Abnormal mammogram Alopecia scalp; scarring type; Dr Aviva Woodward, [facility] 1970's history of Anxiety Arthritis Breast cancer, female (HCC) 09/15/2019 Breast mass Cataract Cellulitis 08/2017 RIGHT LOWER EXTREMITY Claudication (HCC) Complication of anesthesia anxiety in PACU & postop Deep vein thrombosis (HCC) Depression Diabetes mellitus, type 2 (HCC) Edema R leg GERD (gastroesophageal reflux disease) mild - meds as needed Hyperlipidemia Hypertension Hypothyroidism Lipodermatosclerosis Lymphedema of right lower extremity Dr. Duke, vascular OA (osteoarthritis) of knee right Sleep apnea, obstructive w/ CPAP; Dr Oli Barrett, [facility] Sleep apnea, obstructive Varicose veins of bilateral lower extremities with other complications Past Medical History Pertinent Negatives: Diagnosis Date Noted Asthma 03/22/2019 Bleeding disorder (HCC) 09/21/2019 CHF (congestive heart failure) ([facility]) 03/22/2019 Colon cancer ([facility]) 09/03/2019 COPD (chronic obstructive pulmonary disease) ([facility]) 03/22/2019 Coronary artery disease 09/21/2019 Diabetes mellitus type I ([facility]) 09/20/2019 Heart disease 03/22/2019 History of blood transfusion 09/21/2019 Hormone replacement therapy (postmenopausal) 09/03/2019 No blood products 09/21/2019 Ovarian cancer (HCC) 09/03/2019 Pheochromocytoma 03/22/2019 Pulmonary emphysema ([facility]) 03/22/2019 Renal insufficiency 03/22/2019 Rheumatoid arthritis ([facility]) 09/20/2019 Smoker 03/22/2019 Past Surgical History: Procedure Laterality Date ACHILLES TENDON SURGERY BREAST CYST EXCISION 45 yrs ago DILATION AND CURETTAGE OF UTERUS GANGLION CYST EXCISION WRIST GANGLION CYST EXCISION HYSTERECTOMY 2019 HYSTERECTOMY VAGINAL N/A 01/14/2019 Procedure: TOTAL VAGINAL HYSTERECTOMY; Surgeon: Nidhi Braun MD; Location: [facility] Main OR; Service: OBGYN HYSTEROSCOPY W/ DILATATION AND CURETTAGE N/A 11/27/2017 Procedure: DILATION AND CURETTAGE WITH HYSTEROSCOPY; Surgeon: Nidhi Braun MD; Location: [facility] Main OR; Service: OBGYN SKIN BIOPSY BENIGN TONSILLECTOMY TUBAL LIGATION US BREAST BIOPSY RIGHT Right 09/07/2019 US BREAST BIOPSY RIGHT 09/07/2019 [facility] ULTRASOUND VASCULAR SURGERY Right 11/2017 LEG; VARITHENA INJECTION WISDOM TOOTH EXTRACTION Social History Tobacco Use Smoking status: Never Smoker Smokeless tobacco: Never Used Substance Use Topics Alcohol use: Never Frequency: Never Family History Problem Relation Age of Onset Colon cancer Mother 60 Cancer Mother 60 oral Stroke Father Hypertension Father Heart attack Father Prostate cancer Father 70 Heart disease Father Diabetes Father No Known Problems Brother No Known Problems Brother Breast cancer Maternal Grandmother 70 Colon cancer Maternal Grandfather 65 Stomach cancer Paternal Grandmother 70 Liver cancer Maternal Uncle 60 No Known Problems Other Surgical complications Neg Hx Anesthesia problems Neg Hx Clotting disorder Neg Hx Deep vein thrombosis Neg Hx Pulmonary embolism Neg Hx @ Prior to Admission medications Medication Sig Taking? Dose Freq aspirin 81 MG EC tablet Take 81 mg by mouth every morning Reasons: treatment to prevent a heart attack. Yes 81 mg, Oral, Every morning cholecalciferol, vitamin D3, (D3-2000) 2,000 unit cap Take 2,000 Units by mouth every evening Reasons: supplement. Yes 2,000 Units, Oral, Every evening escitalopram oxalate (LEXAPRO) 10 MG tablet Take 10 mg by mouth at bedtime Reasons: anxiousness associated with depression. Yes 10 mg, Oral, At bedtime levothyroxine (SYNTHROID, LEVOTHROID) 112 MCG tablet Take 112 mcg by mouth every morning Reasons: a condition with low thyroid hormone levels. Yes 112 mcg, Oral, Every morning losartan (COZAAR) 25 MG tablet Take 25 mg by mouth at bedtime Reasons: high blood pressure. Yes 25 mg, Oral, At bedtime metFORMIN (GLUCOPHAGE-XR) 500 MG 24 hr tablet Take 500 mg by mouth 2 (two) times a day Reasons: type 2 diabetes mellitus. Yes 500 mg, Oral, 2 times daily multivitamin (multivitamin) per tablet Take 1 tablet by mouth every evening Reasons: treatment to prevent vitamin deficiency. Yes 1 tablet, Oral, Every evening naproxen sodium (ALEVE) 220 MG tablet Take 220 mg by mouth 2 (two) times a day as needed Reasons: pain. Yes 220 mg, Oral, 2 times daily PRN omeprazole (PRILOSEC) 20 MG capsule Take 20 mg by mouth daily as needed . Yes 20 mg, Oral, Daily PRN rosuvastatin (CRESTOR) 20 MG tablet Take 1 tablet by mouth every evening Reasons: high cholesterol. Yes 1 tablet, Oral, Every evening spironolactone (ALDACTONE) 25 MG tablet Take 12.5 mg by mouth at bedtime Reasons: high blood pressure, 1/2 tablet (12.5 mg). Yes 12.5 mg, Oral, At bedtime Allergies Allergen Reactions Chlorhexidine Towelette Itching Betadine [Povidone-Iodine] Itching Review of Systems Constitution: (negative) HENT: (negative) Eyes: (negative) Respiratory: (negative) Cardiovascular: (negative) - Exercise capacity: Greater than 4 METS Gastrointestinal: (negative) Genitourinary: (negative) - Currently being treated for UTI Musculoskeletal: (negative) Skin: (negative) Neurological: (negative) Hematological: (negative) Physical Exam BP 144/76 Pulse 60 Temp 98.4 F (36.9 C) (Oral) Resp 14 Ht 5' 6 Wt 102 kg (224 lb 13.9 oz) SpO2 95% BMI 36.29 kg/m Physical Exam: Constitutional General Appearance - NAD; Conversant Skin - Normal turgor; No rashes noted Eyes - Pupils equal in size bilaterally; Anicteric sclerae ENMT - Hearing intact; Oropharynx clear with moist mucosa Neck - Trachea midline, No goiter noted Cardiovascular - Regular rate and rhythm; No peripheral edema noted Respiratory - Clear to auscultate bilaterally; No accessory muscle use noted Gastrointestinal - Soft and nontender; No hepatosplenomegaly noted Musculoskeletal - No calf tenderness noted bilaterally; No clubbing or cyanosis of digits noted Psychiatric - Alert and Oriented x 3; Appropriate affect Data DATA SECTION VITALS AND PULSE OXIMETRY = BP 144/76 Pulse 60 Temp 98.4 F (36.9 C) (Oral) Resp 14 Ht 5' 6 Wt 102 kg (224 lb 13.9 oz) SpO2 95% BMI 36.29 kg/m LABS Ordered and Pending Review EKG - ordered and independently read and interpreted TODAY PART OF PAT EVALUATION ( NOTE - if no preoperative EKG was indicated or warranted at the time of PAT, this section will be blank ) EKG from 09/21/2019 shows sinus rhythm at 61 bpm there are small P waves and poor R wave progression noted OLD RECORD SUMMARY - records reviewed to risk stratify patient for surgery will be documented in this section Preprocedure Sleep Apnea Assessment - High Risk (10/04) Sleep Apnea in the patient's Active Problem List or Medical History: yes 1. History of apparent airway obstruction during sleep: (1 point for this category) Do you snore frequently, or snore loud enough to be heard through a closed door?: no (uses cpap) Do you awaken from sleep with a choking sensation or have periods during sleep when someone has observed you pausing between breaths?: no 2. Somnolence of the patient: (1 point for this category) Do you find yourself frequently sleepy despite adequate hours of sleep the night before?: yes Do you fall asleep easily while: watching TV, reading, riding in or driving a car?: no 3. Predisposing physician characteristics: (1 point for this category, 2 points if the BMI ? 40) BMI (Calculated): 36.3 Neck Circumference (inches): 14 inches A copy of this report has been made available to the referring physician in the hospital's EMR and/or by being faxed to the surgeon's office/surgery center. documented in this encounter INTERVAL HISTORY AND PHYSICAL Patient Name: Beulah Fields Admit Date: [id number] MR #: [id number] : 1945 The H&P has been reviewed and the patient has been examined. I concur with the findings of the H&P. There are no significant changes. It is appropriate to proceed with the planned procedure. Ophelia Ybarra DO 11/07/2020 3:01 PM Assessment and Plan 1. Preop examination Preoperative medical risk stratification indicates patient is acceptable risk for surgery pending any possible anesthesia protocol labs/labs requested by the surgeon. 2. Malignant 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, estrogen receptor positive (HCC) Plans for surgical treatment. Perioperative medication instruction have been provided to the patient. This would include avoiding NSAIDs, herbal supplements, homeopathic [id number]'s, and nonessential vitamins. 3. Pre-operative cardiovascular examination Patient has no active cardiac conditions and a revised cardiac risk index score of 0 (0.4% risk of major cardiac event). This patient's functional status is at least 4 Metabolic Equivalents and would be considered at an acceptable cardiac risk based on ACC/AHA guidelines. 4. Essential hypertension Hypertension (I10) - chronic condition present on admission. Patient's home prescription antihypertensives have been reviewed. Elevated, as reflected by today's blood pressure. BP Readings from Last 3 Encounters: 11/02/20 143/76 09/27/20 (!) 156/69 05/16/20 130/79 Patient should continue their antihypertensive medication through the morning surgery, if applicable. 5. Hyperlipidemia, unspecified hyperlipidemia type Hyperlipidemia (E78.5) - chronic condition present on admission. Treated with statin therapy. May continue in order reduce risk of perioperative cardiovascular events. 6. Gastroesophageal reflux disease without esophagitis Gastroesophageal Reflux Disease (K21.9) - chronic condition. Controlled medically. Recommend continuing through the morning of surgery to reduce the perioperative risk for reflux. 7. Type 2 diabetes mellitus with other specified complication, unspecified whether usp insulin use (HCC) Type 2 Diabetes Mellitus (E11.9) - chronic condition present on admission. Currently being controlled with oral agents. Recommend tight glycemic control to help reduce the risk of perioperative infection. Labs ordered today. Last HgbA1c: No results found for: HGBA1C Last HgbA1c level unknown. 8. Obesity (BMI 30-39.9) Obesity (E66.9) BMI>30 - Body mass index is 36.51 kg/m . A chronic condition present on admission, patient will require close monitoring of respiratory status while hospitalized including use of continuous pulse oximetry. DVT prophylaxis is recommended per ACCP guidelines. 9. KAYLIE (obstructive sleep apnea) Obstructive Sleep Apnea (G47.33) - chronic condition present on admission. The pt is compliant with CPAP therapy. Patient will be at risk for postoperative respiratory complications and will require close monitoring including continuous pulse oximetry and telemetry. Sleep apnea guidelines/procedures for the surgical facility should be followed, as available. 10. Hypothyroidism, unspecified type Hypothyroidism (E03.9) - chronic condition treated with thyroid hormone replacement therapy. The pt should continue this medication post op. 11. Depression, unspecified depression type Depression (F32.9) - chronic condition present on admission, controlled with home medications. 12. History of deep vein thrombosis Increased risk for perioperative DVT given her prior history of right lower extremity DVT. This right DVT was related to right Achilles surgery. She was anticoagulated for 3 months. As a result, recommend increased prophylaxis with either low molecular weight heparin or a novel oral anticoagulant post op to assist in perioperative DVT prevention. Otherwise, postoperative DVT prophylaxis as directed by the ACCP guidelines. EKG: EKG read independently today. Significant for a normal sinus bradycardia without any signs of ischemia or infarction. Performance Data: Hypertension: Blood pressure reviewed: BP Readings from Last 1 Encounters: 11/02/20 143/76 Today's blood pressure reading falls outside of an acceptable range (>140 and/or >90). Follow-up with the patient's primary care physician has been recommended. BMI: Reviewed and found to be elevated (>25 kg/m2) at Body mass index is 36.51 kg/m . Patient was counseled on dietary modifications for weight loss. They will be directed back to their primary care physician for follow-up on their diet and weight loss plan. Current medication list: Has been reviewed. Nicotine/tobacco screen: This patient is a non-smoker. Chief Complaint Patient presents with Pre-operative Medical Risk Stratification History of Present Illness Beulah Fields is a 75 y.o. female who presents for preoperative medical risk stratification consult at the request of Ophelia Ybarra DO prior to EXCISION MASS BREAST on 11-07-20 at [facility]. Patient said that she is having a left breast flap revision because she has extra skin in that area. She denies pain. Patient reports chronic health conditions which include hypertension, stable and controlled medically. Patient follows with the primary care physician for blood pressure management. The patient also has type 2 diabetes mellitus, controlled with oral medication only. The patient is unaware of the last hemoglobin A1c. The patient is also on treatment for hyperlipidemia with statin therapy. Controlled medically. The patient reports no problems with prior anesthesia experiences. This patient denies any history of cardiopulmonary disease. The functional capacity is at least 4 METs without symptoms of chest pain or shortness of breath. This patient denies any recent travel to any high risk COVID-19 area, nor any exposure to anyone positive for COVID-19. The patient denies any signs or symptoms suggesting active viral infection. Please see below regarding status of active medical conditions and assessment and plan regarding details of preoperative medical risk stratification. Past Medical History: Diagnosis Date Abnormal mammogram Alopecia scalp; scarring type; Dr Aviva Woodward, [place] Anemia 1970s Anxiety and depression Arthritis Breast cancer, female (HCC) 09/15/2019 Breast mass Cataract Cellulitis 08/2017 RLE Claudication ([facility]) Complication of anesthesia anxiety in PACU & postop Deep vein thrombosis (HCC) Diabetes mellitus, type 2 ([facility]) Edema R leg GERD (gastroesophageal reflux disease) mild - meds as needed Hyperlipidemia Hypertension Hypothyroidism Ingrown toenail with infection 2020 Left Great toe Lipodermatosclerosis Lymphedema Lymphedema of right lower extremity Dr. 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 Past Medical History Pertinent Negatives: Diagnosis Date Noted Alzheimer disease (HCC) 10/23/2020 Aneurysm (HCC) 10/23/2020 Angina pectoris (HCC) 10/23/2020 Arrhythmia 10/23/2020 Asthma 03/22/2019 Atrial fibrillation (HCC) 10/23/2020 Atypical ductal hyperplasia of breast 10/23/2020 Atypical lobular hyperplasia of breast 10/23/2020 Basal cell carcinoma of skin 10/23/2020 Bipolar disorder (HCC) 10/23/2020 Bladder cancer (HCC) 10/23/2020 Bleeding disorder (HCC) 09/21/2019 BRCA1 positive 10/23/2020 BRCA2 positive 10/23/2020 Breast abscess 10/23/2020 Breast calcifications 10/23/2020 Breast cyst 10/23/2020 Breast pain 10/23/2020 Bronchitis, chronic (HCC) 10/23/2020 Cerebral palsy (HCC) 10/23/2020 Cervical cancer (HCC) 10/23/2020 Cervical dysplasia 10/23/2020 CHF (congestive heart failure) (HCC) 03/22/2019 Chronic kidney disease 10/23/2020 Cirrhosis (HCC) 10/23/2020 Colon cancer (HCC) 09/03/2019 COPD (chronic obstructive pulmonary disease) (HCC) 03/22/2019 Coronary artery disease 09/21/2019 Costochondritis 10/23/2020 Crohn's disease (HCC) 10/23/2020 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 Cystic fibrosis (HCC) 10/23/2020 Degenerative joint disease 10/23/2020 Dementia (HCC) 10/23/2020 Diabetes mellitus type I (HCC) 09/20/2019 Diverticulosis 10/23/2020 Down syndrome 10/23/2020 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 Dysfunctional uterine bleeding 10/23/2020 Esophageal cancer (HCC) 10/23/2020 Fatigue 10/23/2020 Fibrocystic breast 10/23/2020 Fibromyalgia, primary 10/23/2020 Heart disease 03/22/2019 Heart murmur 10/23/2020 Heart valve disease 10/23/2020 Herpes 10/23/2020 History of blood transfusion 09/21/2019 History of chemotherapy 10/23/2020 Hormone replacement therapy (postmenopausal) 09/03/2019 Hyperthyroidism 10/23/2020 Infectious viral hepatitis 10/23/2020 Irritable bowel syndrome 10/23/2020 Leukemia (HCC) 10/23/2020 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 10/23/2020 Lung cancer (HCC) 10/23/2020 Lung disease 10/23/2020 Lupus (HCC) 10/23/2020 Lymphadenopathy 10/23/2020 Lymphoma (HCC) 10/23/2020 Melanoma (HCC) 10/23/2020 Migraine 10/23/2020 Mitral valve prolapse 10/23/2020 MS (multiple sclerosis) ([facility]) 10/23/2020 Myocardial infarction (HCC) 10/23/2020 Nipple discharge 10/23/2020 No blood products 09/21/2019 Osteopenia 10/23/2020 Osteoporosis 10/23/2020 Ovarian cancer (HCC) 09/03/2019 Ovarian cyst 10/23/2020 Pancreatic cancer (HCC) 10/23/2020 Pancreatitis 10/23/2020 Panic disorder 10/23/2020 Paralysis ([facility]) 10/23/2020 Parathyroid disorder ([facility]) 10/23/2020 Parkinson's disease ([facility]) 10/23/2020 Peptic ulceration 10/23/2020 Peripheral vascular disease ([facility]) 10/23/2020 Pheochromocytoma 03/22/2019 Pituitary disorder (HCC) 10/23/2020 Pneumonia 10/23/2020 Pulmonary embolism (HCC) 10/23/2020 Pulmonary emphysema ([facility]) 03/22/2019 Rectal cancer ([facility]) 10/23/2020 Renal insufficiency 03/22/2019 Rheumatoid arthritis (HCC) 09/20/2019 Schizophrenia ([facility]) 10/23/2020 Scleroderma ([facility]) 10/23/2020 Seizures ([facility]) 10/23/2020 Smoker 03/22/2019 Squamous cell skin cancer 10/23/2020 Stented coronary artery 10/23/2020 Stroke (HCC) 10/23/2020 Syncope 10/23/2020 Thyroid cancer (HCC) 10/23/2020 Tuberculosis 10/23/2020 Uterine cancer (HCC) 10/23/2020 Uterine fibroid 10/23/2020 Past Surgical History: Procedure Laterality Date ACHILLES TENDON SURGERY BREAST BIOPSY BREAST CYST EXCISION 1975 DILATION AND CURETTAGE OF UTERUS GANGLION CYST EXCISION HYSTERECTOMY VAGINAL N/A 01/14/2019 Procedure: TOTAL VAGINAL HYSTERECTOMY; Surgeon: Nidhi Braun MD; Location: [facility] Main OR; Service: OBGYN HYSTEROSCOPY W/ DILATATION AND CURETTAGE N/A 11/27/2017 Procedure: DILATION AND CURETTAGE WITH HYSTEROSCOPY; Surgeon: Nidhi Braun MD; Location: [facility] Main OR; Service: OBGYN MASTECTOMY MODIFIED RADICAL BILATERAL WITH SENTINEL LYMPH NODE BIOPSY Bilateral 09/28/2019 Procedure: BILATERAL MASTECTOMIES WITH RIGHT SENTINEL NODE BIOPSY; Surgeon: Ophelia Ybarra DO; Location: [facility] Main OR; Service: General Surgery SKIN BIOPSY benign TONSILLECTOMY TUBAL LIGATION US BREAST BIOPSY RIGHT Right 09/07/2019 VASCULAR SURGERY Right 11/2017 leg; Varithena infection WISDOM TOOTH EXTRACTION Social History Tobacco Use Smoking status: Never Smoker Smokeless tobacco: Never Used Substance Use Topics Alcohol use: Never Frequency: Never Family History Problem Relation Age of Onset Colon cancer Mother 67 Cancer Mother 67 oral Stroke Father Hypertension Father Heart attack Father Prostate cancer Father 70 Heart disease Father Diabetes Father No Known Problems Brother Prostate cancer Brother 68 Breast cancer Maternal Grandmother 70 Colon cancer Maternal Grandfather 65 Other (Abdominal cancer) Paternal Grandmother 70 Prostate cancer Maternal Uncle 60 No Known Problems Other Prostate cancer Maternal Uncle Surgical complications Neg Hx Anesthesia problems Neg Hx Clotting disorder Neg Hx Deep vein thrombosis Neg Hx Pulmonary embolism Neg Hx Ovarian cancer Neg Hx Prior to Admission medications Medication Sig Taking? Dose Freq anastrozole (ARIMIDEX) 1 mg tablet Take 1 mg by mouth every morning Reasons: post breast cancer. Yes 1 mg, Oral, Every morning aspirin 81 MG EC tablet Take 1 (one) tablet (81 mg total) by mouth every morning . You may resume Reasons: treatment to prevent a heart attack. Patient taking differently: Take 81 mg by mouth every morning Reasons: treatment to prevent a heart attack. Yes 81 mg, Oral, Every morning, .

You may resume Patient taking differently: Take 81 mg by mouth every morning Reasons: treatment to prevent a heart attack. calcium citrate (CALCITRATE) 200 mg (950 mg) tablet Take 1 tablet by mouth every morning Reasons: supp. Yes 1 tablet, Oral, Every morning [id number] ORAL Take by mouth every morning Reasons: supplement. Yes Oral, Every morning cholecalciferol, vitamin D3, (D3-2000) 2,000 unit cap Take 2,000 Units by mouth every evening Reasons: supplement. Yes 2,000 Units, Oral, Every evening escitalopram oxalate (LEXAPRO) 10 MG tablet Take 10 mg by mouth at bedtime Reasons: anxiousness associated with depression. Yes 10 mg, Oral, At bedtime Lactobacillus acidophilus (PROBIOTIC ORAL) Take by mouth daily with breakfast Reasons: supp. Yes Oral, Daily with breakfast levothyroxine (SYNTHROID, LEVOTHROID) 112 MCG tablet Take 112 mcg by mouth every morning Reasons: a condition with low thyroid hormone levels. Yes 112 mcg, Oral, Every morning losartan (COZAAR) 25 MG tablet Take 25 mg by mouth at bedtime Reasons: high blood pressure. Yes 25 mg, Oral, At bedtime melatonin 1 mg Tab Take by mouth nightly as needed Reasons: insomnia. Yes Oral, Nightly PRN metFORMIN (GLUCOPHAGE-XR) 500 MG 24 hr tablet Take 1,000 mg by mouth nightly Reasons: type 2 diabetes mellitus. Yes 1,000 mg, Oral, Nightly multivitamin (multivitamin) per tablet Take 1 tablet by mouth every evening Reasons: treatment to prevent vitamin deficiency. Yes 1 tablet, Oral, Every evening naproxen sodium (ALEVE) 220 MG tablet Take 220 mg by mouth 2 (two) times a day as needed Reasons: pain. Yes 220 mg, Oral, 2 times daily PRN [id number] (CORTISPORIN) otic solution 2 drops 2 (two) times a day Reasons: each side of the toe, for ingrown toenail. Yes 2 drops, 2 times daily nitrofurantoin, macrocrystal-monohydrate, (MACROBID) 100 MG capsule Take 100 mg by mouth 2 (two) times a day For seven days for UTI . Yes 100 mg, Oral, 2 times daily, For seven days for UTI omeprazole (PRILOSEC) 20 MG capsule Take 20 mg by mouth daily as needed . Yes 20 mg, Oral, Daily PRN rosuvastatin (CRESTOR) 20 MG tablet Take 20 mg by mouth every evening Reasons: high cholesterol. Yes 20 mg, Oral, Every evening spironolactone (ALDACTONE) 25 MG tablet Take 12.5 mg by mouth at bedtime Reasons: high blood pressure, 1/2 tablet (12.5 mg). Yes 12.5 mg, Oral, At bedtime MAGNESIUM ORAL Take by mouth every morning Reasons: supp. Oral, Every morning ZINC ORAL Take by mouth every morning Reasons: supp. Oral, Every morning Allergies Allergen Reactions Chlorhexidine Towelette Itching Sulfamethoxazole-Trimethoprim Itching Betadine [Povidone-Iodine] Itching Review of Systems Constitution: (negative) HENT: (negative) Eyes: (negative) Respiratory: (negative) Cardiovascular: (negative) - Exercise capacity: Greater than 4 METS Gastrointestinal: (negative) Genitourinary: dysuria, no hematuria - Currently being treated for UTI Musculoskeletal: (negative) Skin: (negative) Neurological: (negative) Hematological: (negative) Physical Exam BP 143/76 Pulse (!) 57 Temp 98.2 F (36.8 C) (Oral) Resp 16 Ht 5' 6 Wt 102.6 kg (226 lb 3.1 oz) SpO2 97% BMI 36.51 kg/m General - No Apparent Distress, well developed, well nourished. Vitals reviewed. Skin - No Rash, Normal Turgor Eyes - Pupils Equal, Conjunctiva Clear ENT - External Ears Normal, Hearing Normal Neck - Trachea Midline, No TMG Cardiovascular - Regular Rate and Rhythm, No Peripheral Edema Respiratory - CTA, Normal Resp. Effort GI - Soft, Nontender, No Hepatosplenomegaly Musculoskeletal - Dorsiflexion Intact, No Calf Tenderness Neuro/Psych - A&Ox3, Appropriate Mood and Affect Data Preprocedure Sleep Apnea Assessment - High Risk (3/3) Sleep Apnea in the patient's Active Problem List or Medical History: yes 1. History of apparent airway obstruction during sleep: (1 point for this category) Do you snore frequently, or snore loud enough to be heard through a closed door?: no (wears cpap) Do you awaken from sleep with a choking sensation or have periods during sleep when someone has observed you pausing between breaths?: no 2. Somnolence of the patient: (1 point for this category) Do you find yourself frequently sleepy despite adequate hours of sleep the night before?: no Do you fall asleep easily while: watching TV, reading, riding in or driving a car?: no 3. Predisposing physician characteristics: (1 point for this category, 2 points if the BMI ? 40) BMI (Calculated): 36.5 Neck Circumference (inches): 17.2 inches Recent Results (from the past 67901 hours) NM SENTINEL NODES INJECTION ONLY - RADIOLOGIST 09/28/2019 (Final) Status: Normal Narrative EXAMINATION: NM SENTINEL NODES INJECTION ONLY HISTORY: 73-year-old woman with right breast cancer. PROCEDURE: An injection of 1 mCi of technetium-99m filtered sulfur colloid was performed in the right breast by Dr. Ybarra, as documented by the nuclear radiologist. No images were obtained. Impression Right breast radiopharmaceutical injection for subsequent intraoperative sentinel lymph node localization. Workstation ID: [id number] Recent Results (from the past 59159 hours) XR CHEST AP/PA AND LAT 09/21/2019 (Final) Status: Normal Narrative EXAMINATION: TWO-VIEW CHEST HISTORY: ORDERING SYSTEM PROVIDED HISTORY: pat, TECHNOLOGIST PROVIDED HISTORY: Illness/Other Reason for exam: PAT Cancer History: breast Surgery, RadiationHistory: lumpectomy Encounter Type: Initial Additional signs and symptoms: na ORDERING SYSTEM PROVIDED DIAGNOSIS CODES: Z01.818 Preop testing COMPARISON: Images from CT abdomen and pelvis 03/22/2019. FINDINGS: Frontal and lateral views of the chest are submitted. The cardiomediastinal silhouette is mildly enlarged. Lungs, pleural spaces and pulmonary vasculature are normal. No acute osseous lesions are seen. Impression 1. No acute cardiopulmonary abnormality. 2. Stable mild cardiomegaly. [facility] Workstation ID: [id number] A copy of this report has been made available to the referring physician in the hospital's EMR and/or by being faxed to the surgeon's office/surgery center. documented in this encounter Op Note - Nidhi Braun MD - 11/27/2017 8:08 AM EDTAssessment & Plan Note - Asif Duke MD - 11/17/2017 1:48 PM EDTAddendum Note - Kenya Eugene RN - 01/09/2018 9:45 AM EDT Miscellaneous Notes (unrecog nized section and content) Formatting of this note may be different from the original. Hysteroscopy, D&C, Post Operative Note Date of Service: 11/27/2017 OR Staff: Sorter Laundry Articles: Osiris Pearson RN Scrub Person: Seamus Paul III Float RN: Hanh Arana RN Anesthesia Staff: Anesthesiologist: Gold Krishna MD POSTDOCTORAL RESEARCH ASSOCIATE: Humera Cueto CRNA Surgeon(s):Surgeon(s) and Role: * Nidhi Braun MD - Primary Pre-Operative Diagnoses: Endometrium thickened R93.8 Post-Operative Diagnoses: Thickened endometrium Endometrial polyps Procedure(s) performed: Procedure(s): DILATION AND CURETTAGE WITH HYSTEROSCOPY Specimen(s) removed: ID Type Source Tests Collected by Time Destination A : UTERINE POLYPS Tissue Uterus TISSUE EXAM Nidhi Braun MD 11/27/2017 0757 B : C Curettage Endometrium TISSUE EXAM Nidhi Braun MD 11/27/2017 0758 Operative findings: Large posterior endometrial polyp, tiny anterior polyp, uterine cavity otherwise wnl Estimated Blood Loss: less than 50 mL Fluids: 600cc input/ 400 cc output of NS, 200 deficit Type of Anesthesia used: LMA Intra and Immediate Post-op Complications: none * No complications entered in OR log * Indications: Beulah Fields No obstetric history on file. presents on 11/27/2017 for Hysteroscopy, D&C. She was previously seen in the office and the r/b/a of the procedure were discussed. She agreed to all of the above and this was again confirmed before the procedure. Operative Note: The patient was taken to the operating room where she was prepped and draped in sterile manner under general anesthesia with candy cane stirrups in the dorsal lithotomy position. Her bladder was drained. After time-out, the cervix was exposed with a weighted vaginal speculum and the anterior lip of the cervix grasped with a single-tooth tenaculum. The endocervical canal was then progressively dilated with Hanks dilators to a #16. The hysteroscope was then gently advanced under direct visualization to her fundus, the cavity was distended with fluids and the cavity was visualized. The cavity was then noted to Be normal shape and size with a large posterior polyp and tiny anterior polyp. . The coronal areas were visualized bilaterally with corresponding tubal ostia, which appeared normal. The hysteroscope was removed. Using polyp forceps the polyps were removed in their entirety. A sharp curet was then used to obtain a minimal amount of tissue, which was the sent to pathology for analysis. The scope was placed again to confirm complete removal of the polyps which was verified. The tenaculum was removed from the anterior lip of the cervix and hemostasis was acheived using ringed forceps for pressure. The weighted speculum was then removed from the vagina. The patient tolerated the procedure well. The counts were correct for laps x2. The patient was sent to recovery area in satisfactory postoperative condition. Nidhi Braun MD 11/27/2017 8:08 AM CSN: [id number] this encounter Associated Problem(s): Varicose veins of both lower extremities with complications in this encounter Associated Problem(s): Varicose veins of both lower extremities with complications Chronic venous insufficiency of the right leg with intermittent stasis dermatitis and/or bacterial cellulitis Recommend compression therapy with Vicky wraps followed by fitted stocking, sodium restriction, and standing venous insufficiency study She has previously had a scalp dermatologic reaction possibly to hydrochlorothiazide. Will start Lasix 20 mg daily along with potassium 20 mEq daily She will follow-up in the venous clinic for further recommendations regarding possible advanced therapiesin this encounter Addended by: KENYA EUGENE on: 01/09/2018 10:31 AM Modules accepted: Orders in this encounter PATIENT INSTRUCTIONS FOR [facility] 1. Your surgeon's office will contact you the afternoon before surgery with your arrival time/surgery time. 2. Report to the Surgery Family Waiting Area in the [facility] 1 1/2 to 2 hours before your surgery time. If having Neuro(back/neck), Head/neck, or Cardiac surgery, please report to the [facility] Surgery Family Waiting Area. 3. You may use the [employer] parking available at the Main/BLUE entrance; A parking voucher will be provided to you. 4. One family member may accompany you back to the Pre-Op Area. 5. Do not eat anything after 8 HOURS PRE-OP, or as directed by your surgeon. 6. You may have CLEAR LIQUIDS (only: water, Gatorade, black coffee/tea [NO CREAMERS]) up to 2 HOURS PRE-OP, or as directed by your surgeon. 7. No smoking or alcohol 24 hours Pre-Op. 8. Please take any medications you have been instructed to take the morning of your surgery with small sips of water. 9. Shower the night before AND the morning of surgery with Dial soap or something similar; No body lotion, no makeup. 10. Gel or Acrylic nails must be removed from both ring fingers; Remove all nail portuguese for surgeries involving arms/legs. 10. Wear loose, comfortable clothing. 11. Please REMOVE ALL JEWELRY, including piercings and wedding rings. 12. Leave all valuables at home. 13. Bring both insurance card and photo ID. AFTER YOUR SURGERY: *If you are having outpatient surgery, you must have a licensed driver manager take you home. *You must have an adult with you for 24 hours after being under Anesthesia. documented in this encounter Associated Problem(s): Post-menopausal bleeding (Resolved 01/15/2019) Beulah Fields is a 73 y.o. female with a history of DM2, HLD who is POD#1 from a Total Vaginal Hysterectomy. - HD stable; recent Hgb 12.9. CBC in am. - Pain: controlled, continue ERAS protocol - MIVF/PO fluids: MIVF at 125cc/hr - GI: ADAT - Diabetic diet - : quach removed, voiding spontaneously - ID: s/p pre-op antibiotic - Resp: Incentive spirometry use - T2DM, HLD, HTN, Depression - home meds ordered - DVT Prophylaxis: SCDs, early ambulation and lovenox - Dispo: Routine post-op care Pre-op dx- recurrent PMB Post OP dx-same Procedure total vaginal hysterectomy Surgeon: Nidhi Braun Assistants: Merline Carver Anesthesia: General endotracheal anesthesia ASA Class: 2 EBL 500cc Complications- none Indications- this is a 73yo P6 white female with multiple medical problems including 1) obesity 2) DM 3) CHTN 4) hypothyroidism who underwent HS, D&C 01/19 for PMB and uterine polyps. All path was benign. She had another episode of bleeding 11/20 and EMB was benign. Because of risk factors and recurrent PMB the patient ops for hysterectomy. Procedure- The patient was taken to the OR and general anesthesia with endotracheal intubation was administered. She was prepped and draped in the dorsal lithotomy position. A time out was held. A quach catheter was placed and a weighted speculum was placed In the vagina. The cervix was injected with lidocaine with vasopressin. A circumferential incision was made around the cervix. Using metzenbaum scissors, attempt was made to enter the anterior peritoneum but this was not achieved. The posterior peritoneum was easily entered with robledo scissors. Using curved Sav clamps the left uterosacral ligament was clamped, cut and tied. The same thing was done on the right. Once again the anterior peritoneum was incised and possible entry was achieved at this time. As the patient had little prolapse and a redundant vagina, the case was more difficult than anticipated. Using the clamp, cut tie technique, the cardinal ligaments were ligated bilaterally. Working up the uterus the broad ligaments were clamped,cut and tied. Attempt to flip the uterus was unsuccessful so the technique was just continued until the cornuae were clamped cut and tied and the uterus was delivered through the vagina. The posterior cuff was run for hemostasis. The upper pedicles appeared to be hemostatic. Gelfoam was placed inside the vagina for oozing. The vaginal angles were attached to the uterosacral suture using a free needle. The vaginal cuff was then closed with figure of eight sutures with good hemostasis noted. All sponge, needle and instruments were correct. The patient was transferred to recovery in stable condition. documented in this encounter Patient and educated on discharge instructions and prescribed medications. Associated Problem(s): Breast cancer, right (HCC) -POD #1 s/p R mastectomy -HD stable, afebrile, on RA Temp Readings from Last 3 Encounters: 09/29/19 98.2 F (36.8 C) (Oral) 09/21/19 98.4 F (36.9 C) (Oral) 01/15/19 99.1 F (37.3 C) (Oral) BP Readings from Last 3 Encounters: 09/29/19 133/69 09/21/19 144/76 01/15/19 137/67 Pulse Readings from Last 3 Encounters: 09/29/19 (!) 59 09/21/19 60 01/15/19 61 Lab Results Component Value Date WBC 5.03 09/21/2019 HGB 12.7 09/21/2019 HCT 39.4 09/21/2019 MCV 86.8 09/21/2019 PLT 304 09/21/2019 Chemistry Component Value Date/Time NA 138 09/21/2019 1339 K 4.1 09/21/2019 1339 CL 104 09/21/2019 1339 BUN 12 09/21/2019 1339 CREATININE 0.73 09/21/2019 1339 CREATININE 0.6 03/22/2019 0941 Component Value Date/Time CALCIUM 9.2 09/21/2019 1339 ALKPHOS 49 09/21/2019 1339 AST 18 09/21/2019 1339 ALT 14 09/21/2019 1339 BILITOT <0.2 09/21/2019 1339 -UOP x3 since surgery. -BERTHA drains with ml of SS drainage; continue to self-suction -VTE prophylaxis: Lovenox, SCDs, increase mobility, hydration -GI prophylaxis: PPI -Pulmonary toilet with IS & C&DB -OOB & ambulate TID - Subjective/Objective: Perpetual Assessment: Beulah Fields is a 73 y.o. female s/p Right total mastectomy, sentinel lymph node biopsy deep, lymphatic mapping, technetium 99 sulfur colloid blue dye injection 49210 09/28 HPI: Breast cancer Review of Systems: The following system(s) were reviewed: CV:No chest pain. No ankle swelling Resp:No dyspnea. No wheezing GI:No abdominal pain.No abdominal distention :No dysuria Neuro:No headache. Physical Examination: BP 133/69 (BP Location: Left arm, Patient Position: Lying) Pulse (!) 59 Temp 98.2 F (36.8 C) (Oral) Resp 14 Ht 5' 6 Wt 103.6 kg (228 lb 6.3 oz) SpO2 95% BMI 36.86 kg/m General: NAD; Alert and oriented x3 Eyes: Conjunctiva and sclera clear; EOMI Lungs: Clear without rales, rhonchi or wheezes; no increased respiratory effort Cardiovascular: RRR; no edema Abdomen: Positive bowel sounds; soft; non tender Skin: No rashes; normal turgor Neurologic: Cranial nerves grossly intact; no focal motor deficits Psych: Mood and affect appropriate Intake/Output last 3 shifts: I/O last 3 completed shifts: In: 2656.6 [P.O.:200; I.V.:2356.6; IV Piggyback:100] Out: 333 [Drains:233; Blood:100] Results/Medications Reviewed 09/29/19 7:44 AM: Laboratory, Medications and Transcriptions Comments: Problem: Actual or potential alteration in health Goal: Absence of healthcare acquired conditions Outcome: Partially Met Goal: Knowledge of Interdisciplinary Plan of Care Outcome: Partially Met Goal: Knowledge of Enviroment Outcome: Partially Met Problem: Pain Goal: Manage acute pain Outcome: Partially Met Goal: Manage chronic pain Outcome: Partially Met Goal: Achievement of comfort function goal Outcome: Partially Met Problem: Activity Intolerance - Risk of Goal: Able to perform prescribed physical activity Outcome: Partially Met Problem: Bowel Function - Altered Goal: Bowel function within specified parameters Outcome: Partially Met Problem: Infection - Risk of, Surgical Site Infection Goal: Absence of surgical site infection Outcome: Partially Met Continued learning needed for this patient. This RN spoke with Dr. Ybarra about resuming the patients home medications. The doctor advised this RN that the patient can resume medications when she is at home. No new orders were placed at this time. Problem: Actual or potential alteration in health Goal: Absence of healthcare acquired conditions Outcome: Partially Met Problem: Actual or potential alteration in health Goal: Knowledge of Interdisciplinary Plan of Care Outcome: Partially Met Problem: Actual or potential alteration in health Goal: Knowledge of Enviroment Outcome: Partially Met Problem: Pain Goal: Manage acute pain Outcome: Partially Met Operative Report Pre-operative Diagnosis: Right breast cancer and left breast fibrocystic breast disease Post-operative Diagnosis: same Procedure Performed: Right total mastectomy ; sentinel lymph node biopsy deep-30004; lymphatic mapping 18675; technetium 99 sulfur colloid blue dye injection [id number] Surgeon: Ophelia Ybarra DO Anesthesia: Gen EBL: Minimal Specimen: ID Type Source Tests Collected by Time Destination A : RIGHT AXILLA, 2 SENINEL NODES, BLUE IN HOT Tissue Breast, Right TISSUE EXAM Ophelia Ybarra, DO 09/28/2019 1341 B : AXILLA #3, SENTINEL NODE, BLUE, NOT HOT Tissue Breast, Right TISSUE EXAM Ophelia Ybarra, DO 09/28/2019 1344 C : LEFT BREAST, SUTURE DUNHAM 12O'CLOCK Tissue Breast, Left TISSUE EXAM Ophelia Ybarra, DO 09/28/2019 1400 D : RIGHT BREAST, SUTURE DUNHAM 12O'CLOCK Tissue Breast, Right TISSUE EXAM Ophelia Ybarra, DO 09/28/2019 1410 E : RIGHT BREAST, LYMPH NODE Tissue Breast, Right TISSUE EXAM Ophelia Ybarra, DO 09/28/2019 1411 Complications: None; patient tolerated the procedure well. Condition: stable Disposition: PACU - hemodynamically stable. Indication for procedure: This is 73-year-old female who was diagnosed with right breast cancer presents for bilateral mastectomy with a right sentinel lymph node biopsy. I did discuss no survival benefit in contralateral prophylactic mastectomy and she did not want reconstruction. The risks and benefits of the procedure were explained to the patient consent was obtained placed on the chart patient agrees to proceed. Please see Dr. Jordon Kelly's note for left prophylactic mastectomy. Procedure Details The patient was brought to the operative suite and placed in the supine position with her arms abducted. General anesthesia induced. Pre-operative Ancef was administered. Time-out was taken to verify patient and procedure. Technetium-99m sulfur colloid was injected in the retroareolar area and massaged for 3 minutes. This was followed by lymphazurin injection in the same area, massaged for 2 minutes. A quach catheter was placed. The patient was prepped and draped in the usual sterile fashion. The right mastectomy incision was created with a #10 scalpel blade. Electrocautery was used to create skin flaps cephalad to the clavicle, medially to the sternum, and laterally to the latissimus dorsi. Once we entered the axilla electrocautery was used to dissect down to and through the deep axillary fascia. Bright blue lymphatic channels were identified and this was mapped to identify the initial sentinel lymph nodes. Any blue hot or palpable nodes were removed. Hemoclips were placed on all proximal and distal lymphatics as identified. Hemostasis was maintained with electrocautery. Then the inferior flap was created, making sure to go beyond the intramammary fold. The breast, including the pectoralis fascia, was removed. A marking suture was placed at the 12:00 position and passed off for permanent section. Hemostasis was maintained with electrocautery. There was good hemostasis. A 15 fluted Favio drain was placed and sutured down with 3-0 nylon. The deep dermal tissues were then re-approximated with 2-0 vicryl and 3-0 Vicryl sutures. Perineo surgical tape and glue re-approximated the skin edges. A surgical compression bra as well as fluffs were placed. The patient tolerated theprocedure well. There were no intraoperative complications. All needle and sponge counts were correct. Gross Findings: She underwent a right mastectomy with a sentinel lymph node biopsy and she did have 1 of 3 lymph nodes that were positive intraoperatively. Based on the AMAROS study I did not proceed to lymph node dissection as she would qualify for the right chest wall radiation which would help her to have decreased morbidity. Please see Dr. Jordon Kelly's note for left prophylactic mastectomy. Brief Post Operative Note Patient Name: Beulah Fields : 1945 (73 y.o.) Date of Service: 09/28/2019 CSN: [id number] Procedure(s): BILATERAL MASTECTOMIES WITH RIGHT SENTINEL NODE BIOPSY, POSSIBLE RIGHT AXILLARY LYMPH NODE DISSECTION Pre-Operative Diagnoses: * RIGHT BREAST CANCER Post-Operative Diagnoses: Surgeon(s) and Role: * Ophelia Ybarra DO - Primary * Jordon Kelly DO - Assisting * Dahlia Beltran DO - Resident - Assisting Anesthesiologist: Shay Caraballo MD; Luis Rutherford MD POSTDOCTORAL RESEARCH ASSOCIATE: Eve Huizar CRNA Sorter Laundry Articles: Saira Longoria RN Physician Data Entry Specialist: Juliet Eason PA-C Sorter Laundry Articles Relief: Perla England RN Scrub Person: Adriana Cannon RN; Sylvia Lincoln RN Scrub Person Preceptor: [facility] Scrub Person Orientee: [facility] Scrub Person Assist: Katy Barrett RN DRESSED POULTRY GRADER: An Dyer RN Operative findings: Bilateral Mastectomy with right SLNB, posiitve 1/3 LN Intra and immediate post-operative complications: none Type of anesthesia used: General Estimated blood loss: 100 mL Estimated urine output: Refer to surgical log Specimen(s): ID Type Source Tests Collected by Time Destination A : RIGHT AXILLA, 2 SENINEL NODES, BLUE IN HOT Tissue Breast, Right TISSUE EXAM Ophelia Tori Ybarra, DO 09/28/2019 1341 B : AXILLA #3, SENTINEL NODE, BLUE, NOT HOT Tissue Breast, Right TISSUE EXAM Ophelia Tori Ybarra, DO 09/28/2019 1344 C : LEFT BREAST, SUTURE DUNHAM 12O'CLOCK Tissue Breast, Left TISSUE EXAM Ophelia Tori Ybarra, DO 09/28/2019 1400 D : RIGHT BREAST, SUTURE DUNHAM 12O'CLOCK Tissue Breast, Right TISSUE EXAM Ophelia Tori Ybarra, DO 09/28/2019 1410 E : RIGHT BREAST, LYMPH NODE Tissue Breast, Right TISSUE EXAM Ophelia Tori Ybarra, DO 09/28/2019 1411 Implant(s): * No implants in log * Drain(s): Closed/Suction Drain 1 Left Breast 15 Fr. (Active) Closed/Suction Drain 2 Right Breast 15 Fr. (Active) Wound(s): Wound (Outpatient Only) 07/03/18 1 Heel Posterior;Right Acute (Active) Incision 11/27/17 Vagina (Active) Incision 01/14/19 Vagina (Active) Wound 09/28/19 Surgical Wound Breast (Active) Ophelia Ybarra DO 09/28/2019 3:09 PM documented in this encounter Addended by: WARREN MCCULLOUGH on: 2019 02:47 PM Modules accepted: Orders documented in this encounter will accompany her DOS. Prior to surgery: Patient provided bathing instructions for use prior to procedure.Patient said her surgeon told he to use Dial soap because of her allergy to CHG Patient verbalized understanding.Patient Instructions for [facility]: Prior to surgery: ? Please be sure to wear loose, comfortable clothing and non-skid shoes ? Bring your health insurance information and a photo ID, as well as your Living Will or Durable Power of Air Pollution Compliance Inspector for Healthcare if it is available to you. ? Bring your cane/walker any applicable assistive device. If you currently use a CPAP, please bring this device with you on the day of surgery. ? Bring a list of your medications with the name of the medication, dose and how often you are taking it. Be sure to include herbal preparations and [id number] medications on this list. ? Do not have any solid food 8 hours prior to surgery/procedure. This includes food, gum, mints or hard candy. Carefully follow any instructions you were given by your Surgeon regarding further food restrictions. ? Do not drink any alcoholic beverages, smoke or chew tobacco during the 24 hours prior to your surgery/procedure. ? Drink plenty of fluids the day prior to your procedure to maintain hydration. You may drink clear liquids up to 2 hours prior to surgery time (unless otherwise instructed by your surgeon). This includes water, Gatorade and black coffee (no dairy or creamer products). ? On the morning of your surgery/procedure, you may brush your teeth but avoid swallowing water except for a sip with any recommended medications to be taken the morning of surgery. ? Bathe or shower the night before or early on the day of your surgery/procedure. Avoid the use of lotions, perfumes or powders. All nail portuguese is to be removed from fingernails and toenails. ? Please be sure to remove all jewelry and body piercings and leave all valuables at home. ? You will receive a phone call between 3:30 and 7:30 pm the business day before your procedure to verify the time you should arrive at the hospital. ? Eyeglasses, hearing aids or dentures may be worn to the hospital. Bring your storage container for these items as you will be asked to remove them prior to your surgery/procedure. Please do not wear any contact lenses the day of your surgery/procedure. ? Parking at [facility] is free. Please park in the lot in front of the main lobby. Enter the Main Entrance where a Machine Quilt Stuffer Liaison at the information desk will greet you and accompany you to the surgery waiting area. ? Children under the age of 16 are NOT permitted in the Pre/Post Operative areas. They are welcome to wait with a responsible adult in the surgery waiting area. After your surgery: ? If you are having an outpatient procedure and will be going home the same day, a responsible licensed adult must be available for transportation, and is expected to remain at the hospital for the duration of your surgery/procedure. You are NOT allowed to drive yourself home. documented in this encounter Discharge instructions completed with patient and spouse. Patient asking when to start Keflex since she is already on macrobid. Spoke with Dr. Ybarra, complete macrobid, then start keflex. Updated patient's discharge instructions and educated patient and spouse. Patient requesting scripts be sent to [facility] at [facility] for today because home pharmacy will be closed by the time they arrive home. Scripts sent to [facility] pharmacy by Dr. Ybarra. Patient and spouse updated. Brief Post Operative Note Patient Name: Beulah Fields : 1945 (75 y.o.) Date of Service: 11/07/2020 CSN: [id number] Procedure(s): left mastectomy flap revision Pre-Operative Diagnoses: * Malignant 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, estrogen receptor positive (HCC) [C50.112, Z17.0] Family history of malignant neoplasm of breast [Z80.3] Post-Operative Diagnoses: * Same as Pre-Op Diagnosis * Malignant 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, estrogen receptor positive (HCC) [C50.112, Z17.0] * Family history of malignant neoplasm of breast [Z80.3] Surgeon(s) and Role: * Ophelia Ybarra, DO - Primary Anesthesiologist: Luis Rutherford MD POSTDOCTORAL RESEARCH ASSOCIATE: Kenya Rivero CRNA; Sunny Rdz CRNA; Lori Sanchez CRNA Sorter Laundry Articles: Darlin Beal RN Scrub Person: ST Caitlin Scrub Person Assist: Cinthya Leal RN Nurse Float: Rosalee Connelly RN Operative findings: Let mastectomy flap revision Intra and immediate post-operative complications: none Type of anesthesia used: General Estimated blood loss: 50 mL Estimated urine output: Refer to surgical log Specimen(s): ID Type Source Tests Collected by Time Destination A : left chest wall tissue Tissue Chest TISSUE EXAM Ophelia Ybarra DO 11/07/2020 161 Implant(s): * No implants in log * Drain(s): Closed/Suction Drain 1 Left Breast 10 Fr. (Active) Site Assessment Dry 11/07/20 1623 Dressing Type Dressing supported to prevent compression of drain 11/07/20 162 Dressing Status Clean;Dry 11/07/20 1623 Dressing Intervention New dressing 11/07/20 1623 Sutures Present;Intact 11/07/20 1623 Drainage Appearance Dilute 11/07/20 1623 Status To bulb suction;Fully compressed 11/07/20 1623 Wound(s): Wound 09/28/19 Surgical Wound Breast Left (Active) Wound 09/28/19 Surgical Wound Breast Right (Active) Wound 11/07/20 Surgical Wound Chest Left (Active) Ophelia Ybarra DO 11/07/2020 5:10 PM Pre-operative Diagnosis: Bilateral breast cancer, redundant direct left mastectomy flap Post-operative Diagnosis: same Procedure Performed: Left mastectomy flap revision; VY 10 to 30 centimeters square advancement flap 57421 Surgeon: Ophelia Ybarra DO Anesthesia: gen EBL: Minimal Specimen: ID Type Source Tests Collected by Time Destination A : left chest wall tissue Tissue Chest TISSUE EXAM Ophelia Ybarra DO 11/07/2020 1612 Complications: None; patient tolerated the procedure well. Condition: stable Disposition: PACU - hemodynamically stable. Indication for procedure: This is a 75 yo female who was diagnosed with bilateral breast cancer underwent a mastectomy with right sentinel lymph node biopsy in September 2019. She developed some redundant tissue by the left mastectomy incision and it was causing her pain and she presents for excision. All risks and benefits were discussed with the patient. All questions were answered and informed consent was obtained. Procedure Details The patient was taken to the operating room and placed in the supine position. General anesthesia was induced. SCDs were placed and pre-operative antibiotics were administered. The area was prepped and draped in the normal sterile fashion. A time out was performed and all parties agreed. I reopened the previous mastectomy incision there was noted to be significant excess skin and soft tissue laterally, therefore the decision was made to perform a V-Y advancement flap. Separate incisions were created in the lateral tissues rotated medially. Approximately 20-30 cm of tissue was rotated to correct for the excess skin and subcutaneous tissue. Tissue was sent off to pathology for permanent section Hemostasis was achieved. I placed a 10 Urdu drain and was sutured down with 3- 0 nylon. 2-0 Vicryl and 3-0 Vicryl suture was used to close the incision in an inverted interrupted fashion. 0.5% Marcaine was injected into the area and then irrigated with sterile saline. Hemostasis was then achieved in the wound. The deeper tissues were closed with 2-0 Vicryl. The incision was closed with 3-0 vicryl suture and surgical glue. A surgical compression bra was placed. All needle and sponge counts were correct. The patient tolerated the procedure well and was taken to the recovery room in stable condition. Gross Findings: She tolerated the procedure and did not have any intraoperative complications. documented in this encounter Nicole Saba RN - 11/20/2017 10:11 AM EDT Nursing Notes (unrecognized section and content) Patient Instructions for [facility]: Prior to surgery: Please contact your Surgeon's office for the scheduled time of your surgery. Report to the Surgery Family Waiting Area in the [place] area of [facility] 1 1/2-2 hours prior to your surgery. You may use the Bunker Worker parking available at the Main Entrance/Blue Area of [facility] - a voucher for parking will be provided to you. One family member may accompany you back into the Pre-Op Area. Do not eat or drink anything after midnight or as directed, including gum, mints, and cough drops. No smoking after midnight. No alcohol 24 hours prior to your surgery. Please take any medications you have been instructed to take the morning of your surgery with small sips of water. Please be sure to wear comfortable, appropriate clothing. Please remove all jewelry and piercing's, including wedding rings. Leave all valuable items at home. Shower using anti-bacterial soap or as advised by your Surgeon's office Do not apply any makeup or lotions. Remove all nail portuguese for surgeries involving extremities. Please remember to bring both your insurance card and a photo ID with you on the day of surgery. After your surgery: If you are having outpatient surgery - you must have a licensed driver manager to take you home. The expectation is that this driver manager will remain at the hospital for the duration of your procedure. You are advised to have a family member with you for at least 24 hours after being under Anesthesia. in this encounter INFORMATION SOURCE (unrecogn ized section and content) DATE CREATED AUTHOR AUTHOR'S ORGANIZ ATION 01/27/2018 [facility] DATE CREATED AUTHOR AUTHOR'S ORGANIZ ATION 05/13/2018 [facility] DATE CREATED AUTHOR AUTHOR'S ORGANIZ ATION 01/01/2019 [facility] DATE CREATED AUTHOR AUTHOR'S ORGANIZ ATION 05/03/2021 [facility] DATE CREATED AUTHOR AUTHOR'S ORGANIZ ATION 10/14/2021 [facility] DATE CREATED AUTHOR AUTHOR'S ORGANIZ ATION 12/15/2021 [facility] DATE CREATED AUTHOR AUTHOR'S ORGANIZ ATION 03/28/2022 [facility] DATE CREATED AUTHOR AUTHOR'S ORGANIZ ATION 05/01/2022 [facility] DATE CREATED AUTHOR AUTHOR'S ORGANIZ ATION 01/31/2023 [facility] DATE CREATED AUTHOR AUTHOR'S ORGANIZ ATION 08/23/2023 [facility] Reason for Visit (unrecogniz ed section and content) Status Reason Specialty Diagnoses / Procedures Referre d By Contact Referred To Contact Closed Cardiology Diagnoses Edema of right lower extremity Varicose veins of both lower extremities with complications Skin ulcer of right heel with fat layer exposed (HCC) Procedures Ultrasound ankle / brachial indices extremity complete Mehran Velasquez Jr., DPM [address] [place] [address] Reason Comments Wound Check Reason Comments Deep Vein Thrombosis Reason Comments Follow-up Lymphedema Reason Comments Pre-operative Medical Risk Stratificatio n Status Reason Specialty Diagnoses / Procedures Referre d By Contact Referred To Contact Diagnoses Post menopausal bleeding N95.0 Procedures AK VAGINAL HYSTERECTOMY,UTERUS 250 GMS/< TOTAL VAGINAL HYSTERECTOMY Status Reason Specialty Diagnoses / Procedures Referre d By Contact Referred To Contact Closed Radiology Diagnoses Breast pain, right Procedures Mammography Diagnostic Booker Bilateral Mammography Diagnostic Bilateral Miguel Angel Bhat MD [address] [place] [address] Status Reason Specialty Diagnoses / Procedures Referre d By Contact Referred To Contact Closed Radiology Diagnoses Breast pain, right Procedures US Breast Right Limited US Breast Right Complete Miguel Angel Bhat MD [address] [place] [phone] Reason Comments Breast Mass Right Breast, BIRAD 4, Bx tf Status Reason Specialty Diagnoses / Procedures Referre d By Contact Referred To Contact Closed Radiology Diagnoses Lump or mass in breast Abnormal mammogram Family history of malignant neoplasm of breast Procedures US Breast Biopsy Right Ophelia Ybarra, DO [address] [place] [address] Status Reason Specialty Diagnoses / Procedures Referre d By Contact Referred To Contact Closed Radiology Diagnoses Mass of breast Procedures Mammography Follow-up Post Clip Placement Ophelia Ybarra, DO [address] [place] [address] Status Reason Specialty Diagnoses / Procedures Referre d By Contact Referred To Contact Diagnoses RIGHT BREAST CANCER Procedures BILATERAL MASTECTOMIES WITH RIGHT SENTINEL NODE BIOPSY, POSSIBLE RIGHT AXILLARY LYMPH NODE DISSECTION Reason Comments Post-op Reason Comments Post-op drain removal Status Reason Specialty Diagnoses / Procedures Referred By Contact Referred To Contact Pending Review Radiation Oncology Diagnoses Malignant 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, estrogen receptor positive (HCC) Ophelia Ybarra, DO [address] [place] [address] Warren Mccullough MD [address] [place] [address] Status Reason Specialty Diagnoses / Procedures Referred By Contact Referred To Contact Authorized Radiation Oncology Diagnoses Malignant 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, estrogen receptor positive (HCC) Warren Mccullough MD [address] [place] [address] Pavel Farley MD [address] [place] [address] Reason Comments Breast Cancer Status Reason Specialty Diagnoses / Procedures Referre d By Contact Referred To Contact Closed Cardiology Diagnoses Malignant neoplasm of overlapping sites of left female breast, unspecified estrogen receptor status (HCC) Localized swelling of right upper extremity Procedures Ultrasound duplex venous arm right Nina Ansari MD [address] [place] [address] Reason Comments Follow-up 4m Status Reason Specialty Diagnoses / Procedures Referre d By Contact Referred To Contact Closed Radiology Diagnoses Pancreatic cyst Procedures CT Abdomen With And Without Contrast CT Abdomen With Contrast Miguel Angel Bhat MD [address] [place] [address] [address] [place] [address] Reason Comments Surgery Consult Left side has extra tissue after mastectomy. Would like to discuss having it removed. Status Reason Specialty Diagnoses / Procedures Referre d By Contact Referred To Contact Closed Radiology Diagnoses Malignant neoplasm of central portion of left female breast, unspecified estrogen receptor status (HCC) Procedures CT Radiation Therapy Mapping (No PACs Images) Warren Mccullough MD [address] [place] [address] Status Reason Specialty Diagnoses / Procedures Referre d By Contact Referred To Contact Diagnoses Malignant 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, estrogen receptor positive (HCC) Family history of malignant neoplasm of breast Malignant 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, estrogen receptor positive (HCC) [C50.112, Z17.0] Family history of malignant neoplasm of breast [Z80.3] Procedures AK DEBRIDEMENT, SKIN, SUB-Q TISSUE,=<20 SQ CM AK RECMPL WND TRUNK 2.6-7.5 CM AK REP,SKIN,TRUNK,CMPLX,+ 5 CM/< Cayden Ybarraa Tori, DO [address] [facility] [address] [place] [address] Reason Comments Post-op left mastectomy flap revision on 4.6 Reason Comments Wound Check Dressing Change Status Reason Specialty Diagnoses / Procedures Referre d By Contact Referred To Contact Closed Wound Care Diagnoses Malignant 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, estrogen receptor positive (HCC) Ophelia Ybarra Tori, DO [address] [facility] [address] [place] [address] [facility] [address] [facility] [address] [place] [address] Reason Comments Follow-up Reason Comments Follow-up 1 yr. Malignant neop lasm of central 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, estrogen receptor positive (HCC) Millicent Interiano MD - 09/28/2019 2:40 PM EST Consult Notes (unrecognized section and content) INTRAOPERATIVE CONSULTATION Frozen Section Diagnosis: Specimen A (AFS1, AFS2, AFS3): Right axillary two sentinel lymph nodes: Two lymph nodes negative for carcinoma on frozen section slides. Specimen B (BFS1): Right axillary sentinel lymph node #3: One lymph node negative for carcinoma on frozen section slide. Specimen E (EFS1): Right breast lymph node: One lymph node positive for carcinoma (macrometastasis). documented in this encounter Care Teams (unrecognized sec tion and content) Hospital Clerk Relationship Specialty Start Date End Date Eev Cueto MD [address] [facility] [address] [place] [address] PCP - General Family Medicine 12/20/20 Hospital Clerk Relationship Specialty Start Date End Date Eve Cueto MD [address] [place], [place] [phone] PCP - General Family Medicine 12/20/20 Hospital Clerk Relationship Specialty Start Date End Date Eve Cueto MD [address] [place], [place] [phone] PCP - General Family Medicine 12/20/20 Scheduled Active and Recently Administ ered Medications (unrecognized section and content) Continuous Medication Order 04/25/2021 04/26/2021 04/27/2021 lactated Ringers infusion 25 mL/hr, Intravenous, Continuous, Starting on Mary 04/26/21 at 0900 0841 (New Bag - Provider: Giacomo Moreno RN)1300 (Stopped - Provider: Yoanna Horne RN) PRN Medication Order 04/25/2021 04/26/2021 04/27/2021 acetaminophen (TYLENOL) tablet 650 mg 650 mg, Oral, Every 4 hours PRN, mild pain, fever 100.4 F or greater, headaches, Starting on Fri04/23/21 at 2039 0401 (Given - Provider: Jessica Jones, BLAIRE) 0813 (OCT Hold - Provider: Transfer Provider, Automatic - Reason: Unreviewed Transfer Orders)1322 (MAR Unhold - Provider: Cindy Cueto RN)1936 (Given - Provider: Swetha Rodriguez RN) 0337 (Given - Provider: Chang Espinosa RN)0852 (Given - Provider: Rossy Vallecillo, BLAIRE) bisacodyL (DULCOLAX) suppository 10 mg 10 mg, Rectal, Daily PRN, constipation, Starting on Fri04/23/21 at 2040, Try oral medications first for constipation. Try rectal medication if oral meds are ineffective, not tolerated, or not ordered. 1907 (Given - Provider: Cindy Cueto RN) 0813 (MAR Hold - Provider: Transfer Provider, Automatic - Reason: Unreviewed Transfer Orders)1322 (MAR Unhold - Provider: Cindy Cueto RN) HYDROmorphone (DILAUDID) injection 0.5 mg (CANCELED) 0.5 mg, Intravenous, Every 10 min PRN, Pain, Starting on Mary 04/26/21 at 1136, For 6 doses, PACU (only), [] Give if fentanyl not effective or not ordered. [] Do not give more than 3 mg total. 1149 (Given - Provider: Yoanna Horne, BLAIRE) magnesium hydroxide (MOM) 400 mg/5 mL suspension 2,400 mg 2,400 mg (30 mL), Oral, Daily PRN, constipation, Starting on Fri04/23/21 at 2040, If no bowel movement in 24 hours after Sennosides (SENNA) administration. 0813 (OCT Hold - Provider: Transfer Provider, Automatic - Reason: Unreviewed Transfer Orders)1322 (OCT Unhold - Provider: Cindy Cueto RN) melatonin Tab 5 mg 5 mg, Oral, Nightly PRN, Sleep, Starting on Fri04/23/21 at 2040 0813 (OCT Hold - Provider: Transfer Provider, Automatic - Reason: Unreviewed Transfer Orders)1322 ([facility] Unhold - Provider: Cindy Cueto, BLAIRE)204 (Given - Provider: Chang Espinosa RN) naloxone (NARCAN) injection 0.1 mg(Linked Group 2) 0.1 mg, Intravenous, As needed, opioid reversal, Starting on Mary 04/26/21 at 0940, Mix nalOXone (NARCAN) 0.4 mg (1ml) with 9 mL of Normal Saline to total 10 mL. Administer 0.1 mg (2.5ml) IV Push every 2 minutes until respiratory rate is 10 or greater. naloxone (NARCAN) injection 0.1 mg(Linked Group 3) 0.1 mg, Intravenous, As needed, opioid reversal, Starting on Mary 04/26/21 at 0941, Mix nalOXone (NARCAN) 0.4 mg (1ml) with 9 mL of Normal Saline to total 10 mL. Administer 0.1 mg (2.5ml) IV Push every 2 minutes until respiratory rate is 10 or greater. naloxone (NARCAN) injection 0.4 mg(Linked Group 2) 0.4 mg, Intravenous, As needed, opioid reversal, patient is pulseless, breathless, and unresponsive, Starting on Mary 04/26/21 at 0940, Call a code first, then administer naloxone dose undiluted IV Push over 30 seconds. naloxone (NARCAN) injection 0.4 mg(Linked Group 3) 0.4 mg, Intravenous, As needed, opioid reversal, patient is pulseless, breathless, and unresponsive, Starting on Mary 04/26/21 at 0941, Call a code first, then administer naloxone dose undiluted IV Push over 30 seconds. ondansetron (ZOFRAN) injection 4 mg(Linked Group 4) 4 mg, Intravenous, Every 6 hours PRN, nausea, vomiting, Starting on Fri04/23/21 at 2040, Use oral route first, if tolerated. 0813 ([facility] Hold - Provider: Transfer Provider, Automatic - Reason: Unreviewed Transfer Orders)1322 ([facility] Unhold - Provider: Cindy Cueto, BLAIRE) ondansetron (ZOFRAN-ODT) disintegrating tablet 4 mg(Linked Group 4) 4 mg, Oral, Every 6 hours PRN, nausea, vomiting, Starting on Fri04/23/21 at 2040, Use oral route first, if tolerated. Formulation requires tablet remain in sealed package until immediately prior to dose being administered. 0813 ([facility] Hold - Provider: Transfer Provider, Automatic - Reason: Unreviewed Transfer Orders)1322 ([facility] Unhold - Provider: Cindy Cueto, BLAIRE) oxyCODONE (ROXICODONE) 10 mg/0.5 mL concentrated solution 10 mg (COMPLETED) 10 mg, Sublingual, Once as needed, moderate to severe pain, Pain, Starting on Mary 04/26/21 at 1136, For 1 dose, PACU (only), Use first if unable to tolerate oral route. 1149 (Given - Provider: Yoanna Horne, BLAIRE) sodium chloride (NS) 0.9 % irrigation solution (CANCELED) As needed, Starting on Mary 04/26/21 at 1027, Intra-Procedure 1027 (Given - Provider: Luis Marquez Jr., MD - Comment: Used to irrigate the left chest) sodium chloride (PF) (NS) flush 5 mL(Linked Group 1) 5 mL, Intravenous, As needed, line care, Starting on Fri04/23/21 at 2037 0813 ([facility] Hold - Provider: Transfer Provider, Automatic - Reason: Unreviewed Transfer Orders)1322 ([facility] Unhold - Provider: Cindy Cueto RN) sodium chloride 0.9% (NS)(Linked Group 1) 0-150 mL/hr, Intravenous, As needed, To flush line after IV infusions when no maintenance IV ordered or a compatibility issue. Infuse 20ml at the same rate as the secondary infusion, Starting on Fri04/23/21 at 2036, Run as Primary IV. NOT intended for KVO. 0813 ([facility] Hold - Provider: Transfer Provider, Automatic - Reason: Unreviewed Transfer Orders)1322 ([facility] Unhold - Provider: Cindy Cueto RN) Linked Groups Order Group 1: Saline lock IV (CANCELED) Routine, Continuous, Starting on Fri04/23/21 at 2037, Until Specified And sodium chloride (PF) (NS) flush 5 mLJump to med 5 mL, Intravenous, As needed, line care, Starting on Fri04/23/21 at 2036 And sodium chloride (PF) (NS) flush 5 mLJump to med 5 mL, Intravenous, Every 8 hours scheduled, First dose on Fri04/23/21 at 2200
Saline lock
And sodium chloride 0.9% (NS)Jump to med 0-150 mL/hr, Intravenous, As needed, To flush line after IV infusions when no maintenance IV ordered or a compatibility issue. Infuse 20ml at the same rate as the secondary infusion, Starting on Fri04/23/21 at 2036
Run as Primary IV. NOT intended for KVO.
Group 2: Notify Anesthesiologist (CANCELED) STAT, Until discontinued, Starting on Mary 04/26/21 at 0941, Until Specified
Notify anesthesiologist immediately if respiratory rate less than or equal to 8 breaths per minute. And naloxone (NARCAN) injection 0.1 mgJump to med 0.1 mg, Intravenous, As needed, opioid reversal, Starting on Mary 04/26/21 at 0940
Mix nalOXone (NARCAN) 0.4 mg (1ml) with 9 mL of Normal Saline to total 10 mL. Administer 0.1 mg (2.5ml) IV Push every 2 minutes until respiratory rate is 10 or greater.
And naloxone (NARCAN) injection 0.4 mgJump to med 0.4 mg, Intravenous, As needed, opioid reversal, patient is pulseless, breathless, and unresponsive, Starting on Mary 04/26/21 at 0940
Call a code first, then administer naloxone dose undiluted IV Push over 30 seconds.
Group 3: Notify Anesthesiologist (CANCELED) STAT, Until discontinued, Starting on Mary 04/26/21 at 0942, Until Specified
Notify anesthesiologist immediately if respiratory rate less than or equal to 8 breaths per minute. And naloxone (NARCAN) injection 0.1 mgJump to med 0.1 mg, Intravenous, As needed, opioid reversal, Starting on Mary 04/26/21 at 0941
Mix nalOXone (NARCAN) 0.4 mg (1ml) with 9 mL of Normal Saline to total 10 mL. Administer 0.1 mg (2.5ml) IV Push every 2 minutes until respiratory rate is 10 or greater.
And naloxone (NARCAN) injection 0.4 mgJump to med 0.4 mg, Intravenous, As needed, opioid reversal, patient is pulseless, breathless, and unresponsive, Starting on Mary 04/26/21 at 0941
Call a code first, then administer naloxone dose undiluted IV Push over 30 seconds.
Group 4: ondansetron (ZOFRAN-ODT) disintegrating tablet 4 mgJump to med 4 mg, Oral, Every 6 hours PRN, nausea, vomiting, Starting on Fri04/23/21 at 2039
Use oral route first, if tolerated. Formulation requires tablet remain in sealed package until immediately prior to dose being administered.
Or ondansetron (ZOFRAN) injection 4 mgJump to med 4 mg, Intravenous, Every 6 hours PRN, nausea, vomiting, Starting on Fri04/23/21 at 2039
Use oral route first, if tolerated.
FOR RECORDS PERTAINING TO PATIENTS WHO ARE OR HAVE BEEN ENROLLED IN A CHEMICAL DEPENDENCY/SUBSTANCEABUSE PROGRAM, SOME INFORMATION MAY BE OMITTED. This clinical summary was aggregated from multiple sources. Caution should be exercised in using it in the provision of clinical care. This summary normalizes information from multiple sources, and as a consequence, information in this document may materially change the coding, format and clinical context of patient data. In addition, data may be omitted in some cases. CLINICAL DECISIONS SHOULD BE BASED ON THE PRIMARY CLINICAL RECORDS. [facility]. provides no warranty or guarantee of the accuracy or completeness of information in this document.
[2023-08-28 12:44] LABS: Absolute Lymphocyte Count 1.13 X10^3/uL (0.83-4.51); Absolute Neutrophil Count 3.1 X10^3/uL (2.0-7.7); Basophil# 0.03 X10^3/uL; Basophil% 0.6 % (0-1); Eosinophil# 0.15 X10^3/uL; Eosinophils% 3.1 % (0-5); Hematocrit 38.7 % (37-47); Hemoglobin 12.5 g/dL (12.0-15.0); Lymphocyte # 1.13 X10^3/ul (0.83-4.51); Lymphocyte % 23.5 % (19-41); Mean Corp Hgb Conc 32.3 g/dL (32-36); Mean Corpuscular Hgb 27.5 pg (27.0-32.0); Mean Corpuscular Volume 85.1 fL (81-99); Monocyte# 0.42 X10^3/uL; Monocyte% 8.8 % (0-10); NRBC Flagged by Analyzer 0 % (0-5); Neutrophil # 3.06 X10^3/uL (2.7-7.7); Neutrophil % 63.8 % (47-70); Platelet Count 222 K/mm3 (150-450); RBC Distribution Width CV 14.3 % (11.6-14.6); Red Blood Count 4.55 M/mm3 (4.2-5.4); White Blood Count 4.8 K/mm3 (4.4-11.0)
[2023-08-28 13:30] LABS: ALB/GLOB Ratio 1.1 RATIO (0.9-2.4); AST(SGOT) 13 U/L (15-37); Alanine Aminotransfer ALT/SGPT 21 U/L (13-56); Albumin, Serum 3.5 g/dL (3.2-5.0); Alkaline Phosphatase 56 U/L (45-117); Anion Gap 4 (5-15); BUN 20 mg/dL (7-18); BUN/Creat Ratio 30.3 RATIO (10-20); Calcium,Total 9.6 mg/dL (8.5-10.1); Chloride 110 mmol/L (98-107); Creatinine, Serum 0.66 mg/dL (0.55-1.02); EST Glomerular Filtration Rate 93 mL/min (>60); Est Glom Filt Rate - Afr Amer 112 mL/min (>60); Globulin 3.2 g/dL (2.2-4.2); Glucose 203 mg/dL (74-106); Potassium 4.3 mmol/L (3.5-5.1); Protein, Total 6.7 g/dL (6.4-8.2); Sodium Level 139 mmol/L (136-145)
[2023-08-28 13:46] LABS: Hemoglobin A1c 8.3 % (3.8-5.6)
== END | disposition home or self-care (01) ==
LOC: MTLAB 11:07
PROVIDERS: PCP Family Medicine; Referring Provider Family Medicine; Visit Provider Family Medicine
DX: E11.65 Type 2 diabetes mellitus with hyperglycemia (principal)
CPT/HCPCS: 36415; 80053; 83036; 85025

== ENCOUNTER 2023-10-25 16:41 | Emergency (ER) | payer MEDICARE, OTHER, SELFPAY ==
[2023-10-25] VITALS (7 sets, daily range): BP systolic 166–200; BP diastolic 59–90; PULSE 52–89; RESP 11–19; TEMP 36.3–36.9; O2SAT 78–100; BMI 37.8
--- NOTE | 2023-10-25 16:51 | RAD_ITS ---
STUDY: X-RAY - RIGHT WRIST REASON FOR EXAM: Female, 78 years old. FALL TECHNIQUE: 3 view(s) of the wrist were obtained. COMPARISON: None. FINDINGS: Normal visualized distal radius and ulna. Normal radiocarpal articulation. Normal distal radioulnar articulation. Normal carpal bones. There is degenerative arthrosis of the carpal articulations. There is degenerative arthrosis of the carpometacarpal articulation of the thumb. Normal second through fifth carpometacarpal articulations. Normal visualized metacarpal bones. The soft tissue structures are unremarkable. RAD/Wrist min 3 Views IMPRESSION: No acute fracture or dislocation. Electronically Signed: Mike Mason MD at 18:12 EDT ,
--- NOTE | 2023-10-25 17:21 | RAD_ITS ---
STUDY: X-RAY - RIGHT ELBOW REASON FOR EXAM: Female, 78 years old. FALL TECHNIQUE: 2 view(s) of the elbow. COMPARISON: None. FINDINGS: Normal visualized humerus, radius and ulna. Normal radiocapitellar and ulnotrochlear articulations. The soft tissue structures are unremarkable. RAD/Elbow 2 Views IMPRESSION: Normal x-ray examination of the elbow. Electronically Signed: Mike Mason MD at 18:11 EDT ,
--- NOTE | 2023-10-25 17:21 | RAD_ITS ---
STUDY: X-RAY - RIGHT SHOULDER REASON FOR EXAM: Female, 78 years old. FALL TECHNIQUE: 2 view(s) of the shoulder. COMPARISON: None. FINDINGS: Anterior thecal dislocation of the glenohumeral joint. There is degenerative arthrosis of the acromioclavicular joint without inferior osseous spur formation. Normal acromion. Displaced Hill-Sachs fracture of the posterior humeral head. The soft tissue structures are unremarkable. Normal visualized pulmonary apex. RAD/Shoulder min 2 Views IMPRESSION: Anterior dislocation glenohumeral joint with a displaced Hill-Sachs fracture. Electronically Signed: Mike Mason MD at 18:10 EDT ,
--- NOTE | 2023-10-25 18:05 | EDS_ITS ---
HPI History of Present Illness Chief Complaint: Upper Extremity Injury Detail of Chief Complaint: Upper extremity pain attempting to block her fall Informant: patient Occured/Mechanism Mechanism/Context: Yes injury and Yes blunt trauma Comment: Patient fell forward outstretched arm. She complains of pain in wrist, elbow and shoulder. She did hit her face. There is no loss of conscious. She not amnestic. She is on no antithrombotic or anticoagulant. She denies headache. Onset/Context/Timing Onset: Today and Hours Context: Sudden Onset Timing: Continuous Quality of Pain: Dull and Aching Location: Right upper extremity Current Severity: Moderate Maximum Severity: Severe Worsened by: Any movement Relieved by: Nothing Associated Symptoms Associated Symptoms: Positive for Loss of Funtion; Negative for Parasthesia or Weakness Narrative Narrative: Patient is a 78-year-old [id number] woman who presents with injury due to fall. She had her arm outstretched. She complains of pain in wrist, elbow and shoulder. Per nurse protocol x-rays were ordered. Patient was seen immediately after reviewing x-rays which reveals an anterior subcoracoid right shoulder displaced avulsion type fracture. There may be an avulsed piece of bone noted. IV was ordered as well as Zofran and morphine. Patient denies headache. She is not amnestic. She denies neck pain. She denies paresthesia, anesthesia medics. She denies chest pain or shortness of breath. She denies double vision or blurred vision. Nuys trouble speech or swallowing. Prior similar symptoms: No Recent Illness/Hospitalization: No PFSH PFSH Home Medications hydrocodone-acetaminophen 5-325mg 5mg-325mg 1 tab PO Q6H PRN PRN Pain 5 days #20 TABLETS 10/25/23 [Rx Last Taken Unknown] Allergy/AdvReac Type Severity Reaction Status Date / Time No Known Allergies Allergy Verified 10/25/23 16:49 Social History (Updated 10/25/23 @ 19:[address] Bj Samuel MD) household members: spouse Smoking Status: Never smoker ROS ROS ED Constitutional Constitutional ED: Denies chills, fever(s), subjective, sweats or weight loss Eyes Eyes: Denies blurry vision, change in vision or diplopia ENT ENT ED: Reports other Details: She denies epistaxis. Denies dental trauma. ; Denies ear pain, rhinorrhea or sore throat Cardiovascular Cardiovascular: Denies chest pain or palpitations Respiratory/Chest Respiratory/Chest: Denies cough or dyspnea Gastrointestinal Gastrointestinal: Denies nausea or vomiting Musculoskeletal Musculoskeletal: Denies back pain or neck pain Integumentary Denies rash Neurologic Neurologic: Denies headache(s), paresthesias or weakness Hematologic/Lymphatic Hematologic/Lymphatic: Denies easy bleeding or easy bruising EXAM Physical Exam Const Vital Signs: 10/25/23 16:42 Temperature 97.4 F L Temperature Source Temporal Pulse Rate 52 L Respiratory Rate 18 Blood Pressure 166/70 H Blood Pressure Mean 102 Pulse Ox 100 Oxygen Delivery Method Room Air Positive well nourished, well developed and obese General Appearance ED: well developed; Negative for cyanotic, diaphoretic or NAD Nutritional Appearance: obese HEENT Reports moist mucous membranes HEENT Narrative: Evidence of contusion right forehead there is no palpable pression. There is no clinical findings of basilar skull fracture. normocephalic and trauma; Negative for atraumatic Eyes PERRL and EOMs intact bilaterally Eyes Narrative: No subconjunctival hemorrhage. No scleral icterus. Conjunctive is pink. Neck full ROM and supple Neck Narrative: No posterior midline neck pain. Full active range of motion. Chest Wall inspection of chest normal and palpation of chest normal Resp normal respiratory effort and clear to auscultation bilaterally Cardio regular rate, regular rhythm, S1 normal heart sound, S2 normal heart sound and no murmurs GI non-tender, non-distended and no masses Extremity Negative for normal to inspection Extremity Narrative: There is significant pain to palpation with asymmetry of the right shoulder compared to the left. There is pain ovation over the lateral medial epicondyle of the elbow. There is no pain the patient with a olecranon process or radial head. There is no pain ovation of the distal radius, ulnar. There is no pain the patient of the carpal bones, metacarpal bones or phalanges. Axillary, median, radial and ulnar function intact. Neuro oriented x3, CN's II-XII intact bilaterally, moves all extremities, no focal motor deficits and no sensory deficits noted Sensorium / Orientation: alert Psych mental status grossly normal Skin Lesions: no lesions Rashes: no rashes Trauma: no lacerations or abrasions MDM MDM MDM Narrative Medical decision making narrative: . The [employer] portion of the [place] CT head rule imaging of this patient is not indicated. Therefore 1 was not obtained. Per Nexus criteria C-spine was not indicated. As previously mentioned x-rays of the shoulder, elbow and wrist were obtained per nurse protocol. Patient has an anterior subcoracoid dislocati on of the right shoulder. There appears to be avulsed fracture. This may be from the greater tuberosity. History & Record Review Discussion w/independent historian: Patient and Significant other Radiography Chest X-Ray - ED: Read by ED Physician (2 view x-ray of the elbow reveals no fracture, subluxation dislocation. There is no anterior posterior fat pad noted. 2 view x-ray of the shoulder reveals a anterior subcoracoid dislocation. There is no obvious fracture noted on the 2 views. Three-view x-ray of the wrist reveals no fracture, sub) and - (Postreduction films reveals a Hill-Sachs deformity. This involves the greater tuberosity. Reduction was successful.) Management Discussion w/another healthcare provider: Field Counsel (Patient was referred to Dr. Carbajal who is on-call for orthopedics.) Procedures Procedural Sedation 1 (Initial Baseline): Consent Signed: Yes Any Problems With Anesthesia: No You/Your family experience fever (hyperthermia) w/anesthesia: No Sedation medication: Propofol Dose: 100 Route: IV Total Moderate Sedation Units: 3 Maliampati Score: Class II ASA Classification: II Comment:: Patient did desaturate to 77%. She was placed on nonrebreather. Believe this to be true since she did have central cyanosis. Patient initially received 70 mg of propofol. Patient was still semiconscious. She was given additional 30 mg prior to attempted reduction. Using traction countertraction technique easily reduced with an 15 to 30 seconds. Discharge Plan Triage Chief Complaint: Upper Extremity Injury ED Provider: Bj Samuel Dx/Rx/DC Orders Clinical Impression: History of type 2 diabetes mellitus, Hill Sachs deformity, right, Elevated blood pressure reading with diagnosis of hypertension, Dislocation of shoulder, anterior, right, closed Instructions: ED Dislocation: Shoulder (Reduced) Prescriptions: New hydrocodone-acetaminophen [hydrocodone-acetaminophen] 5-325 mg tablet 1 tab PO Q6H PRN PRN (Reason: Pain) 5 Days Qty: 20 0RF Primary Care Provider: Ambrocio Cueto Referrals: Ambrocio Cueto MD [Primary Care Provider] - Patricio Harvey MD [Med Staff - Active Staff] - 5-7 Days Disposition Disposition: Home, Self Care
[2023-10-25] MEDS: Ondansetron 4 MG/2 ML Vial IV (18:24)
[2023-10-25] MEDS: Morphine 4 MG/ML Syringe IV (18:24)
[2023-10-25] MEDS: Propofol 200 MG/20 ML Vial IV BOLUS (19:25)
--- NOTE | 2023-10-25 19:30 | RAD_ITS ---
STUDY: X-RAY - RIGHT SHOULDER REASON FOR EXAM: Female, 78 years old. Postreduction TECHNIQUE: 2 view(s) of the shoulder. COMPARISON: 10/25/2023 at 1721 FINDINGS: Interval reduction of the glenohumeral joint. Normal acromioclavicular joint. Normal acromion. Fracture of the posterior humeral head consistent with Hill-Sachs fracture. The soft tissue structures are unremarkable. Normal visualized pulmonary apex. RAD/Shoulder min 2 Views IMPRESSION: Interval reduction of the glenohumeral joint with a Hill-Sachs fracture. Electronically Signed: Mike Mason MD at 19:48 EDT ,
== END 2023-10-25 19:55 | disposition home or self-care (01) ==
PROVIDERS: Emergency Provider Emergency Medicine; PCP Family Medicine; Visit Provider Emergency Medicine
DX: S43.014A Anterior dislocation of right humerus, initial encounter (principal); E11.9 Type 2 diabetes mellitus without complications; I10 Essential (primary) hypertension; E66.9 Obesity, unspecified; S00.83XA Contusion of other part of head, initial encounter; W19.XXXA Unspecified fall, initial encounter
CPT/HCPCS: 23650; 73030; 73070; 73110; 96374; 96375; 99285; J7030; A4216; J2405

== ENCOUNTER → 2023-10-28 | Outpatient (CLI) | payer MEDICARE, OTHER, SELFPAY ==
--- NOTE | 2023-10-28 13:18 | CT_ITS ---
STUDY: CT RIGHT SHOULDER REASON FOR EXAM: Female, [address] shoulder without contrast to eval GT fracture. RADIATION DOSAGE (If Supplied By Facility): CTDIvol = ( 21.21 ) mGy, DLP = ( 797.11 ) mGycm TECHNIQUE: The patient was scanned in a multi detector CT scanner. High resolution transaxial imaging was performed without the administration of intravenous contrast material. Sagittal and coronal images were reconstructed. 3-D reconstruction was obtained as well. Individualized dose optimization techniques were used for this CT. COMPARISON: Comparison is made with prior radiographs dated October 25, 2023. 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 Normal glenoid rim, neck and visualized scapula. Nondisplaced comminuted fracture of the greater tuberosity of the proximal humerus. Normal coracoid process. Normal visualized lateral clavicle. There is mild osteoarthritis with articular joint space narrowing. There is a Type II morphology (curved), with a neutral orientation. Normal visualized muscles and soft tissue structures. CT/Extremity Upper without Contra IMPRESSION: Nondisplaced, fracture of the greater tuberosity proximal humerus. Electronically Signed: Terrence Vega MD at 14:47 EDT ,
== END | disposition home or self-care (01) ==
LOC: CT 13:16
PROVIDERS: PCP Family Medicine; Visit Provider Orthopaedic Surgery Sports Medicine
DX: S42.251A Displaced fracture of greater tuberosity of right humerus, initial encounter for closed fracture (principal); X58.XXXA Exposure to other specified factors, initial encounter
CPT/HCPCS: 73200

== ENCOUNTER → 2023-11-28 | Outpatient (CLI) | payer MEDICARE, OTHER, SELFPAY ==
[2023-11-28 11:04] LABS: ALB/GLOB Ratio 1.2 RATIO (0.9-2.4); AST(SGOT) 13 U/L (15-37); Alanine Aminotransfer ALT/SGPT 19 U/L (13-56); Albumin, Serum 3.6 g/dL (3.2-5.0); Alkaline Phosphatase 61 U/L (45-117); Anion Gap 5 (5-15); BUN 17 mg/dL (7-18); BUN/Creat Ratio 23.8 RATIO (10-20); Calcium,Total 9.8 mg/dL (8.5-10.1); Chloride 107 mmol/L (98-107); Creatinine, Serum 0.71 mg/dL (0.55-1.02); EST Glomerular Filtration Rate 84 mL/min (>60); Est Glom Filt Rate - Afr Amer 102 mL/min (>60); Globulin 2.9 g/dL (2.2-4.2); Glucose 164 mg/dL (74-106); Potassium 4.2 mmol/L (3.5-5.1); Protein, Total 6.5 g/dL (6.4-8.2); Sodium Level 138 mmol/L (136-145)
[2023-11-28 12:21] LABS: Hemoglobin A1c 7.8 % (3.8-5.6)
== END | disposition home or self-care (01) ==
LOC: MFPLAB 08:43
PROVIDERS: PCP Family Medicine; Visit Provider Family Medicine
DX: E11.65 Type 2 diabetes mellitus with hyperglycemia (principal)
CPT/HCPCS: 36415; 80053; 83036

== ENCOUNTER 2024-03-01 12:30 | Outpatient (RCR) | payer MEDICARE, OTHER, SELFPAY ==
--- NOTE | 2023-11-05 13:34 | HP.PTEVAL ---
Patient's Visit Information Visit Information Visit Information: BAILEE FIELDS is a 78 year old F referred to Physical Therapy by Dr. Patricio Harvey MD with a diagnosis of R humeral Fx/dislocation 10/25/23. Date of Evaluation: 11/05/23 Physical Therapist: Samir Hernandez, PT, ATC Visit Plan Frequency: 2-3x /Week Duration: 4-6 Weeks Plan: Begin with AROM and PROM ex's x 4 sweeks, then progressing to strengthening ex's focusing on rotator cuff and scap stab ex's Subjective Subjective: Pt reports she fell over an obstacle in her hallway which resulted in a fractured and dislocated R humerus. Pt notes she went to the ER, and then her surgeon. Pt reports she was told to keep her arm in a sling for 2 weeks, and that she didn't need surgery. Pt also notes she was told to come to therapy. Pt reports she is R hand dominant. Pt denies any tingling or numbness in her R UE at this time. Pt reports she is retired, but notes she has 33 grandchildren and takes care of them a lot. Pt lives with her . Pt reports she has significant sleep difficulty at this time secondary to R shoulder pain. Pt reports she has pain with all movements at this time. 5/10 pain while at rest, 8/10 pain at worst (when she is trying to sleep) Pain R shoulder: Pain Intensity (Out of 10): 5 Pain Intensity Range: 8 Objective Objective: Neuro: B UE sensation is WNL to light touch. L bicipital reflex= 2/3 Observation: Minor swelling noted at this time. No obvious deformity at this time. ROM: L shoulder flex= 120, abd= 125, ER= 45, IR= WNL; R shoulder flex= 20, abd= 20, ER= -24, IR= NA MMT: L shoulder flex= 14, abd= 22, ER= 15,IR= 18 #F; R shoulder 0 #F throughout Balance/Special Test Scores Quick DASH Score: 72.7250 Goals Goal 1:: Decrease R shoulder pain x 50% to aid the sleep Goal Time Frame: 6-8 Weeks Goal 2:: Increase R shoulder flex and abd ROM x 50 degrees to aid with overhead activity Goal Time Frame: 6-8 Weeks Goal 3:: Increase R shoulder strength x 5-10#F to aid with IADL's Goal Time Frame: 6-8 Weeks Goal 4:: I with HEP Goal Time Frame: 6-8 Weeks Rehabilitation Potential Physical Therapy Diagnosis: Pt has R shoulder pain, weakness, and limited ROM secondary to R humeral fx Rehabilitation Potential: Good Anticipated Interventions Patient/Client Instruction: Educate patient on: Condition and Plan of Care For the Purpose of:: To improve self management Therapeutic Exercise to Include: Strength training, Endurance training, Flexibilty training, Passive ROM, Active ROM and Scapular Strength/Stabilization For the Purpose of:: To decrease pain, To increase ROM and To improve muscle performance and motor function Cryotherapy (ice pack, ice massage): Yes Thermo therapy (hot pack): Yes For the Purpose of:: To decrease pain Text: Thank you for the opportunity to evaluate your patient. For Medicare and Medicare HMO plans, please review the plan of care and approve it. It will need to be FAXED BACK to us at [phone] for Medicare purposes. For Medicare only, by signing this I certify the plan of care. Please let me know if there are questions or concerns regarding this plan of care. Physician Signature: Date:
--- NOTE | 2023-12-09 13:20 | HP.PTREVAL_ITS ---
Re-Evaluation Intro: Dr. Patricio Harvey MD, It has been my pleasure to treat BAILEE FIELDS over the last 9 visits for R humeral Fx/dislocation 10/25/23. Please see the progress note below for an update on the physical therapy plan of care! Subjective Subjective: I am feeling better overall, but I feel like I still need more Objective Objective/Function: R shoulder pain ranges from 1-3/10 R shoulder ROM: flex= 80, abd= 70, ER= 8, IR= WNL R shoulder MMT: flex= 3, abd= 9, ER= 11, IR= 16 #F Pt has made significant progress towards Rx goals. Still lacks functional strength and ROM Plan Plan Plan: Cont with PROM, begin strengthening ex's focusing on rotator cuff and scap stab ex's. Care will be transferred to [facility] DPT Balance/Gait/Functional tests Balance/Special Test Scores Quick DASH Score: 72.7250 Goals Goals Goal 1:: Decrease R shoulder pain x 50% to aid the sleep Goal Time Frame: 6-8 Weeks Goal Progress: Goal Met Goal 2:: Increase R shoulder flex and abd ROM x 50 degrees to aid with overhead activity Goal Time Frame: 6-8 Weeks Goal Progress: Progressing Goal 3:: Increase R shoulder strength x 5-10#F to aid with IADL's Goal Time Frame: 6-8 Weeks Goal Progress: Progressing Goal 4:: I with HEP Goal Time Frame: 6-8 Weeks Goal Progress: Progressing Anticipated Interventions Anticipated Interventions Patient/Client Instruction: Educate patient on: Condition and Plan of Care For the Purpose of:: To improve self management Therapeutic Exercise to Include: Strength training, Endurance training, Flexibilty training, Passive ROM, Active ROM and Scapular Strength/Stabilization For the Purpose of:: To decrease pain, To increase ROM and To improve muscle performance and motor function Cryotherapy (ice pack, ice massage): Yes Thermo therapy (hot pack): Yes For the Purpose of:: To decrease pain Re-Evaluation Ending Re-evaluation ending: Please do not hesitate to contact me at [phone] by phone or if you have questions or concerns regarding this new plan of care! Sincerely, Samir Hernandez, PT, ATC
--- NOTE | 2024-04-26 16:33 | HP.PT.NRP ---
Patient Information Patient Information: BAILEE FIELDS was seen in my office for initial evaluation on 11/05/23. The following Plan of Care was established for this patient: POC Established Initial Frequency: 2-3x /Week Initial Duration: 4-6 Weeks Anticipated Interventions Patient/Client Instruction: Educate patient on: Condition and Plan of Care For the Purpose of:: To improve self management Therapeutic Exercise to Include: Strength training, Endurance training, Flexibilty training, Passive ROM, Active ROM and Scapular Strength/Stabilization For the Purpose of:: To decrease pain, To increase ROM and To improve muscle performance and motor function Cryotherapy (ice pack, ice massage): Yes Thermo therapy (hot pack): Yes For the Purpose of:: To decrease pain Last Seen Last Seen: This patient was last seen in our office . Pertinent comments regarding their Physical therapy will appear below: Pt was treated for 19 visits for R shoulder pain through the date of 03/15/24. Pt has not returned through todays date, and is discontinued at this time. At this point I will be discontinuing this patient from physical therapy. I would be happy to see this patient again in the future if found appropriate by the physician. Thank you! Samir Hernandez, PT, ATC Balance/Gait/Functional tests Balance/Special Test Scores Quick DASH Score: 72.7250
== END 2024-03-01 19:00 | disposition home or self-care (01) ==
LOC: PT 12:30
PROVIDERS: PCP Family Medicine; Referring Provider Orthopaedic Surgery Sports Medicine; Visit Provider Orthopaedic Surgery Sports Medicine
DX: S42.251D Displaced fracture of greater tuberosity of right humerus, subsequent encounter for fracture with routine healing (principal); S43.014D Anterior dislocation of right humerus, subsequent encounter; M25.311 Other instability, right shoulder
CPT/HCPCS: 97110; 97140; 97161; 97530

== ENCOUNTER → 2024-05-27 | Outpatient (CLI) | payer MEDICARE, OTHER, SELFPAY ==
[2024-05-27 15:07] LABS: Hemoglobin A1c 7.3 % (3.8-5.6)
[2024-05-27 15:43] LABS: ALB/GLOB Ratio 1.1 RATIO (0.9-2.4); AST(SGOT) 15 U/L (15-37); Alanine Aminotransfer ALT/SGPT 17 U/L (13-56); Albumin, Serum 3.6 g/dL (3.2-5.0); Alkaline Phosphatase 51 U/L (45-117); Anion Gap 6 (5-15); BUN 25 mg/dL (7-18); BUN/Creat Ratio 34.2 RATIO (10-20); Calcium,Total 9.6 mg/dL (8.5-10.1); Chloride 110 mmol/L (98-107); Creatinine, Serum 0.73 mg/dL (0.55-1.02); EST Glomerular Filtration Rate 82 mL/min (>60); Est Glom Filt Rate - Afr Amer 99 mL/min (>60); Globulin 3.2 g/dL (2.2-4.2); Glucose 134 mg/dL (74-106); Potassium 4.1 mmol/L (3.5-5.1); Protein, Total 6.8 g/dL (6.4-8.2); Sodium Level 140 mmol/L (136-145)
== END | disposition home or self-care (01) ==
LOC: MTLAB 10:59
PROVIDERS: PCP Family Medicine; Referring Provider Family Medicine; Visit Provider Family Medicine
DX: E11.65 Type 2 diabetes mellitus with hyperglycemia (principal)
CPT/HCPCS: 36415; 80053; 83036

== ENCOUNTER → 2024-10-14 | Outpatient (CLI) | payer MEDICARE, OTHER, SELFPAY ==
[2024-10-14 15:16] LABS: Absolute Lymphocyte Count 1.32 X10^3/uL (0.83-4.51); Absolute Neutrophil Count 2.7 X10^3/uL (2.0-7.7); Basophil# 0.04 X10^3/uL; Basophil% 0.8 % (0-1); Eosinophil# 0.19 X10^3/uL; Eosinophils% 3.9 % (0-5); Hematocrit 36.7 % (37-47); Lymphocyte # 1.32 X10^3/ul (0.83-4.51); Lymphocyte % 27.3 % (19-41); Mean Corp Hgb Conc 32.7 g/dL (32-36); Mean Corpuscular Hgb 28.2 pg (27.0-32.0); Mean Corpuscular Volume 86.4 fL (81-99); Mean Platelet Vol. 9.9 fl (6.2-12.0); Monocyte# 0.58 X10^3/uL; NRBC Flagged by Analyzer 0 % (0-5); Neutrophil % 55.8 % (47-70); Platelet Count 259 K/mm3 (150-450); RBC Distribution Width CV 13.9 % (11.6-14.6); RBC Distribution Width SD 43.6 fl (35.1-43.9); Red Blood Count 4.25 M/mm3 (4.2-5.4); White Blood Count 4.8 K/mm3 (4.4-11.0)
[2024-10-14 15:30] LABS: Microalbumin,Random Urine < 12.0 mg/L (NO RANGE EST.); Microalbumin:Creatinine Ratio UNABLE TO CALCULATE mg/g CRE
[2024-10-14 15:33] LABS: ALB/GLOB Ratio 1.7 RATIO (0.9-2.4); AST(SGOT) 20 U/L (<=31); Alanine Aminotransfer ALT/SGPT 16 U/L (<=34); Alkaline Phosphatase 46 U/L (35-104); Anion Gap 11 (5-15); BUN 20 mg/dL (4-19); BUN/Creat Ratio 28.7 RATIO (10-20); Calcium,Total 9.6 mg/dL (7.6-11.0); Carbon Dioxide 22.6 mmol/L (21.0-32.0); Chloride 106 mmol/L (98-108); EST Glomerular Filtration Rate 88 (>60); Globulin 2.4 g/dL (2.2-4.2); Glucose 135 mg/dL (70-99); Potassium 4.2 mmol/L (3.3-5.1); Protein, Total 6.4 g/dL (5.9-8.4); Sodium Level 140 mmol/L (133-145); Total Bilirubin 0.33 mg/dL (0.00-1.30)
[2024-10-14 19:57] LABS: Hemoglobin A1c 7.8 % (<=5.6)
== END | disposition home or self-care (01) ==
LOC: MFPLAB 11:42
PROVIDERS: PCP Family Medicine; Referring Provider Family Medicine; Visit Provider Family Medicine
DX: R10.9 Unspecified abdominal pain (principal); E11.65 Type 2 diabetes mellitus with hyperglycemia
CPT/HCPCS: 36415; 80053; 82043; 82570; 83036; 85025

== ENCOUNTER → 2024-11-22 | Outpatient (CLI) | payer MEDICARE, OTHER, SELFPAY ==
--- NOTE | 2024-11-22 09:33 | US_ITS ---
PROCEDURE: ABD LIMITED W/ ELASTOGRAPHY REASON FOR EXAM: FATTY (CHANGE OF) LIVER, NOT ELSEWHERE CLASSIFIED COMPARISON: Comparison is made with prior study dated July 17, 2021. TECHNIQUE: Right upper quadrant abdominal ultrasound. [employer] ElastQ Imaging shear wave elastography for non-invasive assessment of liver tissue stiffness. [employer] EPIQ Elite. FINDINGS: LIVER: Size: Upper limits of normal. Length: 17.7 cm Echotexture: Diffusely echogenic suggesting fatty infiltration Contour: Normal Lesions: None identified Elastography: EQI Med: 10.2 kPa EQI Med Quentin: 1.8 m/s IQR/Med: 19 %* GALLBLADDER: Normal COMMON BILE DUCT: Normal it measures 5.3 mm. PANCREAS: 8 mm x 7 mm x 4 mm cyst in the head of the pancreas. This is unchanged. Visualized portions of the right kidney are unremarkable. No right upper quadrant ascites. Liver: Diffusely echogenic suggesting fatty infiltration. US/ABD Limited w/ Elastography IMPRESSION: MODERATE TO SEVERE HEPATIC FIBROSIS Fatty infiltration of the liver. Reference Values: SRU <1.37 m/s (5.7kPa): No to mild fibrosis 1.37 m/s - 2.2 m/s: Moderate to severe fibrosis >2.2 m/s (15kPa): Significant fibrosis / cirrhosis METAVIR Score F2 or higher: 1.34 m/s (5.7kPa) F3 or higher: 1.55 m/s (7.3kPa) F4: 1.80 m/s (10kPa) * If the IQR/Med is >30%, the variance in the measurements is a large and the a ccuracy of the measurement may be in question. Reading Location: [place] [id number]
== END | disposition home or self-care (01) ==
PROVIDERS: PCP Family Medicine; Referring Provider Family Medicine; Visit Provider Family Medicine
DX: K76.0 Fatty (change of) liver, not elsewhere classified (principal); K86.2 Cyst of pancreas
CPT/HCPCS: 76705; 76981

== ENCOUNTER → 2024-11-26 | Outpatient (CLI) | payer MEDICARE, OTHER, SELFPAY ==
[2024-11-26 11:20] LABS: Hepatitis B Surface Antibody Nonreactive; Hepatitis B Surface Antigen Nonreactive (Nonreactive); Hepatitis C Antibody Nonreactive (Nonreactive)
[2024-11-27 05:08] LABS: Hepatitis A AB, Total Negative (Negative); Hepatitis B Core Ab Total Negative (Negative)
== END | disposition home or self-care (01) ==
LOC: LAB 08:48
PROVIDERS: PCP Family Medicine; Referring Provider Nurse Practitioner Acute Care; Visit Provider Nurse Practitioner Acute Care
DX: K76.0 Fatty (change of) liver, not elsewhere classified (principal)
CPT/HCPCS: 36415; 86704; 86706; 86708; 86803; 87340

== ENCOUNTER → 2024-12-04 | Outpatient (CLI) | payer MEDICARE, OTHER, SELFPAY ==
[2024-12-04 11:12] LABS: Erythrocyte Sedimentation Rate 19 mm/hr (0-30)
[2024-12-04 11:15] LABS: Absolute Neutrophil Count 12.4 X10^3/uL (2.0-7.7); Basophil# 0.04 X10^3/uL; Basophil% 0.3 % (0-1); Eosinophil# 0.01 X10^3/uL; Eosinophils% 0.1 % (0-5); Hematocrit 37.1 % (37-47); Hemoglobin 12.5 g/dL (12.0-15.0); Lymphocyte % 7.6 % (19-41); Mean Corp Hgb Conc 33.7 g/dL (32-36); Mean Corpuscular Hgb 28.6 pg (27.0-32.0); Mean Corpuscular Volume 84.9 fL (81-99); Mean Platelet Vol. 9.7 fl (6.2-12.0); Monocyte# 0.82 X10^3/uL; Monocyte% 5.7 % (0-10); NRBC Flagged by Analyzer 0 % (0-5); Neutrophil # 12.44 X10^3/uL (2.7-7.7); Neutrophil % 85.8 % (47-70); Platelet Count 212 K/mm3 (150-450); RBC Distribution Width CV 14.7 % (11.6-14.6); RBC Distribution Width SD 45.3 fl (35.1-43.9); Red Blood Count 4.37 M/mm3 (4.2-5.4); White Blood Count 14.5 K/mm3 (4.4-11.0)
[2024-12-04 12:20] LABS: ALB/GLOB Ratio 1.8 RATIO (0.9-2.4); AST(SGOT) 46 U/L (<=31); Alanine Aminotransfer ALT/SGPT 30 U/L (<=34); Albumin, Serum 4.2 g/dL (3.4-4.8); Alkaline Phosphatase 67 U/L (35-104); Anion Gap 13 (5-15); BUN 20 mg/dL (4-19); BUN/Creat Ratio 24.6 RATIO (10-20); Calcium,Total 9.5 mg/dL (7.6-11.0); Carbon Dioxide 23.9 mmol/L (21.0-32.0); Chloride 102 mmol/L (98-108); Creatinine, Serum 0.79 mg/dL (0.70-1.20); EST Glomerular Filtration Rate 76 (>60); Globulin 2.3 g/dL (2.2-4.2); Glucose 137 mg/dL (70-99); Potassium 4.3 mmol/L (3.3-5.1); Protein, Total 6.5 g/dL (5.9-8.4); Sodium Level 139 mmol/L (133-145)
== END | disposition home or self-care (01) ==
LOC: LABSPEC 10:57
PROVIDERS: PCP Family Medicine; Referring Provider Nurse Practitioner Family; Visit Provider Nurse Practitioner Family
DX: L03.113 Cellulitis of right upper limb (principal)
CPT/HCPCS: 80053; 85025; 85652; 86140

== ENCOUNTER → 2024-12-05 | Outpatient (CLI) | payer MEDICARE, OTHER, SELFPAY ==
[2024-12-05 09:17] LABS: Absolute Lymphocyte Count 0.97 X10^3/uL (0.83-4.51); Absolute Neutrophil Count 7.6 X10^3/uL (2.0-7.7); Basophil# 0.03 X10^3/uL; Basophil% 0.3 % (0-1); Eosinophil# 0.02 X10^3/uL; Eosinophils% 0.2 % (0-5); Hematocrit 35.2 % (37-47); Hemoglobin 11.7 g/dL (12.0-15.0); Lymphocyte # 0.97 X10^3/ul (0.83-4.51); Lymphocyte % 10.5 % (19-41); Mean Corp Hgb Conc 33.2 g/dL (32-36); Mean Corpuscular Hgb 28.1 pg (27.0-32.0); Mean Corpuscular Volume 84.6 fL (81-99); Mean Platelet Vol. 9.4 fl (6.2-12.0); Monocyte# 0.54 X10^3/uL; Monocyte% 5.9 % (0-10); NRBC Flagged by Analyzer 0 % (0-5); Neutrophil # 7.62 X10^3/uL (2.7-7.7); Neutrophil % 82.6 % (47-70); Platelet Count 176 K/mm3 (150-450); RBC Distribution Width CV 14.7 % (11.6-14.6); Red Blood Count 4.16 M/mm3 (4.2-5.4); White Blood Count 9.2 K/mm3 (4.4-11.0)
[2024-12-05 09:54] LABS: ALB/GLOB Ratio 1.7 RATIO (0.9-2.4); AST(SGOT) 29 U/L (<=31); Alanine Aminotransfer ALT/SGPT 24 U/L (<=34); Albumin, Serum 3.8 g/dL (3.4-4.8); Alkaline Phosphatase 61 U/L (35-104); Anion Gap 10 (5-15); BUN 15 mg/dL (4-19); BUN/Creat Ratio 19.2 RATIO (10-20); Calcium,Total 9.2 mg/dL (7.6-11.0); Carbon Dioxide 22.6 mmol/L (21.0-32.0); Chloride 101 mmol/L (98-108); Creatinine, Serum 0.78 mg/dL (0.70-1.20); EST Glomerular Filtration Rate 77 (>60); Globulin 2.2 g/dL (2.2-4.2); Glucose 107 mg/dL (70-99); Potassium 4.2 mmol/L (3.3-5.1); Sodium Level 134 mmol/L (133-145); Total Bilirubin 0.51 mg/dL (0.00-1.30)
== END | disposition home or self-care (01) ==
LOC: LABSPEC 09:09
PROVIDERS: PCP Family Medicine; Visit Provider Nurse Practitioner Family
DX: L03.113 Cellulitis of right upper limb (principal)
CPT/HCPCS: 80053; 85025; 86140

== ENCOUNTER → 2024-12-06 | Outpatient (CLI) | payer MEDICARE, OTHER, SELFPAY ==
[2024-12-06 14:49] LABS: Absolute Lymphocyte Count 0.69 X10^3/uL (0.83-4.51); Absolute Neutrophil Count 3.7 X10^3/uL (2.0-7.7); Basophil# 0.02 X10^3/uL; Basophil% 0.4 % (0-1); Eosinophil# 0.14 X10^3/uL; Eosinophils% 2.7 % (0-5); Hematocrit 36.2 % (37-47); Hemoglobin 12.1 g/dL (12.0-15.0); Lymphocyte # 0.69 X10^3/ul (0.83-4.51); Lymphocyte % 13.3 % (19-41); Mean Corp Hgb Conc 33.4 g/dL (32-36); Mean Corpuscular Volume 83.8 fL (81-99); Monocyte# 0.57 X10^3/uL; NRBC Flagged by Analyzer 0 % (0-5); Neutrophil # 3.74 X10^3/uL (2.7-7.7); Neutrophil % 72.4 % (47-70); Platelet Count 199 K/mm3 (150-450); RBC Distribution Width CV 14.6 % (11.6-14.6); RBC Distribution Width SD 44.9 fl (35.1-43.9); Red Blood Count 4.32 M/mm3 (4.2-5.4); White Blood Count 5.2 K/mm3 (4.4-11.0)
[2024-12-06 15:06] LABS: ALB/GLOB Ratio 1.6 RATIO (0.9-2.4); AST(SGOT) 31 U/L (<=31); Alanine Aminotransfer ALT/SGPT 29 U/L (<=34); Albumin, Serum 3.8 g/dL (3.4-4.8); Alkaline Phosphatase 66 U/L (35-104); Anion Gap 11 (5-15); BUN 15 mg/dL (4-19); BUN/Creat Ratio 21.8 RATIO (10-20); Calcium,Total 9.3 mg/dL (7.6-11.0); Carbon Dioxide 21.9 mmol/L (21.0-32.0); Chloride 104 mmol/L (98-108); Color, Urine Yellow (Yellow); Creatinine, Serum 0.68 mg/dL (0.70-1.20); EST Glomerular Filtration Rate 89 (>60); Globulin 2.4 g/dL (2.2-4.2); Glucose 178 mg/dL (70-99); Glucose, Dipstick Normal (Normal); Ketone-Dipstick Negative (Negative); Leukocyte Esterase-Dipstick 100 /ul (Negative); Nitrite-Dipstick Negative (Negative); Occult Blood-Urine 25 /ul (Negative); Protein, Total 6.2 g/dL (5.9-8.4); Protein-Dipstick 30 mg/dl (Negative); Sodium Level 137 mmol/L (133-145); Total Bilirubin 0.36 mg/dL (0.00-1.30); Urine Bilirubin Dipstick Negative (Negative); Urine Clarity Sl. Cloudy (Clear); Urine Urobilinogen 1 mg/dl (Normal)
[2024-12-08 09:08] LABS: ANTINUCLEAR ANTIBODIES DIRECT Negative (Negative)
== END | disposition home or self-care (01) ==
LOC: LABSPEC 11:59
PROVIDERS: PCP Family Medicine; Referring Provider Nurse Practitioner Family; Visit Provider Nurse Practitioner Family
DX: L03.113 Cellulitis of right upper limb (principal)
CPT/HCPCS: 80053; 81002; 85025; 86038; 86140; 86225; 86235

== ENCOUNTER → 2024-12-13 | Outpatient (CLI) | payer MEDICARE, OTHER, SELFPAY ==
[2024-12-13 18:44] LABS: Absolute Neutrophil Count 3.6 X10^3/uL (2.0-7.7); Basophil# 0.03 X10^3/uL; Basophil% 0.5 % (0-1); Eosinophils% 1.8 % (0-5); Hematocrit 38.4 % (37-47); Hemoglobin 12.3 g/dL (12.0-15.0); Lymphocyte % 23.6 % (19-41); Mean Corpuscular Hgb 27.5 pg (27.0-32.0); Mean Corpuscular Volume 85.7 fL (81-99); Mean Platelet Vol. 9.1 fl (6.2-12.0); Monocyte# 0.45 X10^3/uL; Monocyte% 8.2 % (0-10); NRBC Flagged by Analyzer 0 % (0-5); Neutrophil # 3.56 X10^3/uL (2.7-7.7); Neutrophil % 64.8 % (47-70); Platelet Count 355 K/mm3 (150-450); RBC Distribution Width SD 43.7 fl (35.1-43.9); Red Blood Count 4.48 M/mm3 (4.2-5.4); White Blood Count 5.5 K/mm3 (4.4-11.0)
[2024-12-13 20:25] LABS: ALB/GLOB Ratio 1.8 RATIO (0.9-2.4); AST(SGOT) 22 U/L (<=31); Alanine Aminotransfer ALT/SGPT 21 U/L (<=34); Albumin, Serum 4.2 g/dL (3.4-4.8); Alkaline Phosphatase 65 U/L (35-104); Anion Gap 13 (5-15); BUN 19 mg/dL (4-19); BUN/Creat Ratio 26.1 RATIO (10-20); CRP 5.67 mg/L (0.0-3.0); Carbon Dioxide 19.9 mmol/L (21.0-32.0); Chloride 106 mmol/L (98-108); Creatinine, Serum 0.72 mg/dL (0.70-1.20); EST Glomerular Filtration Rate 86 (>60); Globulin 2.4 g/dL (2.2-4.2); Glucose 169 mg/dL (70-99); Potassium 4.5 mmol/L (3.3-5.1); Protein, Total 6.6 g/dL (5.9-8.4); Sodium Level 139 mmol/L (133-145); Total Bilirubin 0.29 mg/dL (0.00-1.30)
== END | disposition home or self-care (01) ==
LOC: LABSPEC 17:10
PROVIDERS: PCP Family Medicine; Referring Provider Nurse Practitioner Family; Visit Provider Nurse Practitioner Family
DX: L03.113 Cellulitis of right upper limb (principal)
CPT/HCPCS: 80053; 85025; 86140

== ENCOUNTER → 2024-12-21 | Outpatient (CLI) | payer MEDICARE, OTHER, SELFPAY ==
[2024-12-21 13:59] LABS: AST(SGOT) 21 U/L (<=31); Alanine Aminotransfer ALT/SGPT 14 U/L (<=34); Albumin, Serum 4.3 g/dL (3.4-4.8); Alkaline Phosphatase 63 U/L (35-104); Anion Gap 10 (5-15); BUN 17 mg/dL (4-19); BUN/Creat Ratio 22.9 RATIO (10-20); Carbon Dioxide 23.8 mmol/L (21.0-32.0); Chloride 107 mmol/L (98-108); Creatinine, Serum 0.76 mg/dL (0.70-1.20); EST Glomerular Filtration Rate 80 (>60); Globulin 2.2 g/dL (2.2-4.2); Glucose 126 mg/dL (70-99); Potassium 4.6 mmol/L (3.3-5.1); Protein, Total 6.4 g/dL (5.9-8.4); Sodium Level 141 mmol/L (133-145); Total Bilirubin 0.38 mg/dL (0.00-1.30)
[2024-12-21 14:01] LABS: CRP < 3.00 mg/L (0.0-3.0)
[2024-12-21 14:12] LABS: Absolute Lymphocyte Count 1.18 X10^3/uL (0.83-4.51); Absolute Neutrophil Count 2.3 X10^3/uL (2.0-7.7); Basophil# 0.05 X10^3/uL; Basophil% 1.2 % (0-1); Eosinophil# 0.11 X10^3/uL; Eosinophils% 2.7 % (0-5); Hematocrit 37.3 % (37-47); Hemoglobin 12.2 g/dL (12.0-15.0); Lymphocyte # 1.18 X10^3/ul (0.83-4.51); Lymphocyte % 29.1 % (19-41); Mean Corp Hgb Conc 32.7 g/dL (32-36); Mean Corpuscular Hgb 27.8 pg (27.0-32.0); Mean Platelet Vol. 10.2 fl (6.2-12.0); Monocyte# 0.44 X10^3/uL; Monocyte% 10.8 % (0-10); NRBC Flagged by Analyzer 0 % (0-5); Neutrophil # 2.27 X10^3/uL (2.7-7.7); Platelet Count 244 K/mm3 (150-450); RBC Distribution Width CV 14.3 % (11.6-14.6); RBC Distribution Width SD 44.1 fl (35.1-43.9); Red Blood Count 4.39 M/mm3 (4.2-5.4); White Blood Count 4.1 K/mm3 (4.4-11.0)
== END | disposition home or self-care (01) ==
LOC: LABSPEC 13:11
PROVIDERS: PCP Family Medicine; Referring Provider Nurse Practitioner Family; Visit Provider Nurse Practitioner Family
DX: L03.113 Cellulitis of right upper limb (principal)
CPT/HCPCS: 80053; 85025; 86140

== ENCOUNTER 2025-01-10 11:31 | Outpatient (CLI) | payer MEDICARE, OTHER, SELFPAY ==
[2025-01-12 16:09] LABS: Cancer Antigen 125 5.7 U/mL (0.0-38.1)
== END 2025-01-10 23:59 | disposition home or self-care (01) ==
LOC: MTLAB 11:33
PROVIDERS: PCP Family Medicine; Referring Provider Nurse Practitioner Family; Visit Provider Nurse Practitioner Family
DX: C50.911 Malignant neoplasm of unspecified site of right female breast (principal); C79.51 Secondary malignant neoplasm of bone; C50.912 Malignant neoplasm of unspecified site of left female breast; R41.89 Other symptoms and signs involving cognitive functions and awareness; R97.1 Elevated cancer antigen 125 [CA 125]
CPT/HCPCS: 36415; 86300; 86304

== ENCOUNTER → 2025-03-30 | Outpatient (CLI) | payer MEDICARE, OTHER, SELFPAY ==
[2025-03-30 13:16] LABS: Hematocrit 32.3 % (37-47); Hemoglobin 10.5 g/dL (12.0-15.0); Immature Granulocytes Count 0.000 X10^3/uL (0.0-0.0); Mean Corp Hgb Conc 32.5 g/dL (32-36); Mean Corpuscular Volume 87.1 fL (81-99); Mean Platelet Vol. 9.2 fl (6.2-12.0); NRBC Flagged by Analyzer 0 % (0-5); POSITIVE DIFFERENTIAL YES; Platelet Count 265 K/mm3 (150-450); RBC Distribution Width CV 16.1 % (11.6-14.6); RBC Distribution Width SD 49.1 fl (35.1-43.9); Red Blood Count 3.71 M/mm3 (4.2-5.4); White Blood Count 2.6 K/mm3 (4.4-11.0)
[2025-03-30 13:17] LABS: Differential Indicated SCAN CRITERIA MET
[2025-03-30 14:00] LABS: Differential Comment SCANNED
[2025-03-30 14:03] LABS: CRP < 3.00 mg/L (0.0-3.0)
== END | disposition home or self-care (01) ==
LOC: LABSPEC 12:24
PROVIDERS: PCP Family Medicine; Referring Provider Nurse Practitioner Family; Visit Provider Nurse Practitioner Family
DX: C50.811 Malignant neoplasm of overlapping sites of right female breast (principal); C79.51 Secondary malignant neoplasm of bone; N39.0 Urinary tract infection, site not specified; Z17.0 Estrogen receptor positive status [ER+]
CPT/HCPCS: 85025; 86140

== ENCOUNTER → 2025-04-01 | Outpatient (CLI) | payer MEDICARE, OTHER, SELFPAY ==
[2025-04-01 11:11] LABS: Hematocrit 33.4 % (37-47); Hemoglobin 10.9 g/dL (12.0-15.0); Immature Granulocytes Count 0.010 X10^3/uL (0.0-0.0); Mean Corp Hgb Conc 32.6 g/dL (32-36); Mean Corpuscular Volume 87.9 fL (81-99); Mean Platelet Vol. 9.1 fl (6.2-12.0); NRBC Flagged by Analyzer 0 % (0-5); Platelet Count 265 K/mm3 (150-450); RBC Distribution Width CV 16.6 % (11.6-14.6); RBC Distribution Width SD 50.9 fl (35.1-43.9); Red Blood Count 3.80 M/mm3 (4.2-5.4); White Blood Count 3.2 K/mm3 (4.4-11.0)
== END | disposition home or self-care (01) ==
LOC: LAB 11:00 → LABSPEC 11:01
PROVIDERS: PCP Family Medicine; Referring Provider Physician Assistant; Visit Provider Physician Assistant
DX: C50.811 Malignant neoplasm of overlapping sites of right female breast (principal); C79.51 Secondary malignant neoplasm of bone; Z17.0 Estrogen receptor positive status [ER+]
CPT/HCPCS: 85025

== ENCOUNTER → 2025-07-06 | Outpatient (CLI) | payer MEDICARE, OTHER, SELFPAY ==
[2025-07-06 15:09] LABS: Hematocrit 29.9 % (37-47); Hemoglobin 10.1 g/dL (12.0-15.0); Immature Granulocytes Count 0.000 X10^3/uL (0.0-0.0); Mean Corp Hgb Conc 33.8 g/dL (32-36); Mean Corpuscular Volume 93.1 fL (81-99); Mean Platelet Vol. 9.5 fl (6.2-12.0); NRBC Flagged by Analyzer 0 % (0-5); Platelet Count 234 K/mm3 (150-450); RBC Distribution Width CV 17.1 % (11.6-14.6); RBC Distribution Width SD 58.7 fl (35.1-43.9); Red Blood Count 3.21 M/mm3 (4.2-5.4); White Blood Count 2.6 K/mm3 (4.4-11.0)
[2025-07-06 15:47] LABS: AST(SGOT) 17 U/L (<=31); Alanine Aminotransfer ALT/SGPT 15 U/L (<=34); Albumin, Serum 4.0 g/dL (3.4-4.8); Alkaline Phosphatase 47 U/L (35-104); Anion Gap 11 (5-15); BUN 19 mg/dL (4-19); BUN/Creat Ratio 24.0 RATIO (10-20); Calcium,Total 9.2 mg/dL (7.6-11.0); Carbon Dioxide 23.0 mmol/L (21.0-32.0); Chloride 108 mmol/L (98-108); Globulin 2.4 g/dL (2.2-4.2); Glucose 115 mg/dL (70-99); Potassium 4.2 mmol/L (3.3-5.1)
[2025-07-08 08:09] LABS: Prealbumin 27 mg/dL (9-32)
== END | disposition home or self-care (01) ==
LOC: MTLAB 11:28
PROVIDERS: PCP Family Medicine; Referring Provider Family Medicine; Visit Provider Family Medicine
DX: I89.0 Lymphedema, not elsewhere classified (principal)
CPT/HCPCS: 36415; 80053; 84134; 84443; 85025